=== PATIENT | female | born 1955 | race Caucasian/White ===

== ENCOUNTER 2019-10-27 10:52 | Emergency (ER) | payer MEDICAID, MEDICARE ==
--- NOTE | 2019-10-27 13:02 | ED ---
Headache - HPI Summary HPI Summary: Pt. is a 64 y.o female who presents to the ER for headache x 1 week. Pt. notes hx of migraines. Pt. states she just moved back to [place] from [place] and does not have a PCP. Pt. states she is currently staying at the homeless snf. Pt. states she typically takes fiorecet for migraines but states she ran out. Pt. states headache is different in location than her typical h/a. Pt. denies numbness, tingling or weakness. Denies recent illness, fever, cough, cp, sob. Sxs are moderate in severity. No current modifying factors. - History Of Current Complaint Chief Complaint: EDHeadache Stated Complaint: MIGRAINES PER PT Time Seen by Provider: 10/27/19 12:34 Hx Obtained From: Patient - Allergies/Home Medications Allergies/Adverse Reactions: Allergies Allergy/AdvReac Type Severity Reaction Status Date / Time amoxicillin Allergy Unknown Verified 10/27/19 10:58 Reaction Details fentanyl Allergy Unknown Verified 10/27/19 10:58 Reaction Details ketorolac [From Toradol] Allergy Unknown Verified 10/27/19 10:58 Reaction Details sulfamethoxazole Allergy Unknown Verified 10/27/19 10:58 [From Bactrim] Reaction Details trimethoprim [From Bactrim] Allergy Unknown Verified 10/27/19 10:58 Reaction Details Home Medications: Home Medications Ondansetron TAB* [Zofran 4 MG Tab*] 8 mg PO Q8H PRN 10/27/19 [History Confirmed 10/27/19] Pantoprazole TAB * [Protonix TAB*] 40 mg PO DAILY 10/27/19 [History Confirmed ] Simethicone [Gas Relief] 125 mg PO QID 10/27/19 [History Confirmed 10/27/19] Sucralfate TAB* [Carafate*] 1 gm PO QID 10/27/19 [History Confirmed 10/27/19] clonazePAM TAB(*) [KlonoPIN TAB(*)] 1 mg PO TID PRN 10/27/19 [History Confirmed 10/27/19] oxyCODONE TAB* [Roxycodone TAB 5 mg*] 10 mg PO Q6H PRN 10/27/19 [History Confirmed 10/27/19] PMH/Surg Hx/FS Hx/Imm Hx Previously Healthy: Yes Infectious Disease History: Yes Infectious Disease History: Denies: Traveled Outside the US in Last 30 Days - Family History Known Family History: Positive: Non-Contributory - Social History Occupation: Retired Lives: Correction - homeless snf Review of Systems Constitutional: Negative Negative: Fever, Chills Positive: Photophobia Positive: Ear Ache Cardiovascular: Negative Negative: Palpitations, Chest Pain Respiratory: Negative Negative: Shortness Of Breath, Cough Gastrointestinal: Negative Negative: Abdominal Pain, Vomiting, Diarrhea Genitourinary: Negative Negative: dysuria Musculoskeletal: Negative Skin: Negative Positive: Headache. Negative: Weakness, Paresthesia, Numbness, Syncope, Slurred Speech All Other Systems Reviewed And Are Negative: Yes Physical Exam Triage Information Reviewed: Yes Vital Signs On Initial Exam: Initial Vitals Temp Pulse Resp BP Pulse Ox 97.6 F 79 14 191/90 96 10/27/19 10:53 10/27/19 10:53 10/27/19 10:53 10/27/19 10:53 10/27/19 10:53 Vital Signs Reviewed: Yes Appearance: Positive: Well-Appearing - Pt. sitting up in bed in dark room. Answers questions appropriately. Skin: Positive: Warm, Dry Head/Face: Positive: Normal Head/Face Inspection, Other - Tenderness to top of scalp. No rash or hematoma noted.. Negative: Temporal Artery Tenderness Eyes: Positive: Normal, EOMI, RED, Conjunctiva Clear ENT: Positive: Pharynx normal, TMs normal Neck: Positive: Supple, Nontender. Negative: Nuchal Rigidity Respiratory/Lung Sounds: Positive: Clear to Auscultation, Breath Sounds Present. Negative: Rales, Rhonchi, Wheezes Cardiovascular: Positive: Normal, RRR Abdomen Description: Positive: Nontender, Soft Musculoskeletal: Positive: Normal, Strength/ROM Intact Neurological: Positive: Normal, Sensory/Motor Intact, Alert, Oriented to Person Place, Time, CN Intact II-III, Normal Gait, Finger to Nose - no dysmetria, Speech Normal. Negative: Pronator Drift Present Psychiatric: Positive: Anxious Procedures - Sedation Patient Received Moderate/Deep Sedation with Procedure: No Diagnostics - Vital Signs Vital Signs Temp Pulse Resp BP Pulse Ox 10/27/19 10:53 97.6 F 79 14 191/90 96 - Laboratory Result Diagrams: 10/27/19 14:34 10/27/19 14:34 Lab Statement: Any lab studies that have been ordered have been reviewed, and results considered in the medical decision making process. Headache Course/Dx - Course Course Of Treatment: Pt. with ongoing h/a x 1 week. Pt. notes h/a is different and more intense then her typical h/a. No neuro deficits. Afebrile. BP intially elevated which improved. Given change in h/a and age CT brain and labs ordered for further evaluation. ECG done at 1319 shows a sinus rhythm of 51bmp, nomral axis, no ST elevation. Lab show anemia, minimally elevated ESR. Normal crp. Brain ct negative for acute findings. Pt. noted fioricet typically works for her h/a and was given one tablet. 1600: On re-exam pt was noted to be walking in the hallway. Pt. states she was feeling better but h/a has returned. Case discussed with Dr. Meza who recommends further medication treatment but does not recommnd any further testing today. Pt. given another dose of fioricet, benadryl and reglan. WIll dc pt. home to . with the [facility] as soon as possible to establish a PCP. WIll return to ER if symptoms change or worsen. - Diagnoses Differential Diagnosis/HQI/PQRI: CVA, Epidural Hematoma, Subdural Hematoma, Meningitis, Migraine, Sinus Headache, Tension Headache Provider Diagnoses: Cephalgia Discharge ED - Sign-Out/Discharge Documenting (check all that apply): Patient Departure - Discharge Plan Condition: Improved Disposition: HOME Patient Education Materials: Migraine Headache (ED) Referrals: [facility] [Outside] Additional Instructions: Call the [facility] tomorrow morning to schedule an appointment as soon as possible They will be able to refill your medications Return to ER if symptoms change or worse - Billing Disposition and Condition Condition: IMPROVED Disposition: Home
[2019-10-27] MEDS ORDERED: Butalb/Acetamin/Caff TAB* 1 TAB PO ONE ×2 (13:33→16:27)
[2019-10-27 14:46] LABS: Hematocrit 29 % (35-47); Hemoglobin 9.6 g/dL (12.0-16.0); Red Blood Count 4.38 10^6 /uL (3.70-4.87); White Blood Count 7.1 10^3/uL (3.5-10.8)
[2019-10-27 14:52] LABS: Activated Partial Thrombo Time 31.3 seconds (26.0-38.0); INR 1.09 (0.82-1.09)
[2019-10-27 15:01] LABS: Albumin 4.6 g/dL (3.2-5.2); Albumin/Globulin Ratio 1.4 (1-3); BUN/Creatinine Ratio 18.4 (8-20); EGFR African American 92.4 (>60); EGFR Non-African American 76.4 (>60); Globulin 3.4 g/dL (2-4); Potassium 4.1 mmol/L (3.5-5.0); Total Bilirubin 0.3 mg/dL (0.2-1.0)
[2019-10-27 15:02] LABS: Troponin I 0.01 ng/mL (<0.03)
[2019-10-27 16:12] LABS: Erythrocyte Sed Rate 32 mm/Hr (0-29)
[2019-10-27 16:26] LABS: ABS Basophils 0.1 10^3/ul (0-0.2); ABS Lymphocytes 2.2 10^3/ul (1.0-4.8); ABS Monocytes 0.4 10^3/ul (0-0.8); ABS Neutrophils 4.4 10^3/ul (1.5-7.7); Eosinophil % 0.7 %; Mean Corpuscular HGB Conc 33 g/dL (31-36); Mean Corpuscular Hemoglobin 22 pg (27-31); Mean Corpuscular Volume 67 fL (80-97); Mean Platelet Volume 6.8 fL (7.4-10.4); Platelet Count 370 10^3/uL (150-450); Red Cell Distribution Width 21 % (10-15)
[2019-10-27] MEDS ORDERED: Metoclopramide TAB* 10 MG PO ONE (16:27)
[2019-10-27] MEDS ORDERED: diPHENhydraMINE PO* 25 MG PO ONE (16:27)
[2019-10-27 17:42] VITALS: BP 104/81
== END 2019-10-27 17:35 | disposition home or self-care (01) ==
LOC: ED 10:52
DX: R51 Headache (principal); Z79.899 Other long term (current) drug therapy; Z88.6 Allergy status to analgesic agent; Z88.1 Allergy status to other antibiotic agents; Z88.5 Allergy status to narcotic agent; Z88.2 Allergy status to sulfonamides
CPT/HCPCS: 36415; 70450; 80053; 84484; 85025; 85060; 85610; 85652; 85730; 93005; 99282; A9270-GY

== ENCOUNTER 2019-11-04 10:55 | Emergency (ER) | payer MEDICARE ==
--- NOTE | 2019-11-04 11:00 | ED ---
Altered Mental Status - HPI Summary HPI Summary: This patient is a 64 year old female presenting to [facility] with a chief complaint of altered mental status. EMS reports the patient has confusion and slurred speech. EMS states the patient has dentures and they might be lose. She complains of dryness in her mouth. She told EMS she took 10 mg of Oxycodone to treat some shoulder pain. She is currently staying at the [facility] a jail. - History Of Current Complaint Stated Complaint: ALTERED MENTAL STATUS PER EMS Hx Obtained From: Patient, EMS Character: Confusion - Allergies/Home Medications Allergies/Adverse Reactions: Allergies Allergy/AdvReac Type Severity Reaction Status Date / Time amoxicillin Allergy Unknown Verified 10/27/19 10:58 Reaction Details fentanyl Allergy Unknown Verified 10/27/19 10:58 Reaction Details ketorolac [From Toradol] Allergy Unknown Verified 10/27/19 10:58 Reaction Details sulfamethoxazole Allergy Unknown Verified 10/27/19 10:58 [From Bactrim] Reaction Details trimethoprim [From Bactrim] Allergy Unknown Verified 10/27/19 10:58 Reaction Details Home Medications: Home Medications Butalb/Acetamin/Caff TAB* [Fioricet TAB*] 1 tab PO Q4H PRN 11/04/19 [History Confirmed 11/04/19] PMH/Surg Hx/FS Hx/Imm Hx - Family History Known Family History: Positive: Non-Contributory - Social History Alcohol Use: None Substance Use Type: Reports: None Smoking Status (MU): Former Smoker Review of Systems Positive: Other - Dry mouth Neurological: Other - Confusion Positive: Slurred Speech All Other Systems Reviewed And Are Negative: Yes Physical Exam - Summary Physical Exam Summary: Constitutional: Well-developed, Well-nourished, Alert. (-) Distressed Skin: Warm, Dry HENT: Normocephalic; Atraumatic. Dry mucous membranes. Eyes: Conjunctiva normal Neck: Musculoskeletal ROM normal neck. (-) JVD, (-) Stridor, (-) Tracheal deviation Cardio: Rhythm regular, rate normal, Heart sounds normal; Intact distal pulses; The pedal pulses are 2+ and symmetric. Radial pulses are 2+ and symmetric. (-) Murmur Pulmonary/Chest wall: Effort normal. (-) Respiratory distress, (-) Wheezes, (-) Rales Abd: Soft. (-) Tenderness, (-) Distension, (-) Guarding, (-) Rebound Musculoskeletal: (-) Edema Lymph: (-) Cervical adenopathy Neuro: Alert, Oriented x3, Strength normal, Cranial nerves II-XII are grossly intact. (-) Dysmetria, (-) Nystagmus, (-) Ataxia by finger to nose testing, (-) Sensory deficit. Following commands, no focal deficits. Slurred speech, possibly secondary to narcotic effect. Psych: Mood and affect Normal Triage Information Reviewed: Yes Vital Signs On Initial Exam: Temp Pulse Resp BP Pulse Ox 98.1 F 66 16 114/65 97 11/04/19 11:01 11/04/19 11:01 11/04/19 11:01 11/04/19 11:01 11/04/19 11:01 Vital Signs Reviewed: Yes Procedures - Sedation Patient Received Moderate/Deep Sedation with Procedure: No Diagnostics - Vital Signs Temp Pulse Resp BP Pulse Ox 98.1 F 66 16 114/65 97 11/04/19 11:01 11/04/19 11:01 11/04/19 11:01 11/04/19 11:01 11/04/19 11:01 - Laboratory Result Diagrams: 11/04/19 11:26 11/04/19 11:26 Lab Statement: Any lab studies that have been ordered have been reviewed, and results considered in the medical decision making process. - Radiology CXR Radiology Interpretation Completed By: Radiologist Summary of Radiographic Findings: 1. No evidence for acute finding. 2. Slightly prominent right hilum. Recommend a CT of the chest with contrast for further evaluation. ED Provider has reviewed this report. - CT Chest CT Interpretation Completed By: Radiologist Summary of CT Findings: 1. No pulmonary mass identified. Prominent vascular markings, with ectatic right pulmonary artery, likely account for the same day radiographic abnormality. 2. In the context of severe biapical presdominant emphysema, annual low doese screening chest CT is recommended. 3. Old fracture through the neck of the right humerus. ED Provider has reviewed this report. Brain CT Interpretation Completed By: Radiologist Summary of CT Findings: No acute intracranial pathology. Chronic small vessel ischemic change. ED Provider has reviewed this report. CT Abd/Pel CT Interpretation Completed By: Radiologist Summary of CT Findings: No acute abdominal pelvic pathologic process evident. ED Provider has reviewed this report. - EKG 1136 Cardiac Rate: Bradycardia - 59 BPM EKG Rhythm: Sinus Rhythm Summary of EKG Findings: No STEMI. Dr. Boothe has reviewed and intepreted this EKG. Altered Mental Statu Course/Dx - Course Course Of Treatment: This patient is a 64 year old female presenting to [facility] with a chief complaint of altered mental status. Imaging was unremarkable for acute changes. Labs reveal Hgb 8.5 L, Hct 27 L, MCV 68 l, MCH 21 L, MPV 7.1 L, Carbon Dioxide 21 L, ALT [address] Tenorio, Hospitalist, accepted the patient for admission. This was discussed with the patient and she was agreeable with this plan. The patient then changed her mind and decided she would like to be discharged. A plan for this was discussed and she was agreeable. - Diagnoses Provider Diagnoses: Lethargy, Narcotic abuse, Homeless Discharge ED - Sign-Out/Discharge Documenting (check all that apply): Patient Departure - Discharge - Discharge Plan Condition: Stable Disposition: HOME Patient Education Materials: Narcotic Use Disorder (ED) Referrals: [facility] [Outside] Additional Instructions: Follow up with [facility]. - Attestation Statements Document Initiated by Scribe: Yes Documenting Scribe: Maximino Kelly Provider For Whom Scribe is Documenting (Include Credential): Jemal Boothe DO Scribe Attestation: Maximino Meléndez, scribed for Jemal Boothe DO on 11/04/19 at 1908. Status of Scribe Document: Ready
[2019-11-04] MEDS ORDERED: NS 0.9% 1000 ML** 1,000 ML IV ONE (11:06)
--- OUTSIDE RECORDS SUMMARY | 2019-11-04 11:10 | XMS REPORT | Continuity of Care Document ---
:1955 External Reference #:[id number] Author Name Camden Rondon MD (transmitted by agent of provider Yesy Cordova) Address [address] [place], [place] [address], [place] [address] Problems Description No Information Available Social History Type Date Description Comments Sex Unknown Allergies, Adverse Reactions, Alerts Description No Information Available Medications Description No Information Available Immunizations Description No Information Available Vital Signs Description No Information Available Results Description No Information Available Procedures Description No Information Available Medical Devices Description No Information Available Encounters Description No Information Available Assessments Description No Information Available Plan of Treatment Future Appointment(s):11/02/2019 9:00 am - Camden Rondon MD at [facility] Internal Medicine - [address] Functional Status Description No Information Available Mental Status Description No Information Available Referrals Description No Information Available
--- OUTSIDE RECORDS SUMMARY | 2019-11-04 11:10 | XMS REPORT | Continuity of Care Document ---
:1955 External Reference #:[id number] Author Name Camden Rondon MD (transmitted by agent of provider Stefania Rebolledo) Address [address] [place] [address] Care Team Providers Name Role Phone Camden Rondon MD - Student in an Care Team Information [employer]ized Health Care Education/Training Program Problems Description No Information Available Social History Type Date Description Comments Sex Unknown ETOH Use Denies alcohol use Tobacco Use Start: Unknown End: Unknown Patient is a former smoker Recreational Drug Use Denies Drug Use Smoking Status Reviewed: 11/02/19 Patient is a former smoker Allergies, Adverse Reactions, Alerts Active Allergies Reaction Severity Comments Date Fentanyl Moderate rash 11/02/2019 Ketorolac Tromethamine rash 11/02/2019 Erythromycin N&V 11/02/2019 Bactrim N&V 11/02/2019 Medications Active Medications SIG Qnty Indications Ordering Date Provider Frcsmqvwql-Uhyznyg-Na take 1 by mouth 30caps Shaniqua Gardner MD 11/02/2019 ffeine every 4 hours as 50-325-40mg needed for Capsules headaches Sucralfate take one tablet 120tabs Jazlynstkenny Rondon, 11/02/2019 1gm Tablets by mouth four MD times a day Oxycodone HCL 1 by mouth every 120tabs Jazlynstkenny Rondon, 11/02/2019 10mg 6 hours as needed MD Tablets Ondansetron take 1 every 8 30tabs Jazlynstkenny Rondon, 11/02/2019 8mg Tablets hours as needed MD Dispers nausea Pantoprazole Sodium 1 by mouth every 30tabs Camden Rondon, 11/02/2019 day MD 40mg Tablets DR Clonazepam 1 tablet by mouth 14tabs F41.9 Shaniqua Gardner MD 11/02/2019 1mg Tablets two times a day History Medications Clonazepam 1 tablet by mouth 90tabs Camden Rondon 11/02/2019 - 1mg three times daily 11/02/2019 Tablets Fiorinal take 1 tablet 90caps R51 Camden Rondon, 11/02/2019 - 50-325-40mg every 4 hour as MD 11/02/2019 Capsules needed Maximum daily dose is 6 tablets Immunizations Description No Information Available Vital Signs Date Vital Result Comment 11/02/2019 8:54am Height 61.50 inches 5'1.50" Weight 120.50 lb Heart Rate 86 /min BP Systolic 132 mmHg BP Diastolic 64 mmHg Body Temperature 96.2 F O2 % BldC Oximetry 95 % BMI (Body Mass Index) 22.4 kg/m2 Results Description No Information Available Procedures Description No Information Available Medical Devices Description No Information Available Encounters Description No Information Available Assessments Date Code Description Provider 11/02/2019 R51 Headache Camden Rondon MD 11/02/2019 K29.60 Other gastritis without bleeding Camden Rondon MD 11/02/2019 M25.532 Pain in left wrist Camden Rondon MD 11/02/2019 M25.511 Pain in right shoulder Camden Rondon MD 11/02/2019 M81.8 Other osteoporosis without current Camden Rondon MD pathological fracture 11/02/2019 Z12.11 Encounter for screening for malignant neoplasm Camden Rondon MD of colon 11/02/2019 F41.9 Anxiety disorder, unspecified Camden Rondon MD Plan of Treatment Future Appointment(s):11/07/2019 9:00 am - Camden Rondon MD at [facility] Internal Medicine - [address]/03/2019 - Camden Rondon, MDR51 HeadacheNew Medication: Fiorinal 50-325-40 mg - take 1 tablet every 4 hour as needed Maximum daily dose is 6 tabletsFollow up:1 week or sooner if needed. Please follow up with Dr. Rondon in 11/07/2019.K29.60 Other gastritis without bleedingNew Labs:Iron &amp ; Iron Binding Capacity, Ordered: 11/02/19Ferritin, Ordered: 11/02/19M25.532 Pain in left tcqdlU67.511 Pain in right mrkquovtG88.8 Other osteoporosis without current pathological fractureNew Labs:Vitamin D Total 25(Oh), Ordered: 11/02/19Pthi, Ordered: 11/02/19Celiac Panel, Ordered: 11/02/19Z12.11 Encounter for screening for malignant neoplasm of colonFollow up:[facility] previous records.F41.9 Anxiety disorder, unspecifiedNew Medication:Clonazepam 1 mg - 1 tablet by mouth two times a day Functional Status Description No Information Available Mental Status Description No Information Available Referrals Description No Information Available
[2019-11-04 11:56] LABS: ABS Basophils 0.1 10^3/ul (0-0.2); ABS Eosinophils 0.2 10^3/ul (0-0.6); ABS Lymphocytes 3.1 10^3/ul (1.0-4.8); ABS Monocytes 0.3 10^3/ul (0-0.8); ABS Neutrophils 2.1 10^3/ul (1.5-7.7); Eosinophil % 3.4 %; Hematocrit 27 % (35-47); Hemoglobin 8.5 g/dL (12.0-16.0); Lymphocyte % 53.8 %; Mean Corpuscular HGB Conc 31 g/dL (31-36); Mean Corpuscular Hemoglobin 21 pg (27-31); Mean Corpuscular Volume 68 fL (80-97); Mean Platelet Volume 7.1 fL (7.4-10.4); Platelet Count 275 10^3/uL (150-450); Red Blood Count 3.98 10^6 /uL (3.70-4.87); Red Cell Distribution Width 21 % (10-15); White Blood Count 5.7 10^3/uL (3.5-10.8)
[2019-11-04 12:00] LABS: Albumin 4.2 g/dL (3.2-5.2); Anion Gap 10 mmol/L (2-11); CO2 Carbon Dioxide 21 mmol/L (22-32); Calcium 9.3 mg/dL (8.6-10.3); Chloride 107 mmol/L (101-111); Potassium 4.3 mmol/L (3.5-5.0); Sodium 138 mmol/L (135-145)
[2019-11-04 12:06] LABS: ALT 6 U/L (7-52); AST 13 U/L (13-39); Albumin/Globulin Ratio 1.6 (1-3); Alkaline Phosphatase 85 U/L (34-104); BUN/Creatinine Ratio 25.7 (8-20); Blood Urea Nitrogen 29 mg/dL (6-24); EGFR African American 58.5 (>60); EGFR Non-African American 48.3 (>60); Globulin 2.6 g/dL (2-4); Glucose 80 mg/dL (70-100); Total Protein 6.8 g/dL (6.4-8.9)
[2019-11-04 12:14] LABS: Alcohol < 10 mg/dL (<10)
[2019-11-04] MEDS ORDERED: Iodixanol* (CONTRAST) 320 MG/ML 100 ML SDV IV ONE (12:22)
[2019-11-04] MEDS ORDERED: Acetaminophen TAB* 325 MG PO ONE (12:22)
[2019-11-04 15:44] LABS: Urine Appearance Clear; Urine Bilirubin Negative (Negative); Urine Blood Negative (Negative); Urine Color Straw; Urine Glucose Negative (Negative); Urine Ketones Negative (Negative); Urine Nitrite Negative (Negative); Urine Protein Negative (Negative); Urine Specific Gravity 1.012 (1.010-1.030); Urine Urobilinogen Negative (Negative)
[2019-11-04 19:34] VITALS: BP 127/77
== END 2019-11-04 19:32 | disposition home or self-care (01) ==
LOC: ED 10:55
DX: R53.83 Other fatigue (principal); R00.1 Bradycardia, unspecified; F11.10 Opioid abuse, uncomplicated; Z59.0 Homelessness; Z88.5 Allergy status to narcotic agent; Z88.0 Allergy status to penicillin; Z88.2 Allergy status to sulfonamides; Z87.891 Personal history of nicotine dependence
CPT/HCPCS: 36415; 70450; 71045; 71260; 74176; 80053; 80320; 81003; 82270; 84484; 85025; 93005; 96360; 96361; 99284; A9270-GY; G0480; Q9967

== ENCOUNTER 2019-11-14 23:02 | Emergency (ER) | payer MEDICARE, MEDICAID ==
[2019-11-14] MEDS ORDERED: Lidocaine 2% VISCOUS* 15 ML UDC PO ONE (23:21)
[2019-11-14] MEDS ORDERED: Al Hydrox/Mg Hydrox/Simet LIQ* 30 ML UDC PO ONE (23:21)
--- NOTE | 2019-11-14 23:28 | ED ---
GI/ HPI - HPI Summary HPI Summary: 64 year old female presents with abdominal pain today. She states the pain started at 3 PM. She's been nauseous. She states he took oxycodone with minimal relief. She denies any vomiting. Has history of gastritis gastroparesis and gallbladder issues. She states she did have a bowel movement yesterday. She denies any urinary symptoms. No chest pain or shortness of breath. She has history of chronic pain. - History of Current Complaint Chief Complaint: EDAbdPain Time Seen by Provider: 11/14/19 23:14 Stated Complaint: GENERAL PAIN PER EMS Pain Intensity: 10 - Allergy/Home Medications Allergies/Adverse Reactions: Allergies Allergy/AdvReac Type Severity Reaction Status Date / Time amoxicillin Allergy Unknown Verified 11/14/19 23:15 Reaction Details erythromycin base Allergy Nausea And Verified 11/14/19 23:15 Vomiting fentanyl Allergy Unknown Verified 11/14/19 23:15 Reaction Details ketorolac [From Toradol] Allergy Unknown Verified 11/14/19 23:15 Reaction Details sulfamethoxazole Allergy Unknown Verified 11/14/19 23:15 [From Bactrim] Reaction Details trimethoprim [From Bactrim] Allergy Unknown Verified 11/14/19 23:15 Reaction Details Home Medications: Home Medications Albuterol Sulfate [Ventolin Hfa] 2 puff INH Q6HR PRN 11/14/19 [History Confirmed 11/14/19] Ondansetron TAB* [Zofran 4 MG Tab*] 8 mg PO Q6HR PRN 11/14/19 [History Confirmed 11/14/19] Oxycodone IR 10 MG(NF) 10 mg PO Q6HR PRN 11/14/19 [History Confirmed 11/14/19] Pantoprazole TAB (NF) [Protonix TAB (NF)] 1 tab PO BID 11/14/19 [History Confirmed 11/14/19] Sucralfate TAB* [Carafate*] 1 tab PO DAILY 11/14/19 [History Confirmed 11/14/19] PMH/Surg Hx/FS Hx/Imm Hx Endocrine/Hematology History: Denies: Hx Anticoagulant Therapy Respiratory History: Denies: Hx Asthma - Surgical History Surgery Procedure, Year, and Place: lt great toe. right wrist pinning. EUA right knee Infectious Disease History: Yes Infectious Disease History: Denies: Traveled Outside the [place] in Last 30 Days - Family History Known Family History: Positive: Non-Contributory - Social History Alcohol Use: None Substance Use Type: Reports: None Smoking Status (MU): Former Smoker Review of Systems Negative: Fever Negative: Chest Pain Negative: Shortness Of Breath Positive: Abdominal Pain, Nausea. Negative: Vomiting, Diarrhea All Other Systems Reviewed And Are Negative: Yes Physical Exam Triage Information Reviewed: Yes Vital Signs On Initial Exam: Initial Vitals Temp Pulse Resp BP Pulse Ox 97.8 F 84 28 121/80 100 11/14/19 23:11 11/14/19 23:11 11/14/19 23:11 11/14/19 23:11 11/14/19 23:11 Vital Signs Reviewed: Yes Appearance: Positive: Well-Appearing Skin: Positive: Warm, Dry Head/Face: Positive: Normal Head/Face Inspection Eyes: Positive: Normal, Conjunctiva Clear ENT: Positive: Pharynx normal Respiratory/Lung Sounds: Positive: Clear to Auscultation, Breath Sounds Present Cardiovascular: Positive: Normal, RRR Abdomen Description: Positive: Soft, Other: - tenderness RUQ and LLQ Bowel Sounds: Positive: Present Musculoskeletal: Positive: Normal Neurological: Positive: Normal Psychiatric: Positive: Normal Procedures - Sedation Patient Received Moderate/Deep Sedation with Procedure: No Diagnostics - Vital Signs Vital Signs Temp Pulse Resp BP Pulse Ox 11/14/19 23:11 97.8 F 84 28 121/80 100 - Laboratory Result Diagrams: 11/14/19 23:36 11/14/19 23:40 Lab Statement: Any lab studies that have been ordered have been reviewed, and results considered in the medical decision making process. - Radiology abd Radiology Interpretation Completed By: ED Physician Summary of Radiographic Findings: stool present - Ultrasound No standard instances Ultrasound Interpretation Completed By: Radiologist Summary of Ultrasound Findings: IMPRESSION: Normal study. - EKG No standard instances Cardiac Rate: NL EKG Rhythm: Sinus Rhythm EKG Comparison: No Significant Change Summary of EKG Findings: sinus rhythm Re-Evaluation - Re-Evaluation First Eval Re-Evaluation Time: 00:55 Comment: offered tyenlol and patient declined states did nothing to treat pain. explained that not finding any infectious cause today and narcotics are not warranted at this time and patient became upset. GIGU Course/Dx - Course Course Of Treatment: 64 year old female presents with abdominal pain today. She states the pain started at 3 PM. She's been nauseous. She states he took oxycodone with minimal relief. She denies any vomiting. Has history of gastritis gastroparesis and gallbladder issues. She states she did have a bowel movement yesterday. She denies any urinary symptoms. No chest pain or shortness of breath. She has history of chronic pain. On exam patient is moaning in pain in position but when talks relax out from position. On exam abdomen is soft. no rigidity or guarding. Has tenderness in left upper quadrant and right upper quadrant. Greatest tenderness left upper quadrant. We'll try GI cocktail. wbc normal. crp normal. lipase and amylase normal. lfts low which is her baseline. gallbladder u/s normal. xrays shows stool throughout. will treat as potential gastritis with maalox. will also prescribe colace as patient takes naroctics daily and constipation is likely contributing to abdominal pain. patient became verbal aggressive here and states needs morphine which is the only thing that works for pain. patient has multiple scripts for pain medication over past months in her record for [facility]. as not finding any acute cause for pain morphine is not justified at this time. [facility] - Diagnoses Differential Diagnoses - Female: Gall Bladder Disease, Gastritis, Peptic Ulcer Disease Provider Diagnoses: Epigastric pain Discharge ED - Sign-Out/Discharge Documenting (check all that apply): Patient Departure - Discharge Plan Condition: Good Disposition: HOME Prescriptions: Al Hydrox/Mg Hydrox/Simet LIQ* [Maalox Plus*] 30 ml PO Q6H PRN #1 udc PRN Reason: Dyspepsia Docusate CAP* [Colace Cap*] 100 mg PO DAILY #14 cap Patient Education Materials: Epigastric Pain (ED) Referrals: [facility] [Outside] Leon Mora MD [Medical Doctor] - Additional Instructions: Take Maalox 30ml every 6 hours for epigastric pain as needed take carafate four times a day take tyenlol for pain every 6 hours [facility] follow up with GI Return to ED if develop any new or worsening symptoms - Billing Disposition and Condition Condition: GOOD Disposition: Home - Attestation Statements Provider Attestation: I was available for consultation for this patient. I did not evaluate the patient, or participate in any medical decision making or disposition decisions unless I am specifically named in the chart as having consulted on the patient. If I have consulted on the patient, please see my own ED note on the patient encounter. Easton Rapp MD
[2019-11-15 00:01] LABS: ABS Eosinophils 0.1 10^3/ul (0-0.6); ABS Lymphocytes 2.9 10^3/ul (1.0-4.8); ABS Monocytes 0.4 10^3/ul (0-0.8); ABS Neutrophils 2.9 10^3/ul (1.5-7.7); Eosinophil % 2.1 %; Hematocrit 27 % (35-47); Hemoglobin 8.4 g/dL (12.0-16.0); Lymphocyte % 46.2 %; Mean Corpuscular HGB Conc 31 g/dL (31-36); Mean Corpuscular Hemoglobin 22 pg (27-31); Mean Corpuscular Volume 71 fL (80-97); Mean Platelet Volume 6.9 fL (7.4-10.4); Nucleated Red Blood Cells % 0.1; Platelet Count 298 10^3/uL (150-450); Red Cell Distribution Width 21 % (10-15); White Blood Count 6.3 10^3/uL (3.5-10.8)
[2019-11-15 00:07] LABS: Albumin 3.8 g/dL (3.2-5.2); Calcium 9.1 mg/dL (8.6-10.3); Total Bilirubin 0.1 mg/dL (0.2-1.0)
[2019-11-15 00:13] LABS: Albumin/Globulin Ratio 1.4 (1-3); BUN/Creatinine Ratio 31.3 (8-20); C Reactive Protein 5.33 mg/L (<8.01); EGFR African American 87.1 (>60); Globulin 2.7 g/dL (2-4); Total Protein 6.5 g/dL (6.4-8.9)
[2019-11-15] MEDS ORDERED: Acetaminophen TAB* 325 MG PO ONE (00:38)
[2019-11-15] MEDS ORDERED: Docusate CAP* 100 MG PO ONE (00:44)
--- OUTSIDE RECORDS SUMMARY | 2019-11-15 00:56 | XMS REPORT | Continuity of Care Document ---
:1955 External Reference #:[id number] Author Name Jayant Tenorio MD (transmitted by agent of provider Charu Anderson) Address [address] [place] [id number] Care Team Providers Name Role Phone Camden Rondon MD - Student in an Care Team Information [employer] [phone] Organized Health Care Education/Training Program Problems Description No Information Available Social History Type Date Description Comments Sex Unknown ETOH Use Denies alcohol use Tobacco Use Start: Unknown End: Unknown Patient is a former smoker Recreational Drug Use Denies Drug Use Smoking Status Reviewed: 11/10/19 Patient is a former smoker Allergies, Adverse Reactions, Alerts Active Allergies Reaction Severity Comments Date Fentanyl Moderate rash 11/02/2019 Ketorolac Tromethamine rash 11/02/2019 Erythromycin N&V 11/02/2019 Bactrim N&V 11/02/2019 Medications Active Medications SIG Qnty Indications Ordering Provider Date Butalbital-Acetaminoph 1 tab by mouth 120tabs Jayant Tenorio MD 11/10/2019 en every 4 hours 50-325mg Tablets Ferrous Gluconate 1 by mouth once 60tabs D50.9 Jayant Tenorio MD 11/10/2019 a twice a day 324(37.5Fe) mg Tablets Alendronate Sodium take 2 tabs 60tabs M80.00xA Jayant Tenorio MD 11/10/2019 35mg daily Tablets Sucralfate take one tablet 120tabs Sristee Brandtaula, 11/02/2019 1gm Tablets by mouth four MD times a day Oxycodone HCL 1 by mouth 120tabs Sristee Niraula, 11/02/2019 10mg every 6 hours MD Tablets as needed Ondansetron take 1 every 8 30tabs Jazlynstee Nela, 11/02/2019 8mg Tablets hours as needed MD Dispers nausea Pantoprazole Sodium 1 by mouth 30tabs Camden Rondon, 11/02/2019 40mg every day MD Apoorva MARY Clonazepam 1 tablet by 14taashley F41.9 Jayant Tenorio MD 11/02/2019 1mg Tablets mouth two times a day History Medications Olulalqgfr-Ukybvks-Sxluysia take 1 by 30caps Shaniqua Gardner, 11/02/2019 - 50-325-40mg mouth every 4 MD 11/10/2019 Capsules hours as needed for headaches Clonazepam 1 tablet by 90emilie Hannah 11/02/2019 - 1mg Tablets mouth three MD Nela 11/02/2019 times daily Fiorinal take 1 tablet 90caps R51 Camden 11/02/2019 - 50-325-40mg Capsules every 4 hour MD Nela 11/02/2019 as needed Maximum daily dose is 6 tablets Immunizations Description No Information Available Vital Signs Date Vital Result Comment 11/10/2019 1:05pm Height 61.50 inches 5'1.50" Weight 121.00 lb Heart Rate 73 /min BP Systolic 128 mmHg BP Diastolic 79 mmHg Body Temperature 98.0 F O2 % BldC Oximetry 96 % BMI (Body Mass Index) 22.5 kg/m2 11/02/2019 8:54am Height 61.50 inches 5'1.50" Weight 120.50 lb Heart Rate 86 /min BP Systolic 132 mmHg BP Diastolic 64 mmHg Body Temperature 96.2 F O2 % BldC Oximetry 95 % BMI (Body Mass Index) 22.4 kg/m2 Results Test Acquired Date Facility Test Result H/L Range Note Laboratory test 11/10/2019 [facility] Vitamin D 30.9 ng/mL Normal 20-[address](Oh) [place], [place] [id number] [phone] Pthi 11/10/2019 [facility] Calcium (PTH 10.1 mg/dL Normal 8.6- 10.[address] Intact) [place] [address] [phone] PTH Intact 56.4 pg/mL Normal 12-88 Iron & Iron 11/10/2019 [facility] Total Iron 447 g/dL Normal 250-[address] [place] [address] Capacity [phone] Transferrin 319 mg/dL Normal 203-362 Iron < 20 g/dL Low 50-212 Unsaturated Iron Binding < 432 g/dL % Iron Saturation 4 % Low 15-55 Laboratory test 11/10/2019 [facility] Ferritin 4.8 ng/mL Low 11-[address] [place] [address] [phone] Total 25-Hydroxyvitamin D2 and D3 (25-OH-VitD) <10 ng/mL (severe deficiency) 10-19 ng/mL (mild to moderate deficiency) 20-50 ng/mL (optimum levels) 51-80 ng/mL (increased risk of hypercalciuria) >80 ng/mL (toxicity possible) Procedures Description No Information Available Medical Devices Description No Information Available Encounters Type Date Location Provider Dx Diagnosis Office Visit 11/02/2019 9:00a [facility] Camden Rondon MD R51 Headache - [address] K29.60 Other gastritis without bleeding M25.532 Pain in left wrist M25.511 Pain in right shoulder Z12.11 Encounter for screening for malignant neoplasm of colon F41.9 Anxiety disorder, unspecified M80.00xA Age-rel osteopor w current path fracture, unsp site, init Assessments Date Code Description Provider 11/10/2019 D50.9 Iron deficiency anemia, unspecified Jayant Tenorio MD 11/10/2019 M80.00xA Age-related osteoporosis with current Jayant Tenorio MD pathological fracture, unspecified site, initial encounter for fracture 11/10/2019 R51 Headache Jayant Tenorio MD 11/10/2019 F41.1 Generalized anxiety disorder Jayant Tenorio MD 11/10/2019 N17.9 Acute kidney failure, unspecified Jayant Tenorio MD 11/02/2019 R51 Headache Camden Rondon MD 11/02/2019 K29.60 Other gastritis without bleeding Camden Rondon MD 11/02/2019 M25.532 Pain in left wrist Camden Rondon MD 11/02/2019 M25.511 Pain in right shoulder Camden Rondon MD 11/02/2019 Z12.11 Encounter for screening for malignant Camden Rondon MD neoplasm of colon 11/02/2019 F41.9 Anxiety disorder, unspecified Camden Rondon MD 11/02/2019 M80.00xA Age-related osteoporosis with current Camden Rondon MD pathological fracture, unspecified site, initial encounter for fracture Plan of Treatment Future Appointment(s):11/30/2019 9:40 am - Jayant Tenorio MD at [facility] - [address]/11/2019 - Jayant Tenorio, MDD50.9 Iron deficiency anemia, unspecifiedNew Medication:Ferrous Gluconate 324(37.5 Fe) mg - 1 by mouth once a twice a dayM80.00xA Age-related osteoporosis with current pathological fracture , unspecified site, initial encounter for fractureNew Medication:Alendronate Sodium 35 mg - take 2 tabs dailyNew Xrays:Ankle Left 2 VWS, Ordered: Referral:Amaury Rodríguez MD, Maximino Davidson MD, Surgery, OrthopedicFollow up:back week of [id number] UwxrwvsxZ87.1 Generalized anxiety ayzklvuiJ02.9 Acute kidney failure, unspecified Functional Status Description No Information Available Mental Status Description No Information Available Referrals Refer to Dr Reason for Referral Status Appt Date Amaury Rodríguez MD severe osteoporsis with "35-45" fractures in life Created [address] [facility] [address] [place] [address] [phone] Maximino Elizabeth MD recent left ankle fracture, severe osteoporosis. Sent [address] [facility] [place] [address] [place] [address] [phone] Pollo Medina MD Has chronic pain. She was following with pain Created clinic in [place] and given oxycodone and asked to f/u in 2 weeks. [address] [place] [address] [phone]
[2019-11-15 01:09] VITALS: BP 0/0
[2019-11-15 01:42] LABS: Urine Appearance Clear; Urine Bilirubin Negative (Negative); Urine Blood Negative (Negative); Urine Color Yellow; Urine Glucose Negative (Negative); Urine Ketones Negative (Negative); Urine Nitrite Negative (Negative); Urine Protein Negative (Negative); Urine Urobilinogen Negative (Negative)
== END 2019-11-15 01:07 | disposition home or self-care (01) ==
LOC: ED 23:02
DX: R10.13 Epigastric pain (principal); Z87.891 Personal history of nicotine dependence; Z79.899 Other long term (current) drug therapy; Z88.0 Allergy status to penicillin; Z88.1 Allergy status to other antibiotic agents; Z88.2 Allergy status to sulfonamides; Z88.5 Allergy status to narcotic agent
CPT/HCPCS: 36415; 74018; 76705; 80053; 81003; 82150; 83690; 84484; 85025; 86140; 93005; 99283; A9270-GY

== ENCOUNTER 2019-12-08 15:50 | Inpatient (IN) | payer MEDICARE, MEDICAID ==
--- NOTE | 2019-12-08 16:27 | ED ---
Abdominal Pain/Female - HPI Summary HPI Summary: The patient is a 64 y/o arriving by ambulance to [facility] with a chief complaint of upper abdominal pain onset October 2019 but worsened yesterday. She describes the pain in the right and left upper quadrants and sharp and throbbing rated 10/10 in severity. She has taken Ibuprofen and Oxycodone to no relief of the pain. She endorses diaphoresis, nausea, and decreased appetite as eating worsens pain. She denies fever or urinary symptoms. She reports that she has previously been seen for this pain and She has an appointment with GI for an endoscopy consultation. Her last BM was yesterday. PMHx: cholecystitis, pancreatitis, hysterectomy. Current smoker, no EtOH, no substance use. Medications reviewed. Allergies noted. - History of Current Complaint Chief Complaint: EDAbdPain Stated Complaint: ABDOMINAL PAIN PER EMS Time Seen by Provider: 12/08/19 15:58 Hx Obtained From: Patient Onset/Duration: Lasting Days, Still Present Timing: Constant Severity Initially: Moderate Severity Currently: Severe Pain Intensity: 10 Pain Scale Used: 0-10 Numeric Location: Discrete At: RUQ, Discrete At: LUQ Radiates: No Character: Sharp, Other: - throbbing Aggravating Factor(s): Food Alleviating Factor(s): Nothing Associated Signs and Symptoms: Positive: Decreased Appetite, Nausea. Negative: Fever, Constipation, Urinary Symptoms Allergies/Adverse Reactions: Allergies Allergy/AdvReac Type Severity Reaction Status Date / Time amoxicillin Allergy Unknown Verified 11/24/19 18:50 Reaction Details erythromycin base Allergy Nausea And Verified 11/24/19 18:50 Vomiting fentanyl Allergy Unknown Verified 11/24/19 18:50 Reaction Details ketorolac [From Toradol] Allergy Unknown Verified 11/24/19 18:50 Reaction Details sulfamethoxazole Allergy Unknown Verified 11/24/19 18:50 [From Bactrim] Reaction Details trimethoprim [From Bactrim] Allergy Unknown Verified 11/24/19 18:50 Reaction Details PMH/Surg Hx/FS Hx/Imm Hx Endocrine/Hematology History: Denies: Hx Anticoagulant Therapy Respiratory History: Denies: Hx Asthma GI History: Reports: Hx Gall Bladder Disease - colecystitis, Other GI Disorders - chronic pancreatitis - Cancer History Hx Chemotherapy: No Hx Radiation Therapy: No - Surgical History Surgical History: Yes Surgery Procedure, Year, and Place: lt great toe. right wrist pinning. EUA right knee Infectious Disease History: Yes Infectious Disease History: Denies: Traveled Outside the [place] in Last 30 Days - Family History Known Family History: Positive: Cardiac Disease, Hypertension - Social History Alcohol Use: None Hx Substance Use: No Substance Use Type: Reports: None Hx Tobacco Use: Yes Smoking Status (MU): Light Every Day Tobacco Smoker Review of Systems Positive: Skin Diaphoresis. Negative: Fever Positive: Abdominal Pain, Nausea, Other - decreased appetite; Negative: constipation Positive: no symptoms reported All Other Systems Reviewed And Are Negative: Yes Physical Exam - Summary Physical Exam Summary: Appearance: The patient is well-nourished in no acute distress and in no acute pain. Skin: The skin is warm and dry, and skin color reflects adequate perfusion. HEENT: The head is normocephalic and atraumatic. The pupils are equal and reactive. The conjunctivae are clear and without drainage. Nares are patent and without drainage. Mouth reveals moist mucous membranes, and the throat is without erythema and exudate. The external ears are intact. The ear canals are patent and without drainage. The tympanic membranes are intact. Neck: The neck is supple with full range of motion and non-tender. There are no carotid bruits. There is no neck vein distension. Respiratory: Chest is non-tender. Lungs are clear to auscultation and breath sounds are symmetrical and equal. Cardiovascular: Heart is regular rate and rhythm. There is no murmur or rub auscultated. There is no peripheral edema and pulses are symmetrical and equal. Abdomen: The abdomen is soft and diffuse tenderness. There are normal bowel sounds heard in all four quadrants and there is no organomegaly palpated. Musculoskeletal: There is no back tenderness noted. Extremities are non-tender with full range of motion. There is good capillary refill. There is no peripheral edema or calf tenderness elicited. Neurological: Patient is alert and oriented to person, place and time. The patient has symmetrical motor strength in all four extremities. Cranial nerves are grossly intact. Deep tendon reflexes are symmetrical and equal in all four extremities. Psychiatric: The patient has an appropriate affect and does not exhibit any anxiety or depression. Triage Information Reviewed: Yes Vital Signs On Initial Exam: Initial Vitals Temp Pulse Resp BP Pulse Ox 97.6 F 74 24 117/82 92 12/08/19 15:54 12/08/19 15:54 12/08/19 15:54 12/08/19 15:54 12/08/19 15:54 Vital Signs Reviewed: Yes Procedures - Sedation Patient Received Moderate/Deep Sedation with Procedure: No Diagnostics - Vital Signs Vital Signs Temp Pulse Resp BP Pulse Ox 12/08/19 15:54 97.6 F 74 24 117/82 92 - Laboratory Result Diagrams: 12/08/19 17:09 12/08/19 16:45 Lab Statement: Any lab studies that have been ordered have been reviewed, and results considered in the medical decision making process. - CT Abd/Pel CT CT Interpretation Completed By: Radiologist Summary of CT Findings: Impression: 1. Prominent left abdominal small bowel loop measures up to 3 cm, early/partial obstruction not excluded. 2. No acute inflammatory process. ED physician has reviewed this report. Re-Evaluation - Re-Evaluation First Eval Re-Evaluation Time: 21:00 Comment: patient still experiencing nausea, will consult for admission Abdominal Pain Fem Course/Dx - Course Course Of Treatment: Ms. Stephenson had intractable pain here in the emergency department. Radiology read her CT scan as having an early partial small bowel obstruction. Dr. Bourgeois reviewed the CT and felt that this was more likely ileus. I spoke with Dr. Hidalgo for the hospitalists about admission and further workup. - Diagnoses Provider Diagnoses: Abdominal pain, Partial small bowel obstruction - Provider Notifications Discussed Care Of Patient With: Jerrica Bourgeois - surgery Time Discussed With Above Provider: 21:00 Instructed by Provider To: Other - I discussed the patients case with Dr. Bourgeois, who has reviewed the patients CT and states that there is not a small bowel obstruction. Dr. Hidalgo from hospitalist services accepts the patient for admission [2145]. Discharge ED - Sign-Out/Discharge Documenting (check all that apply): Patient Departure - Patient accepted for admission by Dr. Hidalgo. - Discharge Plan Condition: Stable Disposition: ADMITTED TO [facility] Referrals: Jayant Tenorio MD [Primary Care Provider] - - Billing Disposition and Condition Condition: STABLE Disposition: Admitted to [facility] - Attestation Statements Document Initiated by Scribe: Yes Documenting Scribe: Rhianna Dominguez Provider For Whom Scribe is Documenting (Include Credential): Dr. Vineet King MD Scribe Attestation: I, Rhianna Dominguez, scribed for Dr. Vineet King MD on 12/08/19 at 2153. Scribe Documentation Reviewed: Yes Provider Attestation: The documentation as recorded by the scribe, Rhianna Dominguez accurately reflects the service I personally performed and the decisions made by me, Dr. Vineet King MD Status of Scribe Document: Viewed
[2019-12-08] MEDS ORDERED: Morphine 4 MG/ML VIAL (1 ml) 4 MG/ML VIAL IV ONE (16:36)
--- OUTSIDE RECORDS SUMMARY | 2019-12-08 17:03 | XMS REPORT | Continuity of Care Document ---
:1955 External Reference #:[id number] Author Name Jayant Tenorio MD (transmitted by agent of provider Stefania Rebolledo) Address [address] [place] [id number] Care Team Providers Name Role Phone Camden Rondon MD - Student in an Care Team Information [employer] Worker Organized Health Care Education/Training Program Problems Description No Information Available Social History Type Date Description Comments Sex Unknown ETOH Use Denies alcohol use Tobacco Use Start: Unknown End: Unknown Patient is a former smoker Recreational Drug Use Denies Drug Use Smoking Status Reviewed: 11/30/19 Patient is a former smoker Allergies, Adverse Reactions, Alerts Active Allergies Reaction Severity Comments Date Fentanyl Moderate rash 11/02/2019 Ketorolac Tromethamine rash 11/02/2019 Erythromycin N&V 11/02/2019 Bactrim N&V 11/02/2019 Medications Active Medications SIG Qnty Indications Ordering Provider Date Creon take 1 cap by 90caps K86.81 Jayant Tenorio MD 11/30/[id number] vieira with Part every meal Alendronate Sodium take 2 pills of 60tabs Heidi Hidalgo, 11/11/2019 5mg 5mg each day or DO Tablets 1 10mg tab Butalbital-Acetaminoph 1 tab by mouth 15tabs Jayant Tenorio MD 11/10/2019 en every 4 hours 50-325mg Tablets but no more than 3 tabs in a day or 15 tabs a month Ferrous Gluconate 1 by mouth once 60tabs D50.9 Jayant Tenorio MD 11/10/2019 a twice a day 324(37.5Fe) mg Tablets Sucralfate take one tablet 120tabs Heidi Hidalgo, 11/02/2019 1gm Tablets by mouth four DO times a day Ondansetron take 1 every 8 30tabs Heidi Hidalgo, 11/02/2019 8mg Tablets hours as needed DO Dispers nausea Pantoprazole Sodium 1 by mouth 30tabs Camden Rondon 11/02/2019 40mg every day MD Apoorva MARY Clonazepam 1 tablet by 14tabs F41.9 Jayant Tenorio MD 11/02/2019 1mg Tablets mouth two times a day Oxycodone HCL take one every 60tabs Jayant Tenorio MD 11/02/2019 10mg 6 hours as Tablets needed for pain History Medications Alendronate Sodium take 2 tabs daily 60tabs M80.00xA Jayant Tenorio MD 2018 - 11/17/2019 35mg Tablets Butalbital-Aspirin- take 1 by mouth 30caps Shaniqua Gardner MD 11/02/2019 - Caffeine every 4 hours as 11/10/2019 needed for 50-325-40mg headaches Capsules Oxycodone HCL 1 by mouth every 120tabs Heidi Hidalgo 11/02/2019 - 10mg 6 hours as needed DO 11/17/2019 Tablets Clonazepam 1 tablet by mouth 90tabs Camden 11/02/2019 - 1mg three times daily MD Nela 11/02/2019 Tablets Fiorinal take 1 tablet 90caps R51 Camden 11/02/2019 - every 4 hour as MD Nela 11/02/2019 50-325-40mg needed Maximum Capsules daily dose is 6 tablets Immunizations Description No Information Available Vital Signs Date Vital Result Comment 11/30/2019 9:21am Height 61.50 inches 5'1.50" Weight 121.25 lb Heart Rate 72 /min BP Systolic Sitting 111 mmHg BP Diastolic Sitting 79 mmHg Body Temperature 97.8 F O2 % BldC Oximetry 97 % BMI (Body Mass Index) 22.5 kg/m2 11/10/2019 1:05pm Height 61.50 inches 5'1.50" Weight 121.00 lb Heart Rate 73 /min BP Systolic 128 mmHg BP Diastolic 79 mmHg Body Temperature 98.0 F O2 % BldC Oximetry 96 % BMI (Body Mass Index) 22.5 kg/m2 Results Test Acquired Date Facility Test Result H/L Range Note BMP W/Egfr 11/24/2019 [facility] Sodium 139 mmol/L Normal 135- [address] [place], [place] [id number] [phone] Potassium 4.5 mmol/L Normal 3.5-5.0 Chloride 104 mmol/L Normal 101-111 Co2 Carbon Dioxide 24 mmol/L Normal 22-32 Anion Gap 11 mmol/L Normal 2-11 Glucose 97 mg/dL Normal 70-100 Blood Urea Nitrogen 19 mg/dL Normal 6-24 Creatinine 0.78 mg/dL Normal 0.51-0.95 BUN/Creatinine Ratio 24.4 High 8-20 Calcium 9.7 mg/dL Normal 8.6-10.3 Egfr Non- 74.1 >60 Egfr 89.7 >60 1 Laboratory test 11/10/2019 [facility] Vitamin D 30.9 ng/mL Normal 20-[address](Oh) [place], [place] [id number] [phone] Pthi 11/10/2019 [facility] Calcium (PTH 10.1 mg/dL Normal 8.6- 10.[address] Intact) [place] [address] [phone] PTH Intact 56.4 pg/mL Normal 12-88 Celiac Panel 11/10/2019 [facility] Tissue Transglutaminase <1.2 U/mL [address] [place] [address] [phone] Immunoglobulin A 256 mg/dL 61 - 356 Celiac Interpretation See Comment 4 Iron & Iron 11/10/2019 [facility] Total Iron 447 g/dL Normal 250-[address] [place] [address] Capacity [phone] Transferrin 319 mg/dL Normal 203-362 Iron < 20 g/dL Low 50-212 Unsaturated Iron Binding < 432 g/dL % Iron Saturation 4 % Low 15-55 Laboratory test 11/10/2019 [facility] Ferritin 4.8 ng/mL Low 11-[address] [place] [address] [phone] 1 Because ethnic data is not always readily available, this report includes an eGFR for both -Americans and non- Americans. The National Kidney Disease Education Program (NKDEP) does not endorse the use of the MDRD equation for patients that are not between the ages of 18 and 70, are , have extremes of body size, muscle mass, or nutritional status, or are non- or non-. According to the National Kidney Foundation, irrespective of diagnosis, the stage of the disease is based on the level of kidney function: Stage Description GFR(mL/min/1.73 m(2)) 1 Kidney damage with normal or decreased GFR 90 2 Kidney damage with mild decrease in GFR 60-89 3 Moderate decrease in GFR 30-59 4 Severe decrease in GFR 15-29 5 Kidney failure <15 (or dialysis) 2 Total 25-Hydroxyvitamin D2 and D3 (25-OH-VitD) <10 ng/mL (severe deficiency) 10-19 ng/mL (mild to moderate deficiency) 20-50 ng/mL (optimum levels) 51-80 ng/mL (increased risk of hypercalciuria) >80 ng/mL (toxicity possible) 3 REFERENCE VALUE <4.0 (Negative) Test Performed by: [place] [address] Termite Exterminator: Gene Conn M.D. Ph.D.; CLIA# [id number] 4 Negative serology. Celiac disease unlikely. However, approximately 10% of patients with celiac disease are seronegative. Also, patients who are already adhering to a gluten-free diet may be seronegative. If celiac disease is highly clinically suspected, consider HLA-DQ typing. Test Performed by: [place] [address] Termite Exterminator: Gene Conn M.D. Ph.D.; CLIA# [id number] Procedures Description No Information Available Medical Devices Description No Information Available Encounters Type Date Location Provider Dx Diagnosis Office Visit 11/02/2019 9:00a [facility] Internal Medicine Camden Rondon MD R51 Headache - Suite [address] K29.60 Other gastritis without bleeding M25.532 Pain in left wrist M25.511 Pain in right shoulder Z12.11 Encounter for screening for malignant neoplasm of colon F41.9 Anxiety disorder, unspecified M80.00xA Age-rel osteopor w current path fracture, unsp site, init Assessments Date Code Description Provider 11/30/2019 D50.9 Iron deficiency anemia, unspecified Jayant Tenorio MD 11/30/2019 M80.00xA Age-related osteoporosis with current Jayant Tenorio MD pathological fracture, unspecified site, initial encounter for fracture 11/30/2019 R51 Headache Jayant Tenorio MD 11/30/2019 F41.1 Generalized anxiety disorder Jayant Tenorio MD 11/30/2019 K86.81 Exocrine pancreatic insufficiency Jayant Tenorio MD 11/30/2019 M54.2 Cervicalgia Jayant Tenorio MD 11/30/2019 M25.511 Pain in right shoulder Jayant Tenorio MD 11/30/2019 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 Jayant Tenorio MD 11/30/2019 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 Jayant Tenorio MD 11/10/2019 D50.9 Iron deficiency anemia, unspecified Jayant Tenorio MD 11/10/2019 M80.00xA Age-related osteoporosis with current Jayant Tenorio MD pathological fracture, unspecified site, initial encounter for fracture 11/10/2019 R51 Headache Jayant Tenorio MD 11/10/2019 F41.1 Generalized anxiety disorder Jayant Tenorio MD 11/10/2019 N17.9 Acute kidney failure, unspecified Jayant Tenorio MD 11/10/2019 K86.81 Exocrine pancreatic insufficiency Jayant Tenorio MD 11/10/2019 M54.2 Cervicalgia Jayant Tenorio MD 11/10/2019 M25.511 Pain in right shoulder Jayant Tenorio MD 11/10/2019 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 at [facility] at [facility]602/29/2020 3:00 pm - Amaury Rodríguez MD at [facility]11/30/2019 - Jayant Tenorio, MDD50.9 Iron deficiency anemia, rquizsgxyseI73.00xA Age-related osteoporosis with current pathological fracture , unspecified site, initial encounter for fractureFollow up:Week of Dec [id number] GbscruwmH94.1 Generalized anxiety iozgpywnH86.81 Exocrine pancreatic insufficiencyNew Medication:Creon 70820 Unit - take 1 cap by mouth with every mealM54.2 YqknslipocyQ45.511 Pain in right oqdvmabkR62.2 XxmrqheruyystV71.70 Gresham's esophagus without dysplasia Functional Status Description No Information Available Mental Status Description No Information Available Referrals Refer to Reason for Referral Status Appt Date Amaury Rodríguez MD severe osteoporsis with "35-45" Patient Notified 02/29/2020 fractures in life [address] [place] [address] [phone] Maximino Elizabeth MD recent left ankle fracture, severe osteoporosis. Sent [address] [facility] [place] [address] [phone] Leon Mora MD nausea. ?recent EGD with concern for small area Created of Gresham's, I don't have biopsy results yet. Hx of exocrine pancreatic insuficiency. [address] [place] [address] [phone] Jemal Armendariz M.D. Chronic headaches. Created [address] [facility] [place] [address] [phone] Pollo Medina MD Has chronic pain. She was following with [facility] [place] and given oxycodone and asked to f/u in [address] weeks[address] [place] [address] [phone]
[2019-12-08 17:05] LABS: Albumin 4.1 g/dL (3.2-5.2); Anion Gap 11 mmol/L (2-11); CO2 Carbon Dioxide 21 mmol/L (22-32); Calcium 9.3 mg/dL (8.6-10.3); Chloride 105 mmol/L (101-111); Potassium 4.1 mmol/L (3.5-5.0); Sodium 137 mmol/L (135-145)
[2019-12-08 17:11] LABS: ALT 8 U/L (7-52); AST 13 U/L (13-39); Albumin/Globulin Ratio 1.4 (1-3); Alkaline Phosphatase 93 U/L (34-104); BUN/Creatinine Ratio 21.6 (8-20); Blood Urea Nitrogen 19 mg/dL (6-24); C Reactive Protein 5.19 mg/L (<8.01); EGFR Non-African American 64.5 (>60); Glucose 88 mg/dL (70-100); Total Protein 7.1 g/dL (6.4-8.9)
[2019-12-08 17:20] LABS: Hematocrit 29 % (35-47); Hemoglobin 9.2 g/dL (12.0-16.0); Mean Corpuscular HGB Conc 32 g/dL (31-36); Mean Corpuscular Hemoglobin 23 pg (27-31); Mean Corpuscular Volume 71 fL (80-97); Mean Platelet Volume 6.8 fL (7.4-10.4); Platelet Count 317 10^3/uL (150-450); Red Blood Count 4.09 10^6 /uL (3.70-4.87); Red Cell Distribution Width 23 % (10-15); White Blood Count 6.7 10^3/uL (3.5-10.8)
[2019-12-08 17:48] LABS: Polychromasia 1+
[2019-12-08 17:52] LABS: ABS Basophils 0.1 10^3/ul (0-0.2); ABS Eosinophils 0.1 10^3/ul (0-0.6); ABS Lymphocytes 2.8 10^3/ul (1.0-4.8); ABS Monocytes 0.4 10^3/ul (0-0.8); ABS Neutrophils 3.4 10^3/ul (1.5-7.7); Eosinophil % 0.9 %; Lymphocyte % 41.5 %
[2019-12-08 19:00] LABS: Urine Appearance Clear; Urine Bilirubin Negative (Negative); Urine Blood Negative (Negative); Urine Color Straw; Urine Glucose Negative (Negative); Urine Ketones Negative (Negative); Urine Nitrite Negative (Negative); Urine Protein Negative (Negative); Urine Specific Gravity 1.006 (1.010-1.030); Urine Urobilinogen Negative (Negative)
[2019-12-08] MEDS ORDERED: Sucralfate TAB* 1 GM PO ONE (19:30)
[2019-12-08] MEDS ORDERED: Pantoprazole IV* 40 MG IV ONE (19:30)
[2019-12-08] MEDS ORDERED: HYDROmorphone INJ1* 1 MG/ML SYRINGE IV SLOW PU ONE (20:34)
[2019-12-08] MEDS ORDERED: Lidocaine 2% VISCOUS* 15 ML UDC PO ONE (23:06)
[2019-12-08] MEDS: Morphine 4 MG/ML VIAL (1 ml) 4 MG/ML VIAL IV SCH (23:31)
[2019-12-08] MEDS: Pantoprazole IV* 40 MG IV SCH (23:31)
[2019-12-08] MEDS ORDERED: Nicotine* 2MG (FRUIT FLAVOR) GUM PO PRN (23:50)
[2019-12-08] MEDS ORDERED: Lorazepam PYXIS KEY PRN (23:56)
[2019-12-09] MEDS: NS 0.9% 1000 ML** 1,000 ML IV SCH ×2 (00:40→12:04)
[2019-12-09] MEDS: LORazepam INJ* 2 MG/ML 1 ML VIAL IV PUSH PRN ×2 (00:57→12:39)
[2019-12-09] MEDS: Enoxaparin(*) 40 MG/0.4 ML SYR SUBCUT SCH ×2 (01:07→22:00)
--- NOTE | 2019-12-09 02:30 | HP ---
ADMISSION HISTORY AND PHYSICAL: DATE OF ADMISSION: 12/08/19 PROVIDER: Kannan Herman NP PRIMARY CARE PHYSICIAN: Dr. Tenorio. ATTENDING PHYSICIAN: Dr. Hidalgo.* (DICTATED BY KANNAN HERMAN NP) CONSULTING PHYSICIAN: Dr. Bourgeois. CHIEF COMPLAINT: Abdominal pain and nausea. HISTORY OF PRESENT ILLNESS: This is a 64-year-old female with a past medical history significant for pancreatitis, cholecystitis, and gastroparesis, and Gresham's esophagitis, who came to the emergency room on 12/08/19 for reports of ongoing worsening abdominal pain since October. She stated that since October she has had this sharp, throbbing pain in her bilateral upper quadrant , sometimes down into the right lower quadrant that is accompanied by intermittent diaphoresis, nausea, no vomiting. She has had a decreased appetite , states that eating makes the pain worse. She had 2 small bowel movements yesterday in the morning, none since and she is negative for flatus. She says that lately she has been lying in bed a lot due to generally not feeling well. She used to live in [place], but came back on 10/19/19 as she had no support down there and was homeless and since coming back she continues to be homeless. Her one friend wants to have nothing to do with her and so she [facility], though has 2 caseworkers who are trying to help her with placement in [place]. She also reports having had months of pain in the retrosternal and epigastric area that seems to be fairly better when taking her omeprazole. Of note, she has not been taking any laxatives lately alongside her oxycodone because she states the last time she took MiraLAX, she had had 3 episodes of loose bowel movements, so she stopped that, is not taking her lactulose as she does not like how it makes her feel and she is not taking any senna or Colace as Dr. Tenorio had prescribed for her because she cannot afford it because it needs to be bought [id number] and she states that she has no money right now. In the emergency room, she received morphine, Dilaudid, Protonix, and sucralfate and the hospitalists were asked to evaluate the patient for admission. PAST MEDICAL HISTORY: Pancreatitis, cholecystitis, GERD, anxiety, herniated disk in her neck, bipolar, osteoporosis, Gresham's esophagitis, gastroparesis. PAST SURGICAL HISTORY: Has had two surgeries per knee including meniscal repairs, three surgeries on her right shoulder due to a fall and a fracture, hysterectomy, left toe and right wrist percutaneous pinning. HOME MEDICATIONS: 1. Alendronate 10 mg p.o. daily. 2. Creon 36,000 units p.o. t.i.d. with meals though she states that she does not take this because it makes her stomach feel worse. 3. OxyContin 10 mg p.o. q.6 hours p.r.n. 4. Clonazepam 1 mg p.o. b.i.d. p.r.n. 5. Sucralfate 1 tab p.o. a.c. and h.s. 6. Pantoprazole 40 mg p.o. b.i.d. 7. Ondansetron 8 mg p.o. q.6 hours p.r.n. 8. Docusate 100 mg p.o. daily. 9. Fioricet 1 tab p.o. q.4 hours p.r.n. 10. Albuterol inhaler 2 puffs inhalation q.6 hours p.r.n. 11. Maalox 30 mL p.o. q.6 hours p.r.n. ALLERGIES: AMOXICILLIN, ERYTHROMYCIN, FENTANYL, KETOROLAC, SULFA, and TRIMETHOPRIM. FAMILY HISTORY: Her maternal grandmother had diabetes. Mother had diabetes and colon cancer. Father had heart disease. Paternal grandfather had heart disease. One sister had cancer and one sister had benign colon polyp. SOCIAL HISTORY: She quit smoking several months ago though still has cravings. Denies any EtOH or recreational substance use. She is out of work, disabled, is not , and has no children. REVIEW OF SYSTEMS: A 12-point system review was performed. All pertinent positives were included in the HPI. Pertinent negatives include no fever, chills, chest pain, palpitations, cough, shortness of breath. She is moving her bowels and bladder. No dysphagia. PHYSICAL EXAMINATION GENERAL: This is a chronically ill-looking woman who is in no current acute distress. VITAL SIGNS: 98.2 Fahrenheit, 69 pulse, 16 respirations, 93% oxygen on room air and 120/64 blood pressure. HEENT: Conjunctivae pink and moist. PERRLA. EOMs intact. Oropharynx clear. Mucous membranes dry. NECK: Supple. RESPIRATORY: Lung sounds clear throughout bilaterally on room air. No accessory muscle use noted. CARDIAC: S1, S2 present. Heart rate regular. No murmurs, gallops or rubs appreciated. No lower extremity edema. 2+ positive pedal pulses. ABDOMEN: Soft, distended, tender through the right lower and upper quadrants and left upper quadrant with hypoactive bowel sounds x4. MUSCULOSKELETAL: No clubbing or cyanosis of the digits. Limited range of motion to the right shoulder due to pain. SKIN: No open areas or rashes appreciated. NEUROLOGIC: Sensation intact to light touch. No focal deficits appreciated. PSYCH: Alert and oriented x3. Thought content organized. DIAGNOSTIC STUDIES/LAB DATA: Pertinent lab data: Hemoglobin 9.2, hematocrit 29, MCV 72, MCH 23, RDW 23. Carbon dioxide 21, BUN/creatinine ratio 21.6. Lactic acid 1.0. Urine is negative. Diagnostic Studies: Abdomen and pelvis CT showed prominent left abdominal small bowel loop measuring up to 3 cm, early/partial obstruction not excluded, no acute inflammatory process. ASSESSMENT AND PLAN: My impression is this is a 64-year-old female with a past medical history significant for pancreatitis, cholecystitis, Gresham's esophagitis, and gastroparesis, who was admitted on 12/08/19 for an ileus. 1. Ileus. Dr. Bourgeois had been consulted by the emergency department and she felt that this was an ileus, not a bowel obstruction and so as far conservative medical management, due to nausea and pain, we will insert an nasogastric tube, keep patient n.p.o., hydrated with normal saline at 100 mL per hour with morphine for pain control. I spoke with the patient, she states that she has got a chronic pain syndrome, which I understand, cautioned her that while morphine is available, it can contribute to delay in the ileus resolving, encouraged that she ambulate as much as she is physically capable of doing so, and we will order Protonix IV b.i.d. 2. Gastroesophageal reflux disease. She normally takes omeprazole twice a day. Instead, I will be giving her Protonix IV twice a day. 3. Anxiety. She normally takes clonazepam; however, due to her n.p.o. status with an NG tube, I will allow for Ativan twice a day as needed, again with educating the patient that this could contribute to the delay in her ileus resolving. We will put her clonazepam on hold. 4. Chronic pancreatitis. She normally has Creon ordered for her, though she states that she does not take it because she cannot stand how it makes her feel , stating it makes her abdominal pain worse. We will also hold her Carafate while she is n.p.o. 5. Chronic pain syndrome. I feel that because she had been taking her OxyContin without taking a laxative alongside and that contributed to her current ileus as well as lying in bed for the majority of the day, which I spoke to her about. I educated that if she is to take a narcotic, she also must take a laxative as well. 6. DVT prophylaxis: Initiate Lovenox. 7. Code status: Full code. DISPOSITION: To admit OBV to [address] [place] [address]. CONDITION: Guarded. TIME SPENT: Time spent on the patient is 60 minutes with half of that spent face to face. KANNAN HERMAN, SILK WEAVER [id number]/CPS #: [id number] MTDD
[2019-12-09] MEDS: Phenol 1.4% Spray* 177 ML BTL MT PRN ×4 (03:11→20:33)
[2019-12-09] MEDS: Ondansetron INJ* 2 MG/ML VIAL IV PRN ×3 (03:54→17:25)
[2019-12-09] MEDS: Morphine INJ* 4 MG/ML 1 ML SYRINGE (NEW SYRINGE VERSION) IV SCH ×5 (03:54→20:17)
[2019-12-09] MEDS: Morphine 4 MG/ML VIAL (1 ml) 4 MG/ML VIAL IV SCH (04:24)
[2019-12-09 06:10] LABS: ABS Eosinophils 0.1 10^3/ul (0-0.6); ABS Lymphocytes 2.6 10^3/ul (1.0-4.8); ABS Monocytes 0.4 10^3/ul (0-0.8); ABS Neutrophils 2.3 10^3/ul (1.5-7.7); Eosinophil % 1.7 %; Hematocrit 27 % (35-47); Hemoglobin 8.7 g/dL (12.0-16.0); Lymphocyte % 47.7 %; Mean Corpuscular HGB Conc 32 g/dL (31-36); Mean Corpuscular Hemoglobin 23 pg (27-31); Mean Corpuscular Volume 71 fL (80-97); Platelet Count 276 10^3/uL (150-450); Red Blood Count 3.87 10^6 /uL (3.70-4.87); Red Cell Distribution Width 23 % (10-15); White Blood Count 5.5 10^3/uL (3.5-10.8)
[2019-12-09 06:21] LABS: BUN/Creatinine Ratio 19.3 (8-20); Calcium 8.8 mg/dL (8.6-10.3); EGFR African American 83.5 (>60); Potassium 3.7 mmol/L (3.5-5.0)
[2019-12-09] MEDS: Pantoprazole IV* 40 MG IV SCH (12:03)
--- NOTE | 2019-12-09 17:50 | PN ---
Subjective Date of Service: 12/09/19 Interval History: Ms. Stephenson states she is feeling poorly today. She reports sore throat, nasal pain and states that the NG tube is irritating her. She c/o headache, sweats. She has had no BM or flatus in 2 days. She has h/o hysterectomy and tubal requiring surgical intervention. Objective Active Medications: Enoxaparin Sodium (Lovenox(*)) 40 mg SUBCUT Q24H [facility] Last Admin: 12/09/19 01:07 Dose: 40 mg Sodium Chloride (Ns 0.9% 1000 Ml) 1,000 mls @ 100 mls/hr IV PER RATE [facility] Last Admin: 12/09/19 12:04 Dose: 100 mls/hr Lorazepam (Ativan Inj*) 0.5 mg IV PUSH BID PRN PRN Reason: ANXIETY Last Admin: 12/09/19 12:39 Dose: 0.5 mg Miscellaneous (Ativan Pyxis Berman) 1 ea N/A .ATIVAN IV BERMAN PRN PRN Reason: PYXIS BERMAN Morphine Sulfate (Morphine Inj (Syringe)*) 4 mg IV Q4H [facility] Last Admin: 12/09/19 15:54 Dose: 4 mg Nicotine Polacrilex (Nicotine Gum*) 2 mg PO Q2H PRN PRN Reason: CRAVING Ondansetron HCl (Zofran Inj*) 4 mg IV Q4H PRN PRN Reason: NAUSEA/VOMITING Last Admin: 12/09/19 17:25 Dose: 4 mg Pantoprazole Sodium (Protonix Iv*) 40 mg IV Q12H [facility] Last Admin: 12/09/19 12:03 Dose: 40 mg Phenol/Menthol (Chloroseptic Throat [place]*) 1 spray MT TID PRN PRN Reason: SORE THROAT Last Admin: 12/09/19 17:25 Dose: 1 spray Vital Signs: Temp Pulse Resp BP Pulse Ox 97.4 F 69 20 109/50 93 12/09/19 11:15 12/09/19 11:15 12/09/19 16:07 12/09/19 11:15 12/09/19 11:15 Oxygen Devices in Use Now: Nasal Cannula Appearance: Ms. Stephenson is a 64 yof who appears very uncomfortable. She is in no respiratory distress. Eyes: No Scleral Icterus, PERRLA Ears/Nose/Mouth/Throat: NL Teeth, Lips, Gums, Clear Oropharnyx, Mucous Membranes Moist, - - NGT in place; unable to visualize posterior pharynx Neck: NL Appearance and Movements; NL JVP, Trachea Midline Respiratory: Symmetrical Chest Expansion and Respiratory Effort, Clear to Auscultation Cardiovascular: NL Sounds; No Murmurs; No JVD, RRR, No Edema Abdominal: No Hepatosplenomegaly, - - abdomen tender to palpation in LLQ, epigastric region; non-tender elsewhere Extremities: No Edema, No Clubbing, Cyanosis Neurological: Alert and Oriented x 3 Result Diagrams: 12/09/19 05:44 12/09/19 05:44 Assess/Plan/Problems-Billing Assessment: 64 PMHx jaimes's esophagus, chronic pancreatitis, gastroparesis, GERD, anxiety presents with abdominal pain, possible SBO. - Patient Problems (1) Small bowel obstruction Comment: -pt reports no BM, flatus in 2 days, abdominal pain -suspect SBO -chronic pain rx likely contributing to symptoms -NGT in place -continue NPO, IVF -continue IV PPI, sucralfate -surgical consult pending (2) Chronic pancreatitis Comment: -holding creon in setting of NPO (3) GERD (gastroesophageal reflux disease) Comment: -BID PPI (4) Anxiety Comment: -IV lorazepam while holding PO clonazepam (5) Chronic pain Comment: -IV morphine; resume home rx when able (6) Homeless Comment: -pt reportedly lives in hotel provided by residential - consulting (7) DVT prophylaxis Comment: -lovenox (8) Full code status Status and Disposition: Observation. Discharge when stable.
[2019-12-09] MEDS ORDERED: Polyethylene Glycol 3350* 17 GM PACKET PO PRN (18:24)
[2019-12-09] MEDS ORDERED: Magnesium Hydroxide LIQ* 30 ML UDC PO PRN (18:24)
[2019-12-09] MEDS ORDERED: Senna TAB 8.6 mg* TAB PO PRN (18:24)
[2019-12-09 18:31] LABS: TSH (Thyroid Stimulating Horm) 1.88 mcIU/mL (0.34-5.60)
[2019-12-09] MEDS: clonazePAM TAB(*) 1 MG PO PRN (20:35)
[2019-12-09] MEDS: Sucralfate TAB* 1 GM PO SCH (20:39)
[2019-12-09] MEDS: Docusate CAP* 100 MG PO SCH (20:44)
--- NOTE | 2019-12-09 20:53 | CONS ---
CC: [facility] CONSULTATION REPORT: DATE OF CONSULT: 12/09/19 REFERRING PROVIDER: Margret Gary NP. REASON FOR CONSULTATION: Abdominal pain with nausea. HISTORY OF PRESENT ILLNESS: Edita Stephenson is a 64-year-old woman with past medical history significant for pancreatitis, cholecystitis, gastroparesis, and [place] esophagus, who has had chronic pain syndrome, presented to the emergency room yesterday with complaints of generalized abdominal discomfort. She states this has been going on for several months. She had been seen in the emergency room in October of 2019, a CT scan at that time was unremarkable. Today's admission, her laboratory workup has all been unremarkable and no fever or tachycardia. She said she has had some loose bowel movements at home but nothing since admission. Laboratory workup included a normal white blood cell count with anemia today with a hemoglobin of 8.7 and an MCV of 71. Electrolytes, BUN and creatinine were all within normal limits. She had normal liver transaminases. Her total albumin was 4.1. She underwent a CT scan of the abdomen and pelvis. This was done without oral or IV contrast, I did review these images. This showed mild dilation of some proximal small bowel without evidence of a transition point. There did not appear to be wall thickening and no free fluid was noted. There were no other acute inflammatory process noted. It should be noted this was done without oral contrast. Nasogastric tube was inserted and and she has been treated as small bowel obstruction. Surgical consultation was obtained. PAST MEDICAL HISTORY: 1. Anxiety. 2. Chronic pain syndrome. 3. History of pancreatitis. 4. Back pain. 5. Bipolar disorder. PAST SURGICAL HISTORY: 1. Vaginal hysterectomy. 2. Laparoscopic tubal ligation. MEDICINES: Include: 1. Alendronate. 2. Creon. 3. OxyContin. 4. Clonazepam. 5. Sucralfate. 6. Pantoprazole. 8. Ondansetron. 7. Docusate. 8. Fioricet. 9. Albuterol inhaler. 10. Maalox. ALLERGIES: AMOXICILLIN, ERYTHROMYCIN, FENTANYL, KETOROLAC, SULFA, and TRIMETHOPRIM. SOCIAL HISTORY: She quit smoking several months ago. She denies any alcohol or recreational substance abuse. She is out of work, disabled. She lives in a holiday unit, which is cared for by a custodial. She has no children. FAMILY HISTORY: Paternal grandmother had diabetes. Mother had diabetes and colon cancer. Father had heart disease. REVIEW OF SYSTEMS: A 12-point review of systems was performed. It is difficult to obtain a specific review of systems, but all pertinent positives were included in the HPI. She denied any fever, chills, or chest pain. She had been moving her bowels and bladder without difficulty. PHYSICAL EXAM: She is afebrile, pulse rate in the 60s and 70s. General: She is an elderly appearing woman, appears older than her stated age. She appears to be somewhat uncomfortable. She is awake, alert, conversive. Lungs were clear to auscultation with normal respiratory effort. Heart was regular rate and rhythm without murmurs, rubs, or gallops. Her abdomen is soft, nondistended. She has a small incision at the umbilicus without hernia. She had normoactive bowel sounds throughout. She has some mild tenderness in the upper abdomen without rebound, guarding, or rigidity appreciated. No hernias or organomegaly. IMPRESSION: Abdominal pain for several months. This is her second CT scan since October. On the CT scan, there was noted to be a mild dilation of her proximal small bowel but no evidence of a transition point, no other acute findings. Nasogastric tube has been inserted with minimal amount of drainage. Laboratory workup has been unremarkable. I am not certain of the etiology of her discomfort. She apparently has a history of pancreatitis, which appears to be chronic, which can cause chronic upper abdominal discomfort. The CT scans were done without oral contrast, which is sometimes difficult to determine any small bowel abnormalities. I do not believe that she has a mechanical small bowel obstruction but what might be helpful is a small bowel study such as small bowel followthrough or a repeat CT scan with oral contrast to evaluate the small bowel anatomy better. At this point, I do not have any specific surgical recommendations. Certainly, other causes of pain that she describes could be ischemic, which require more of a mesenteric vascular workup with a CTA but her history is not completely consistent with this. I would recommend removing the nasogastric tube as it seems to have minimal drainage and it is irritating her throat, and follow her clinically. Thank you very much for the consultation. Above discussed with Margret Gary NP. We will follow closely with you. [id number]/[facility] #: [id number] [facility] CENTERRichard
[2019-12-09] MEDS: Butalb/Acetamin/Caff TAB* 1 TAB PO PRN (22:52)
[2019-12-10] MEDS: Pantoprazole IV* 40 MG IV SCH ×3 (00:10→20:31)
[2019-12-10] MEDS: Morphine INJ* 4 MG/ML 1 ML SYRINGE (NEW SYRINGE VERSION) IV SCH ×4 (00:10→12:50)
[2019-12-10] MEDS: NS 0.9% 1000 ML** 1,000 ML IV SCH ×2 (01:38→13:44)
[2019-12-10] MEDS: Butalb/Acetamin/Caff TAB* 1 TAB PO PRN ×3 (04:55→17:29)
[2019-12-10] MEDS: Sucralfate TAB* 1 GM PO SCH ×4 (08:31→20:31)
[2019-12-10] MEDS: Docusate CAP* 100 MG PO SCH (08:31)
[2019-12-10] MEDS: clonazePAM TAB(*) 1 MG PO PRN ×2 (09:06→19:58)
[2019-12-10] MEDS: PANCRELIPASE 36000 UNIT PO SCH ×3 (09:09→16:59)
[2019-12-10] MEDS: Ondansetron INJ* 2 MG/ML VIAL IV PRN ×2 (09:45→17:42)
[2019-12-10] MEDS ORDERED: Iohexol 300* (CONTRAST) 10 ML SDV IV ONE (10:09)
--- NOTE | 2019-12-10 11:49 | PN ---
Progress Note - Progress Note Date of Service: 12/10/19 SOAP: Subjective: Feels better with NGT out-no nausea Passed small amount of flatus Still with upper abdominal pain Objective: Temp Pulse Resp BP Pulse Ox 97.2 F 56 16 110/57 96 12/10/19 03:20 12/10/19 03:20 12/10/19 11:31 12/10/19 03:20 12/10/19 03:20 PEX: Abd is soft and non-distended. Some mild tenderness upper abdomen, no rebound, rigidity or guarding Assessment: Chronic abdominal pain ?? etiology Plan: Repeat CT today with oral and IV contrast to evaluate proximal small bowel ( abnormal on non-contrast recent CT)
--- NOTE | 2019-12-10 14:52 | PN ---
Subjective Date of Service: 12/10/19 Interval History: Ms. Stephenson states that she drank some broth today, and experience abdominal pain. She continues to have RUQ, RLQ, epigastric pain for almost 1 year, but reports that it has been worse in the last 3 months. She does not follow medically with anyone for this pain, but has recently moved from [place], where she received multiple work ups. She states that they thought is was her GB, her pancreas, or both. names obtained, and will request records. She reports some flatus today, no bowel movement. Objective Active Medications: Acetaminophen/Butalbital/Caffeine (Fioricet Tab*) 1 tab PO Q6H PRN PRN Reason: MIGRAINE HEADACHE Last Admin: 12/10/19 11:29 Dose: 1 tab Clonazepam (Klonopin Tab(*)) 1 mg PO BID PRN PRN Reason: ANXIETY Last Admin: 12/10/19 09:06 Dose: 1 mg Docusate Sodium (Colace Cap*) 100 mg PO DAILY [facility] Last Admin: 12/10/19 08:31 Dose: 100 mg Enoxaparin Sodium (Lovenox(*)) 40 mg SUBCUT Q24H [facility] Last Admin: 12/09/19 22:00 Dose: 40 mg Sodium Chloride (Ns 0.9% 1000 Ml) 1,000 mls @ 100 mls/hr IV PER RATE [facility] Last Admin: 12/10/19 13:44 Dose: 100 mls/hr Magnesium Hydroxide (Milk Of [place]ia Liq*) 30 ml PO BID PRN PRN Reason: CONSTIPATION Morphine Sulfate (Morphine Inj (Syringe)*) 4 mg IV Q4H [facility] Last Admin: 12/10/19 12:50 Dose: 4 mg Nicotine Polacrilex (Nicotine Gum*) 2 mg PO Q2H PRN PRN Reason: CRAVING Ondansetron HCl (Zofran Inj*) 4 mg IV Q4H PRN PRN Reason: NAUSEA/VOMITING Last Admin: 12/10/19 09:45 Dose: 4 mg Pancrelipase (Creon (Nf)) 36,000 units PO TID WITH MEALS [facility] Last Admin: 12/10/19 14:08 Dose: Not Given Pantoprazole Sodium (Protonix Iv*) 40 mg IV Q12H [facility] Last Admin: 12/10/19 12:52 Dose: 40 mg Phenol/Menthol (Chloroseptic Throat [place]*) 1 spray MT TID PRN PRN Reason: SORE THROAT Last Admin: 12/09/19 20:33 Dose: 1 spray Polyethylene Glycol/Electrolytes (Miralax*) 17 gm PO DAILY PRN PRN Reason: CONSTIPATION Senna (Senokot 8.6 Mg Tab*) 1 tab PO BEDTIME PRN PRN Reason: CONSTIPATION Sucralfate (Carafate*) 1 gm PO ACHS MEHRDAD Last Admin: 12/10/19 11:29 Dose: 1 gm Vital Signs: Temp Pulse Resp BP Pulse Ox 97.6 F 51 16 112/59 97 12/10/19 11:15 12/10/19 11:15 12/10/19 16:58 12/10/19 11:15 12/10/19 11:15 Oxygen Devices in Use Now: Nasal Cannula Appearance: Ms. Stephenson is sitting up in bed. She appears to be in a moderate amount of discomfort. Eyes: No Scleral Icterus, PERRLA Ears/Nose/Mouth/Throat: NL Teeth, Lips, Gums, Clear Oropharnyx, Mucous Membranes Moist Neck: NL Appearance and Movements; NL JVP, Trachea Midline Respiratory: Symmetrical Chest Expansion and Respiratory Effort, Clear to Auscultation Cardiovascular: NL Sounds; No Murmurs; No JVD, RRR, No Edema Abdominal: - - BS normoactive throughout; tender to palpation at RUQ, LUQ, epigastric region. Extremities: No Edema, No Clubbing, Cyanosis Neurological: Alert and Oriented x 3 Result Diagrams: 12/09/19 05:44 12/09/19 05:44 Assess/Plan/Problems-Billing Assessment: 64 PMHx jaimes's esophagus, chronic pancreatitis, gastroparesis, GERD, anxiety presents with abdominal pain for 1 year, worse in last 3 months, possible SBO. - Patient Problems (1) Abdominal pain Comment: -pt reports no BM, in 3 days, abdominal pain that has been chronic for years, worse in last 3 months; reports flatus today -CT shows SBO -chronic pain rx likely contributing to symptoms and constipation -NGT removed -CL diet -continue IV PPI, sucralfate -surgical suspects chronic pancreatitis -opiates likely contributing to decreased bowel movement; add on bowel regimen now that tolerating PO -patient states she has had extensive work up in [place]; records requested -CT abd/pel with contrast pending (2) Chronic pancreatitis Comment: -continue home Creon (3) GERD (gastroesophageal reflux disease) Comment: -BID PPI (4) Anxiety Comment: -continue home clonazepam (5) Chronic pain Comment: -continue home oxycodone -has appointment at pain clinic scheduled (6) Homeless Comment: -pt reportedly lives in hotel provided by [facility] -[place] consulting (7) DVT prophylaxis Comment: -lovenox (8) Full code status Status and Disposition: Observation. Discharge when stable.
[2019-12-10] MEDS: oxyCODONE TAB* 5 MG TAB PO PRN (16:58)
[2019-12-10] MEDS: Enoxaparin(*) 40 MG/0.4 ML SYR SUBCUT SCH (20:31)
[2019-12-10] MEDS ORDERED: Morphine INJ* 4 MG/ML 1 ML SYRINGE (NEW SYRINGE VERSION) IV PRN (20:45)
[2019-12-11] MEDS: Butalb/Acetamin/Caff TAB* 1 TAB PO PRN ×4 (00:10→20:41)
[2019-12-11] MEDS: oxyCODONE TAB* 5 MG TAB PO PRN ×3 (01:56→14:21)
[2019-12-11 05:58] LABS: ABS Eosinophils 0.1 10^3/ul (0-0.6); ABS Lymphocytes 1.8 10^3/ul (1.0-4.8); ABS Monocytes 0.3 10^3/ul (0-0.8); ABS Neutrophils 2.1 10^3/ul (1.5-7.7); Hematocrit 28 % (35-47); Hemoglobin 8.9 g/dL (12.0-16.0); Lymphocyte % 40.5 %; Mean Corpuscular HGB Conc 32 g/dL (31-36); Mean Corpuscular Hemoglobin 22 pg (27-31); Mean Corpuscular Volume 70 fL (80-97); Mean Platelet Volume 6.7 fL (7.4-10.4); Platelet Count 281 10^3/uL (150-450); Red Blood Count 4.03 10^6 /uL (3.70-4.87); Red Cell Distribution Width 22 % (10-15); White Blood Count 4.5 10^3/uL (3.5-10.8)
[2019-12-11 06:09] LABS: Anion Gap 7 mmol/L (2-11); BUN/Creatinine Ratio 12.9 (8-20); Blood Urea Nitrogen 11 mg/dL (6-24); CO2 Carbon Dioxide 25 mmol/L (22-32); Calcium 8.9 mg/dL (8.6-10.3); Chloride 106 mmol/L (101-111); EGFR African American 81.2 (>60); EGFR Non-African American 67.1 (>60); Glucose 94 mg/dL (70-100); Potassium 3.9 mmol/L (3.5-5.0); Sodium 138 mmol/L (135-145)
[2019-12-11] MEDS: PANCRELIPASE 36000 UNIT PO SCH ×3 (08:10→16:46)
[2019-12-11] MEDS: Sucralfate TAB* 1 GM PO SCH ×4 (08:15→20:33)
[2019-12-11] MEDS: Docusate CAP* 100 MG PO SCH (08:15)
[2019-12-11] MEDS: clonazePAM TAB(*) 1 MG PO PRN ×2 (08:31→20:33)
[2019-12-11] MEDS: Pantoprazole IV* 40 MG IV SCH ×2 (08:31→20:34)
[2019-12-11] MEDS: Ondansetron INJ* 2 MG/ML VIAL IV PRN ×2 (08:32→19:35)
--- NOTE | 2019-12-11 10:47 | PN ---
Progress Note - Progress Note Date of Service: 12/11/19 SOAP: Subjective: Still with some upper abdominal pain Tolerating some po Had small loose BM yesterday Objective: Temp Pulse Resp BP Pulse Ox 98 F 57 16 110/65 97 12/11/19 02:43 12/11/19 02:43 12/11/19 08:31 12/11/19 03:06 12/11/19 02:43 Intake & Output 12/09/19 12/10/19 12/11/19 12/12/19 06:59 06:59 06:59 06:59 Intake Total 1000 3762 Output Total 20 900 Balance -20 1000 2862 Weight 120 lb Intake: IV Fluids 1000 1152 IVPB 990 Oral 0 1620 Output: Urine 20 900 Other: Estimated Void Medium # Voids 2 0 PEX: Comfortable Abd is soft and non-distended. Bowel sounds are present and normoactive Mild tenderness upper abdomen without guarding, rebound or rigidity Laboratory Results - last 24 hr 12/11/19 12/11/19 05:42 05:42 WBC 4.5 RBC 4.03 Hgb 8.9 L Hct 28 L MCV 70 L MCH 22 L MCHC 32 RDW 22 H Plt Count 281 MPV 6.7 L Neut % (Auto) 48.1 Lymph % (Auto) 40.5 [place] % (Auto) 7.5 Eos % (Auto) 3.0 Baso % (Auto) 0.9 Absolute Neuts (auto) 2.1 Absolute Lymphs (auto) 1.8 Absolute Monos (auto) 0.3 Absolute Eos (auto) 0.1 Absolute Basos (auto) 0.0 Absolute Nucleated RBC 0.0 Nucleated RBC % 0.0 Sodium 138 Potassium 3.9 Chloride 106 Carbon Dioxide 25 Anion Gap 7 BUN 11 Creatinine 0.85 Est GFR ( Amer) 81.2 Est GFR (Non-Af Amer) 67.1 BUN/Creatinine Ratio 12.9 Glucose 94 Calcium 8.9 Lipase < [address] 12/10 reviewed-no SBO or other acute abnormality--? pancreatic inflammation Assessment: Chronic abdominal pain--no sign of SBO. CT done 11/04 without bowel abnormality. ? etiology of her pain- Per H and P she has history of pancreatitis and is on Creon but she is not certain how she was given this diagnosis and not clear per records available on [employer]. She denies history of alcohol abuse. ? pancreatitis as cause of her pain. No surgical intervention indicated at this point Plan: ? consider GI consult Please call with any questions, will sign off.
[2019-12-11] MEDS: Metoclopramide TAB* 10 MG PO SCH ×2 (12:03→16:11)
[2019-12-11] MEDS: Morphine ORAL.SOLN 10 mg* 2 MG/ML UDC 5 ml PO PRN ×2 (16:11→22:23)
--- NOTE | 2019-12-11 19:04 | PN ---
Subjective Date of Service: 12/11/19 Interval History: States that pain to abdomen is slightly better than when she initially came in, though still present to bilateral upper quadrants and retrosternal. Denies nausea or vomiting. Feels that her oxycodone does nothing. Reports having been on morphine prior to moving to [place]. Feels that her current pain regimen is unsatisfactory. Family History: Unchanged from Admission Social History: Unchanged from Admission Past Medical History: Unchanged from Admission Objective Active Medications: Acetaminophen/Butalbital/Caffeine (Fioricet Tab*) 1 tab PO Q6H PRN PRN Reason: MIGRAINE HEADACHE Last Admin: 12/11/19 14:21 Dose: 1 tab Clonazepam (Klonopin Tab(*)) 1 mg PO BID PRN PRN Reason: ANXIETY Last Admin: 12/11/19 08:31 Dose: 1 mg Docusate Sodium (Colace Cap*) 100 mg PO DAILY [facility] Last Admin: 12/11/19 08:15 Dose: 100 mg Enoxaparin Sodium (Lovenox(*)) 40 mg SUBCUT 2200 [facility] Last Admin: 12/10/19 20:31 Dose: Not Given Magnesium Hydroxide (Milk Of MagnHemp 4 [place] Liq*) 30 ml PO BID PRN PRN Reason: CONSTIPATION Metoclopramide HCl (Reglan Tab*) 5 mg PO AC [facility] Last Admin: 12/11/19 16:11 Dose: 5 mg Morphine Sulfate (Morphine Oral.Soln 10 Mg*) 15 mg PO QID PRN PRN Reason: PAIN - SEVERE Last Admin: 12/11/19 16:11 Dose: 15 mg Nicotine Polacrilex (Nicotine Gum*) 2 mg PO Q2H PRN PRN Reason: CRAVING Ondansetron HCl (Zofran Inj*) 4 mg IV Q4H PRN PRN Reason: NAUSEA/VOMITING Last Admin: 12/11/19 08:32 Dose: 4 mg Pancrelipase (Creon (Nf)) 36,000 units PO TID WITH MEALS [facility] Last Admin: 12/11/19 16:46 Dose: Not Given Pantoprazole Sodium (Protonix Iv*) 40 mg IV 1000,2200 [facility] Last Admin: 12/11/19 08:31 Dose: 40 mg Phenol/Menthol (Chloroseptic Throat [place]*) 1 spray MT TID PRN PRN Reason: SORE THROAT Last Admin: 12/09/19 20:33 Dose: 1 spray Polyethylene Glycol/Electrolytes (Miralax*) 17 gm PO DAILY PRN PRN Reason: CONSTIPATION Senna (Senokot 8.6 Mg Tab*) 1 tab PO BEDTIME PRN PRN Reason: CONSTIPATION Sucralfate (Carafate*) 1 gm PO ACHS MEHRDAD Last Admin: 12/11/19 16:11 Dose: 1 gm Vital Signs - 8 hr 12/11/19 12/11/19 12/11/19 12:58 14:21 15:38 Temperature 97.1 F 97.4 F Pulse Rate 46 65 Respiratory 20 16 18 Rate Blood Pressure 105/46 117/57 (mmHg) O2 Sat by Pulse 100 100 Oximetry 12/11/19 12/11/19 16:11 18:52 Temperature Pulse Rate Respiratory 16 16 Rate Blood Pressure (mmHg) O2 Sat by Pulse Oximetry Oxygen Devices in Use Now: Nasal Cannula Appearance: Well developed woman seen resting in bed, no acute distress. Eyes: No Scleral Icterus, PERRLA Ears/Nose/Mouth/Throat: NL Teeth, Lips, Gums, Clear Oropharnyx, Mucous Membranes Moist Neck: NL Appearance and Movements; NL JVP, Trachea Midline Respiratory: Symmetrical Chest Expansion and Respiratory Effort, Clear to Auscultation Cardiovascular: NL Sounds; No Murmurs; No JVD, RRR, No Edema Abdominal: NL Sounds; No Tenderness; No Distention Lymphatic: No Cervical Adenopathy Extremities: No Edema, No Clubbing, Cyanosis Skin: No Rash or Ulcers, No Nodules or Sclerosis Neurological: Alert and Oriented x 3 Lines/Tubes/Other Access: Clean, Dry and Intact Peripheral IV Result Diagrams: 12/11/19 05:42 12/11/19 05:42 Assess/Plan/Problems-Billing Assessment: 64 PMHx jaimes's esophagus, chronic pancreatitis, gastroparesis, GERD, anxiety presents with abdominal pain for 1 year, worse in last 3 months, possible SBO. - Patient Problems (1) Abdominal pain Current Visit: Yes Status: Acute Code(s): R10.9 - UNSPECIFIED ABDOMINAL PAIN SNOMED Code(s): 25845422 Comment: -Initially felt to be due to ileus secondary to narcotic use without opposing laxative use. Upon admission, was not passing gas, had an NGT. Appears to have resolved. Positive for flatus now, is tolerating regular diet. -chronic pain rx likely contributing to symptoms and constipation -continue IV PPI, sucralfate -patient states she has had extensive work up in [place]; records requested -CT abd/pel with contrast showed mild peripancreatic inflammation. Surgery has signed off. GI consulted. Per Dr. Fraser's recommendation, tomorrow we will obtain an MRCP, mesenteric artery ultrasound and EGD. To be NPO after midnight. -Added reglan AC to her regimen due to reports of gastroparesis. (2) Anxiety Current Visit: Yes Status: Acute Code(s): F41.9 - ANXIETY DISORDER, UNSPECIFIED SNOMED Code(s): 60525507 Comment: -continue home clonazepam (3) Chronic pain Current Visit: Yes Status: Acute Code(s): G89.29 - OTHER CHRONIC PAIN SNOMED Code(s): 62444104 Comment: -[place] oxycodone was not adequately helping pain. Stated that she had been on morphine IR and ER in [place]. D/Taj oxy and order prn morphine PO. -Has appointment at pain clinic scheduled (4) Chronic pancreatitis Current Visit: Yes Status: Acute Code(s): K86.1 - OTHER CHRONIC PANCREATITIS SNOMED Code(s): 671568480 Comment: -Will have imaging done tomorrow per recommendation of Dr. Aquiles Velazco to more closely evaluate pancreas. She castillo snot feel that patient needs to be on Creon. D/Taj this med. (5) GERD (gastroesophageal reflux disease) Current Visit: Yes Status: Acute Code(s): K21.9 - GASTRO-ESOPHAGEAL REFLUX DISEASE WITHOUT ESOPHAGITIS SNOMED Code(s): 968419321 Comment: -BID PPI (6) Homeless Current Visit: Yes Status: Acute Code(s): Z59.0 - HOMELESSNESS SNOMED Code (s): 84137849 Comment: -pt reportedly lives in hotel provided by [facility] - consulting (7) Migraine Current Visit: Yes Status: Acute Code(s): G43.909 - MIGRAINE, UNSP, NOT INTRACTABLE, WITHOUT STATUS MIGRAINOSUS SNOMED Code(s): 62199658 Comment: -Continue fioricet as needed. (8) DVT prophylaxis Current Visit: Yes Status: Acute Code(s): Z29.9 - ENCOUNTER FOR PROPHYLACTIC MEASURES, UNSPECIFIED SNOMED Code(s): 363761552 Comment: -lovenox (9) Full code status Current Visit: Yes Status: Acute Code(s): Z78.9 - OTHER SPECIFIED HEALTH STATUS SNOMED Code(s): 459544477 Status and Disposition: Observation. Discharge when stable.
--- NOTE | 2019-12-11 19:51 | CONS ---
CC: Noreen Herman NP * GASTROENTEROLOGY CONSULT REPORT: DATE OF CONSULT: 12/11/19 REQUESTING PROVIDER: Noreen Herman NP REASON FOR CONSULT: Abdominal pain. HISTORY OF PRESENT ILLNESS: Ms. Stephenson is a 64-year-old woman with a history of chronic pancreatitis, gastroparesis, GERD and Gresham's esophagus, as well as osteoporosis complicated by fractures, who was admitted with acute on chronic abdominal pain. History challenging to obtain as the patient's prior medical care was in [place], [place]. Per the patient's report, Ms. Stepehnson was told that she had pancreatitis several years ago. The source of the pancreatitis was not identified. The patient denies alcohol use. She also mentions that there was something wrong with her gallbladder, but she did not have a cholecystectomy. She has been placed on pancreatic enzymes in the past, although she has not used them recently as she feels that the Creon makes her abdominal pain worse. She carries a diagnosis of gastroparesis of unclear etiology. She recalls having a gastric emptying study done a number of years ago. She has not been on medical therapy for the gastroparesis. She has a history of reflux and is on pantoprazole 40 mg twice daily. She believes EGD was performed last summer and demonstrated Gresham's esophagus. In regards to current admission, Ms. Stephenson states that she has had chronic abdominal pain for several years. This abdominal pain worsened over the last few weeks. In particular, the pain became much worse over the last few days. She describes the pain in the epigastric area as well as along the left and right lateral abdomen. She is not able to identify any aggravating or alleviating factors. No clear change with p.o. intake. She reports significant nausea without vomiting. The Zofran is effective in helping prevent the vomiting. She has been having normal bowel movements every other day while taking MiraLAX. No rectal bleeding noted. Last bowel movement was today. She reports losing weight a year and half ago, but no weight loss recently. On review of GI symptoms, Ms. Stephenson denies any dysphagia. She denies any significant breakthrough reflux. No diarrhea. Constipation managed with MiraLAX as above. Last EGD demonstrated Gresham's reportedly and was performed last summer. She believed she had a colonoscopy a few years ago. All of these studies were performed in [place]. PAST MEDICAL HISTORY: 1. Pancreatitis - further details unknown. 2. Abnormal gallbladder - details unknown. 3. GERD with Gresham's. 4. Anxiety. 5. ADHD. 6. Osteoporosis with multiple fractures. 7. Gastroparesis - details unknown. PAST SURGICAL HISTORY: No abdominal surgeries. Multiple musculoskeletal surgeries including knee, shoulder, feet, and wrists. HOME MEDICATIONS: 1. Alendronate 10 mg daily. 2. OxyContin 10 mg every 6 hours as needed. 3. Clonazepam 1 mg twice daily as needed. 4. Sucralfate 1 tablet with meals and at bedtime. 5. Pantoprazole 40 mg twice daily. 6. Ondansetron 8 mg every 6 hours as needed. 7. Docusate 100 mg daily. 8. Fioricet 1 tab every 4 hours as needed. 9. Albuterol inhaler. 10. Maalox as needed. 11. Creon is on her list, although the patient denies using this. ALLERGIES: To AMOXICILLIN, ERYTHROMYCIN, FENTANYL, KETOROLAC, SULFA, and TRIMETHOPRIM. FAMILY HISTORY: Mother with colon cancer. Sister with colon polyps. No other known GI or liver disease. SOCIAL HISTORY: The patient originally from [place]. Currently here to stay alf. Currently homeless and living in a half-way. Long-term smoker. Currently smoking 3 to 4 cigarettes a day. No significant alcohol use. No drug use. REVIEW OF SYSTEMS: The patient complains of severe osteoporosis with fractures. She complains of right wrist discomfort. Review of systems otherwise negative except as mentioned above. PHYSICAL EXAM: Vital Signs: Afebrile, heart rate 65, blood pressure 117/57, 100% on room air. General: Chronically ill-appearing woman. No acute distress. HEENT: Mucous membranes are moist. Cardiovascular: Regular rate and rhythm. Pulmonary: Breathing comfortably. Abdomen: Soft and nondistended. Mild-to- moderate tenderness in epigastrium. Mild tenderness along the lateral sides of abdomen. No rebound tenderness or guarding. Extremities: No significant edema. Skin: No jaundice. Neuro: A and O x3. DIAGNOSTIC STUDIES/LAB DATA: Labs reviewed. White count normal at 4.5, hemoglobin 8.9, hematocrit 28. This is consistent with prior baseline going back into October. MCV is 70 consistent with prior baseline. Platelet count normal at 281. Comprehensive panel reviewed and notable for normal LFTs. Lipase less than 10. TSH normal. CRP not elevated (5.19). Iron studies in late October notable for iron deficiency with a ferritin of 4.8, iron of less than 20 and TSAT of 4%. Imaging: CT abdomen and pelvis was performed on 12/10/19, this demonstrated mild peripancreatic inflammatory change along the head which may represent pancreatitis in correct clinical setting. Fatty infiltration of the liver also noted. Gallbladder read as normal. Atherosclerosis commented on in this report. CT was also performed on 12/08/19, although this one was not performed with contrast. There is felt to be a prominent left abdominal small bowel loop up to 3 cm at that time. IMPRESSION AND RECOMMENDATIONS: Ms. Stephenson is a 64-year-old woman with multiple medical conditions including diagnosis of pancreatitis (unclear if this is acute or chronic), gastroparesis, gastroesophageal reflux disease and Gresham's esophagus, osteoporosis, who is admitted with acute on chronic abdominal pain. History challenging as prior workup from her [place], [place] doctors is unavailable at this time. Labs demonstrate a significant chronic iron deficiency anemia. Otherwise, labs are unremarkable. Imaging demonstrates possible mild peripancreatic inflammation around the pancreatic head raising question of pancreatitis. The patient also reports several GI conditions including gastroesophageal reflux disease with Gresham's esophagus and gastroparesis. Unclear to what degree pancreatitis, reflux, and gastroparesis may be having on the patient's current presentation. Given the significant iron deficiency anemia, I think it is reasonable to start with an upper endoscopy. Consider colonoscopy in the outpatient setting if upper endoscopy is unrevealing. While in the hospital, I think it is reasonable to pursue an MRCP to evaluate the pancreas further. Additionally, I think it is reasonable to pursue mesenteric Doppler ultrasound to ensure no vascular disease that would cause chronic mesenteric ischemia. Atherosclerosis was seen on her CT and smoking present on her history. Can continue the PPI for now. Regular diet as tolerated. N.p.o. after midnight for EGD. Depending on findings from the above requested studies, we can consider further workup in the outpatient setting if the patient is able to tolerate a regular diet. Thank you very much for this consult. [id number]/[facility] #: [id number] ANSLEY
[2019-12-11] MEDS: Enoxaparin(*) 40 MG/0.4 ML SYR SUBCUT SCH (20:34)
[2019-12-12] MEDS: Butalb/Acetamin/Caff TAB* 1 TAB PO PRN ×3 (04:43→21:45)
[2019-12-12] MEDS: Ondansetron INJ* 2 MG/ML VIAL IV PRN ×3 (04:43→21:45)
[2019-12-12] MEDS: Morphine ORAL.SOLN 10 mg* 2 MG/ML UDC 5 ml PO PRN ×4 (04:44→21:30)
[2019-12-12] MEDS: Docusate CAP* 100 MG PO SCH (08:20)
[2019-12-12] MEDS: Metoclopramide TAB* 10 MG PO SCH ×3 (08:20→16:32)
[2019-12-12] MEDS: Sucralfate TAB* 1 GM PO SCH ×4 (08:20→21:32)
[2019-12-12] MEDS: clonazePAM TAB(*) 1 MG PO PRN ×2 (09:53→21:32)
[2019-12-12] MEDS: Pantoprazole IV* 40 MG IV SCH ×2 (10:48→21:34)
[2019-12-12] MEDS ORDERED: Midazolam* 1 MG/ML 10 ML VIAL (10 MG) ONE (15:25)
--- NOTE | 2019-12-12 16:00 | PN ---
Progress Note - Progress Note Date of Service: 12/12/19 Note: procedure note and fu visit: attempted EGD; pt unable to tolerate; gave pt 10mg IV versed, allergic to fent; did not cause any sedation; pt awake, as soon as the scope touched her tongue, she started thrashing around yelling stop, stop; pt will need general anesthesia still with abd pain; MRCP today wnl, Mesenteric US nml labs: hgb 8.9, cmp wnl VS; 97.6, 110\59, 50, 22 nad,alert +bs, diffuse abd pain, no rebound, guarding attempted EGD, pt will require gen anesth---->hopefully, Thursday chronic abd pain, veloz so far negative Truman Whipple MD
--- NOTE | 2019-12-12 18:43 | PN ---
Subjective Date of Service: 12/12/19 Interval History: Still reporting upper abdominal pain. Intermittent nausea resolved with reglan. Ambulating in room, ability to walk limited due to left foot pain. Pain better controlled with morphine. No other acute complaints. Family History: Unchanged from Admission Social History: Unchanged from Admission Past Medical History: Unchanged from Admission Objective Active Medications: Acetaminophen/Butalbital/Caffeine (Fioricet Tab*) 1 tab PO Q6H PRN PRN Reason: MIGRAINE HEADACHE Last Admin: 12/12/19 16:33 Dose: 1 tab Clonazepam (Klonopin Tab(*)) 1 mg PO BID PRN PRN Reason: ANXIETY Last Admin: 12/12/19 09:53 Dose: 1 mg Docusate Sodium (Colace Cap*) 100 mg PO DAILY [facility] Last Admin: 12/12/19 08:20 Dose: Not Given Enoxaparin Sodium (Lovenox(*)) 40 mg SUBCUT 2200 [facility] Last Admin: 12/11/19 20:34 Dose: Not Given Magnesium Hydroxide (Milk Of Voxlileena Liq*) 30 ml PO BID PRN PRN Reason: CONSTIPATION Metoclopramide HCl (Reglan Tab*) 5 mg PO AC [facility] Last Admin: 12/12/19 16:32 Dose: 5 mg Morphine Sulfate (Morphine Oral.Soln 10 Mg*) 15 mg PO QID PRN PRN Reason: PAIN - SEVERE Last Admin: 12/12/19 16:32 Dose: 15 mg Nicotine Polacrilex (Nicotine Gum*) 2 mg PO Q2H PRN PRN Reason: CRAVING Ondansetron HCl (Zofran Inj*) 4 mg IV Q4H PRN PRN Reason: NAUSEA/VOMITING Last Admin: 12/12/19 16:54 Dose: 4 mg Pantoprazole Sodium (Protonix Iv*) 40 mg IV 1000,2200 [facility] Last Admin: 12/12/19 10:48 Dose: 40 mg Phenol/Menthol (Chloroseptic Throat [place]*) 1 spray MT TID PRN PRN Reason: SORE THROAT Last Admin: 12/09/19 20:33 Dose: 1 spray Polyethylene Glycol/Electrolytes (Miralax*) 17 gm PO DAILY PRN PRN Reason: CONSTIPATION Senna (Senokot 8.6 Mg Tab*) 1 tab PO BEDTIME PRN PRN Reason: CONSTIPATION Sucralfate (Carafate*) 1 gm PO ACHS [facility] Last Admin: 12/12/19 16:32 Dose: 1 gm Vital Signs - 8 hr 12/12/19 12/12/19 12/12/19 10:47 11:18 12:27 Temperature 97.6 F Pulse Rate 50 Respiratory 20 22 16 Rate Blood Pressure 110/59 (mmHg) O2 Sat by Pulse 97 Oximetry 12/12/19 12/12/19 12/12/19 13:27 16:32 16:33 Temperature Pulse Rate Respiratory 16 16 16 Rate Blood Pressure (mmHg) O2 Sat by Pulse Oximetry Oxygen Devices in Use Now: Nasal Cannula Appearance: This is a well developed woman seen resting in bed, no acute distress. Eyes: No Scleral Icterus, PERRLA Ears/Nose/Mouth/Throat: NL Teeth, Lips, Gums, Mucous Membranes Moist Neck: NL Appearance and Movements; NL JVP, Trachea Midline Respiratory: Symmetrical Chest Expansion and Respiratory Effort, Clear to Auscultation Cardiovascular: NL Sounds; No Murmurs; No JVD, RRR, No Edema Abdominal: - - Abdomen soft, non-distended, tender to bilateral upper quadrants. Lymphatic: No Cervical Adenopathy Extremities: No Edema, No Clubbing, Cyanosis Skin: No Rash or Ulcers, No Nodules or Sclerosis Neurological: Alert and Oriented x 3 Lines/Tubes/Other Access: Clean, Dry and Intact Peripheral IV Result Diagrams: 12/11/19 05:42 12/11/19 05:42 Assess/Plan/Problems-Billing Assessment: 64 PMHx jaimes's esophagus, chronic pancreatitis, gastroparesis, GERD, anxiety presents with abdominal pain for 1 year, worse in last 3 months, possible SBO. - Patient Problems (1) Abdominal pain Current Visit: Yes Status: Acute Code(s): R10.9 - UNSPECIFIED ABDOMINAL PAIN SNOMED Code(s): 44399485 Comment: -Initially felt to be due to ileus secondary to narcotic use without opposing laxative use. Upon admission, was not passing gas, had an NGT. Appears to have resolved. Positive for flatus now, is tolerating regular diet. -chronic pain rx likely contributing to symptoms and constipation -continue IV PPI, sucralfate -patient states she has had extensive work up in [place]; records requested -CT abd/pel with contrast showed mild peripancreatic inflammation. Surgery has signed off. GI consulted. MRCP and mesenteric artery ultrasoundhad no significant findings. EGD attempted, unable to successfully provide moderate sedation, will require general anesthesia. To be NPO after midnight. -Added reglan AC to her regimen due to reports of gastroparesis. (2) Anxiety Current Visit: Yes Status: Acute Code(s): F41.9 - ANXIETY DISORDER, UNSPECIFIED SNOMED Code(s): 33627640 Comment: -continue home clonazepam (3) Chronic pain Current Visit: Yes Status: Acute Code(s): G89.29 - OTHER CHRONIC PAIN SNOMED Code(s): 34546868 Comment: -Continue morphine. -Has appointment at pain clinic scheduled (4) Chronic pancreatitis Current Visit: Yes Status: Acute Code(s): K86.1 - OTHER CHRONIC PANCREATITIS SNOMED Code(s): 670582560 Comment: -No evidence of acute pancreatitis. Dr. Fraser does not feel that patient needs to be on Creon. D/Taj this med. (5) GERD (gastroesophageal reflux disease) Current Visit: Yes Status: Acute Code(s): K21.9 - GASTRO-ESOPHAGEAL REFLUX DISEASE WITHOUT ESOPHAGITIS SNOMED Code(s): 253161790 Comment: -BID PPI (6) Homeless Current Visit: Yes Status: Acute Code(s): Z59.0 - HOMELESSNESS SNOMED Code (s): 62529387 Comment: -pt reportedly lives in hotel provided by senior living - consulting (7) Migraine Current Visit: Yes Status: Acute Code(s): G43.909 - MIGRAINE, UNSP, NOT INTRACTABLE, WITHOUT STATUS MIGRAINOSUS SNOMED Code(s): 30837781 Comment: -Continue fioricet as needed. (8) DVT prophylaxis Current Visit: Yes Status: Acute Code(s): Z29.9 - ENCOUNTER FOR PROPHYLACTIC MEASURES, UNSPECIFIED SNOMED Code(s): 594539921 Comment: -lovenox (9) Full code status Current Visit: Yes Status: Acute Code(s): Z78.9 - OTHER SPECIFIED HEALTH STATUS SNOMED Code(s): 628173631 Status and Disposition: Observation. Discharge when stable. Attending: Silvestre Schilling
[2019-12-12] MEDS: Enoxaparin(*) 40 MG/0.4 ML SYR SUBCUT SCH (21:33)
[2019-12-13] MEDS: Morphine ORAL.SOLN 10 mg* 2 MG/ML UDC 5 ml PO PRN ×4 (02:32→18:05)
--- NOTE | 2019-12-13 02:39 | PRO ---
DATE OF PROCEDURE: 12/12/19 - ROOM #414 PROCEDURE: EGD. INDICATION: Chronic abdominal pain. MEDICATIONS GIVEN: 10 mg IV Versed, FENTANYL allergy. DESCRIPTION OF PROCEDURE: After the EGD procedure including risks, benefits, and alternatives not limited to perforation, surgery, and/or were explained to the patient, written consent was then obtained, IV sedation was given. I had given her 10 mg of IV Versed and it was causing no effect to her sedation at all. I did discuss with the patient performing the endoscopy given this level of sedation. She was agreeable to proceeding, however, if she wanted to stop then we would stop. I was agreeable with this. I inserted the Olympus gastroscope into the patient's mouth, and as I navigated down her pharynx, she became very agitated, yelling stop, stop and we terminated the procedure at that point. Scope was withdrawn and she will be scheduled with general anesthesia. IMPRESSION: 1. Incomplete upper endoscopy. 2. The patient will require general anesthesia for EGD. We will arrange for tomorrow. [id number]/[facility] #: [id number] [facility] GENERAL HOSPITALRihcard
[2019-12-13] MEDS: Butalb/Acetamin/Caff TAB* 1 TAB PO PRN ×2 (03:55→10:23)
[2019-12-13] MEDS: clonazePAM TAB(*) 1 MG PO PRN (08:43)
[2019-12-13] MEDS: Sucralfate TAB* 1 GM PO SCH ×3 (08:43→17:19)
[2019-12-13] MEDS: Metoclopramide TAB* 10 MG PO SCH ×3 (08:43→17:19)
[2019-12-13] MEDS: Docusate CAP* 100 MG PO SCH (08:44)
[2019-12-13] MEDS: Pantoprazole IV* 40 MG IV SCH (10:23)
[2019-12-13] MEDS ORDERED: Famotidine IV* 10 MG/ML 2 ML (20 mg) ONE (14:53)
[2019-12-13] MEDS ORDERED: KETAMINE HCL* 50 MG/ML 10 ML VIAL ONE (15:05)
[2019-12-13] MEDS ORDERED: Succinylcholine* 20 MG/ML 10 ML VIAL ONE (15:05)
[2019-12-13] MEDS ORDERED: Propofol* 10 MG/ML 20 ML BTL ONE (15:05)
[2019-12-13] MEDS ORDERED: Dexamethasone IV* 4 MG/ML 1 ML (4 MG) ONE (15:05)
[2019-12-13] MEDS ORDERED: Ondansetron INJ* 2 MG/ML VIAL ONE (15:05)
[2019-12-13] MEDS ORDERED: EPHEDrine (Pressors)* 50 MG/ML VIAL ONE (15:15)
[2019-12-13] MEDS ORDERED: DiMENhydriNATE IV* 50 MG/ML VIAL IV PUSH PRN (15:26)
[2019-12-13] MEDS ORDERED: Naloxone* 0.4 MG/ML 1 ML VIAL IV PRN (15:26)
[2019-12-13] MEDS ORDERED: Morphine 4 MG/ML VIAL (1 ml) 4 MG/ML VIAL IV PRN (15:26)
[2019-12-13 15:55] VITALS: BP 129/73
[2019-12-13] MEDS ORDERED: Iron Sucrose* 200 MG in NS 0.9% 100 ML* 100 ML IVPB ONE (17:00)
--- NOTE | 2019-12-13 23:21 | PRO ---
DATE: 12/13/19 - ROOM #414 REFERRING PHYSICIANS: Dr. Jayant Tenorio, [facility]; Dr. Kaycee Velazco.* PROCEDURE: Upper gastrointestinal endoscopy and biopsy of erythematous mid gastric fold and CLOtest. INDICATION: This 64-year-old woman who recently moved from [place] (she stated it was necessitated by becoming homeless), was admitted through the emergency room on 12/08/19 because of abdominal pain and nausea. See the history and physical and Dr. Fraser's consult. The patient had had extensive testing while in [place], which is not available for review. She was on pain management there and said she was on oxycodone chronically. She denies using Advil, Aleve or ibuprofen, though recognized them and acknowledged using them in large amounts in the past. Indeed the visit history shows remarkable frequency of emergency room visits from 1999 to 2006 when she apparently moved to [place]. She has various painful conditions and headaches. Her admitting medication list as an outpatient included Fosamax, Creon, pantoprazole 40 b.i.d., Fioricet, Maalox and oxycodone. There is however a statement to effect that Creon is not tolerated. CT scan a month ago showed pancreatic atrophy. Repeat a month later showed the same with a question of some stranding around the pancreas, although lipase and amylase values have been quite normal and LFTs normal. She has a microcytic anemia, hemoglobin 8.9, MCV 70 with iron saturation 4% in October 2019 and ferritin 4.8. LFTs are normal. B12 level is not recorded. CRP levels are unchanged at 5 three weeks apart. She was seen in consultation and an attempted EGD was unsuccessful yesterday. She is now to be done with anesthesia assistance. ENDOSCOPIST: Dr. Mora. MEDICATIONS: Intubation and anesthesia per Dr. Mejia. FINDINGS: Informed consent had been obtained during several sequential conversations. She was positioned left side down. EGD: Larynx - tube in place. Esophagus - easily entered and the mucosa is normal in the upper, mid, and lower esophagus with the EG junction at 35 to 36. There are no erosions and no areas suggesting columnar replacement. There was no hiatal hernia. Stomach - generally normal mucosa in the cardia, fundus and for most of the gastric body. There was, however, along the greater curvature, midportion, an area of slightly granular erythema. There was no mass or deformity of the under -lying wall. It appeared to be a superficial, probably a medication-induced irritation. Two biopsies were obtained. A third biopsy was submitted for CLOtest. The distal body and antrum appeared normal. Duodenum - the pylorus, bulb, and second through fourth portions appear normal. IMPRESSION: 1. Normal esophagus. 2. Clinical gastroesophageal reflux disease - without any structural abnormality is likely that single standard dose PPI therapy, i.e., pantoprazole 40 mg in the morning alone should suffice. 3. Gastritis - probably medication related - it is mild. 4. Normal duodenum. 5. History of pancreatic abnormalities - review of old chart from [place] would be useful. The strikingly normal albumin is of note. There does not appear to be any active pancreatic inflammation. [id number]/[facility] #: [id number] MTDD
--- NOTE | 2019-12-13 23:21 | DS ---
CC: Dr. Tenorio * DISCHARGE SUMMARY: DATE OF ADMISSION: 12/08/19 DATE OF DISCHARGE: 12/13/19 ATTENDING PHYSICIAN: Dr. Schilling.* (DICTATED BY KANNAN ADAMES NP) PRIMARY CARE PHYSICIAN: Dr. Tenorio. CONSULTING PHYSICIAN: Dr. Kingston, Dr. Fraser, Dr. Whipple, Dr. Mora , Dr. Bourgeois. PRIMARY DIAGNOSIS: Abdominal pain. SECONDARY DIAGNOSES: 1. Gastroesophageal reflux disease. 2. Gastroparesis. 3. Anxiety. 4. Possible chronic pancreatitis. 5. Chronic pain syndrome. PROCEDURES: Attempted EGD on 12/12/19 and EGD under general anesthesia on 12/13. DIAGNOSTIC STUDIES: CT of abdomen and pelvis on 12/10/19 showed no obstruction , mild peripancreatic inflammatory change along the head, which may reflect acute pancreatitis in the correct clinical setting, fatty infiltration of the liver and atherosclerosis. Chest x-ray on 12/09/19 showed nasogastric tube appears to be below the diaphragm presumably overlying the stomach. MRCP on 12/12/19 showed no choledocholithiasis identified. For the abdominal artery ultrasound, the impression was no Doppler evidence for hemodynamic significant celiac axis or superior mesenteric artery stenosis based on peak systolic velocity measurements. The inferior mesenteric artery was not visualized, which may be technical. I recommend that she stay away from NSAIDs to prevent further irritation and to continue her Carafate to cover stomach and a followup with Dr. Tenorio. It is a possibility that this pain could be a part of her chronic pain syndrome. She states that she has an appointment with the pain clinic on 12/15/19, which I encouraged her to uphold. Per recommendations of Gastroenterology, she does not need twice a day PPI when she goes back home and said can reduce her normal dosage to once a day. There were no specific indications for followup with GI, though followup with Dr. Tenorio has already been scheduled and will be receiving visiting nurse services in her home to be able to assist with ADLs as she is having difficulty showering or cleaning due to her chronic pain syndrome. PERTINENT LAB DATA: Hemoglobin 8.9, hematocrit 28, MCV 70, MCH 22, RDW 22. Lipase less than 10, TSH 188. Urine negative. HISTORY OF PRESENT ILLNESS/HOSPITAL COURSE: This is a 64-year-old female with a past medical history significant for pancreatitis, cholecystitis, gastroparesis and Gresham's esophagitis, who came to the emergency room on 12/08 for reports of worsening ongoing abdominal pain since October. She said that since October, she has had sharp throbbing pain in her bilateral upper quadrants, sometimes down into right lower quadrant that is accompanied by intermittent diaphoresis, nausea, no vomiting. She was reporting decreased appetite. She has had 2 bowel movements the previous morning, was negative for flatus. She has been having ongoing abdominal pain and had extensive workup in [place]; however, I do not have access to those records. She is also currently homeless, living in an Inn; however, she has got 2 case workers who are attempting to help her with placement into [facility]. She had been taking oxycodone without any laxatives as she was not able to afford them. In the emergency room on 12/08/19, she was given morphine, started on IV Protonix and given Carafate. Dr. Bourgeois was consulted because at that time the first abdomen and pelvis CT scan showed prominent left abdominal small bowel loop measuring up to 3 cm with early/partial obstruction not occluded. Dr. Bourgeois was consulted by the ED physician. She felt that this was more of an ileus and not a bowel obstruction. At that time, an NG tube was placed and was prescribed standing IV Protonix and put n.p.o. The next day on 12/09/19, she was seen by Dr. Kingston who suggested that a mesenteric vascular workup to evaluate her pain which could be possible ischemic, though felt that there was no surgical intervention needed. NG tube at that time was noted to not have much output. On 12/10/19, NG tube was removed. She was tolerating clear liquids and passing gas, but had no bowel movement and subsequent CT of her abdomen and pelvis was taken with results as above. Her pain medications were switched from oxycodone to morphine as her pain control was not adequate and she stated that she had taken morphine immediate release previously in [place] with fairly good results. The next day on 12/11/19, Surgery signed off, GI was consulted. Dr. Fraser recommended that we discontinue her Creon as there was no indication. Subsequent studies to evaluate her pancreas and gallbladder were recommended. The patient was placed n.p.o. after midnight. On 12/12/19, an MRCP and abdominal artery ultrasound were obtained, both without any remarkable findings. An EGD was attempted, however, it was unsuccessful as Dr. Whipple was unable to achieve adequate sedation. Due to the fact that she had an allergy to FENTANYL, she was given 10 mg of Versed with no sedating effect and was fighting the two the moment they attempted the procedure. So, the decision was to delay the EGD until the next day to be done under general anesthesia. Her RCRI score was deemed to be 0 with METs less than 4, which felt that she was medically optimized to undergo general anesthesia. So today on 12/13/19, Dr. Mora performed an EGD under general anesthesia and noted no hiatal hernia , but with some mild gastric irritation in the antrum, which he felt was likely due to her medications. The patient denies using NSAIDs or using alcohol, so it is unclear as to the exact cause of irritation. She recovered quickly from the general anesthesia, tolerating regular diet and insist on going home tonight as she had an appointment the next day with Orthopedic to follow up on issues with pins in her left forearm. REVIEW OF SYSTEMS: A 12-point system review was performed which was positive for bilateral upper quadrant pain, intermittent nausea, pain with ambulation caused by her left foot. Pertinent negatives include no fever, chills, dizziness, lightheadedness, chest pain, palpitations, vomiting, or issues moving her bowels or bladder. PHYSICAL EXAMINATION: Vital Signs: Temperature 97.2 Fahrenheit, 72 pulse, 18 respirations, 100% oxygen on room air and 131/90 blood pressure. General: This is a well-developed woman seen resting in bed, in no acute distress. HEENT : Conjunctivae pink and moist. PERRLA. EOMs intact. Oropharynx clear. Mucous membranes moist. Neck is supple. Cardiac: S1, S2 present. Heart rate regular. No murmurs, gallops, or rubs appreciated. Respiratory: Lung sounds clear throughout bilaterally on room air. Abdomen: Soft, nondistended, tender in the bilateral upper quadrants with normoactive bowel sounds x4. Musculoskeletal: No clubbing or cyanosis of the digits. Brace in place to the left wrist. Cap refill less than 3 seconds. Skin is intact with no open areas or rashes. Neurologic: Sensation intact to light touch. No focal deficits. Psych: She is alert and oriented x3. Thought content organized. DISCHARGE PLAN: She is to be discharged on a regular diet. Activity is as tolerated. I encouraged ambulation to help assist with bowel motility. She is to return to the hospital should she develop any sudden chest pain, shortness of breath, or blood in her bowels or emesis or should her pain become uncontrolled with her current pain medication regimen or if she has intractable vomiting. PLAN FOR EACH CONDITION: 1. Abdominal pain. It is still unclear as to the exact etiology of her pain, though the left upper quadrant pain could possibly be explained by slight irritation in the gastric antrum. Otherwise, I cannot explain pain in the right upper quadrant as all her tests were negative. 2. Gastric esophageal reflux disease. Prior to admission, she was taking Prilosec twice a day, should reduce that to once a day per GI request. 3. Anxiety. She can continue to take her clonazepam. I do recommend that when she is in a place where it is possible, she should investigate CBT therapy. 4. Migraine. She should continue her Fioricet as needed. She states that she has tried prophylactic therapy in the past and did not work for her as she gets migraines every day. I feel that this should be followed up upon. 5. Gastroparesis. The patient states that she has always managed this with eating small meals multiple times a day; however, while she was here, we started her on Reglan, which she states is helping with her nausea and overall, she does feel moderately better while on it. 6. Anemia of chronic disease. She was given 1 infusion of iron sucrose prior to discharge with recommendation to take ferrous sulfate 325 mg p.o. daily. Apparently, she has been setup with Dr. Tenorio to get regular iron infusions as well, which she should continue. 7. Osteoporosis. Continue alendronate. DISCHARGE MEDICATIONS: New medications upon discharge: 1. Polyethylene glycol 17 g p.o. daily p.r.n. 2. Morphine sulfate 15 mg p.o. 4 times a day p.r.n., max daily dose 4. 3. Senna 8.6 mg p.o. at bedtime p.r.n. 4. Metoclopramide 5 mg p.o. a.c. 5. Ferrous sulfate 325 mg p.o. daily. Home medications to continue upon discharge: 1. Alendronate 10 mg p.o. daily. 2. Clonazepam 1 mg p.o. b.i.d. p.r.n. 3. Sucralfate 1 tab p.o. a.c. h.s. 4. Pantoprazole 40 mg p.o. daily. 5. Ondansetron 8 mg p.o. q.6 hours p.r.n. 6. Docusate 100 mg p.o. daily. 7. Fioricet 1 tab p.o. q.4 hours p.r.n. 8. Albuterol inhaler 2 puffs inhalation q.6 hours p.r.n. 9. Maalox 30 mL p.o. q.6 hours p.r.n. CONDITION UPON DISCHARGE: Fair. DISPOSITION: To the inn where she has been staying, [facility]. TIME SPENT: Time spent on the patient is 60 minutes with half of that spent face to face. KANNAN ADAMES, EDYTA [id number]/CPS #: [id number] MTDD
== END 2019-12-13 19:10 | disposition home health service (06) | DRG 392 ==
LOC: ED 15:50 → MED 23:26 → OBSVTOIN 12-10 12:00
PROVIDERS: ADMIT Internal Medicine; ATTEND Internal Medicine
PROC: 0DB78ZX Excision of Stomach, Pylorus, Via Natural or Artificial Opening Endoscopic, Diagnostic (ICD-10-PCS; principal; 2019-12-13 14:45)
DX: K31.89 Other diseases of stomach and duodenum (principal); K86.1 Other chronic pancreatitis; K21.9 Gastro-esophageal reflux disease without esophagitis; K22.70 Barrett's esophagus without dysplasia; K31.84 Gastroparesis; F41.9 Anxiety disorder, unspecified; F31.9 Bipolar disorder, unspecified; M81.0 Age-related osteoporosis without current pathological fracture; G89.4 Chronic pain syndrome; F90.9 Attention-deficit hyperactivity disorder, unspecified type; F17.210 Nicotine dependence, cigarettes, uncomplicated; G43.909 Migraine, unspecified, not intractable, without status migrainosus; D50.9 Iron deficiency anemia, unspecified; Z88.2 Allergy status to sulfonamides; Z88.1 Allergy status to other antibiotic agents; Z88.6 Allergy status to analgesic agent; Z59.0 Homelessness
CPT/HCPCS: 36415; 71045; 74019; 74176; 74177; 74181; 76376; 80048; 80053; 81003; 82272; 83605; 83690; 84443; 85025; 85060; 86140; 87077; 88305; 88342; 93975; 96374; 96375; 96376; 99156; 99285; A9270-GY; G0378; J0330; J1100; J1170; J1650; J1756; J2060; J2250; J2270; J2405; J2704; Q9967

== ENCOUNTER 2020-01-07 08:43 | Emergency (ER) | payer MEDICARE, MEDICAID ==
[2020-01-07] MEDS ORDERED: Haloperidol INJ IV/IM* 5 MG/ML AMP IV SLOW PU ONE (09:03)
[2020-01-07] MEDS ORDERED: NS 0.9% 1000 ML** 1,000 ML IV ONE (09:03)
--- NOTE | 2020-01-07 09:03 | ED ---
Abdominal Pain/Female - HPI Summary HPI Summary: This pt is a 64 Y/O F presenting to [facility] with a CC of gastroparesis complications, such as L sided abdominal pain, with an increase in pain to a 9/ 10 in severity. She states that she had an infusion on 01/02/2020 which increased her symptoms. She reports that she has severe nausea and is unable to eat or drink anything. She reports that she had another infusion that was scheduled but she canceled the appointment. She reports a headache. She states that she stopped taking all her medications, except morphine and Zofran, due to the increase in nausea and pain without good effect. She states that she took Zofran and Morphine at 0530, and then took metoprolol at 0630 and states that she has had no good relief of her symptoms. She has a PMHx of Barretts Esophagus and Gastroparesis. She denies any smoking, alcohol consumption, or recreational drug use. She has no alleviating factors, she states that her iron infusions have been increasing her symptoms. Home medications reviewed. Allergies noted. She states that she sees Dr. Tenorio, her PCP, on 01/10/2020. Home Medications Medication Instructions Recorded Confirmed Type clonazePAM TAB(*) [Klonopin TAB(*)] 1 mg PO BID PRN 10/27/19 12/15/19 History Butalb/Acetamin/Caff TAB* 1 tab PO Q4H PRN 11/04/19 12/15/19 History [Fioricet TAB*] Ondansetron TAB* [Zofran 4 MG Tab*] 8 mg PO Q6HR PRN 11/14/19 12/15/19 History Sucralfate TAB* [Carafate*] 1 tab PO ACHS 11/14/19 12/15/19 History Docusate CAP* [Colace Cap*] 100 mg PO DAILY #14 cap 11/15/19 12/15/19 Rx Albuterol HFA INHALER* [Ventolin 2 puff INH Q6H PRN 11/24/19 12/15/19 History HFA Inhaler*] Ferrous Sulfate TAB* 325 mg PO DAILY #30 tab 12/13/19 12/15/19 Rx Metoclopramide TAB* [Reglan TAB*] 5 mg PO AC #90 tab 12/13/19 12/15/19 Rx Morphine Sulfate 15 mg PO QID #12 tablet MDD 4 12/13/19 12/15/19 Rx Pantoprazole TAB * [Protonix TAB*] 40 mg PO DAILY #0 12/13/19 12/15/19 Rx Polyethylene Glycol 3350* [Miralax 17 gm PO DAILY PRN #30 packet 12/13/19 Rx (17 GM DOSE GILBERT)] Senna TAB 8.6 mg* [Senokot 8.6 mg 1 tab PO BEDTIME PRN #30 tab 12/13/19 Rx TAB*] Lipase/Protease/Amylase [Zenpep Dr 1 each PO TID 12/15/19 12/15/19 History 20,000 Unit Capsule] Morphine Sulfate 15 mg PO QID PRN MDD 4 12/15/19 12/15/19 History - History of Current Complaint Chief Complaint: EDAbdPain Stated Complaint: ABDOMINAL PAIN PER EMS Time Seen by Provider: 01/07/20 08:45 Hx Obtained From: Patient ?: No Onset/Duration: Sudden Onset, Lasting Days - 5, Still Present, Worse Since - last night Timing: Days - 5 Severity Initially: Moderate Severity Currently: Severe Pain Intensity: 9 Pain Scale Used: 0-10 Numeric Location: Diffuse Radiates: No Aggravating Factor(s): Other: - Iron infusion Alleviating Factor(s): Nothing Associated Signs and Symptoms: Positive: Decreased Appetite, Nausea, Other: - headache Allergies/Adverse Reactions: Allergies Allergy/AdvReac Type Severity Reaction Status Date / Time amoxicillin Allergy Unknown Verified 12/15/19 14:44 Reaction Details erythromycin base Allergy Nausea And Verified 12/15/19 14:44 Vomiting fentanyl Allergy Unknown Verified 12/15/19 14:44 Reaction Details ketorolac [From Toradol] Allergy Unknown Verified 12/15/19 14:44 Reaction Details sulfamethoxazole Allergy Unknown Verified 12/15/19 14:44 [From Bactrim] Reaction Details trimethoprim [From Bactrim] Allergy Unknown Verified 12/15/19 14:44 Reaction Details Home Medications: Home Medications clonazePAM TAB(*) [Klonopin TAB(*)] 1 mg PO BID PRN 10/27/19 [History Confirmed 12/15/19] Butalb/Acetamin/Caff TAB* [Fioricet TAB*] 1 tab PO Q4H PRN 11/04/19 [History Confirmed 12/15/19] Ondansetron TAB* [Zofran 4 MG Tab*] 8 mg PO Q6HR PRN 11/14/19 [History Confirmed 12/15/19] Sucralfate TAB* [Carafate*] 1 tab PO ACHS 11/14/19 [History Confirmed 12/15/19] Docusate CAP* [Colace Cap*] 100 mg PO DAILY #14 cap 11/15/19 [Rx Confirmed 12/15] Albuterol HFA INHALER* [Ventolin HFA Inhaler*] 2 puff INH Q6H PRN 11/24/19 [ History Confirmed 12/15/19] Ferrous Sulfate TAB* 325 mg PO DAILY #30 tab 12/13/19 [Rx Confirmed 12/15/19] Metoclopramide TAB* [Reglan TAB*] 5 mg PO AC #90 tab 12/13/19 [Rx Confirmed ] Morphine Sulfate 15 mg PO QID #12 tablet MDD 4 12/13/19 [Rx Confirmed 12/15/19] Pantoprazole TAB * [Protonix TAB*] 40 mg PO DAILY #0 12/13/19 [Rx Confirmed ] Polyethylene Glycol 3350* [Miralax (17 GM DOSE GILBERT)] 17 gm PO DAILY PRN #30 packet 12/13/19 [Rx Confirmed 12/15/19] Senna TAB 8.6 mg* [Senokot 8.6 mg TAB*] 1 tab PO BEDTIME PRN #30 tab 12/13/19 [ Rx Confirmed 12/15/19] Lipase/Protease/Amylase [Zenpep Dr 20,000 Unit Capsule] 1 each PO TID 12/15/19 [ History Confirmed 12/15/19] Morphine Sulfate 15 mg PO QID PRN MDD 4 12/15/19 [History Confirmed 12/15/19] PMH/Surg Hx/FS Hx/Imm Hx Previously Healthy: Yes Endocrine/Hematology History: Reports: Hx Anemia Denies: Hx Anticoagulant Therapy, Hx Diabetes Cardiovascular History: Denies: Hx Hypertension, Hx Pacemaker/ICD Respiratory History: Denies: Hx Asthma GI History: Reports: Hx Gall Bladder Disease - colecystitis, Hx Gastroesophageal Reflux Disease, Other GI Disorders - chronic pancreatitis History: Reports: Hx Kidney Stones Denies: Hx Renal Disease Musculoskeletal History: Reports: Hx Arthritis, Hx Back Problems, Hx Osteoporosis, Other Musculoskeletal History - Chronic Neck Pain Sensory History: Denies: Hx Contacts or Glasses, Hx Hearing Aid Opthamlomology History: Denies: Hx Contacts or Glasses Neurological History: Reports: Hx Migraine Psychiatric History: Reports: Hx Anxiety Denies: Hx Panic Disorder - Cancer History Hx Chemotherapy: No Hx Radiation Therapy: No - Surgical History Surgical History: Yes Surgery Procedure, Year, and Place: lt great toe. left wrist pinning. EUA right knee, shoulder,achillies. other female surgeries - Immunization History Immunizations Up to Date: Yes Infectious Disease History: No Infectious Disease History: Reports: Hx of Known/Suspected MRSA Denies: Traveled Outside the [place] in Last 30 Days - Family History Known Family History: Positive: Cardiac Disease, Hypertension - Social History Occupation: Retired Lives: Alone Alcohol Use: None Hx Substance Use: No Substance Use Type: Reports: None Hx Tobacco Use: Yes Smoking Status (MU): Light Every Day Tobacco Smoker Type: Cigarettes Amount Used/How Often: 1 cigarette/day Review of Systems Positive: Abdominal Pain, Nausea, Other - decreased appetite Positive: Headache All Other Systems Reviewed And Are Negative: Yes Physical Exam Triage Information Reviewed: Yes Vital Signs On Initial Exam: Initial Vitals Temp Pulse Resp BP Pulse Ox 98.4 F 60 16 169/89 96 01/07/20 08:44 01/07/20 08:44 01/07/20 08:44 01/07/20 08:44 01/07/20 08:44 Vital Signs Reviewed: Yes Procedures - Sedation Patient Received Moderate/Deep Sedation with Procedure: No Diagnostics - Vital Signs Vital Signs Temp Pulse Resp BP Pulse Ox 01/07/20 08:44 98.4 F 60 16 169/89 96 - Laboratory Result Diagrams: 01/07/20 09:01 01/07/20 09:01 Lab Statement: Any lab studies that have been ordered have been reviewed, and results considered in the medical decision making process. - EKG 0905 Cardiac Rate: Bradycardia - 52 BPM EKG Rhythm: Sinus Bradycardia ST Segment: Normal Ectopy: None Summary of EKG Findings: EKG at 0905 reveals normal sinus bradycardia with rate of 52 BPM, no acute changes, no ischemic changes, QTc of 389. This EKG was reviewed and interpreted by Dr. Martinez at 0910 01/07/2020. Re-Evaluation - Re-Evaluation First Eval Re-Evaluation Time: 10:08 Comment: Pt reported feeling much better after Haldol, states she is prepared to go home. Abdominal Pain Fem Course/Dx - Course Course Of Treatment: Patient is here with abdominal pain. Patient's been dealing with abdominal pain chronically. Patient was admitted here roughly 3 weeks ago where she had an EGD, MRCP, CT scans which showed no obvious abnormality. Patient started on multiple medications which she stopped on Thursday. Patient thinks she's been worse following an iron infusion. Patient has tenderness on her left abdomen which is normal for her. Patient had blood work performed which was grossly unchanged from prior. Patient was given Haldol with improvement in her symptoms. Patient was encouraged to restart her medications and follow up with Dr. Tenorio on the . - Diagnoses Provider Diagnoses: Left sided abdominal pain, N&V (nausea and vomiting) Discharge ED - Sign-Out/Discharge Documenting (check all that apply): Patient Departure - discharge - Discharge Plan Condition: Good Disposition: HOME Patient Education Materials: Acute Nausea and Vomiting (ED), Acute Abdominal Pain (ED) Referrals: Jayant Tenorio MD [Primary Care Provider] - Additional Instructions: Please follow up with your primary care provider as scheduled on 01/10/2020. Begin taking your medications again. Return to the emergency department for any new or worsening symptoms. - Billing Disposition and Condition Condition: GOOD Disposition: Home - Attestation Statements Document Initiated by Kendy: Yes Documenting Scribe: Jus Lowe Provider For Whom Kendy is Documenting (Include Credential): Robinson Martinez MD Scribe Attestation: Jus Meléndez, scribed for Robinson Martinez MD on 01/07/20 at 1308. Scribe Documentation Reviewed: Yes Provider Attestation: The documentation as recorded by the Jus voss accurately reflects the service I personally performed and the decisions made by , Robinson Martinez MD Status of Scribe Document: Viewed
--- OUTSIDE RECORDS SUMMARY | 2020-01-07 09:11 | XMS REPORT ---
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 Gastro-esop Gastro-esop Diagnosis Active Tiffany hageal hageal 12-08 Blake reflux reflux disease disease without without esophagitis esophagitis Bipolar Bipolar Diagnosis Active Tiffany disorder, disorder, 12-08 Blake unspecified unspecified Anxiety Anxiety Diagnosis Active Tiffany disorder, disorder, 12-08 Blake unspecified unspecified Other Other Diagnosis Active Tiffany chronic chronic Blake pain pain Migraine, Migraine, Diagnosis Active Tiffany unspecified unspecified Blake , not , not intractable intractable , without , without status status migrainosus migrainosus 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 use of use of opiate opiate analgesic analgesic Other long Other long Diagnosis Active Tiffany term term Blake (current) (current) drug drug therapy therapy Personal Personal Diagnosis Active Tiffany history of history of Blake nicotine nicotine dependence dependence Homelessnes Homelessnes Diagnosis Active Tiffany s s Blake Pain frequent Pain Mgmt Resolve 2019-12-28 Jerrica pain d 12-15 10:35:00 (Colten) 08:45: Stauffer [id number] Respiratory dyspnea Respirator Resolve 2019-12-21 Jerrica present y d 12-15 11:50:00 (Colten) 08:45: Stauffer [id number] Integument skin Integument Resolve 2019-12-19 Jerrica integrity d 12-15 12:05:00 (Colten) risk 08:45: Stauffer 00 [id number] Elimination urinary Eliminatio Resolve 2019-12-21 Jerrica incontinenc n d 12-15 11:50:00 (Colten) e 08:45: Stauffer 00 [id number] Neuro confusion Neuro/Emot Resolve 2020-01-04 Jerrica present ion d 12-15 11:35:00 (Colten) 08:45: Stauffer 00 [id number] Neuro anxiety Neuro/Emot Resolve 2020-01-04 Jerrica present ion d 12-15 11:35:00 (Colten) 08:45: Stauffer 00 [id number] Neuro impaired Neuro/Emot Resolve 2020-01-04 Jerrica decision-ma ion d 12-15 11:35:00 (Colten) anneliese 08:45: Stauffer 00 [id number] Activity ADL Activity Resolve 2020-01-04 Jerrica assistance d 12-15 11:35:00 (Colten) required 08:45: Stauffer [id number] Activity self-care Activity Resolve 2019-12-19 Jerrica deficit d 12-15 12:05:00 (Colten) 08:45: Stauffer 00 [id number] Safety fall risk Safety Resolve 2019-12-19 Jerrica factor d 12-15 12:05:00 (Colten) present 08:45: Stauffer 00 [id number] Safety risk for Safety Resolve 2019-12-19 Jerrica hospitaliza d 12-15 12:05:00 (Colten) tion 08:45: Stauffer 00 [id number] Safety can be left Safety Resolve 2020-01-04 Jerrica alone for d 12-15 11:35:00 (Colten) only short 08:45: Stauffer periods 00 [id number] Medication oral med Meds Resolve 2019-12-19 Jerrica assistance d 12-15 12:05:00 (Colten) required 08:45: Stauffer [id number] Medication potential Meds Resolve 2019-12-19 Jerrica clinically d 12-15 12:05:00 (Colten) significant 08:45: Stauffer medication 00 [id number] issue Musculoskel transfer Musculoske Resolve 2019-12-19 Jerrica etal assistance letal d 12-15 12:05:00 (Colten) required 08:45: Stauffer 00 [id number] Musculoskel requires Musculoske Resolve 2019-12-19 Jerrica etal human letal d 12-15 12:05:00 (Colten) assist to 08:45: Stauffer leave home 00 [id number] Safety knowledge/s Safety Resolve 2019-12-19 Marcellus kill d 12-16 12:05:00 Julien deficit: pt 14:30: [id number] 00 Endo/Dayo anti-coagul Endo/Dayo Resolve 2019-12-21 Tiffany ation d 12-19 11:50:00 Blake therapy 12:05: 00 Safety risk for Safety Resolve 2019-12-28 Tiffany hospitaliza d 12-21 10:35:00 Blake tion 11:50: 00 Safety risk for Safety Resolve 2019-12-30 Tiffany hospitaliza d 12-30 09:10:00 Blake tion 09:10: 00 Allergies, Adverse Reactions, Alerts Allergy Name Allergy Status Severity Reaction(s) Onset Inactive Treating Comments Type Date Date Clinician amoxicillin Base Active Unknown Reaction Roxana Beam Ingredient Unknown 12-13 erythromycin Base Active Unknown Nausea and Roxana Beam base Ingredient vomiting 12-13 fentanyl Base Active Unknown Reaction Roxana Beam Ingredient Unknown 12-13 ketorolac Base Active Unknown Reaction Roxana Beam Ingredient Unknown 12-13 sulfamethizo Base Active Unknown Reaction Roxana Beam le Ingredient Unknown 12-13 trimethoprim Base Active Unknown Reaction Roxana Beam Ingredient Unknown 12-13 Medications Ordered Filled Start Stop Current Ordering Indication Dosage Frequency Signature Comments Components Medication Medication Date Date Medication? Clinician (SIG) Name Name metoclopram metoclopram 2020- Yes Tenorio Unknown Unknown bridgett 5 mg bridgett 5 mg 12-15 Jayant KOCH tablet tablet polyethylen polyethylen 2020- Yes Tenorio Unknown Unknown e glycol e glycol 12-15 Jayant KOCH 3350 17 3350 17 gram/dose gram/dose oral powder oral powder senna 8.6 senna 8.6 2020- Yes Tenorio Unknown Unknown mg tablet mg tablet 12-15 Jayant KOCH ferrous ferrous 2020- Yes Tenorio Unknown Unknown sulfate 325 sulfate 325 12-15 Jayant KOCH mg (65 mg mg (65 mg iron) iron) tablet tablet morphine 15 morphine 15 2020- Yes Tenorio Unknown Unknown mg mg 12-15 Jayant KOCH immediate immediate release release tablet tablet clonazePAM clonazePAM 2020- Yes Tenorio Unknown Unknown 1 mg tablet 1 mg tablet 12-15 Jayant KOCH floricet floricet 2020- Yes Tenorio Unknown Unknown 12-15 Jayant KOCH ondansetron ondansetron 2020- Yes Tenorio Unknown Unknown 8 mg 8 mg 12-15 Jayant KOCH disintegrat disintegrat ing tablet ing tablet sucralfate sucralfate 2020- Yes Tenorio Unknown Unknown 1 gram 1 gram 12-15 Jayant KOCH tablet tablet Maalox Maalox 2020- Yes Tenorio Unknown Unknown Maximum Maximum 12-15 Jayant KOCH Strength Strength 400 mg-400 400 mg-400 mg-40 mg/5 mg-40 mg/5 mL oral mL oral suspension suspension docusate docusate 2020- Yes Tenorio Unknown Unknown sodium 100 sodium 100 12-15 Jayant KOCH mg capsule mg capsule albuterol albuterol 2020- Yes Tenorio Unknown Unknown sulfate HFA sulfate HFA 12-15 Jayant KOCH 90 90 mcg/actuati mcg/actuati on aerosol on aerosol inhaler inhaler oxyCODONE oxyCODONE 2020- Yes Tenorio Unknown Unknown 10 mg 10 mg 12-15 Jayant KOCH tablet tablet Protonix 40 Protonix 40 2020- Yes Tenorio Unknown Unknown mg mg 12-15 Jayant KOCH tablet,steve tablet,steve yed release yed release Zenpep Zenpep 2020- Yes Tenorio Unknown Unknown 20,000 20,000 12-15 Jayant KOCH unit-63,000 unit-63,000 unit-84,000 unit-84,000 unit unit capsule,del capsule,del ayed ayed release release DULoxetine DULoxetine Tenorio Unknown Unknown 30 mg 30 mg 12-27 Jayant KOCH capsule,del capsule,del ayed ayed release release sprinkle sprinkle Vital Signs Vital Name Observation Time Observation Value Comments SYSTOLIC mm[Hg] 2020-01-04 18:10:28 128 mm[Hg] mm[Hg] Method: Sit SYSTOLIC mm[Hg] 2019-12-16 18:10:09 124 mm[Hg] mm[Hg] Method: Stand DIASTOLIC mm[Hg] 2020-01-04 18:10:28 76 mm[Hg] mm[Hg] Method: Sit DIASTOLIC mm[Hg] 2019-12-16 18:10:09 88 mm[Hg] mm[Hg] Method: Stand PULSE 2020-01-04 18:10:28 75 /min /min RESP RATE 2020-01-04 18:10:28 18 /min /min TEMP 2020-01-04 18:10:28 98.4 [degF] Procedures This patient has no known procedures. Results This patient has no known results.
--- OUTSIDE RECORDS SUMMARY | 2020-01-07 09:11 | XMS REPORT ---
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 (current) (current) Blake use [...] pain d 12-15 10:35:00 (Colten) 08:45: Stauffer [id number] Respiratory dyspnea Respirator Resolve 2019-12-21 Jerrica present y d 12-15 11:50:00 (Colten) 08:45: Stauffer [id number] Integument skin Integument Resolve 2019-12-19 Jerrica integrity d 12-15 12:05:00 (Colten) risk 08:45: Stauffer 00 [id number] Elimination urinary Eliminatio Resolve 2019-12-21 Jerrcia incontinenc n d 12-15 11:50:00 (Colten) e 08:45: Stauffer 00 [id number] Neuro confusion Neuro/Emot Resolve 2020-01-04 Jerrica present ion d 12-15 11:35:00 (Colten) 08:45: Stauffer 00 [id number] Neuro anxiety Neuro/Emot Resolve 2020-01-04 Jerrica present ion d 12-15 11:35:00 (Colten) 08:45: Stauffer 00 [id number] Neuro impaired Neuro/Emot Resolve 2020-01-04 Jerrica decision-ma ion d 12-15 11:35:00 (Colten) anneliese 08:45: Stauffer 00 [id number] Activity ADL Activity Resolve 2020-01-04 Jerrica assistance d 12-15 11:35:00 (Colten) required 08:45: Stauffer [id number] Activity self-care Activity Resolve 2019-12-19 Jerrica deficit d 12-15 12:05:00 (Colten) 08:45: Stauffer 00 [id number] Safety fall risk Safety Resolve 2019-12-19 Jerrica factor d 12-15 12:05:00 (Colten) present 08:45: Stauffer 00 [id number] Safety risk for Safety Resolve 2019-12-19 Jerrica hospitaliza d 12-15 12:05:00 (Colten) tion 08:45: Stauffer 00 [id number] Safety can be left Safety Resolve 2020-01-04 Jerrica alone for d 12-15 11:35:00 (Colten) only short 08:45: Stauffer periods 00 [id number] Medication oral med Meds Resolve 2019-12-19 Jerrica assistance d 12-15 12:05:00 (Colten) required 08:45: Stauffer [id number] Medication potential Meds Resolve 2019-12-19 Jerrica clinically d 12-15 12:05:00 (Colten) significant 08:45: Stauffer medication 00 [id number] issue Musculoskel transfer Musculoske Resolve 2019-12-19 Jerrica etal assistance letal d 12-15 12:05:00 (Colten) required 08:45: Stauffer 00 [id number] Musculoskel requires Musculoske Resolve 2019-12-19 Jerrica etal human letal d 12-15 12:05:00 (Colten) assist to 08:45: Stauffer leave home 00 [id number] Safety knowledge/s Safety Resolve 2019-12-19 Marcellus kill d 12-16 12:05:00 Julien deficit: pt 14:30: [id number] 00 Endo/Dayo anti-coagul Endo/Dayo Resolve 2019-12-21 Tiffany [...]
--- OUTSIDE RECORDS SUMMARY | 2020-01-07 09:11 | XMS REPORT ---
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) (current) Blake use [...] pain d 12-15 10:35:00 (Colten) 08:45: Stauffer [id number] Respiratory dyspnea Respirator Resolve 2019-12-21 Jerrica present y d 12-15 11:50:00 (Colten) 08:45: Stauffer [id number] Integument skin Integument Resolve 2019-12-19 Jerrica integrity d 12-15 12:05:00 (Colten) risk 08:45: Stauffer 00 [id number] Elimination urinary Eliminatio Resolve 2019-12-21 Jerrica incontinenc n d 12-15 11:50:00 (Colten) e 08:45: Stauffer [id number] Neuro confusion Neuro/Emot Active Jerrica present ion 12-15 (Colten) 08:45: Stauffer 00 [id number] Neuro anxiety Neuro/Emot Active Jerrica present ion 12-15 (Colten) 08:45: Stauffer 00 [id number] Neuro impaired Neuro/Emot Active Jerrica decision-ma ion 12-15 (Colten) anneliese 08:45: Stauffer [id number] Activity ADL Activity Active Jerrica assistance 12-15 (Colten) required 08:45: Stauffer [id number] Activity self-care Activity Resolve 2019-12-19 Jerrica deficit d 12-15 12:05:00 (Colten) 08:45: Stauffer 00 [id number] Safety fall risk Safety Resolve 2019-12-19 Jerrica factor d 12-15 12:05:00 (Colten) present 08:45: Stauffer [id number] Safety risk for Safety Resolve 2019-12-19 Jerrica hospitaliza d 12-15 12:05:00 (Colten) tion 08:45: Stauffer [id number] Safety can be left Safety Active Jerrica alone for 12-15 (Colten) only short 08:45: Stauffer periods 00 [id number] Medication oral med Meds Resolve 2019-12-19 Jerrica assistance d 12-15 12:05:00 (Colten) required 08:45: Stauffer 00 [id number] Medication potential Meds Resolve 2019-12-19 Jerrica clinically d 12-15 12:05:00 (Colten) significant 08:45: Stauffer medication 00 [id number] issue Musculoskel transfer Musculoske Resolve 2019-12-19 Jerrica etal assistance letal d 12-15 12:05:00 (Colten) required 08:45: Stauffer 00 [id number] Musculoskel requires Musculoske Resolve 2019-12-19 Jerrica etal human letal d 12-15 12:05:00 (Colten) assist to 08:45: Stauffer leave home 00 [id number] Safety knowledge/s Safety Resolve 2019-12-19 Marcellus grimaldo d 12-16 12:05:00 Evermeeta deficit: pt 14:30: [id number] 00 Endo/Dayo anti-coagul Endo/Dayo Resolve 2019-12-21 Tiffany higginbothamion d 12-19 11:50:00 Blake therapy 12:05: 00 Safety risk for Safety Resolve 2019-12-28 Tiffany [facility] d 12-21 10:35:00 Blake tion 11:50: 00 Allergies, Adverse Reactions, Alerts Allergy Name [...] Medication? Clinician (SIG) Name Name metoclopram metoclopram 2019-0 Yes Tenorio Unknown Unknown bridgett 5 mg bridgett 5 mg 1-30 Jayant KOCH tablet tablet polyethylen polyethylen 2020-0 Yes Tenorio Unknown Unknown e glycol e glycol -30 Jayant KOCH 3350 17 3350 17 gram/dose gram/dose oral powder oral powder senna 8.6 senna 8.6 2020-0 Yes Tenorio Unknown Unknown mg tablet mg tablet 1-30 Jayant KOCH ferrous ferrous 2020-0 Yes Tenorio Unknown Unknown sulfate 325 sulfate 325 1-30 Jayant KOCH mg (65 mg mg (65 mg iron) iron) tablet tablet morphine 15 morphine 15 2020-0 Yes Tenorio Unknown Unknown mg mg 1-30 Jayant KOCH immediate immediate release release tablet tablet clonazePAM clonazePAM 2019-0 Yes Tenoroi Unknown Unknown 1 mg tablet 1 mg tablet -30 Jayant KOCH floricet floricet 2020-0 Yes Tenorio Unknown Unknown 1-30 Jayant KOCH ondansetron ondansetron 2020-0 Yes Tenorio Unknown Unknown 8 mg 8 mg 1-30 Jayant KOCH disintegrat disintegrat ing tablet ing tablet sucralfate sucralfate 2020-0 Yes Tenorio Unknown Unknown 1 gram 1 gram 1-30 Jayant KOCH tablet tablet Maalox Maalox 2020-0 Yes Tenorio Unknown Unknown Maximum Maximum 1-30 Jayant KOCH Strength Strength 400 mg-400 400 mg-400 mg-40 mg/5 mg-40 mg/5 mL oral mL oral suspension suspension docusate docusate 2020-0 Yes Tenorio Unknown Unknown sodium 100 sodium 100 1-30 Jayant KOCH mg capsule mg capsule albuterol albuterol 2020-0 Yes Tenorio Unknown Unknown sulfate HFA sulfate HFA 1-30 Jayant KOCH 90 90 mcg/actuati mcg/actuati on aerosol on aerosol inhaler inhaler oxyCODONE oxyCODONE 2020-0 Yes Tenorio Unknown Unknown 10 mg 10 mg 1-30 Jayant KOCH tablet tablet Protonix 40 Protonix 40 2020-0 Yes Tenorio Unknown Unknown mg mg 1-30 Jayant KOCH tablet,steve tablet,steve yed release yed release Zenpep Zenpep 2020-0 Yes Tenorio Unknown Unknown 20,000 20,000 1-30 Jayant KOCH unit-63,000 unit-63,000 unit-84,000 unit-84,000 unit unit capsule,del capsule,del ayed ayed release release DULoxetine DULoxetine 2020-0 Yes Tenorio Unknown Unknown 30 mg 30 mg 2-11 Jayant KOCH capsule,del capsule,del ayed ayed release release sprinkle sprinkle Vital Signs Vital Name Observation Time Observation Value Comments SYSTOLIC mm[Hg] 2019-12-28 18:10:21 114 mm[Hg] mm[Hg] Method: Sit SYSTOLIC mm[Hg] 2019-12-16 18:10:09 124 mm[Hg] mm[Hg] Method: Stand DIASTOLIC mm[Hg] 2019-12-28 18:10:21 64 mm[Hg] mm[Hg] Method: Sit DIASTOLIC mm[Hg] 2019-12-16 18:10:09 88 mm[Hg] mm[Hg] Method: Stand PULSE 2019-12-28 18:10:21 74 /min /min RESP RATE 2019-12-28 18:10:21 18 /min /min TEMP 2019-12-28 18:10:21 97.4 [degF] Procedures This patient has no known procedures. Results This patient has no known results.
--- OUTSIDE RECORDS SUMMARY | 2020-01-07 09:11 | XMS REPORT ---
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) (current) Blake use [...] pain d 12-15 10:35:00 (Colten) 08:45: Stauffer [id number] Respiratory dyspnea Respirator Resolve 2019-12-21 Jerrica present y d 12-15 11:50:00 (Colten) 08:45: Stauffer [id number] Integument skin Integument Resolve 2019-12-19 Jerrica integrity d 12-15 12:05:00 (Colten) risk 08:45: Stauffer 00 [id number] Elimination urinary Eliminatio Resolve 2019-12-21 Jerrica incontinenc n d 12-15 11:50:00 (Colten) e 08:45: Stauffer [id number] Neuro confusion Neuro/Emot Active Jerrica present ion 12-15 (Colten) 08:45: Stauffer 00 [id number] Neuro anxiety Neuro/Emot Active Jerrica present ion 12-15 (Colten) 08:45: Stauffer 00 [id number] Neuro impaired Neuro/Emot Active Jerrica decision-ma ion 12-15 (Colten) anneliese 08:45: Stauffer [id number] Activity ADL Activity Active Jerrica assistance 12-15 (Colten) required 08:45: Stauffer [id number] Activity self-care Activity Resolve 2019-12-19 Jerrica deficit d 12-15 12:05:00 (Colten) 08:45: Stauffer 00 [id number] Safety fall risk Safety Resolve 2019-12-19 Jerrica factor d 12-15 12:05:00 (Colten) present 08:45: Stauffer [id number] Safety risk for Safety Resolve 2019-12-19 Jerrica hospitaliza d 12-15 12:05:00 (Colten) tion 08:45: Stauffer [id number] Safety can be left Safety Active Jerrica alone for 12-15 (Colten) only short 08:45: Stauffer periods 00 [id number] Medication oral med Meds Resolve 2019-12-19 Jerrica assistance d 12-15 12:05:00 (Colten) required 08:45: Stauffer 00 [id number] Medication potential Meds Resolve 2019-12-19 Jerrica clinically d 12-15 12:05:00 (Colten) significant 08:45: Stauffer medication 00 [id number] issue Musculoskel transfer Musculoske Resolve 2019-12-19 Jerrica etal assistance letal d 12-15 12:05:00 (Colten) required 08:45: Stauffer 00 [id number] Musculoskel requires Musculoske Resolve 2019-12-19 Jerrica etal human letal d 12-15 12:05:00 (Colten) assist to 08:45: Stauffer leave home 00 [id number] Safety knowledge/s Safety Resolve 2019-12-19 Marcellus grimaldo d 12-16 12:05:00 Julien deficit: pt 14:30: [id number] 00 Endo/Dayo anti-coagul Endo/Dayo Resolve 2019-12-21 Tiffany ation d 12-19 11:50:00 Blake therapy 12:05: 00 Safety risk for [facility] 10:[facility] Blake tion 11:50: 00 Safety risk for Safety Resolve [facility] 09:10:00 Blake tion 09:10: 00 [...] Medication? Clinician (SIG) Name Name metoclopram metoclopram Yes Tenorio Unknown Unknown bridgett 5 mg bridgett 5 mg -30 Jayant KOCH tablet tablet polyethylen polyethylen 2019- Yes Tenorio Unknown Unknown e glycol e glycol 30 Jayant KOCH 3350 17 3350 17 gram/dose gram/dose oral powder oral powder senna 8.6 senna 8.6 2019- Yes Tenorio Unknown Unknown mg tablet mg tablet -30 Jayant KOCH ferrous ferrous 2019- Yes Tenorio Unknown Unknown sulfate 325 sulfate 325 1-30 Jayant KOCH mg (65 mg mg (65 mg iron) iron) tablet tablet morphine 15 morphine 15 2019- Yes Tenorio Unknown Unknown mg mg -30 Jayant KOCH immediate immediate release release tablet tablet clonazePAM clonazePAM 2020-0 Yes Tenorio Unknown Unknown 1 mg tablet 1 mg tablet 1-30 Jayant KOCH floricet floricet 2020-0 Yes Tenorio [...] Observation Time Observation Value Comments SYSTOLIC mm[Hg] 2019-12-30 18:10:23 112 mm[Hg] mm[Hg] Method: Sit SYSTOLIC mm[Hg] 2019-12-16 18:10:09 124 mm[Hg] mm[Hg] Method: Stand DIASTOLIC mm[Hg] 2019-12-30 18:10:23 66 mm[Hg] mm[Hg] Method: Sit DIASTOLIC mm[Hg] 2019-12-16 18:10:09 88 mm[Hg] mm[Hg] Method: Stand PULSE 2019-12-30 18:10:23 82 /min /min RESP RATE 2019-12-30 18:10:23 18 /min /min TEMP 2019-12-30 18:10:23 97.8 [degF] Procedures This patient has no known procedures. Results This patient has no known results.
--- OUTSIDE RECORDS SUMMARY | 2020-01-07 09:11 | XMS REPORT ---
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 (current) [...] pain d 12-15 10:35:00 (Colten) 08:45: Stauffer [id number] Respiratory dyspnea Respirator Resolve 2019-12-21 Jerrica present y d 12-15 11:50:00 (Colten) 08:45: Stauffer [id number] Integument skin Integument Resolve 2019-12-19 Jerrica integrity d 12-15 12:05:00 (Colten) risk 08:45: Stauffer 00 [id number] Elimination urinary Eliminatio Resolve 2019-12-21 Jerrica incontinenc n d 12-15 11:50:00 (Colten) e 08:45: Stauffer [id number] Neuro confusion Neuro/Emot Active Jerrica present ion 12-15 (Colten) 08:45: Stauffer 00 [id number] Neuro anxiety Neuro/Emot Active Jerrica present ion 12-15 (Colten) 08:45: Stauffer 00 [id number] Neuro impaired Neuro/Emot Active Jerrica decision-ma ion 12-15 (Colten) anneliese 08:45: Stauffer [id number] Activity ADL Activity Active Jerrica assistance 12-15 (Colten) required 08:45: Stauffer [id number] Activity self-care Activity Resolve 2019-12-19 Jerrica deficit d 12-15 12:05:00 (Colten) 08:45: Stauffer 00 [id number] Safety fall risk Safety Resolve 2019-12-19 Jerrica factor d 12-15 12:05:00 (Colten) present 08:45: Stauffer [id number] Safety risk for Safety Resolve 2019-12-19 Jerrica hospitaliza d 12-15 12:05:00 (Colten) tion 08:45: Stauffer [id number] Safety can be left Safety Active Jerrica alone for 12-15 (Colten) only short 08:45: Stauffer periods 00 [id number] Medication oral med Meds Resolve 2019-12-19 Jerrica assistance d 12-15 12:05:00 (Colten) required 08:45: Stauffer 00 [id number] Medication potential Meds Resolve 2019-12-19 Jerrica clinically d 12-15 12:05:00 (Colten) significant 08:45: Stauffer medication 00 [id number] issue Musculoskel transfer Musculoske Resolve 2019-12-19 Jerrica etal assistance letal d 12-15 12:05:00 (Colten) required 08:45: Stauffer 00 [id number] Musculoskel requires Musculoske Resolve 2019-12-19 Jerrica etal human letal d 12-15 12:05:00 (Colten) assist to 08:45: Stauffer leave home 00 [id number] Safety knowledge/s Safety Resolve 2019-12-19 Marcellus grimaldo d 12-16 12:05:00 Julien deficit: pt 14:30: [id number] 00 Endo/Dayo anti-coagul Endo/Dayo Resolve 2019-12-21 Tiffany ation d 12-19 11:50:00 Blake therapy 12:05: 00 Safety risk for [facility] 10:[facility] Blake tion 11:50: 00 Safety risk for Safety [facility] 09:10:00 Blake tion 09:10: [...]
--- OUTSIDE RECORDS SUMMARY | 2020-01-07 09:11 | XMS REPORT ---
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 Tiffany (current) (current) Blake use [...] pain d 12-15 10:35:00 (Colten) 08:45: Stauffer [id number] Respiratory dyspnea Respirator Resolve 2019-12-21 Jerrica present y d 12-15 11:50:00 (Colten) 08:45: Stauffer [id number] Integument skin Integument Resolve 2019-12-19 Jerrica integrity d 12-15 12:05:00 (Colten) risk 08:45: Stauffer 00 [id number] Elimination urinary Eliminatio Resolve 2019-12-21 Jerrica incontinenc n d 12-15 11:50:00 (Colten) e 08:45: Stauffer [id number] Neuro confusion Neuro/Emot Active Jerrica present ion 12-15 (Colten) 08:45: Stauffer 00 [id number] Neuro anxiety Neuro/Emot Active Jerrica present ion 12-15 (Coltne) 08:45: Stauffer 00 [id number] Neuro impaired Neuro/Emot Active Jerrica decision-ma ion 12-15 (Colten) anneliese 08:45: Stauffer [id number] Activity ADL Activity Active Jerrica assistance 12-15 (Colten) required 08:45: Stauffer [id number] Activity self-care Activity Resolve 2019-12-19 Jerrica deficit d 12-15 12:05:00 (Colten) 08:45: Stauffer 00 [id number] Safety fall risk Safety Resolve 2019-12-19 Jerrica factor d 12-15 12:05:00 (Colten) present 08:45: Stauffer [id number] Safety risk for Safety Resolve 2019-12-19 Jerrica hospitaliza d 12-15 12:05:00 (Colten) tion 08:45: Stauffer [id number] Safety can be left Safety Active Jerrica alone for 12-15 (Colten) only short 08:45: Stauffer periods 00 [id number] Medication oral med Meds Resolve 2019-12-19 Jerrica assistance d 12-15 12:05:00 (Colten) required 08:45: Stauffer 00 [id number] Medication potential Meds Resolve 2019-12-19 Jerrica clinically d 12-15 12:05:00 (Colten) significant 08:45: Stauffer medication 00 [id number] issue Musculoskel transfer Musculoske Resolve 2019-12-19 Jerrica etal assistance letal d 12-15 12:05:00 (Colten) required 08:45: Stauffer 00 [id number] Musculoskel requires Musculoske Resolve 2019-12-19 Jerrica etal human letal d 12-15 12:05:00 (Colten) assist to 08:45: Stauffer leave home 00 [id number] Safety knowledge/s Safety Resolve 2019-12-19 Marcellus grimaldo d 12-16 12:05:00 Evermeeta deficit: pt 14:30: [id number] Endo/Dayo anti-coagul Endo/Dayo Resolve 2019-12-21 Tiffany higginbothamion d 12-19 11:50:00 Blake therapy 12:05: 00 Safety risk for Safety Resolve 2019-12-28 Tiffany [facility] d 12-21 10:35:00 Blake tion 11:50: 00 [...] release tablet tablet clonazePAM clonazePAM 2019-0 Yes Tenorio Unknown Unknown 1 mg tablet [...]
--- OUTSIDE RECORDS SUMMARY | 2020-01-07 09:12 | XMS REPORT ---
:1955 Author Organization [facility] Care Team Providers Name Role Phone Unavailable Unavailable Unavailable Problems Condition Condition Condition Status Onset Resolution Last Treating Comments Name Details Category Date Date Treatment Clinician Date Other Other Diagnosis Active 2020-0 Noreen chronic chronic 1-28 Wendela pancreatiti pancreatiti s s Allergies, Adverse Reactions, Alerts Allergy Name Allergy Status Severity Reaction(s) Onset Inactive Treating Comments Type Date Date Clinician amoxicillin Base Active Unknown Reaction 2020-0 Roxana Beam Ingredient Unknown 12-13 erythromycin Base Active Unknown Nausea and 2020-0 Roxana Beam base Ingredient vomiting - fentanyl Base Active Unknown Reaction 2020-0 Roxana Beam Ingredient Unknown 12-13 ketorolac Base Active Unknown Reaction 2020-0 Roxana Beam Ingredient Unknown - sulfamethizo Base Active Unknown Reaction 2020-0 Roxana Beam le Ingredient Unknown - trimethoprim Base Active Unknown Reaction 2019-0 Roxana Beam Ingredient Unknown 12-13 Medications Ordered Filled Start Stop Current Ordering Indication Dosage Frequency Signature Comments Components Medication Medication Date Date Medication? Clinician (SIG) Name Name No Known No Known No None None None Medications Medications For This For This Patient Patient Procedures This patient has no known procedures. Results This patient has no known results.
--- OUTSIDE RECORDS SUMMARY | 2020-01-07 09:12 | XMS REPORT ---
:1955 Author Organization [facility] Care Team Providers Name Role Phone Unavailable Unavailable Unavailable Problems Condition Condition Condition Status Onset Resolution Last Treating Comments Name Details Category Date Date Treatment Clinician Date Other Other Diagnosis Active 2020-0 Tiffany chronic chronic - Blake pancreatiti pancreatiti s s Allergies, Adverse Reactions, Alerts Allergy Name Allergy Status Severity Reaction(s) Onset Inactive Treating Comments Type Date Date Clinician amoxicillin Base Active Unknown Reaction 2020-0 Roxana Beam Ingredient Unknown 12-13 erythromycin Base Active Unknown Nausea and 2020-0 Roxana Beam base Ingredient vomiting 12-13 fentanyl Base Active Unknown Reaction 20200 Roxana Beam Ingredient Unknown 12-13 ketorolac Base Active Unknown Reaction 20200 Roxana Beam Ingredient Unknown 12-13 sulfamethizo Base Active Unknown Reaction 2020-0 Roxana Beam le Ingredient Unknown 12-13 trimethoprim Base Active Unknown Reaction 0 Roxana Beam Ingredient Unknown 12-13 Medications Ordered [...]
--- OUTSIDE RECORDS SUMMARY | 2020-01-07 09:12 | XMS REPORT ---
:1955 Author Organization [facility] Care Team Providers Name Role Phone Unavailable Unavailable Unavailable Problems Condition Condition Condition Status Onset Resolution Last Treating Comments Name Details Category Date Date Treatment Clinician Date Other Other Diagnosis Active 2020-0 Tiffany chronic chronic -28 Blake pancreatiti pancreatiti s s Allergies, Adverse Reactions, Alerts Allergy Name Allergy Status Severity Reaction(s) Onset Inactive Treating Comments Type Date Date Clinician amoxicillin Base Active Unknown Reaction 2020-0 Roxana Beam Ingredient Unknown 12-13 erythromycin Base Active Unknown Nausea and 2020-0 Roxana Beam base Ingredient vomiting 12-13 fentanyl Base Active Unknown Reaction 2020-0 Roxana [...]
--- OUTSIDE RECORDS SUMMARY | 2020-01-07 09:12 | XMS REPORT ---
:1955 Author Organization [facility] Care Team Providers Name Role Phone Unavailable Unavailable Unavailable Problems Condition Condition Condition Status Onset Resolution Last Treating Comments Name Details Category Date Date Treatment Clinician Date Other Other Diagnosis Active 20200 Tiffany chronic chronic 12-13 Blake pancreatiti pancreatiti s s Pain frequent Pain Mgmt Active 2020-0 Jerrica pain 12-15 (Colten) 08:45: Stauffer 00 [id number] Respiratory dyspnea Respirator Active 2020-0 Jerrica present y 12-15 (Colten) 08:45: Stauffer [id number] Integument skin Integument Active 2019-0 Jerrica integrity 12-15 (Colten) risk 08:45: Stauffer 00 [id number] Elimination urinary Eliminatio Active 2020-0 Jerrica incontinenc n 12-15 (Colten) e 08:45: Stauffer [id number] Neuro confusion Neuro/Emot Active 2020-0 Jerrica present ion 12-15 (Colten) 08:45: Stauffer 00 [id number] Neuro anxiety Neuro/Emot Active 2020-0 Jerrica present ion 12-15 (Colten) 08:45: Stauffer [id number] Neuro impaired Neuro/Emot Active 2019-0 Jerrica decision-ma ion 12-15 (Colten) anneliese 08:45: Stauffer 00 [id number] Activity ADL Activity Active 2020-0 Jerrica assistance 12-15 (Colten) required 08:45: Stauffer [id number] Activity self-care Activity Active 2020-0 Jerrica deficit 12-15 (Colten) 08:45: Stauffer [id number] Safety fall risk Safety Active 2020-0 Jerrica factor - (Colten) present 08:45: Stauffer 00 [id number] Safety risk for Safety Active 2020-0 Jerrica hospitaliza 12-15 (Colten) tion 08:45: Stauffer [id number] Safety can be left Safety Active 2020-0 Jerrica alone for 12-15 (Colten) only short 08:45: Stauffer periods [id number] Medication oral med Meds Active 2020-0 Jerrica assistance 12-15 (Colten) required 08:45: Stauffer [id number] Medication potential Meds Active 2020-0 Jerrica clinically 12-15 (Colten) significant 08:45: Stauffer medication [id number] issue Musculoskel transfer Musculoske Active 2019-0 Jerrica etal assistance letal 12-15 (Colten) required 08:45: Stauffer [id number] Musculoskel requires Musculoske Active 2019-0 Jerrica etal human letal 12-15 (Colten) assist to 08:45: Stauffer leave home [id number] Safety knowledge/s Safety Active 2019- Marcellus grimaldo 12-16 Julien deficit: pt 14:30: [id number] 00 Allergies, Adverse Reactions, Alerts Allergy Name Allergy Status Severity Reaction(s) Onset Inactive Treating Comments Type Date Date Clinician amoxicillin Base Active Unknown Reaction Roxana Beam Ingredient Unknown 12-13 erythromycin Base Active Unknown Nausea and Roxana Beam base Ingredient vomiting 12-13 fentanyl Base Active Unknown Reaction 0 Roxana Beam Ingredient Unknown 12-13 ketorolac Base Active Unknown Reaction 0 Roxana Beam Ingredient Unknown 12-13 sulfamethizo Base Active Unknown Reaction 0 Roxana Beam le Ingredient Unknown 12-13 trimethoprim Base Active Unknown Reaction 0 Roxana Beam Ingredient Unknown 12-13 Medications Ordered Filled Start Stop Current Ordering Indication Dosage Frequency Signature Comments Components Medication Medication Date Date Medication? Clinician (SIG) Name Name metoclopram metoclopram 2019- Yes Tenorio Unknown Unknown bridgett 5 mg bridgett 5 mg 12-15 Jayant KOCH tablet tablet polyethylen polyethylen 2020-0 Yes Tenorio Unknown Unknown e glycol e glycol 12-15 Jayant KOCH 3350 17 3350 17 gram/dose gram/dose oral powder oral powder senna 8.6 senna 8.6 2020-0 Yes Tenorio Unknown Unknown mg tablet mg tablet - Jayant KOCH ferrous ferrous 2019-0 Yes Tenorio Unknown Unknown sulfate 325 sulfate 325 12-15 Jayant KOCH mg (65 mg mg (65 mg iron) iron) tablet tablet morphine 15 morphine 15 2019-0 Yes Tenorio Unknown Unknown mg mg 12-15 [...] unit capsule,del capsule,del ayed ayed release release Vital Signs Vital Name Observation Time Observation Value Comments SYSTOLIC mm[Hg] 2019-12-16 18:10:09 120 mm[Hg] mm[Hg] Method: Sit SYSTOLIC mm[Hg] 2019-12-16 18:10:09 124 mm[Hg] mm[Hg] Method: Stand DIASTOLIC mm[Hg] 2019-12-16 18:10:09 64 mm[Hg] mm[Hg] Method: Sit DIASTOLIC mm[Hg] 2019-12-16 18:10:09 88 mm[Hg] mm[Hg] Method: Stand PULSE 2019-12-16 18:10:09 69 /min /min RESP RATE 2019-12-16 18:10:09 16 /min /min TEMP 2019-12-16 18:10:09 97.5 [degF] Procedures This patient has no known procedures. Results This patient has no known results.
--- OUTSIDE RECORDS SUMMARY | 2020-01-07 09:12 | XMS REPORT ---
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 Tiffany (current) (current) Blake use of use of opiate opiate analgesic analgesic Other long Other long Diagnosis Active Tiffany term term Blake (current) (current) drug drug therapy therapy Personal Personal Diagnosis Active Tiffany history of history of Blake nicotine nicotine dependence dependence Homelessnes Homelessnes Diagnosis Active Tiffany s s Blake Pain frequent Pain Mgmt Active Jerrica pain 12-15 (Colten) 08:45: Stauffer 00 [id number] Respiratory dyspnea Respirator Resolve 2019-12-21 Jerrica present y d 12-15 11:50:00 (Colten) 08:45: Stauffer 00 [id number] Integument skin Integument Resolve 2019-12-19 Jerrica integrity d 12-15 12:05:00 (Colten) risk 08:45: Stauffer [id number] Elimination urinary Eliminatio Resolve 2019-2019-12-21 Jerrica incontinenc n d 12-15 11:50:00 (Colten) e 08:45: Stauffer [id number] Neuro confusion Neuro/Emot Active Jerrica present ion 12-15 (Colten) 08:45: Stauffer 00 [id number] Neuro anxiety Neuro/Emot Active Jerrica present ion 12-15 (Colten) 08:45: Stauffer [id number] Neuro impaired Neuro/Emot Active Jerrica decision-ma ion 12-15 (Colten) anneliese 08:45: Stauffer [id number] Activity ADL Activity Active Jerrica assistance 12-15 (Colten) required 08:45: Stauffer [id number] Activity self-care Activity Resolve 2019-12-19 Jerrica deficit d 12-15 12:05:00 (Colten) 08:45: Stauffer [id number] Safety fall risk Safety Resolve 2019-12-19 Jerrica factor d 12-15 12:05:00 (Colten) present 08:45: Stauffer [id number] Safety risk for Safety Resolve 2019-2019-12-19 Jerrica hospitaliza d 12-15 12:05:00 (Colten) tion 08:45: Stauffer [id number] Safety can be left Safety Active Jerrica alone for 12-15 (Colten) only short 08:45: Stauffer periods 00 [id number] Medication oral med Meds Resolve 2019-2019-12-19 Jerrica assistance d 12-15 12:05:00 (Colten) required 08:45: Stauffer [id number] Medication potential Meds Resolve 2019-12-19 Jerrica clinically d 12-15 12:05:00 (Colten) significant 08:45: Stauffer medication 00 [id number] issue Musculoskel transfer Musculoske Resolve 2019-12-19 Jerrica etal assistance letal d 12-15 12:05:00 (Colten) required 08:45: Stauffer 00 [id number] Musculoskel requires Musculoske Resolve 2019-12-19 Jerrica etal human letal d 12-15 12:05:00 (Colten) assist to 08:45: Eh leave home 00 [id number] Safety knowledge/s Safety Resolve 2019-2019-12-19 Marcellus kill d 12-16 12:05:00 Julien deficit: pt 14:30: [id number] Endo/Dayo anti-coagul Endo/Dayo Resolve 2019-0 2019-12-21 Tiffany higginbothamion d 12-19 11:50:00 Blake therapy 12:05: 00 Safety risk for Safety Active Tiffany hospitaliza 12-21 Blake tion 11:50: 00 Allergies, Adverse Reactions, [...] Medication? Clinician (SIG) Name Name metoclopram metoclopram 2020-0 Yes Tenorio Unknown Unknown bridgett 5 mg bridgett 5 mg 1-30 Jayant KOCH tablet tablet polyethylen polyethylen 2020-0 Yes Tenorio Unknown Unknown e glycol e glycol 1-30 Jayant KOCH 3350 17 3350 17 gram/dose [...] Unknown Unknown 1 gram 1 gram 1-30 ,Jayant Ca tablet tablet Maalox Maalox 2020-0 Yes Tenorio Unknown Unknown Maximum Maximum 1-30 Jayant KOCH Strength Strength 400 mg-400 400 mg-400 mg-40 mg/5 mg-40 mg/5 mL oral mL oral suspension suspension docusate docusate 2020-0 Yes Tenorio Unknown Unknown sodium 100 sodium 100 1-30 Jayant KOCH mg capsule mg capsule albuterol albuterol 2020-0 Yes Tenorio Unknown Unknown sulfate HFA sulfate HFA 1-30 ,Jayant Ca 90 90 mcg/actuati mcg/actuati on aerosol on aerosol inhaler inhaler oxyCODONE oxyCODONE 2020-0 Yes Tenorio Unknown Unknown 10 mg 10 mg 1-30 ,Jayant Ca tablet tablet Protonix 40 Protonix 40 2020-0 Yes Tenorio Unknown Unknown mg mg 1-30 Jayant KOCH tablet,steve tablet,steve yed release yed release Zenpep Zenpep 2020-0 Yes Tenorio Unknown Unknown 20,000 20,000 1-30 Jayant KOCH unit-63,000 unit-63,000 unit-84,000 unit-84,000 unit unit capsule,del capsule,del ayed ayed release release Vital Signs Vital Name Observation Time Observation Value Comments SYSTOLIC mm[Hg] 2019-12-21 18:10:14 118 mm[Hg] mm[Hg] Method: Sit SYSTOLIC mm[Hg] 2019-12-16 18:10:09 124 mm[Hg] mm[Hg] Method: Stand DIASTOLIC mm[Hg] 2019-12-21 18:10:14 70 mm[Hg] mm[Hg] Method: Sit DIASTOLIC mm[Hg] 2019-12-16 18:10:09 88 mm[Hg] mm[Hg] Method: Stand PULSE 2019-12-21 18:10:14 75 /min /min RESP RATE 2019-12-21 18:10:14 18 /min /min TEMP 2019-12-21 18:10:14 97.3 [degF] Procedures This patient has no known procedures. Results This patient has no known results.
--- OUTSIDE RECORDS SUMMARY | 2020-01-07 09:12 | XMS REPORT | Continuity of Care Document ---
:1955 External Reference #:[id number] Author Name Maximino Elizabeth M.D. (transmitted by agent of provider Shonda Blake) Address [address] [place] [address] [place] [address] Care Team Providers Name Role Phone Camden Rondon MD - Student in an Care Team Information Job Analysis Manager [phone] Organized Health Care Education/Training Program Problems Description No Information Available Social History Type Date Description Comments Sex Unknown ETOH Use Denies alcohol use Tobacco Use Start: Unknown End: Patient is a former smoker Unknown Recreational Drug Use Denies Drug Use Smoking Status Reviewed: 12/20/19 Patient is a former smoker Exercise Type/Frequency Does not exercise Allergies, Adverse Reactions, Alerts Active Allergies Reaction Severity Comments Date Fentanyl Moderate rash 11/02/2019 Ketorolac Tromethamine rash 11/02/2019 Erythromycin N&V 11/02/2019 Bactrim N&V 11/02/2019 Medications Active Medications SIG Qnty Indications Ordering Date Provider Colace 1 tabs twice 60caps R10.9 Jayant Tenorio MD 12/08/2019 100mg Capsules daily as needed for regular bowel movements Senna 1 by mouth daily 90caps R10.9 Jayant Tenorio MD 12/08/2019 8.6mg Capsules Zenpep 1 capsule(54030M) 90caps R10.9 Jayant Tenorio MD 12/08/2019 [phone] with each meal Caps DR Bhatti Alendronate Sodium take 2 pills of 60tabs Heidi Hidalgo, 11/11/2019 5mg 5mg each day or 1 DO Tablets 10mg tab Butalbital-Acetaminop 1 tab by mouth 24tabs R51 Jayant Tenorio MD 11/10/2019 hen every 4 hours but 50-325mg Tablets no more than 3 tabs in a day or 24 tabs a month Oxycodone HCL take one every 6 60tabs Heidi Hidalgo, 11/02/2019 10mg hours as needed DO Tablets for pain Clonazepam 1 tablet by mouth 14tabs F41.9 Heidi Hidalgo, 11/02/2019 1mg Tablets two times a day DO Pantoprazole Sodium 1 by mouth every 30tabs Heidi Hidalgo, 11/02/2019 day DO 40mg Tablets Ondansetron take 1 every 8 60tabs Jayant Tenorio MD 11/02/2019 8mg Tablets hours as needed Dispers nausea Sucralfate take one tablet 120tabs Heidi Hidalgo, 11/02/2019 1gm Tablets by mouth four DO times a day History Medications Creon take 1 cap by 90caps K86.81 Jayant Tenorio MD 11/30/2019 - [id number] mouth with every 12/08/2019 Caps Part meal Ferrous Gluconate 1 by mouth once a 60tabs D50.9 Jayant Tenorio MD 11/10/2019 - twice a day 12/08/2019 324(37.5Fe) mg Tablets Alendronate Sodium take 2 tabs daily 60tabs M80.00xA Jayant Tenorio MD 2018 - 11/17/2019 35mg Tablets Butalbital-Aspirin- take 1 by mouth 30caps Shaniqua Gardner MD 11/02/2019 - Caffeine every 4 hours as 11/10/2019 needed for 50-325-40mg headaches Capsules Oxycodone HCL 1 by mouth every 120tabs Heidi Hidalgo 11/02/2019 - 10mg 6 hours as needed DO 11/17/2019 Tablets Clonazepam 1 tablet by mouth 90tabs Sristee 11/02/2019 - 1mg three times daily MD Nela 11/02/2019 Tablets Fiorinal take 1 tablet 90caps R51 Jazlynstkenny 11/02/2019 - every 4 hour as MD Nela 11/02/2019 50-325-40mg needed Maximum Capsules daily dose is 6 tablets Immunizations Description No Information Available Vital Signs Date Vital Result Comment 12/20/2019 10:59am Height 61.50 inches 5'1.50" Weight 128.56 lb Heart Rate 78 /min BP Systolic 138 mmHg BP Diastolic 82 mmHg Respiratory Rate 22 /min Pain Level 7 O2 % BldC Oximetry 98 % BMI (Body Mass Index) 23.9 kg/m2 12/08/2019 9:42am Height 61.50 inches 5'1.50" Weight 122.00 lb with shoes Heart Rate 81 /min BP Systolic Sitting 116 mmHg BP Diastolic Sitting 74 mmHg Body Temperature 96.5 F O2 % BldC Oximetry 96 % BMI (Body Mass Index) 22.7 kg/m2 Results Test Acquired Facility Test Result H/L Range Note Date Drug 12/15/2019 [facility] Urine Presumptive Abnormal None [address] Hydrocodone Posi <[place] [address] Screen NOTE> Clinic [phone] Urine Oxycodone Screen None Detected None Detect Urine Fentanyl Screen None Detected None Detect Urine Methadone Screen None Detected None Detect Urine Buprenorphine Screen None Detected None Detect Urine Amphetamine Screen None Detected None Detect Urine Barbiturates Screen Presumptive Posi <SEE NOTE> Abnormal None Detect 2 Urine Benzodiazepine Screen Presumptive Posi <SEE NOTE> Abnormal None Detect 3 Urine Cannabinoids Screen None Detected None Detect Urine Cocaine Screen None Detected None Detect Urine Opiates Screen Presumptive Posi <SEE NOTE> Abnormal None Detect 4 Urine Phencyclidine Screen None Detected None Detect 5 Hydrocodone 12/15/2019 [facility] Hydrocodone-by Negative Cutoff: Confiramtion, [address] LC-MS/MS ng/mL 25 [place] [address] [phone] Norhydrocodone-by LC-MS/MS Negative ng/mL Cutoff: 25 Hydromorphone-by LC-MS/MS 259 ng/mL Cutoff: 25 Hydrocodone Interpretation Positive. 6 Laboratory test 12/08/2019 [facility] Pathologist Review (SEE NOTE) [address] [place] [address] [phone] Cell Morphology 12/08/2019 [facility] Polychromasia 1+ [address] [place], [place] [id number] [phone] Anisocytosis 2+ CBC Auto 12/08/2019 [facility] White Blood 6.7 10^3/uL Normal 3.5-10.[address] [place] [address] [phone] Red Blood Count 4.09 10^6/uL Normal 3.70-4.87 Hemoglobin 9.2 g/dL Low 12.0-16.0 Hematocrit 29 % Low 35-47 Mean Corpuscular Volume 71 fL Low 80-97 Mean Corpuscular Hemoglobin 23 pg Low 27-31 Mean Corpuscular HGB Conc 32 g/dL Normal 31-36 Red Cell Distribution Width 23 % High 10-15 Platelet Count 317 10^3/uL Normal 150-450 Mean Platelet Volume 6.8 fL Low 7.4-10.4 Abs Neutrophils 3.4 10^3/uL Normal 1.5-7.7 Abs Lymphocytes 2.8 10^3/uL Normal 1.0-4.8 Abs Monocytes 0.4 10^3/uL Normal 0-0.8 Abs Eosinophils 0.1 10^3/uL Normal 0-0.6 Abs Basophils 0.1 10^3/uL Normal 0-0.2 Abs Nucleated RBC 0.0 10^3/uL Granulocyte % 50.5 % Lymphocyte % 41.5 % Monocyte % 5.9 % Eosinophil % 0.9 % Basophil % 1.2 % Nucleated Red Blood Cells % 0.0 Urinalysis Profile 12/08/2019 [facility] Urine Color Straw [address] [place] [address] [phone] Urine Appearance Clear Urine Specific Vader 1.006 Low 1.010-1.030 Urine pH 6.0 Normal 5-9 Urine Urobilinogen Negative Negative Urine Ketones Negative Negative Urine Protein Negative Negative Urine Leukocytes Negative Negative Urine Blood Negative Negative Urine Nitrite Negative Negative Urine Bilirubin Negative Negative Urine Glucose Negative Negative Laboratory test 12/08/2019 [facility] Lipase < 10 U/L Low 11.0 -82.0 finding [address] [place] [address] [phone] C Reactive Protein 5.19 mg/L Normal <8.01 Comp Metabolic 12/08/2019 [facility] Sodium 137 mmol/L Normal 135-145 Panel [address] [place] [address] [phone] Potassium 4.1 mmol/L Normal 3.5-5.0 Chloride 105 mmol/L Normal 101-111 Co2 Carbon Dioxide 21 mmol/L Low 22-32 Anion Gap 11 mmol/L Normal 2-11 Calcium 9.3 mg/dL Normal 8.6-10.3 Albumin 4.1 g/dL Normal 3.2-5.2 Total Bilirubin 0.20 mg/dL Normal 0.2-1.0 Glucose 88 mg/dL Normal 70-100 Blood Urea Nitrogen 19 mg/dL Normal 6-24 Creatinine 0.88 mg/dL Normal 0.51-0.95 BUN/Creatinine Ratio 21.6 High 8-20 Total Protein 7.1 g/dL Normal 6.4-8.9 Globulin 3.0 g/dL Normal 2-4 Albumin/Globulin Ratio 1.4 Normal 1-3 Alkaline Phosphatase 93 U/L Normal 34-104 Alt 8 U/L Normal 7-52 Ast 13 U/L Normal 13-39 Egfr Non- 64.5 >60 Egfr 78.0 >60 8 Laboratory test 12/08/2019 [facility] Lactic Acid 0.8 mmol/L Normal 0.5-2.0 9 finding [address] [place] [address] [phone] Laboratory test 12/08/2019 [facility] Lactic Acid 1.0 mmol/L Normal 0.5-2.0 10 finding [address] [place] [address] [phone] BMP W/Egfr 11/24/2019 [facility] Sodium 139 mmol/L Normal 135- 145 [address] [place] [address] [phone] Potassium 4.5 mmol/L Normal 3.5-5.0 Chloride 104 mmol/L Normal 101-111 Co2 Carbon Dioxide 24 mmol/L Normal 22-32 Anion Gap 11 mmol/L Normal 2-11 Glucose 97 mg/dL Normal 70-100 Blood Urea Nitrogen 19 mg/dL Normal 6-24 Creatinine 0.78 mg/dL Normal 0.51-0.95 BUN/Creatinine Ratio 24.4 High 8-20 Calcium 9.7 mg/dL Normal 8.6-10.3 Egfr Non- 74.1 >60 Egfr 89.7 >60 11 Spep Protein 11/24/2019 [facility] Total Protein(Pep) 7.4 g/dL 6.3 - 7.9 Electro, Serum [address] [place] [address] [phone] Albumin 3.6 g/dL 3.4-4.7 Alpha-1 Globulin 0.3 g/dL 0.1-0.3 Alpha-2 Globulin 1.3 g/dL Abnormal 0.6-1.0 Beta Globulin 1.3 g/dL Abnormal 0.7-1.2 Gamma Globulin 1.0 g/dL 0.6-1.6 Albumin/Globulin Ratio 0.93 Impression See Comment 12 [place]/Lambda Free 11/24/2019 [facility] [place] Free 1.98 mg/dL Abnormal 13 [address] Chains [address] [place] [address] [phone] Lambda Free Light Chain 1.00 mg/dL 14 [place]/Lambda Free Light Chain 1.98 Abnormal 15 Laboratory test 11/10/2019 [facility] Vitamin D 30.9 Normal 20 -50 [address] Total 25(Oh) ng/[place] [address] [phone] Pthi 11/10/2019 [facility] Calcium (PTH 10.1 Normal 8.6-10.[address] Intact) mg/[place] [address] [phone] PTH Intact 56.4 pg/mL Normal 12-88 Celiac Panel 11/10/2019 [facility] Tissue Transglutaminase <1.2 U/mL [address] [place] [address] [phone] Immunoglobulin A 256 mg/dL 61 - 356 Celiac Interpretation See Comment 18 Iron & Iron 11/10/2019 [facility] Total Iron 447 g/dL Normal 250-[address] [place] [address] Capacity [phone] Transferrin 319 mg/dL Normal 203-362 Iron < 20 g/dL Low 50-212 Unsaturated Iron Binding < 432 g/dL % Iron Saturation 4 % Low 15-55 Laboratory test 11/10/2019 [facility] Ferritin 4.8 ng/mL Low 11-[address] [place] [address] [phone] 1 Presumptive Positive Presumptive positive results are unconfirmed. 2 Presumptive Positive Presumptive positive results are unconfirmed. 3 Presumptive Positive Presumptive positive results are unconfirmed. 4 Presumptive Positive Presumptive positive results are unconfirmed. 5 The specimen was tested at the listed cutoffs: Drug Class Test level (ng/mL) Hydrocodone 300 Oxycodone 100 Fentanyl 1 Methadone 150 Buprenorphine 5 Amphetamines 500 Barbiturates 200 Benzodiazepines 200 Cocaine 150 Cannabinoids 50 Opiates 300 PCP 25 Specimen was received without chain of custody. Results should be used for medical purposes only. 6 ADDITIONAL INFORMATION This report is intended for use in clinical monitoring and management of patients. It is not intended for use in employment-related testing. This test was developed and its performance characteristics determined by [facility] in a manner consistent with CLIA requirements. This test has not been cleared or approved by the U.S. Food and Drug Administration. Test Performed by: [facility] - [address] [address] Knife Machine Operator: Gene Conn M.D. Ph.D.; CLIA# [id number] 7 Microcytic anemia with red cell indices suggestive of iron deficiency. Additional studies as clinically warranted. Reviewed by Dr. Bailey 8 Because ethnic data is not always readily [...] 15-29 5 Kidney failure <15 (or dialysis) 9 Specimen hemolyzed. Result may not be valid. [facility] Severe Sepsis and Septic Shock Management Bundle Measure requires all lactic acids initially measuring >2.0 mmol/L be repeated. 10 [facility] Severe Sepsis and Septic Shock Management Bundle Measure requires all lactic acids initially measuring >2.0 mmol/L be repeated. 11 Because ethnic data is not always readily [...] 15-29 5 Kidney failure <15 (or dialysis) 12 RESULT: No apparent monoclonal protein on serum electrophoresis. Test Performed by: [facility] - [place] [address] [place] [address] Knife Machine Operator: Gene Conn M.D. Ph.D.; [facility]# [id number] 13 REFERENCE VALUE 0.3300-1.94 14 REFERENCE VALUE 0.5700-2.63 15 Elevated free light chain ratios between 1.66 and 3.00 may occur due to polyclonal hypergammaglobulinemia or impaired renal clearance. An isolated increased free light chain ratio in this range should be interpreted with caution, and clinical correlation is recommended. REFERENCE VALUE 0.2600-1.65 Test Performed by: [place] [address] Knife Machine Operator: Gene Conn M.D. Ph.D.; CLIA# [id number] 16 Total 25-Hydroxyvitamin D2 and D3 (25-OH-VitD) <10 ng/mL (severe deficiency) 10-19 ng/mL (mild to moderate deficiency) 20-50 ng/mL (optimum levels) 51-80 ng/mL (increased risk of hypercalciuria) >80 ng/mL (toxicity possible) 17 REFERENCE VALUE <4.0 (Negative) Test Performed by: [place] [address] Knife Machine Operator: Gene Conn M.D. Ph.D.; CLIA# [id number] 18 Negative serology. Celiac disease unlikely. However, approximately 10% of patients with celiac disease are seronegative. Also, patients who are already adhering to a gluten-free diet may be seronegative. If celiac disease is highly clinically suspected, consider HLA-DQ typing. Test Performed by: [place] [address] Knife Machine Operator: Gene Conn M.D. Ph.D.; CLIA# [id number] Procedures Date Code Description Status 12/05/2019 [id number] Bone Mineral Density Test Completed Medical Devices Description No Information Available Encounters Type Date Location Provider Dx Diagnosis Office Visit 12/13/2019 [facility] Noreen Cyr, R10.9 Unspecified 9:52a Assoc,pc TELECOMMUNICATIONS PROJECT MANAGER abdominal pain Hospitalists K21.9 Gastro-esophageal reflux disease without esophagitis K31.84 Gastroparesis F41.9 Anxiety disorder, unspecified G89.29 Other chronic pain Office Visit 12/12/2019 [facility] Noreen Cyr, R10.9 Unspecified 9:51a Assoc,pc TELECOMMUNICATIONS PROJECT MANAGER abdominal pain Hospitalists F41.9 Anxiety disorder, unspecified G89.29 Other chronic pain K86.1 Other chronic pancreatitis K21.9 Gastro-esophageal reflux disease without esophagitis G43.909 Migraine, unsp, not intractable, without status migrainosus Z59.0 Homelessness Office Visit 12/11/2019 [facility] Noreen Cyr, R10.9 Unspecified 9:51a Assoc,pc TELECOMMUNICATIONS PROJECT MANAGER abdominal pain Hospitalists F41.9 Anxiety disorder, unspecified G89.29 Other chronic pain K86.1 Other chronic pancreatitis K21.9 Gastro-esophageal reflux disease without esophagitis G43.909 Migraine, unsp, not intractable, without status migrainosus Z59.0 Homelessness Office Visit 12/11/2019 [facility]. R10.9 Unspecified 7:00a [facility] Kingston MD abdominal pain Office Visit 12/10/2019 [facility] R10.9 Unspecified 9:50a Assoc,pc BRUNA Gary abdominal pain Hospitalists K86.1 Other chronic pancreatitis K21.9 Gastro-esophageal reflux disease without esophagitis F41.9 Anxiety disorder, unspecified G89.29 Other chronic pain Z59.0 Homelessness Office Visit 12/10/2019 7:00a [facility] Rodri S. 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 R10.9 Unspecified [facility] Vashti abdominal pain Instrumentation Engineering Technician R11.0 Nausea Office Visit 12/08/2019 [facility] Noreen Cyr, K56.7 Ileus, 9:47a Assoc,pc TELECOMMUNICATIONS PROJECT MANAGER unspecified Hospitalists K21.9 Gastro-esophageal reflux disease without esophagitis F41.9 Anxiety disorder, unspecified K86.1 Other chronic pancreatitis G89.29 Other chronic pain Office Visit 11/02/2019 9:00a [facility] Internal Medicine Camden Rondon MD R51 Headache - Suite [address] K29.60 Other gastritis without bleeding M25.532 Pain in left wrist M25.511 Pain in right shoulder Z12.11 Encounter for screening for malignant neoplasm of colon F41.9 Anxiety disorder, unspecified M80.00xA Age-rel osteopor w current path fracture, unsp site, init Assessments Date Code Description Provider 12/20/2019 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 and foot 12/20/2019 G57.92 Unspecified mononeuropathy of left lower Maximino Elizabeth M.D. limb 12/20/2019 G90.512 Complex regional pain syndrome I of left Maximino Elizabeth M.D. upper limb 12/13/2019 R10.9 Unspecified abdominal pain Noreen Cyr, TELECOMMUNICATIONS PROJECT MANAGER 12/13/2019 K21.9 Gastro-esophageal reflux disease without Noreen Cyr NP esophagitis 12/13/2019 K31.84 Gastroparesis Noreen Cyr, TELECOMMUNICATIONS PROJECT MANAGER 12/13/2019 F41.9 Anxiety disorder, unspecified Noreen Cyr, TELECOMMUNICATIONS PROJECT MANAGER 12/13/2019 G89.29 Other chronic pain Noreen Cyr, EDYTA 12/12/2019 R10.9 Unspecified abdominal pain Noreen Cyr, TELECOMMUNICATIONS PROJECT MANAGER 12/12/2019 F41.9 Anxiety disorder, unspecified Noreen Cyr, TELECOMMUNICATIONS PROJECT MANAGER 12/12/2019 G89.29 Other chronic pain Noreen Cyr, EDYTA 12/12/2019 K86.1 Other chronic pancreatitis Noreen Cyr, EDYTA 12/12/2019 K21.9 Gastro-esophageal reflux disease without Noreen Cyr NP esophagitis 12/12/2019 G43.909 Migraine, unspecified, not intractable, Noreen Cyr NP without status migrainosus 12/12/2019 Z59.0 Homelessness Noreen Cyr, EDYTA 12/11/2019 R10.9 Unspecified abdominal pain Noreen Cyr, TELECOMMUNICATIONS PROJECT MANAGER 12/11/2019 R10.9 Unspecified abdominal pain Rodri Kingston MD 12/11/2019 F41.9 Anxiety disorder, unspecified Noreen Cyr, TELECOMMUNICATIONS PROJECT MANAGER 12/11/2019 G89.29 Other chronic pain Noreen Cyr, TELECOMMUNICATIONS PROJECT MANAGER 12/11/2019 K86.1 Other chronic pancreatitis Noreen Cyr, EDYTA 12/11/2019 K21.9 Gastro-esophageal reflux disease without Noreen Cry, EDYTA esophagitis 12/11/2019 G43.909 Migraine, unspecified, not intractable, Noreen Cyr, EDYTA without status migrainosus 12/11/2019 Z59.0 Homelessness Noreen Cyr, EDYTA 12/10/2019 R10.9 Unspecified abdominal pain Margret Gary PA 12/10/2019 R10.9 Unspecified abdominal pain Rodri Kingston MD 12/10/2019 K86.1 Other chronic pancreatitis Margretgallito Gary, PA 12/10/2019 K21.9 Gastro-esophageal reflux disease without Margretgallito Gary , PA esophagitis 12/10/2019 F41.9 Anxiety disorder, unspecified Margretgallito Gary, PA 12/10/2019 G89.29 Other chronic pain Margretgallito Gary, PA 12/10/2019 Z59.0 Homelessness Margretgallito Gary, PA 12/09/2019 K56.609 Unspecified intestinal obstruction, Margretgallito Gary PA unspecified as to partial versus complete obstruction 12/09/2019 R10.9 Unspecified abdominal pain Rodri Kingston MD 12/09/2019 K86.1 Other chronic pancreatitis Margretgallito Gary, PA 12/09/2019 R11.0 Nausea Rodri Kingston MD 12/09/2019 K21.9 Gastro-esophageal reflux disease without Margretgallito [place] , [place] esophagitis 12/09/2019 F41.9 Anxiety disorder, unspecified Margretgallito [place], PA 12/09/2019 G89.29 Other chronic pain Margret Gary, PA 12/09/2019 Z59.0 Homelessness Margretgallito Gary, PA 12/08/2019 K56.7 Ileus, unspecified Noreen Cyr, EDYTA 12/08/2019 R10.9 Unspecified abdominal pain Jayant Tenorio MD 12/08/2019 K21.9 Gastro-esophageal reflux disease without Noreen Cyr, EDYTA esophagitis 12/08/2019 D50.9 Iron deficiency anemia, unspecified Jayant Tenorio MD 12/08/2019 F41.9 Anxiety disorder, unspecified Noreen Cyr, TELECOMMUNICATIONS PROJECT MANAGER 12/08/2019 M80.00xA Age-related osteoporosis with current Jayant Tenorio MD pathological fracture, unspecified site, initial encounter for fracture 12/08/2019 K86.1 Other chronic pancreatitis Noreen Cyr, TELECOMMUNICATIONS PROJECT MANAGER 12/08/2019 F41.1 Generalized anxiety disorder Jayant Tenorio MD 12/08/2019 G89.29 Other chronic pain Noreen Cyr, TELECOMMUNICATIONS PROJECT MANAGER 12/08/2019 K86.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 at [facility]12/26/2019 8:20 am - Jayant Tenorio MD at [facility] Internal Medicine - [address]/29/2020 3:00 pm - Amaury Rodríguez MD at [facility]12/20/2019 - Maximino Elizabeth M.D.M19.172 Post-traumatic osteoarthritis, left ankle and footNew Xrays:Foot Left 3+ VWS, Ordered: Referral:Kim Nguyen MD, Pain Management-anesthesiFollow up:left wrist, elbow SryzmY63.92 Unspecified mononeuropathy of left lower limbFollow up:As gwxmrmM07.512 Complex regional pain syndrome I of left upper limb Functional Status Description No Information Available Mental Status Description No Information Available Referrals Refer to Dr Reason for Referral Status Appt Date Kim Nguyen MD left peroneal neuritis left ankle Created [address] [place] [address] [phone] Amaury Rodríguez MD severe osteoporsis with "35-45" Patient Notified 02/29/2020 fractures in life [address] [place] [address] [phone] Maximino Elizabeth MD recent left ankle fracture, severe osteoporosis. Sent [address] [facility] [place] [address] [phone] Leon Mora MD nausea. ?recent EGD with concern for small area of Sent 12/15/2019 [place], I don't have biopsy results yet. Hx of exocrine pancreatic insuficiency. [address] [place] [id number] [phone] Jemal Armendariz M.D. Chronic headaches. Sent 03/20/2020 [address] [place] [address] [phone] Pollo Medina MD Has chronic pain. She was following with pain [facility] in [place] and given oxycodone and asked to f/u in 2 weeks. [address] [place] [address] [phone]
--- OUTSIDE RECORDS SUMMARY | 2020-01-07 09:12 | XMS REPORT ---
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 Tiffany (current) (current) Blake use [...] Jerrica pain 12-15 (Colten) 08:45: Stauffer 00 [id number] Respiratory dyspnea Respirator Resolve 2019-12-21 Jerrica present y d 12-15 11:50:00 (Colten) 08:45: Stauffer 00 [id number] Integument skin Integument Resolve 2019-12-19 Jerrica integrity d 12-15 12:05:00 (Colten) risk 08:45: Stauffer [id number] Elimination urinary Eliminatio Resolve 2019-2019-12-21 Jerrica incontinenc n d 12-15 11:50:00 (Colten) e 08:45: Stauffer [id number] Neuro confusion Neuro/Emot Active Jerrica present ion 12-15 (Colten) 08:45: Stauffer 00 [id number] Neuro anxiety Neuro/Emot Active Jerrica present ion 12-15 (Colten) 08:45: Stauffer [id number] Neuro impaired Neuro/Emot Active Jerrica decision-ma ion 12-15 (Colten) anneliese 08:45: Stauffre [id number] Activity ADL Activity Active Jerrica assistance 12-15 (Colten) required 08:45: Stauffer [id number] Activity self-care Activity Resolve 2019-12-19 Jerrica deficit d 12-15 12:05:00 (Colten) 08:45: Stauffer [id number] Safety fall risk Safety Resolve 2019-12-19 Jerrica factor d 12-15 12:05:00 (Colten) present 08:45: Stauffer [id number] Safety risk for Safety Resolve 2019-2019-12-19 Jerrica hospitaliza d 12-15 12:05:00 (Colten) tion 08:45: Stauffer [id number] Safety can be left Safety Active Jerrica alone for 12-15 (Colten) only short 08:45: Stauffer periods 00 [id number] Medication oral med Meds Resolve 2019-2019-12-19 Jerrica assistance d 12-15 12:05:00 (Colten) required 08:45: Stauffer [id number] Medication potential Meds Resolve 2019-12-19 Jerrica clinically d 12-15 12:05:00 (Colten) significant 08:45: Stauffer medication 00 [id number] issue Musculoskel transfer Musculoske Resolve 2019-12-19 Jerrica etal assistance letal d 12-15 12:05:00 (Colten) required 08:45: Stauffer 00 [id number] Musculoskel requires Musculoske Resolve 2019-12-19 Jerrica etal human letal d 12-15 12:05:00 (Colten) assist to 08:45: Eh leave home 00 [id number] Safety knowledge/s Safety Resolve 2019-2019-12-19 Marcellus kill d 12-16 12:05:00 Julien deficit: pt 14:30: [id number] 00 Endo/Dayo anti-coagul Endo/Dayo Resolve 2019-0 2019-12-21 [...]
--- OUTSIDE RECORDS SUMMARY | 2020-01-07 09:12 | XMS REPORT | Continuity of Care Document ---
:1955 External Reference #:[id number] Author Name Maximino Elizabeth M.D. (transmitted by agent of provider Shonda Blake) Address [address] [place] [address] [place] [address] Care Team Providers Name Role Phone Camden Rondon MD - Student in an Care Team Information Senior Cost Analyst Organized Health Care Education/Training Program Problems Description [...] Tenorio MD 12/08/2019 8.6mg Capsules Zenpep 1 capsule(90737N) 90caps R10.9 Jayant Tenorio MD 12/08/2019 [id number] with each meal Caps DR Bhatti Alendronate [...] 90caps K86.81 Jayant Tenorio MD 11/30/2019 - 09676Wsol mouth with every 12/08/2019 Caps Part meal [...] Result H/L Range Note Date Drug 12/15/2019 [facility] Urine Presumptive Abnormal None [address] Hydrocodone Posi <[place] [address] Screen NOTE> Clinic [phone] Urine Oxycodone Screen None Detected None Detect [...] None Detected None Detect 5 Hydrocodone 12/15/2019 [facility] Hydrocodone-by Negative Cutoff: Confiramtion, [address] LC-MS/MS ng/mL 25 [place] [address] [phone] Norhydrocodone-by LC-MS/MS Negative ng/mL Cutoff: 25 Hydromorphone-by LC-MS/MS 259 ng/mL Cutoff: 25 Hydrocodone Interpretation Positive. 6 Laboratory test 12/08/2019 [facility] Pathologist Review (SEE NOTE) [address] [place] [address] [phone] Cell Morphology 12/08/2019 [facility] Polychromasia 1+ [address] [place], [place] [id number] [phone] Anisocytosis 2+ CBC Auto 12/08/2019 [facility] White Blood 6.7 10^3/uL Normal 3.5-10.[address] [place] [address] [phone] Red Blood Count 4.09 10^6/uL Normal 3.70-4.87 [...] Blood Cells % 0.0 Urinalysis Profile 12/08/2019 [facility] Urine Color Straw [address] [place] [address] [phone] Urine Appearance Clear Urine Specific [place] 1.006 Low 1.010-1.030 Urine pH 6.0 Normal 5-9 Urine Urobilinogen Negative Negative Urine Ketones Negative Negative Urine Protein Negative Negative Urine Leukocytes Negative Negative Urine Blood Negative Negative Urine Nitrite Negative Negative Urine Bilirubin Negative Negative Urine Glucose Negative Negative Laboratory test 12/08/2019 [facility] Lipase < 10 U/L Low 11.0 -82.0 finding [address] [place] [address] [phone] C Reactive Protein 5.19 mg/L Normal <8.01 Comp Metabolic 12/08/2019 [facility] Sodium 137 mmol/L Normal 135-145 Panel [address] [place] [address] [phone] Potassium 4.1 mmol/L Normal 3.5-5.0 Chloride 105 [...] Egfr 78.0 >60 8 Laboratory test 12/08/2019 [facility] Lactic Acid 0.8 mmol/L Normal 0.5-2.0 9 finding [address] [place] [address] [phone] Laboratory test 12/08/2019 [facility] Lactic Acid 1.0 mmol/L Normal 0.5-2.0 10 finding [address] [place] [address] [phone] BMP W/Egfr 11/24/2019 [facility] Sodium 139 mmol/L Normal 135- 145 [address] [place] [address] [phone] Potassium 4.5 mmol/L Normal 3.5-5.0 Chloride 104 mmol/L Normal 101-111 Co2 Carbon Dioxide 24 mmol/L Normal 22-32 Anion Gap 11 mmol/L Normal 2-11 Glucose 97 mg/dL Normal 70-100 Blood Urea Nitrogen 19 mg/dL Normal 6-24 Creatinine 0.78 mg/dL Normal 0.51-0.95 BUN/Creatinine Ratio 24.4 High 8-20 Calcium 9.7 mg/dL Normal 8.6-10.3 Egfr Non- 74.1 >60 Egfr 89.7 >60 11 Spep Protein 11/24/2019 [facility] Total Protein(Pep) 7.4 g/dL 6.3 - 7.9 Electro, Serum [address] [place] [address] [phone] Albumin 3.6 g/dL 3.4-4.7 Alpha-1 Globulin 0.3 g/dL 0.1-0.3 Alpha-2 Globulin 1.3 g/dL Abnormal 0.6-1.0 Beta Globulin 1.3 g/dL Abnormal 0.7-1.2 Gamma Globulin 1.0 g/dL 0.6-1.6 Albumin/Globulin Ratio 0.93 Impression See Comment 12 [place]/Lambda Free 11/24/2019 [facility] [place] Free 1.98 mg/dL Abnormal [address]ains [address] [place] [address] [phone] Lambda Free Light Chain 1.00 mg/dL 14 [place]/Lambda Free Light Chain 1.98 Abnormal 15 Laboratory test 11/10/2019 [facility] Vitamin D 30.9 Normal 20 -[address] Total 25(Oh) ng/[place] [address] [phone] Pthi 11/10/2019 [facility] Calcium (PTH 10.1 Normal 8.6-10.[address] Intact) mg/[place] [address] [phone] PTH Intact 56.4 pg/mL Normal 12-88 Celiac Panel 11/10/2019 [facility] Tissue Transglutaminase <1.2 U/mL [address] [place] [address] [phone] Immunoglobulin A 256 mg/dL 61 - 356 Celiac Interpretation See Comment 18 Iron & Iron 11/10/2019 [facility] Total Iron 447 g/dL Normal 250-[address] [place] [address] Capacity [phone] Transferrin 319 mg/dL Normal 203-362 Iron < 20 g/dL Low 50-212 Unsaturated Iron Binding < 432 g/dL % Iron Saturation 4 % Low 15-55 Laboratory test 11/10/2019 [facility] Ferritin 4.8 ng/mL Low 11-[address] [place] [address] [phone] 1 Presumptive Positive Presumptive positive results are [...] developed and its performance characteristics determined by [facility] in a manner consistent with CLIA requirements. This test has not been cleared or approved by the U.S. Food and Drug Administration. Test Performed by: [facility] - [address] [address] Coroner: Gene Conn M.D. Ph.D.; CLIA# [id number] 7 Microcytic anemia with red cell indices [...] Specimen hemolyzed. Result may not be valid. [facility] Severe Sepsis and Septic Shock Management Bundle Measure requires all lactic acids initially measuring >2.0 mmol/L be repeated. 10 [facility] Severe Sepsis and Septic Shock Management Bundle [...] protein on serum electrophoresis. Test Performed by: [facility] [place] [address] [place] [address] Coroner: Gene Conn M.D. Ph.D.; [facility]# [id number] 13 REFERENCE VALUE 0.3300-1.94 14 REFERENCE VALUE 0.5700-2.63 15 Elevated free light chain ratios between 1.66 and 3.00 may occur due to polyclonal hypergammaglobulinemia or impaired renal clearance. An isolated increased free light chain ratio in this range should be interpreted with caution, and clinical correlation is recommended. REFERENCE VALUE 0.2600-1.65 Test Performed by: [place] [address] Coroner: Gene Conn M.D. Ph.D.; CLIA# [id number] 16 Total 25-Hydroxyvitamin D2 and D3 (25-OH-VitD) <10 ng/mL (severe deficiency) 10-19 ng/mL (mild to moderate deficiency) 20-50 ng/mL (optimum levels) 51-80 ng/mL (increased risk of hypercalciuria) >80 ng/mL (toxicity possible) 17 REFERENCE VALUE <4.0 (Negative) Test Performed by: [place] [address] Coroner: Gene Conn M.D. Ph.D.; CLIA# [id number] 18 Negative serology. Celiac disease unlikely. However, approximately 10% of patients with celiac disease are seronegative. Also, patients who are already adhering to a gluten-free diet may be seronegative. If celiac disease is highly clinically suspected, consider HLA-DQ typing. Test Performed by: [place] [address] Coroner: Gene Conn M.D. Ph.D.; CLIA# [id number] Procedures Date Code Description Status 12/05/2019 [id number] Bone Mineral Density Test Completed Medical Devices Description No Information Available Encounters Type Date Location Provider Dx Diagnosis Office Visit 12/13/2019 [facility] Noreen Cyr, R10.9 Unspecified 9:52a Assoc,pc BRIM BUSTER abdominal pain Hospitalists K21.9 Gastro-esophageal reflux disease without esophagitis K31.84 Gastroparesis F41.9 Anxiety disorder, unspecified G89.29 Other chronic pain Office Visit 12/12/2019 [facility] Noreen Cyr, R10.9 Unspecified 9:51a Assoc,pc BRIM BUSTER abdominal pain Hospitalists F41.9 Anxiety disorder, unspecified G89.29 Other chronic pain K86.1 Other chronic pancreatitis K21.9 Gastro-esophageal reflux disease without esophagitis G43.909 Migraine, unsp, not intractable, without status migrainosus Z59.0 Homelessness Office Visit 12/11/2019 [facility] Noreen Cyr, R10.9 Unspecified 9:51a Assoc,pc BRIM BUSTER abdominal pain Hospitalists F41.9 Anxiety disorder, unspecified G89.29 Other chronic pain K86.1 Other chronic pancreatitis K21.9 Gastro-esophageal reflux disease without esophagitis G43.909 Migraine, unsp, not intractable, without status migrainosus Z59.0 Homelessness Office Visit 12/11/2019 [facility]. R10.9 Unspecified 7:00a [facility] Kingston MD abdominal pain Office Visit 12/10/2019 [facility] R10.9 Unspecified 9:50a Assoc,pc BRUNA Gary abdominal pain Hospitalists K86.1 Other chronic pancreatitis K21.9 Gastro-esophageal reflux disease without esophagitis F41.9 Anxiety disorder, unspecified G89.29 Other chronic pain Z59.0 Homelessness Office Visit 12/10/2019 7:00a Surgical Rodri S. R10.9 Unspecified [facility] MD Vashti abdominal pain Supervisor Bindery Office Visit 12/09/2019 7:00a Surgical Rodri S. R10.9 Unspecified [facility] Vashti abdominal pain Supervisor Bindery R11.0 Nausea Office Visit 12/08/2019 [facility] Noreen Cyr, K56.7 Ileus, 9:47a Assoc,pc BRIM BUSTER unspecified Hospitalists K21.9 Gastro-esophageal reflux disease without esophagitis F41.9 Anxiety disorder, unspecified K86.1 Other chronic pancreatitis G89.29 Other chronic pain Office Visit 11/02/2019 9:00a [facility] Internal Medicine Camden Rondon MD R51 Headache - Suite [address] K29.60 Other gastritis without bleeding M25.532 Pain in left wrist M25.511 Pain in right shoulder Z12.11 Encounter for screening for malignant neoplasm of colon F41.9 Anxiety disorder, unspecified M80.00xA Age-rel osteopor w current path fracture, [facility], init Assessments Date Code Description Provider 12/13/2019 R10.9 Unspecified abdominal pain Noreen Cyr, BRIM BUSTER 12/13/2019 K21.9 Gastro-esophageal reflux disease without Noreen RJacqueline, BRIM BUSTER esophagitis 12/13/2019 K31.84 Gastroparesis Noreen Cyr, BRIM BUSTER 12/13/2019 F41.9 Anxiety disorder, unspecified Noreen RRumak, BRIM BUSTER 12/13/2019 G89.29 Other chronic pain Noreen Cyr, BRIM BUSTER 12/12/2019 R10.9 Unspecified abdominal pain Noreen Cyr, BRIM BUSTER 12/12/2019 F41.9 Anxiety disorder, unspecified Noreen RRumak, BRIM BUSTER 12/12/2019 G89.29 Other chronic pain Noreen Cyr, BRIM BUSTER 12/12/2019 K86.1 Other chronic pancreatitis Noreen Cyr, BRIM BUSTER 12/12/2019 K21.9 Gastro-esophageal reflux disease without Noreen Aguayok, BRIM BUSTER esophagitis 12/12/2019 G43.909 Migraine, unspecified, not intractable, Noreen Cyr, BRIM BUSTER without status migrainosus 12/12/2019 Z59.0 Homelessness Noreen Cyr, BRIM BUSTER 12/11/2019 R10.9 Unspecified abdominal pain Noreen Cyr, BRIM BUSTER 12/11/2019 R10.9 Unspecified abdominal pain Rodri Kingston MD 12/11/2019 F41.9 Anxiety disorder, unspecified Noreen RJacqueline, BRIM BUSTER 12/11/2019 G89.29 Other chronic pain Noreen Cyr, BRIM BUSTER 12/11/2019 K86.1 Other chronic pancreatitis Noreen Cyr, BRIM BUSTER 12/11/2019 K21.9 Gastro-esophageal reflux disease without Noreen RRumak, BRIM BUSTER esophagitis 12/11/2019 G43.909 Migraine, unspecified, not intractable, Noreen Cyr, BRIM BUSTER without status migrainosus 12/11/2019 Z59.0 Homelessness Noreen Cyr, BRIM BUSTER 12/10/2019 R10.9 Unspecified abdominal pain Margretgallito Gary, PA 12/10/2019 R10.9 Unspecified abdominal pain Rodri Kingston MD 12/10/2019 K86.1 Other chronic pancreatitis Margretgallito Gary, PA 12/10/2019 K21.9 Gastro-esophageal reflux disease without Margret Gary , [place] esophagitis 12/10/2019 F41.9 Anxiety disorder, unspecified Margret Gary, PA 12/10/2019 G89.29 Other chronic pain Margret Gary, PA 12/10/2019 Z59.0 Homelessness Margret Gary, PA 12/09/2019 K56.609 Unspecified intestinal obstruction, Margretgallito Gary PA unspecified as to partial versus complete obstruction 12/09/2019 R10.9 Unspecified abdominal pain Rodri Kingston MD 12/09/2019 K86.1 Other chronic pancreatitis Margretgallito Gary PA 12/09/2019 R11.0 Nausea Rodri Kingston MD 12/09/2019 K21.9 Gastro-esophageal reflux disease without Margret Gary , [place] esophagitis 12/09/2019 F41.9 Anxiety disorder, unspecified Margret Gary, PA 12/09/2019 G89.29 Other chronic pain Margret Gary, PA 12/09/2019 Z59.0 Homelessness Margret Gary, [place] 12/08/2019 K56.7 Ileus, unspecified Noreen Cyr NP 12/08/2019 R10.9 Unspecified abdominal pain Jayant Tenorio MD 12/08/2019 K21.9 Gastro-esophageal reflux disease without Noreen Cyr NP esophagitis 12/08/2019 D50.9 Iron deficiency anemia, unspecified Jayant Teonrio MD 12/08/2019 F41.9 Anxiety disorder, unspecified Noreen Cyr NP 12/08/2019 M80.00xA Age-related osteoporosis with current Jayant Tenorio MD pathological fracture, unspecified site, initial encounter for fracture 12/08/2019 K86.1 Other chronic pancreatitis Noreen Cyr NP 12/08/2019 F41.1 Generalized anxiety disorder Jayant Tenorio MD 12/08/2019 G89.29 Other chronic pain Noreen Cyr, BRIM BUSTER 12/08/2019 K86.81 Exocrine pancreatic insufficiency Jayant Tenorio [...] sequela 11/10/2019 D50.9 Iron deficiency anemia, unspecified Jayant [...] 9:30 am - Jemal Armendariz M.D. at [facility]12/26/2019 8:20 am - Jayant Tenorio MD at [facility] Internal Medicine - [address]/29/2020 3:00 pm - Amaury Rodríguez MD at [facility] Functional Status Description No Information Available Mental Status Description No Information Available Referrals Refer to Dr Reason for Referral Status Appt [facility] Amaury Rodríguez MD severe osteoporsis with "35-45" Patient Notified 02/29/2020 fractures in life [address] [place] [address] [phone] Maximino Elizabeth MD recent left ankle fracture, severe osteoporosis. Sent [address] [place], [place] [address] [phone] Leon Mora MD nausea. ?recent EGD with concern for small area of Sent 12/15/2019 [facility], I don't have biopsy results yet. Hx of exocrine pancreatic insuficiency. [address] [place] [address] [phone] Jemal Armendariz M.D. Chronic headaches. Sent 03/20/2020 [address] [facility] [place] [address] [phone] Pollo Medina MD Has chronic pain. She was following with pain [facility] in [place] and given oxycodone and asked to f/u in 2 weeks. [address] [place] [address] [phone]
--- OUTSIDE RECORDS SUMMARY | 2020-01-07 09:12 | XMS REPORT ---
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 Diagnosis Active Tiffany (current) (current) Blake use [...] Jerrica pain 12-15 (Colten) 08:45: Stauffer 00 [id number] Respiratory dyspnea Respirator Active Jerrica present y 12-15 (Colten) 08:45: Stauffer 00 [id number] Integument skin Integument Resolve 2019-12-19 Jerrica integrity d 12-15 12:05:00 (Colten) risk 08:45: Stauffer 00 [id number] Elimination urinary Eliminatio Active 0 Jerrica incontinenc n 12-15 (Colten) e 08:45: Stauffer [id number] Neuro confusion Neuro/Emot Active 2019-0 Jerrica present ion 12-15 (Colten) 08:45: Stauffer [id number] Neuro anxiety Neuro/Emot Active 2019-0 Jerrica present ion 12-15 (Colten) 08:45: Stauffer [id number] Neuro impaired Neuro/Emot Active 0 Jerrica decision-ma ion 12-15 (Colten) anneliese 08:45: Stauffer [id number] Activity ADL Activity Active Jerrica assistance 12-15 (Colten) required 08:45: Stauffer [id number] Activity self-care Activity Resolve 2019-2019-12-19 Jerrica deficit d 12-15 12:05:00 (Colten) 08:45: Stauffer [id number] Safety fall risk Safety Resolve 2019-12-19 Jerrica factor d 12-15 12:05:00 (Colten) present 08:45: Stauffer [id number] Safety risk for Safety Resolve 0 2019-12-19 Jerrica hospitaliza d 12-15 12:05:00 (Colten) tion 08:45: Stauffer [id number] Safety can be left Safety Active Jerrica alone for 12-15 (Colten) only short 08:45: Stauffer periods [id number] Medication oral med Meds Resolve 2019-0 2019-12-19 Jerrica assistance d 12-15 12:05:00 (Colten) required 08:45: Stauffer [id number] Medication potential Meds Resolve 0 2019-12-19 Jerrica clinically d 12-15 12:05:00 (Colten) significant 08:45: Stauffer medication [id number] issue Musculoskel transfer Musculoske Resolve 2019-12-19 Jerrica etal assistance letal d 12-15 12:05:00 (Colten) required 08:45: Stauffer [id number] Musculoskel requires Musculoske Resolve 0 2019-12-19 Jerrica etal human letal d 12-15 12:05:00 (Colten) assist to 08:45: Stauffer leave home 00 [id number] Safety knowledge/s Safety Resolve 2020-2019-12-19 Marcellus grimaldo d 12-16 12:05:00 Julien deficit: pt 14:30: [id number] Endo/Dayo anti-coagul Endo/Dayo Active Tiffany zelaya 12-19 Blake therapy 12:05: 00 Allergies, Adverse Reactions, Alerts Allergy Name [...] Unknown Unknown 1-30 Jayant KOCH ondansetron ondansetron 2019-0 Yes Tenorio Unknown Unknown 8 mg 8 mg 1-30 Jayant KOCH disintegrat disintegrat ing tablet ing tablet sucralfate sucralfate 2019-0 Yes Tenorio Unknown Unknown 1 gram 1 gram 1-30 Jayant KOCH tablet tablet Maalox Maalox 2020-0 Yes Tenorio Unknown Unknown Maximum Maximum 1-30 MD,Jayant Ca Strength Strength 400 mg-400 400 mg-400 mg-40 mg/5 mg-40 mg/5 mL oral mL oral suspension suspension docusate docusate 2020-0 Yes Tenorio Unknown Unknown sodium 100 sodium 100 1-30 MD,Jayant Ca mg capsule mg capsule albuterol albuterol 2020-0 Yes Tenorio Unknown Unknown sulfate HFA sulfate HFA 1-30 MD,Jayant Ca 90 90 mcg/actuati mcg/actuati on aerosol on aerosol inhaler inhaler oxyCODONE oxyCODONE 2020-0 Yes Tenorio Unknown Unknown 10 mg 10 mg 1-30 MD,Jayant Ca tablet tablet Protonix 40 Protonix 40 2020-0 Yes Tenorio Unknown Unknown mg mg 1-30 MD,Jayant Ca tablet,steve tablet,steve yed release yed release Zenpep Zenpep 2020-0 Yes Tenorio Unknown Unknown 20,000 20,000 1-30 MD,Jayant Ca unit-63,000 unit-63,000 unit-84,000 unit-84,000 unit unit capsule,del capsule,del ayed ayed release release Vital Signs Vital Name Observation Time Observation Value Comments SYSTOLIC mm[Hg] 2019-12-19 18:10:12 122 mm[Hg] mm[Hg] Method: Sit SYSTOLIC mm[Hg] 2019-12-16 18:10:09 124 mm[Hg] mm[Hg] Method: Stand DIASTOLIC mm[Hg] 2019-12-19 18:10:12 70 mm[Hg] mm[Hg] Method: Sit DIASTOLIC mm[Hg] 2019-12-16 18:10:09 88 mm[Hg] mm[Hg] Method: Stand PULSE 2019-12-19 18:10:12 90 /min /min RESP RATE 2019-12-19 18:10:12 18 /min /min TEMP 2019-12-19 18:10:12 98.2 [degF] Procedures This patient has no known procedures. Results This patient has no known results.
--- OUTSIDE RECORDS SUMMARY | 2020-01-07 09:12 | XMS REPORT ---
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 Diagnosis Active Tiffany (current) (current) Blake use [...] Jerrica pain 12-15 (Colten) 08:45: Stauffer 00 [id number] Respiratory dyspnea Respirator Resolve 2019-12-21 Jerrica present y d 12-15 11:50:00 (Colten) 08:45: Stauffer 00 [id number] Integument skin Integument Resolve 2019-12-19 Jerrica integrity d 12-15 12:05:00 (Colten) risk 08:45: Stauffer [id number] Elimination urinary Eliminatio Resolve 2019-2019-12-21 Jerrica incontinenc n d 12-15 11:50:00 (Colten) e 08:45: Stauffer [id number] Neuro confusion Neuro/Emot Active Jerrica present ion 12-15 (Colten) 08:45: Stauffer 00 [id number] Neuro anxiety Neuro/Emot Active Jerrica present ion 12-15 (Colten) 08:45: Stauffer [id number] Neuro impaired Neuro/Emot Active Jerrica decision-ma ion 12-15 (Colten) anneliese 08:45: Stauffer [id number] Activity ADL Activity Active Jerrica assistance 12-15 (Colten) required 08:45: Stauffer [id number] Activity self-care Activity Resolve 2019-12-19 Jerrica deficit d 12-15 12:05:00 (Colten) 08:45: Stauffer [id number] Safety fall risk Safety Resolve 2019-12-19 Jerrica factor d 12-15 12:05:00 (Colten) present 08:45: Stauffer [id number] Safety risk for Safety Resolve 2019-2019-12-19 Jerrica hospitaliza d 12-15 12:05:00 (Colten) tion 08:45: Stauffer [id number] Safety can be left Safety Active Jerrica alone for 12-15 (Colten) only short 08:45: Stauffer periods 00 [id number] Medication oral med Meds Resolve 2019-2019-12-19 Jerrica assistance d 12-15 12:05:00 (Colten) required 08:45: Stauffer [id number] Medication potential Meds Resolve 2019-12-19 Jerrica clinically d 12-15 12:05:00 (Colten) significant 08:45: Stauffer medication 00 [id number] issue Musculoskel transfer Musculoske Resolve 2019-12-19 Jerrica etal assistance letal d 12-15 12:05:00 (Colten) required 08:45: Stauffer 00 [id number] Musculoskel requires Musculoske Resolve 2019-12-19 Jerrica etal human letal d 12-15 12:05:00 (Colten) assist to 08:45: Eh leave home 00 [id number] Safety knowledge/s Safety Resolve 2019-2019-12-19 Marcellus kill d 12-16 12:05:00 Julien deficit: pt 14:30: [id number] Endo/Dayo anti-coagul Endo/Dayo Resolve 2019-0 2019-12-21 [...] Unknown Unknown sulfate 325 sulfate 325 1-30 Jayatn KOCH mg (65 mg mg (65 mg [...]
--- OUTSIDE RECORDS SUMMARY | 2020-01-07 09:12 | XMS REPORT | Continuity of Care Document ---
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 Care Education/Training Program Problems Active Problems Provider Date Bipolar II disorder Leon Mora MD Onset: 12/21/1994 Note: admitted to [place] [address] several times 1999 to 2002; also anxiety, depression , and drug abuse Social History Type Date Description Comments Sex Unknown ETOH Use Denies alcohol use Tobacco Use Start: Unknown End: Patient is a former smoker Unknown Recreational Drug Use Denies Drug Use Smoking Status Reviewed: 12/26/19 Patient is a former smoker Exercise Type/Frequency Does not exercise Allergies, Adverse Reactions, Alerts Active Allergies Reaction Severity Comments Date Fentanyl Moderate rash 11/02/2019 Ketorolac Tromethamine rash 11/02/2019 Erythromycin N&V 11/02/2019 Bactrim N&V 11/02/2019 Medications Active Medications SIG Qnty Indications Ordering Date Provider Pantoprazole Sodium 1 by mouth twice 60tabs Jayant Tenorio MD 12/26/2019 a day 20mg Tablets Duloxetine HCL take one cap 60caps G89.29 Jayant Tenorio MD 12/26/2019 30mg daily Caps Part Colace 1 tabs twice 60caps R10.9 Jayant Tenorio MD 12/08/2019 100mg Capsules daily as needed for regular bowel movements Senna 1 by mouth daily 90caps R10.9 Jayant Tenorio MD 12/08/2019 8.6mg Capsules Zenpep 1 capsule(53180D) 90caps R10.9 Jayant Tenorio MD 12/08/2019 [id number] with each meal Caps DR Bhatti Alendronate Sodium take 2 pills of 60tabs Heidi Hidalgo, 11/11/2019 5mg 5mg each day or 1 DO Tablets 10mg tab Butalbital-Acetaminop 1 tab by mouth 14tabs R51 Glynn DBryson 11/10/2019 hen every 4 hours but Jania Baron 50-325mg Tablets no more than 3 tabs in a day or 24 tabs a month Sucralfate take one tablet 120tabs Heidi Hidalgo, 11/02/2019 1gm Tablets by mouth four DO times a day Ondansetron take 1 every 8 60tabs Jayant Tenorio MD 11/02/2019 8mg Tablets hours as needed Dispers nausea Clonazepam 1 tablet by mouth 14tabs F41.9 Heidi Hidalgo, 11/02/2019 1mg Tablets two times a day DO History Medications Creon take 1 cap by 90caps K86.81 Jayant Tenorio MD 11/30/2019 - [id number] Caps mouth with every 12/08/2019 DR Magy davis Ferrous Gluconate 1 by mouth once a 60tabs D50.9 Jayant Tenorio MD 11/10/2019 - twice a day 12/08/2019 324(37.5Fe) mg Tablets Alendronate Sodium take 2 tabs daily 60tabs M80.00xA Jayant Tenorio MD 2018 - 11/17/2019 35mg Tablets Kgkxvtqfzg-Tuldydo-L take 1 by mouth 30caps Shaniqua Gardner 11/02/2019 - affeine every 4 hours as 11/10/2019 50-325-40mg needed for Capsules headaches Oxycodone HCL 1 by mouth every 120tabs Heidi 11/02/2019 - 10mg 6 hours as needed Gwen DO 11/17/2019 Tablets Clonazepam 1 tablet by mouth 90tabs Sristkenny 11/02/2019 - 1mg three times daily MD Nela 11/02/2019 Tablets Pantoprazole Sodium 1 by mouth every 30tabs Heidi 11/02/2019 - day Senjuaquin, DO 12/26/[address] Fiorinal take 1 tablet 90caps R51 Camden 11/02/2019 - 50-325-40mg every 4 hour as MD Nela 11/02/2019 Capsules needed Maximum daily dose is 6 tablets Oxycodone HCL take one every 6 60tabs Heidi 11/02/2019 - 10mg hours as needed DO Gwen 12/26/2019 Tablets for pain Immunizations Description No Information Available Vital Signs Date Vital Result Comment 12/26/2019 8:03am Height 61.50 inches 5'1.50" Weight 124.00 lb Heart Rate 94 /min BP Systolic Sitting 129 mmHg BP Diastolic Sitting 80 mmHg Body Temperature 96.7 F O2 % BldC Oximetry 94 % BMI (Body Mass Index) 23.0 kg/m2 12/20/2019 10:59am Height 61.50 inches 5'1.50" Weight 128.56 lb Heart Rate 78 /min BP Systolic 138 mmHg BP Diastolic 82 mmHg Respiratory Rate 22 /min Pain Level 7 O2 % BldC Oximetry 98 % BMI (Body Mass Index) 23.9 kg/m2 Results Test Acquired Facility Test Result H/L Range Note Date Drug 12/15/2019 [facility] Urine Presumptive Abnormal None [address] Hydrocodone Posi <SEE [place] [address] Screen NOTE> [facility] [phone] Urine Oxycodone Screen None Detected None Detect [...] None Detected None Detect 5 Hydrocodone 12/15/2019 [facility] Hydrocodone-by Negative Cutoff: Confiramtion, [address] LC-MS/MS ng/mL 25 [place] [address] [phone] Norhydrocodone-by LC-MS/MS Negative ng/mL Cutoff: 25 Hydromorphone-by LC-MS/MS 259 ng/mL Cutoff: 25 Hydrocodone Interpretation Positive. 6 Laboratory test 12/08/2019 [facility] Pathologist Review (SEE NOTE) 7 finding [address] [place] [address] [phone] Cell Morphology 12/08/2019 [facility] Polychromasia 1+ [address] [place] [address] [phone] Anisocytosis 2+ CBC Auto 12/08/2019 [facility] White Blood 6.7 10^3/uL Normal 3.5-10.[address] [place] [address] [phone] Red Blood Count 4.09 10^6/uL Normal 3.70-4.87 [...] Blood Cells % 0.0 Urinalysis Profile 12/08/2019 [facility] Urine Color Straw [address] [place] [address] [phone] Urine Appearance Clear Urine Specific [place] 1.006 Low 1.010-1.030 Urine pH 6.0 Normal 5-9 Urine Urobilinogen Negative Negative Urine Ketones Negative Negative Urine Protein Negative Negative Urine Leukocytes Negative Negative Urine Blood Negative Negative Urine Nitrite Negative Negative Urine Bilirubin Negative Negative Urine Glucose Negative Negative Laboratory test 12/08/2019 [facility] Lipase < 10 U/L Low 11.0 -82.0 finding [address] [place] [address] [phone] C Reactive Protein 5.19 mg/L Normal <8.01 Comp Metabolic 12/08/2019 [facility] Sodium 137 mmol/L Normal 135-145 Panel [address] [place] [address] [phone] Potassium 4.1 mmol/L Normal 3.5-5.0 Chloride 105 [...] Egfr 78.0 >60 8 Laboratory test 12/08/2019 [facility] Lactic Acid 0.8 mmol/L Normal 0.5-2.0 9 finding [address] [place] [address] [phone] Laboratory test 12/08/2019 [facility] Lactic Acid 1.0 mmol/L Normal 0.5-2.0 10 finding [address] [place] [address] [phone] BMP W/Egfr 11/24/2019 [facility] Sodium 139 mmol/L Normal 135- 145 [address] [place] [address] [phone] Potassium 4.5 mmol/L Normal 3.5-5.0 Chloride 104 mmol/L Normal 101-111 Co2 Carbon Dioxide 24 mmol/L Normal 22-32 Anion Gap 11 mmol/L Normal 2-11 Glucose 97 mg/dL Normal 70-100 Blood Urea Nitrogen 19 mg/dL Normal 6-24 Creatinine 0.78 mg/dL Normal 0.51-0.95 BUN/Creatinine Ratio 24.4 High 8-20 Calcium 9.7 mg/dL Normal 8.6-10.3 Egfr Non- 74.1 >60 Egfr 89.7 >60 11 Spep Protein 11/24/2019 [facility] Total Protein(Pep) 7.4 g/dL 6.3 - 7.9 Electro, Serum [address] [place], [place] [id number] [phone] Albumin 3.6 g/dL 3.4-4.7 Alpha-1 Globulin 0.3 g/dL 0.1-0.3 Alpha-2 Globulin 1.3 g/dL Abnormal 0.6-1.0 Beta Globulin 1.3 g/dL Abnormal 0.7-1.2 Gamma Globulin 1.0 g/dL 0.6-1.6 Albumin/Globulin Ratio 0.93 Impression See Comment 12 [place]/Lambda Free 11/24/2019 [facility] [place] Free 1.98 mg/dL Abnormal [address]ains [address] Light Chain [place], [place] [id number] [phone] Lambda Free Light Chain 1.00 mg/dL 14 [place]/Lambda Free Light Chain 1.98 Abnormal 15 Laboratory test 11/10/2019 [facility] Vitamin D 30.9 Normal 20 -50 [address] Total 25(Oh) ng/[place] [address] [phone] Pthi 11/10/2019 [facility] Calcium (PTH 10.1 Normal 8.6-10.[address] Intact) mg/[place] [address] [phone] PTH Intact 56.4 pg/mL Normal 12-88 Celiac Panel 11/10/2019 [facility] Tissue Transglutaminase <1.2 U/mL [address] IgA Ab [place], [place] [id number] [phone] Immunoglobulin A 256 mg/dL 61 - 356 Celiac Interpretation See Comment 18 Iron & Iron 11/10/2019 [facility] Total Iron 447 g/dL Normal 250-[address] [place] [address] Capacity [phone] Transferrin 319 mg/dL Normal 203-362 Iron < 20 g/dL Low 50-212 Unsaturated Iron Binding < 432 g/dL % Iron Saturation 4 % Low 15-55 Laboratory test 11/10/2019 [facility] Ferritin 4.8 ng/mL Low 11-[address] [place] [address] [phone] 1 Presumptive Positive Presumptive positive results are [...] developed and its performance characteristics determined by [facility] in a manner consistent with CLIA requirements. This test has not been cleared or approved by the U.S. Food and Drug Administration. Test Performed by: [facility] [address] [place] [address] Biology Research Assistant: Gene Conn M.D. Ph.D.; CLIA# [id number] 7 Microcytic anemia with red cell indices [...] Specimen hemolyzed. Result may not be valid. [facility] Severe Sepsis and Septic Shock Management Bundle Measure requires all lactic acids initially measuring >2.0 mmol/L be repeated. 10 [facility] Severe Sepsis and Septic Shock Management Bundle [...] protein on serum electrophoresis. Test Performed by: [facility] [address] [place] [address] Biology Research Assistant: Gene Conn M.D. Ph.D.; IA# [id number] 13 REFERENCE VALUE 0.3300-1.94 14 REFERENCE VALUE 0.5700-2.63 15 Elevated free light chain ratios between 1.66 and 3.00 may occur due to polyclonal hypergammaglobulinemia or impaired renal clearance. An isolated increased free light chain ratio in this range should be interpreted with caution, and clinical correlation is recommended. REFERENCE VALUE 0.2600-1.65 Test Performed by: [place] [address] Biology Research Assistant: Gene Conn M.D. Ph.D.; CLIA# [id number] 16 Total 25-Hydroxyvitamin D2 and D3 (25-OH-VitD) <10 ng/mL (severe deficiency) 10-19 ng/mL (mild to moderate deficiency) 20-50 ng/mL (optimum levels) 51-80 ng/mL (increased risk of hypercalciuria) >80 ng/mL (toxicity possible) 17 REFERENCE VALUE <4.0 (Negative) Test Performed by: [place] [address] Biology Research Assistant: Gene Conn M.D. Ph.D.; CLIA# [id number] 18 Negative serology. Celiac disease unlikely. However, approximately 10% of patients with celiac disease are seronegative. Also, patients who are already adhering to a gluten-free diet may be seronegative. If celiac disease is highly clinically suspected, consider HLA-DQ typing. Test Performed by: [place] [address] Biology Research Assistant: Gnee Conn M.D. Ph.D.; CLIA# [id number] Procedures Date Code Description Status 12/05/2019 [id number] Bone Mineral Density Test Completed Medical Devices Description No Information Available Encounters Type Date Location Provider Dx Diagnosis Office Visit 12/13/2019 [facility] Noreen Cyr, R10.9 Unspecified 9:52a Assoc,pc TRACTOR TRAILER TECHNICIAN abdominal pain Hospitalists K21.9 Gastro-esophageal reflux disease without esophagitis K31.84 Gastroparesis F41.9 Anxiety disorder, unspecified G89.29 Other chronic pain Office Visit 12/12/2019 [facility] Noreen Cyr, R10.9 Unspecified 9:51a Assoc,pc TRACTOR TRAILER TECHNICIAN abdominal pain Hospitalists F41.9 Anxiety disorder, unspecified G89.29 Other chronic pain K86.1 Other chronic pancreatitis K21.9 Gastro-esophageal reflux disease without esophagitis G43.909 Migraine, unsp, not intractable, without status migrainosus Z59.0 Homelessness Office Visit 12/11/2019 [facility] Noreen Cyr, R10.9 Unspecified 9:51a Assoc,pc TRACTOR TRAILER TECHNICIAN abdominal pain Hospitalists F41.9 Anxiety disorder, unspecified G89.29 Other chronic pain K86.1 Other chronic pancreatitis K21.9 Gastro-esophageal reflux disease without esophagitis G43.909 Migraine, unsp, not intractable, without status migrainosus Z59.0 Homelessness Office Visit 12/11/2019 [facility] R10.9 Unspecified 7:00a [facility] Kingston MD abdominal pain Office Visit 12/10/2019 [facility] R10.9 Unspecified 9:50a Assoc,pc BRUNA Gary abdominal pain Hospitalists K86.1 Other chronic pancreatitis K21.9 Gastro-esophageal reflux disease without esophagitis F41.9 Anxiety disorder, unspecified G89.29 Other chronic pain Z59.0 Homelessness Office Visit 12/10/2019 7:00a [facility] Rodri S. 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 R11.0 Nausea Office Visit 12/08/2019 [facility] Noreen Cyr, K56.7 Ileus, 9:47a Assoc,pc TRACTOR TRAILER TECHNICIAN unspecified Hospitalists K21.9 Gastro-esophageal reflux disease without esophagitis F41.9 Anxiety disorder, unspecified K86.1 Other chronic pancreatitis G89.29 Other chronic pain Office Visit 11/02/2019 9:00a [facility] Camden Rondon MD R51 Headache - Suite [address] K29.60 Other gastritis without bleeding M25.532 Pain in left wrist M25.511 Pain in right shoulder Z12.11 Encounter for screening for malignant neoplasm of colon F41.9 Anxiety disorder, unspecified M80.00xA Age-rel osteopor w current path fracture, unsp site, init Assessments Date Code Description Provider 12/26/2019 F17.210 Nicotine dependence, cigarettes, Jayant Tenorio MD uncomplicated 12/26/2019 K21.9 Gastro-esophageal reflux disease without Jayant Tenorio MD esophagitis 12/26/2019 K31.84 Gastroparesis Jayant Tenorio MD 12/26/2019 K86.1 Other chronic pancreatitis Jayant Tenorio MD 12/26/2019 G43.909 Migraine, unspecified, not intractable, Jayant Tenorio MD without status migrainosus 12/26/2019 G89.29 Other chronic pain Jayant Tenorio MD 12/20/2019 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 and foot 12/20/2019 G57.92 Unspecified mononeuropathy of left lower Maximino Elizabeth M.D. limb 12/20/2019 G90.512 Complex regional pain syndrome I of left Maximino Elizabeth M.D. upper limb 12/13/2019 R10.9 Unspecified abdominal pain Noreen Cyr, TRACTOR TRAILER TECHNICIAN 12/13/2019 K21.9 Gastro-esophageal reflux disease without Noreen Cyr, EDYTA esophagitis 12/13/2019 K31.84 Gastroparesis Noreen Cyr, EDYTA 12/13/2019 F41.9 Anxiety disorder, unspecified Noreen Cyr, TRACTOR TRAILER TECHNICIAN 12/13/2019 G89.29 Other chronic pain Noreen Cyr, EDYTA 12/12/2019 R10.9 Unspecified abdominal pain Noreen Cyr, TRACTOR TRAILER TECHNICIAN 12/12/2019 F41.9 Anxiety disorder, unspecified Noreen Cyr, TRACTOR TRAILER TECHNICIAN 12/12/2019 G89.29 Other chronic pain Noreen Cyr, TRACTOR TRAILER TECHNICIAN 12/12/2019 K86.1 Other chronic pancreatitis Noreen Cyr, TRACTOR TRAILER TECHNICIAN 12/12/2019 K21.9 Gastro-esophageal reflux disease without Noreen Cyr, TRACTOR TRAILER TECHNICIAN esophagitis 12/12/2019 G43.909 Migraine, unspecified, not intractable, Noreen Cyr, TRACTOR TRAILER TECHNICIAN without status migrainosus 12/12/2019 Z59.0 Homelessness Noreen Cyr, TRACTOR TRAILER TECHNICIAN 12/11/2019 R10.9 Unspecified abdominal pain Noreen Cyr, TRACTOR TRAILER TECHNICIAN 12/11/2019 R10.9 Unspecified abdominal pain Rodri Kingston MD 12/11/2019 F41.9 Anxiety disorder, unspecified Noreen Cyr, TRACTOR TRAILER TECHNICIAN 12/11/2019 G89.29 Other chronic pain Noreen Cyr, TRACTOR TRAILER TECHNICIAN 12/11/2019 K86.1 Other chronic pancreatitis Noreen Cyr, TRACTOR TRAILER TECHNICIAN 12/11/2019 K21.9 Gastro-esophageal reflux disease without Noreen Cyr, TRACTOR TRAILER TECHNICIAN esophagitis 12/11/2019 G43.909 Migraine, unspecified, not intractable, Noreen Cyr, TRACTOR TRAILER TECHNICIAN without status migrainosus 12/11/2019 Z59.0 Homelessness Noreen Cyr, TRACTOR TRAILER TECHNICIAN 12/10/2019 R10.9 Unspecified abdominal pain BRUNA Smith 12/10/2019 R10.9 Unspecified abdominal pain Rodri Kingston MD 12/10/2019 K86.1 Other chronic pancreatitis BRUNA Smith 12/10/2019 K21.9 Gastro-esophageal reflux disease without BRUNA Smith esophagitis 12/10/2019 F41.9 Anxiety disorder, unspecified BRUNA Smith 12/10/2019 G89.29 Other chronic pain BRUNA Smith 12/10/2019 Z59.0 Homelessness BRUNA Smith 12/09/2019 K56.609 Unspecified intestinal obstruction, BRUNA Smith unspecified as to partial versus complete obstruction 12/09/2019 R10.9 Unspecified abdominal pain Rodri Kingston MD 12/09/2019 K86.1 Other chronic pancreatitis BRUNA Smith 12/09/2019 R11.0 Nausea Rodri Kingston MD 12/09/2019 K21.9 Gastro-esophageal reflux disease without BRUNA Smith esophagitis 12/09/2019 F41.9 Anxiety disorder, unspecified BRUNA Smith 12/09/2019 G89.29 Other chronic pain BRUNA Smith 12/09/2019 Z59.0 Homelessness BRUNA Smith 12/08/2019 K56.7 Ileus, unspecified Noreen Cyr, EDYTA 12/08/2019 R10.9 Unspecified abdominal pain Jayant Tenorio MD 12/08/2019 K21.9 Gastro-esophageal reflux disease without Noreen Cyr, EDYTA esophagitis 12/08/2019 D50.9 Iron deficiency anemia, unspecified Jayant Tenorio MD 12/08/2019 F41.9 Anxiety disorder, unspecified Noreen Cyr, EDYTA 12/08/2019 M80.00xA Age-related osteoporosis with current Jayant Tenorio MD pathological fracture, unspecified site, initial encounter for fracture 12/08/2019 K86.1 Other chronic pancreatitis Noreen Cyr, EDYTA 12/08/2019 F41.1 Generalized anxiety disorder Jayant Tenorio MD 12/08/2019 G89.29 Other chronic pain Noreen Cyr, EDYTA 12/08/2019 K86.81 Exocrine pancreatic insufficiency Jayant Tenorio [...] encounter for fracture Plan of Treatment Future Appointment(s):01/16/2020 8:40 am - Jayant Tenorio MD at [facility] - [address]/20/2020 9:30 am - Jemal Armendariz M.D. at [facility]02/29/2020 3:00 pm - Amaury Rodríguez MD at [facility]12/26/2019 - Jayant Tenorio MDF17.210 Nicotine dependence, cigarettes, uncomplicatedComments:Call [facility] to get nicotine replacement supplements.K21.9 Gastro-esophageal reflux disease without esophagitisComments:We changed the pantoprazole to 20mg twice a day from 40mg once a day. Follow-up with Dr. Mora of GI for a potential colonoscopy.Follow up:Week January 15.K31.84 PtqsgjslesregW41.1 Other chronic pancreatitisComments:Call us with the name of the alternative to Zenpep/ Creon.G43.909 Migraine, unspecified, not intractable, without status migrainosusComments:Follow-up with VasrolcpzR06.29 Other chronic painNew Medication:Duloxetine HCL 30 mg - take one cap daily Functional Status Description No Information Available Mental Status Description No Information Available Referrals Refer to Dr Reason for Referral Status Appt Date Kim Nguyen MD left peroneal neuritis left ankle Created [address] [place], [place] [id number] [phone] Amaury Rodríguez MD severe osteoporsis with "35-45" Patient Notified 02/29/2020 fractures in life [address] [place] [phone] Maximino Elizabeth MD recent left ankle fracture, severe osteoporosis. Sent [address] [facility] [address] [place], [place] [id number] [phone] Leon Mora MD nausea. ?recent EGD with concern for small area of Sent 12/15/2019 [facility], I don't have biopsy results yet. Hx of exocrine pancreatic insuficiency. [address] [place] [phone] [phone] Jemal Armendariz M.D. Chronic headaches. Sent 03/20/2020 [address] [place] [phone] Pollo Medina MD Has chronic pain. She was following with [facility] [place] and given oxycodone and asked to f/u in 2 weeks. [address] [place] [address] [phone]
--- OUTSIDE RECORDS SUMMARY | 2020-01-07 09:12 | XMS REPORT ---
:1955 Author Organization [facility] Care Team Providers Name Role Phone Unavailable Unavailable Unavailable Problems Condition Condition Condition Status Onset Resolution Last Treating Comments Name Details Category Date Date Treatment Clinician Date Other Other Diagnosis Active 0 Tiffany chronic chronic 12-13 Blake pancreatiti pancreatiti s s Pain frequent Pain Mgmt Active 2019-0 Jerrica pain 12-15 (Colten) 08:45: Stauffer 00 [id number] Respiratory dyspnea Respirator Active 2020-0 Jerrica present y 12-15 ([place]) 08:45: Stauffer [id number] Integument skin Integument Active 2019-0 Jerrica integrity 12-15 ([place]ten) risk 08:45: Stauffer 00 [id number] Elimination urinary Eliminatio Active 2020-0 Jerrica incontinenc n 12-15 ([place]ten) e 08:45: Stauffer [id number] Neuro confusion Neuro/Emot Active 2020-0 Jerrica present ion 12-15 ([place]ten) 08:45: Stauffer 00 [id number] Neuro anxiety Neuro/Emot Active 2020-0 Jerrica present ion 12-15 ([place]) 08:45: Stauffer [id number] Neuro impaired Neuro/Emot Active 2019-0 Jerrica decision-ma ion 12-15 ([place]) anneliese 08:45: Stauffer [id number] Activity ADL Activity Active 2020-0 Jerrica assistance 12-15 ([place]ten) required 08:45: Stauffer [id number] Activity self-care Activity Active 2020-0 Jerrica deficit 12-15 ([place]ten) 08:45: Stauffer [id number] Safety fall risk Safety Active 2020-0 Jerrica factor - ([place]ten) present 08:45: Stauffer 00 [id number] Safety risk for Safety Active 2020-0 Jerrica hospitaliza 12-15 ([place]ten) tion 08:45: Stauffer [id number] Safety can be left Safety Active 2020-0 Jerrica alone for 12-15 (Colten) only short 08:45: Stauffer periods [id number] Medication oral med Meds Active 2020-0 Jerrica assistance 12-15 ([place]ten) required 08:45: Stauffer [id number] Medication potential Meds Active 2020-0 Jerrica clinically 12-15 ([place]ten) significant 08:45: Stauffer medication [id number] issue Musculoskel transfer Musculoske Active 2019-0 Jerrica etal assistance letal 12-15 ([place]) required 08:45: Stauffer [id number] Musculoskel requires Musculoske Active 2019-0 Jerrica etal human letal 12-15 ([place]ten) assist to 08:45: Stauffer leave home [id number] Safety knowledge/s Safety Active 2019- Marcellus grimaldo 12-16 Julien deficit: pt 14:30: [id number] Allergies, Adverse Reactions, Alerts Allergy Name [...]
--- OUTSIDE RECORDS SUMMARY | 2020-01-07 09:12 | XMS REPORT ---
:1955 Author Organization [facility] Care Team Providers Name Role Phone Unavailable Unavailable Unavailable Problems Condition Condition Condition Status Onset Resolution Last Treating Comments Name Details Category Date Date Treatment Clinician Date Other Other Diagnosis Active 2020-0 Tiffany chronic chronic 12-13 Blake pancreatiti pancreatiti s s Safety knowledge/s Safety Active 2019-0 Marcellus kill 12-16 Berniceicz deficit: pt 14:30: [id number] Safety fall risk Safety Active 2019-0 Marcellus factor 12-16 Julien present 14:30: [id number] Safety risk for Safety Active Marcellus hospitaliza 12-16 Julien tion 14:30: [id number] Allergies, Adverse Reactions, Alerts Allergy Name Allergy Status Severity Reaction(s) Onset Inactive Treating Comments Type Date Date Clinician amoxicillin Base Active Unknown Reaction 2020-0 Roxana Beam Ingredient Unknown 12-13 erythromycin Base Active Unknown Nausea and 0 Roxana Beam base Ingredient vomiting 12-13 fentanyl [...] Unknown bridgett 5 mg bridgett 5 mg - Jayant KOCH tablet tablet polyethylen polyethylen 2020-0 Yes Tenorio Unknown Unknown e glycol e glycol 12-15 Jayant KOCH 3350 17 3350 17 gram/dose gram/dose oral powder oral powder senna 8.6 senna 8.6 2020-0 Yes Tenorio Unknown Unknown mg tablet mg tablet 12-15 Jayant KOCH ferrous ferrous 2020-0 Yes Tenorio [...] KOCH tablet,steve tablet,steve yed release yed release Vital Signs Vital Name Observation Time [...]
--- OUTSIDE RECORDS SUMMARY | 2020-01-07 09:12 | XMS REPORT | Continuity of Care Document ---
:1955 External Reference #:[id number] Author Name Jayant Tenorio MD (transmitted by agent of provider Kyra Jiang) Address [address] [place] [address] Care Team Providers Name Role Phone Camden Rondon MD - Student in an Care Team Information [employer] Le[employer] Agent Organized Health Care Education/Training Program Problems Active Problems Provider Date Bipolar II disorder Leon Mora MD Onset: 12/21/1994 Note: admitted to [place] [address] several times 1999 to 2002; also anxiety, [...] Tenorio MD 12/08/2019 8.6mg Capsules Zenpep 1 capsule(97948L) 90caps R10.9 Jayant Tenorio MD 12/08/2019 [id number] with each meal Caps DR Bhatti Alendronate [...] 90caps K86.81 Jayant Tenorio MD 11/30/2019 - 61786Cobp Caps mouth with every 12/08/2019 DR Magy davis Ferrous Gluconate 1 by mouth once a 60tabs D50.9 Jayant Tenorio MD 11/10/2019 - twice a day 12/08/2019 324(37.5Fe) mg Tablets Alendronate Sodium take 2 tabs daily 60tabs M80.00xA Jayant Tenorio MD 2018 - 11/17/2019 35mg Tablets Hjntnmosom-Dvfwvdt-C take 1 by mouth 30caps Shaniqua Gardner [...] Result H/L Range Note Date Drug 12/15/2019 [facility] Urine Presumptive Abnormal None [address] Hydrocodone Posi <[place] [address] Screen NOTE> [facility] [phone] Urine Oxycodone Screen None Detected None Detect [...] None Detected None Detect 5 Hydrocodone 12/15/2019 [facility] Hydrocodone-by Negative Cutoff: Confiramtion, [address] LC-MS/MS ng/mL 25 [place] [address] [phone] Norhydrocodone-by LC-MS/MS Negative ng/mL Cutoff: 25 Hydromorphone-by LC-MS/MS 259 ng/mL Cutoff: 25 Hydrocodone Interpretation Positive. 6 Laboratory test 12/08/2019 [facility] Pathologist Review (SEE NOTE) 7 finding [address] [place] [address] [phone] Cell Morphology 12/08/2019 [facility] Polychromasia 1+ [address] [place] [address] [phone] Anisocytosis 2+ CBC Auto 12/08/2019 [facility] White Blood 6.7 10^3/uL Normal 3.5-10.[address] [place] [address] [phone] Red Blood Count 4.09 10^6/uL Normal 3.70-4.87 [...] Blood Cells % 0.0 Urinalysis Profile 12/08/2019 [facility] Urine Color Straw [address] [place] [address] [phone] Urine Appearance Clear Urine Specific [place] 1.006 Low 1.010-1.030 Urine pH 6.0 Normal 5-9 Urine Urobilinogen Negative Negative Urine Ketones Negative Negative Urine Protein Negative Negative Urine Leukocytes Negative Negative Urine Blood Negative Negative Urine Nitrite Negative Negative Urine Bilirubin Negative Negative Urine Glucose Negative Negative Laboratory test 12/08/2019 [facility] Lipase < 10 U/L Low 11.0 -82.0 finding [address] [place] [address] [phone] C Reactive Protein 5.19 mg/L Normal <8.01 Comp Metabolic 12/08/2019 [facility] Sodium 137 mmol/L Normal 135-145 Panel [address] [place] [address] [phone] Potassium 4.1 mmol/L Normal 3.5-5.0 Chloride 105 [...] Egfr 78.0 >60 8 Laboratory test 12/08/2019 [facility] Lactic Acid 0.8 mmol/L Normal 0.5-2.0 9 finding [address] [place] [address] [phone] Laboratory test 12/08/2019 [facility] Lactic Acid 1.0 mmol/L Normal 0.5-2.0 10 finding [address] [place] [address] [phone] BMP W/Egfr 11/24/2019 [facility] Sodium 139 mmol/L Normal 135- 145 [address] [place] [address] [phone] Potassium 4.5 mmol/L Normal 3.5-5.0 Chloride 104 mmol/L Normal 101-111 Co2 Carbon Dioxide 24 mmol/L Normal 22-32 Anion Gap 11 mmol/L Normal 2-11 Glucose 97 mg/dL Normal 70-100 Blood Urea Nitrogen 19 mg/dL Normal 6-24 Creatinine 0.78 mg/dL Normal 0.51-0.95 BUN/Creatinine Ratio 24.4 High 8-20 Calcium 9.7 mg/dL Normal 8.6-10.3 Egfr Non- 74.1 >60 Egfr 89.7 >60 11 Spep Protein 11/24/2019 [facility] Total Protein(Pep) 7.4 g/dL 6.3 - 7.9 Electro, Serum [address] [place], [place] [id number] [phone] Albumin 3.6 g/dL 3.4-4.7 Alpha-1 Globulin 0.3 g/dL 0.1-0.3 Alpha-2 Globulin 1.3 g/dL Abnormal 0.6-1.0 Beta Globulin 1.3 g/dL Abnormal 0.7-1.2 Gamma Globulin 1.0 g/dL 0.6-1.6 Albumin/Globulin Ratio 0.93 Impression See Comment 12 Fabens/Lambda Free 11/24/2019 [facility] Fabens Free 1.98 mg/dL Abnormal [address] Light Chain [place], [place] [address] [phone] Lambda Free Light Chain 1.00 mg/dL 14 Fabens/Lambda Free Light Chain 1.98 Abnormal 15 Laboratory test 11/10/2019 [facility] Vitamin D 30.9 Normal 20 -50 [address] Total 25(Oh) ng/[place] [address] [phone] Pthi 11/10/2019 [facility] Calcium (PTH 10.1 Normal 8.6-10.[address] Intact) mg/[place] [address] [phone] PTH Intact 56.4 pg/mL Normal 12-88 Celiac Panel 11/10/2019 [facility] Tissue Transglutaminase <1.2 U/mL [address] IgA Ab [place], [place] [address] [phone] Immunoglobulin A 256 mg/dL 61 - 356 Celiac Interpretation See Comment 18 Iron & Iron 11/10/2019 [facility] Total Iron 447 g/dL Normal 250-[address] [place] [address] Capacity [phone] Transferrin 319 mg/dL Normal 203-362 Iron < 20 g/dL Low 50-212 Unsaturated Iron Binding < 432 g/dL % Iron Saturation 4 % Low 15-55 Laboratory test 11/10/2019 [facility] Ferritin 4.8 ng/mL Low 11-[address] [place] [address] [phone] 1 Presumptive Positive Presumptive positive results are [...] developed and its performance characteristics determined by [facility] in a manner consistent with CLIA requirements. This test has not been cleared or approved by the U.S. Food and Drug Administration. Test Performed by: [facility] [address] [place] [address] Nozzle And Sleeve Worker: Gene Conn M.D. Ph.D.; CLIA# [id number] 7 Microcytic anemia with red cell indices [...] Specimen hemolyzed. Result may not be valid. [facility] Severe Sepsis and Septic Shock Management Bundle Measure requires all lactic acids initially measuring >2.0 mmol/L be repeated. 10 [facility] Severe Sepsis and Septic Shock Management Bundle [...] protein on serum electrophoresis. Test Performed by: [facility] [address] [place] [address] Nozzle And Sleeve Worker: Gene Conn M.D. Ph.D.; IA# [id number] 13 REFERENCE VALUE 0.3300-1.94 14 REFERENCE VALUE 0.5700-2.63 15 Elevated free light chain ratios between 1.66 and 3.00 may occur due to polyclonal hypergammaglobulinemia or impaired renal clearance. An isolated increased free light chain ratio in this range should be interpreted with caution, and clinical correlation is recommended. REFERENCE VALUE 0.2600-1.65 Test Performed by: [place] [address] Nozzle And Sleeve Worker: Gene Conn M.D. Ph.D.; CLIA# [id number] 16 Total 25-Hydroxyvitamin D2 and D3 (25-OH-VitD) <10 ng/mL (severe deficiency) 10-19 ng/mL (mild to moderate deficiency) 20-50 ng/mL (optimum levels) 51-80 ng/mL (increased risk of hypercalciuria) >80 ng/mL (toxicity possible) 17 REFERENCE VALUE <4.0 (Negative) Test Performed by: [place] [address] Nozzle And Sleeve Worker: Gene Conn M.D. Ph.D.; CLIA# [id number] 18 Negative serology. Celiac disease unlikely. However, approximately 10% of patients with celiac disease are seronegative. Also, patients who are already adhering to a gluten-free diet may be seronegative. If celiac disease is highly clinically suspected, consider HLA-DQ typing. Test Performed by: [place] [address] Nozzle And Sleeve Worker: Gene Conn M.D. Ph.D.; CLIA# [id number] Procedures Date Code Description Status 12/05/2019 [id number] Bone Mineral Density Test Completed Medical Devices Description No Information Available Encounters Type Date Location Provider Dx Diagnosis Office Visit 12/13/2019 [facility] Noreen Cyr, R10.9 Unspecified 9:52a Assoc,pc ASSISTED LIVING EXECUTIVE DIRECTOR abdominal pain Hospitalists K21.9 Gastro-esophageal reflux disease without esophagitis K31.84 Gastroparesis F41.9 Anxiety disorder, unspecified G89.29 Other chronic pain Office Visit 12/12/2019 [facility] Noreen Cyr, R10.9 Unspecified 9:51a Assoc,pc ASSISTED LIVING EXECUTIVE DIRECTOR abdominal pain Hospitalists F41.9 Anxiety disorder, unspecified G89.29 Other chronic pain K86.1 Other chronic pancreatitis K21.9 Gastro-esophageal reflux disease without esophagitis G43.909 Migraine, unsp, not intractable, without status migrainosus Z59.0 Homelessness Office Visit 12/11/2019 [facility] Noreen Cyr, R10.9 Unspecified 9:51a Assoc,pc ASSISTED LIVING EXECUTIVE DIRECTOR abdominal pain Hospitalists F41.9 Anxiety disorder, unspecified G89.29 Other chronic pain K86.1 Other chronic pancreatitis K21.9 Gastro-esophageal reflux disease without esophagitis G43.909 Migraine, unsp, not intractable, without status migrainosus Z59.0 Homelessness Office Visit 12/11/2019 [facility] R10.9 Unspecified 7:00a [facility] Kingston MD abdominal pain Office Visit 12/10/2019 [facility] R10.9 Unspecified 9:50a Assoc,pc BRUNA Gary abdominal pain Hospitalists K86.1 Other chronic pancreatitis K21.9 Gastro-esophageal reflux disease without esophagitis F41.9 Anxiety disorder, unspecified G89.29 Other chronic pain Z59.0 Homelessness Office Visit 12/10/2019 7:00a [facility]. R10.9 Unspecified [facility] Vashti abdominal pain Chipper Machine Operator Office Visit 12/09/2019 7:00a [facility]. R10.9 Unspecified [facility] abdominal pain Chipper Machine Operator R11.0 Nausea Office Visit 12/08/2019 [facility] Noreen Cyr, K56.7 Ileus, 9:47a Assoc,pc ASSISTED LIVING EXECUTIVE DIRECTOR unspecified Hospitalists K21.9 Gastro-esophageal reflux disease without esophagitis F41.9 Anxiety disorder, unspecified K86.1 Other chronic pancreatitis G89.29 Other chronic pain Office Visit 11/02/2019 9:00a [facility] Camden Rondon MD R51 [...] 12/13/2019 R10.9 Unspecified abdominal pain Noreen Cyr, ASSISTED LIVING EXECUTIVE DIRECTOR 12/13/2019 K21.9 Gastro-esophageal reflux disease without Noreen Cyr, EDYTA esophagitis 12/13/2019 K31.84 Gastroparesis Noreen Cyr, EDYTA 12/13/2019 F41.9 Anxiety disorder, unspecified Noreen Cyr, ASSISTED LIVING EXECUTIVE DIRECTOR 12/13/2019 G89.29 Other chronic pain Noreen Cyr, EDYTA 12/12/2019 R10.9 Unspecified abdominal pain Noreen Cyr, ASSISTED LIVING EXECUTIVE DIRECTOR 12/12/2019 F41.9 Anxiety disorder, unspecified Noreen Cyr, ASSISTED LIVING EXECUTIVE DIRECTOR 12/12/2019 G89.29 Other chronic pain Noreen Cyr, ASSISTED LIVING EXECUTIVE DIRECTOR 12/12/2019 K86.1 Other chronic pancreatitis Noreen Cyr, ASSISTED LIVING EXECUTIVE DIRECTOR 12/12/2019 K21.9 Gastro-esophageal reflux disease without Noreen Cyr, ASSISTED LIVING EXECUTIVE DIRECTOR esophagitis 12/12/2019 G43.909 Migraine, unspecified, not intractable, Noreen Cyr, ASSISTED LIVING EXECUTIVE DIRECTOR without status migrainosus 12/12/2019 Z59.0 Homelessness Noreen Cyr, ASSISTED LIVING EXECUTIVE DIRECTOR 12/11/2019 R10.9 Unspecified abdominal pain Noreen Cyr, ASSISTED LIVING EXECUTIVE DIRECTOR 12/11/2019 R10.9 Unspecified abdominal pain Rodri Kingston MD 12/11/2019 F41.9 Anxiety disorder, unspecified Noreen Cyr, ASSISTED LIVING EXECUTIVE DIRECTOR 12/11/2019 G89.29 Other chronic pain Noreen Cyr, ASSISTED LIVING EXECUTIVE DIRECTOR 12/11/2019 K86.1 Other chronic pancreatitis Noreen Cyr, ASSISTED LIVING EXECUTIVE DIRECTOR 12/11/2019 K21.9 Gastro-esophageal reflux disease without Noreen Cyr, ASSISTED LIVING EXECUTIVE DIRECTOR esophagitis 12/11/2019 G43.909 Migraine, unspecified, not intractable, Noreen Cyr, ASSISTED LIVING EXECUTIVE DIRECTOR without status migrainosus 12/11/2019 Z59.0 Homelessness Noreen Cyr, ASSISTED LIVING EXECUTIVE DIRECTOR 12/10/2019 R10.9 Unspecified abdominal pain BRUNA Smith [...] 8:40 am - Jayant Tenorio MD at [facility] - [address]/20/2020 9:30 am - Jemal Armendariz M.D. at [facility]02/29/2020 3:00 pm - Amaury Rodríguez MD at [facility]12/26/2019 - Jayant Tenorio MDF17.210 Nicotine dependence, cigarettes, uncomplicatedComments:Call [place] to get nicotine replacement supplements.K21.9 Gastro-esophageal reflux disease without esophagitisComments:We changed the pantoprazole to 20mg twice a day from 40mg once a day. Follow-up with Dr. Mora of GI for a potential colonoscopy.Follow up:Week January 15.K31.84 XoxmoizvtiicoQ23.1 Other chronic pancreatitisComments:Call us with the name of the alternative to Zenpep/ Creon.G43.909 Migraine, unspecified, not intractable, without status migrainosusComments:Follow-up with PunuxmxsoJ09.29 Other chronic painNew Medication:Duloxetine HCL 30 mg - take one cap daily Functional Status Description No Information Available Mental Status Description No Information Available Referrals Refer to Dr Reason for Referral Status Appt Date Kim Nguyen MD left peroneal neuritis left ankle Created [address] [place], [place] [id number] [phone] Amaury Rodríguez MD severe osteoporsis with "35-45" Patient Notified 02/29/2020 fractures in life [address] [facility] [address] [place] [phone] [phone] Maximino Elizabeth MD recent left ankle fracture, severe osteoporosis. Sent [address] [facility] [address] [place], [place] [address] [phone] Leon Mora MD nausea. ?recent EGD with concern for small area of Sent 12/15/2019 [facility], I don't have biopsy results yet. Hx of exocrine pancreatic insuficiency. [address] [place] [phone] Jemal Armendariz M.D. Chronic headaches. Sent 03/20/2020 [address] [place] [id number] [phone] Pollo Medina MD Has chronic pain. She was following with pain [facility] [place] and given oxycodone and asked to f/u in 2 weeks. [address] [place] [address] [phone]
[2020-01-07 09:26] LABS: ABS Eosinophils 0.1 10^3/ul (0-0.6); ABS Lymphocytes 1.6 10^3/ul (1.0-4.8); ABS Monocytes 0.3 10^3/ul (0-0.8); ABS Neutrophils 3.3 10^3/ul (1.5-7.7); Hematocrit 35 % (35-47); Hemoglobin 11.1 g/dL (12.0-16.0); Lymphocyte % 30.8 %; Mean Corpuscular HGB Conc 32 g/dL (31-36); Mean Corpuscular Hemoglobin 22 pg (27-31); Mean Corpuscular Volume 71 fL (80-97); Mean Platelet Volume 7.2 fL (7.4-10.4); Platelet Count 322 10^3/uL (150-450); Red Blood Count 4.93 10^6 /uL (3.70-4.87); Red Cell Distribution Width 21 % (10-15); White Blood Count 5.3 10^3/uL (3.5-10.8)
[2020-01-07 09:31] LABS: ALT 22 U/L (7-52); AST 22 U/L (13-39); Albumin 4.9 g/dL (3.2-5.2); Albumin/Globulin Ratio 1.4 (1-3); Alkaline Phosphatase 153 U/L (34-104); Anion Gap 10 mmol/L (2-11); BUN/Creatinine Ratio 22.8 (8-20); Blood Urea Nitrogen 18 mg/dL (6-24); CO2 Carbon Dioxide 26 mmol/L (22-32); Calcium 10.2 mg/dL (8.6-10.3); Chloride 101 mmol/L (101-111); EGFR African American 88.4 (>60); Globulin 3.4 g/dL (2-4); Glucose 103 mg/dL (70-100); Potassium 4.4 mmol/L (3.5-5.0); Sodium 137 mmol/L (135-145); Total Protein 8.3 g/dL (6.4-8.9)
[2020-01-07 10:23] VITALS: BP 151/74
== END 2020-01-07 10:23 | disposition home or self-care (01) ==
LOC: ED 08:43
DX: R10.84 Generalized abdominal pain (principal); R11.2 Nausea with vomiting, unspecified; K22.70 Barrett's esophagus without dysplasia; F41.9 Anxiety disorder, unspecified; Z87.442 Personal history of urinary calculi; K21.9 Gastro-esophageal reflux disease without esophagitis; Z79.899 Other long term (current) drug therapy; Z88.0 Allergy status to penicillin
CPT/HCPCS: 36415; 80053; 83605; 83690; 85025; 93005; 96361; 96374; 99282; J1630

== ENCOUNTER 2020-01-18 18:45 | Emergency (ER) | payer MEDICARE, MEDICAID ==
[2020-01-18] MEDS ORDERED: Morphine 4 MG/ML VIAL (1 ml) 4 MG/ML VIAL IV ONE (18:59)
[2020-01-18] MEDS ORDERED: NS 0.9% 1000 ML** 1,000 ML IV ONE (18:59)
[2020-01-18] MEDS ORDERED: Ondansetron INJ* 2 MG/ML VIAL IV ONE (18:59)
--- NOTE | 2020-01-18 19:05 | ED ---
Abdominal Pain/Female - HPI Summary HPI Summary: 64-year-old female with a significant past medical history of COPD, chronic pancreatitis, nephrolithiasis, diabetic gastroparesis, GERD presents to the emergency department today complaining of 9 out of 10 abdominal pain. Patient states her pain is worse at the right lower quadrant which is made worse with palpation however her pain is diffuse with associated bloating. Patient feels her abdomen is more distended than usual. Patient denies recent fevers. Patient has associated nausea however she has not vomited. Patient's last bowel movement was earlier today. Patient reports having her gallbladder and appendix. Patient otherwise feels well and denies fevers, chest pain, rash, vomiting, diarrhea. - History of Current Complaint Chief Complaint: EDAbdPain Stated Complaint: ABD PAIN PER EMS Time Seen by Provider: 01/18/20 18:55 Hx Obtained From: Patient Onset/Duration: Gradual Onset Timing: Constant Severity Initially: Severe Severity Currently: Severe Pain Intensity: 10 Pain Scale Used: 0-10 Numeric Location: Diffuse Radiates: No Allergies/Adverse Reactions: Allergies Allergy/AdvReac Type Severity Reaction Status Date / Time amoxicillin Allergy Unknown Verified 01/18/20 18:54 Reaction Details erythromycin base Allergy Nausea And Verified 01/18/20 18:54 Vomiting fentanyl Allergy Unknown Verified 01/18/20 18:54 Reaction Details ketorolac [From Toradol] Allergy Unknown Verified 01/18/20 18:54 Reaction Details sulfamethoxazole Allergy Unknown Verified 01/18/20 18:54 [From Bactrim] Reaction Details trimethoprim [From Bactrim] Allergy Unknown Verified 01/18/20 18:54 Reaction Details Home Medications: Home Medications clonazePAM TAB(*) [Klonopin TAB(*)] 1 mg PO BID PRN 10/27/19 [History Confirmed 01/18/20] Butalb/Acetamin/Caff TAB* [Fioricet TAB*] 1 tab PO Q4H PRN 11/04/19 [History Confirmed 01/18/20] Ondansetron TAB* [Zofran 4 MG Tab*] 8 mg PO Q6HR PRN 11/14/19 [History Confirmed 01/18/20] Sucralfate TAB* [Carafate*] 1 tab PO ACHS 11/14/19 [History Confirmed 01/18/20] Docusate CAP* [Colace Cap*] 100 mg PO DAILY #14 cap 11/15/19 [Rx Confirmed 01/17] Albuterol HFA INHALER* [Ventolin HFA Inhaler*] 2 puff INH Q6H PRN 11/24/19 [ History Confirmed 01/18/20] Ferrous Sulfate TAB* 325 mg PO DAILY #30 tab 12/13/19 [Rx Confirmed 01/18/20] Metoclopramide TAB* [Reglan TAB*] 5 mg PO AC #90 tab 12/13/19 [Rx Confirmed 03/05] Pantoprazole TAB * [Protonix TAB*] 40 mg PO DAILY #0 12/13/19 [Rx Confirmed 03/05] Polyethylene Glycol 3350* [Miralax (17 GM DOSE GILBERT)] 17 gm PO DAILY PRN #30 packet 12/13/19 [Rx Confirmed 01/18/20] Senna TAB 8.6 mg* [Senokot 8.6 mg TAB*] 1 tab PO BEDTIME PRN #30 tab 12/13/19 [ Rx Confirmed 01/18/20] Morphine Sulfate 15 mg PO QID PRN MDD 4 12/15/19 [History Confirmed 01/18/20] DULoxetine DR CAP* [Cymbalta CAP*] 30 mg PO DAILY 01/18/20 [History Confirmed ] Pancrelipase (NF) CAP [Pancreaze Delayed CAP*] 21,000 units PO TID 01/18/20 [ History Confirmed 01/18/20] PMH/Surg Hx/FS Hx/Imm Hx Endocrine/Hematology History: Reports: Hx Anemia Denies: Hx Anticoagulant Therapy, Hx Diabetes Cardiovascular History: Denies: Hx Hypertension, Hx Pacemaker/ICD Respiratory History: Denies: Hx Asthma GI History: Reports: Hx Gall Bladder Disease - colecystitis, Hx Gastroesophageal Reflux Disease, Other GI Disorders - chronic pancreatitis History: Reports: Hx Kidney Stones Denies: Hx Renal Disease Musculoskeletal History: Reports: Hx Arthritis, Hx Back Problems, Hx Osteoporosis, Other Musculoskeletal History - Chronic Neck Pain Sensory History: Denies: Hx Contacts or Glasses, Hx Hearing Aid Opthamlomology History: Denies: Hx Contacts or Glasses Neurological History: Reports: Hx Migraine Psychiatric History: Reports: Hx Anxiety Denies: Hx Panic Disorder - Cancer History Hx Chemotherapy: No Hx Radiation Therapy: No - Surgical History Surgery Procedure, Year, and Place: lt great toe. left wrist pinning. EUA right knee, shoulder,achillies. other female surgeries Infectious Disease History: No Infectious Disease History: Reports: Hx of Known/Suspected MRSA Denies: Traveled Outside the [place] in Last 30 Days - Family History Known Family History: Positive: Cardiac Disease, Hypertension - Social History Alcohol Use: None Hx Substance Use: No Substance Use Type: Reports: None Hx Tobacco Use: Yes Smoking Status (MU): Light Every Day Tobacco Smoker Type: Cigarettes Amount Used/How Often: 1 cigarette/day Review of Systems Constitutional: Negative Eyes: Negative ENT: Negative Cardiovascular: Negative Respiratory: Negative Positive: Abdominal Pain, Nausea. Negative: Vomiting, Diarrhea Genitourinary: Negative Musculoskeletal: Negative Skin: Negative Neurological/Mental Status: Negative Positive: Anxious All Other Systems Reviewed And Are Negative: Yes Physical Exam - Summary Physical Exam Summary: Patient is in no acute distress. Inspection reveals a distended abdomen with no ecchymosis or masses. Percussion reveals hypertympany in the abdomen. Bowel sounds are normoactive. Patient has pain with palpation of the entire abdomen however it is worse at McBurney's point. No guarding or rigidity or peritoneal signs. Triage Information Reviewed: Yes Vital Signs On Initial Exam: Initial Vitals Pulse Pulse Ox 90 93 01/18/20 18:49 01/18/20 18:49 Vital Signs Reviewed: Yes Appearance: Positive: Well-Appearing, No Pain Distress, Well-Nourished Skin: Positive: Warm, Skin Color Reflects Adequate Perfusion Eyes: Positive: EOMI, RED ENT: Positive: Hearing grossly normal Respiratory/Lung Sounds: Positive: Clear to Auscultation, Breath Sounds Present Cardiovascular: Positive: RRR, S1, S2 Abdomen Description: Positive: No Organomegaly, Soft. Negative: CVA Tenderness (R), CVA Tenderness (L), Distended, Guarding, McBurney's Point Tenderness Bowel Sounds: Positive: Present Musculoskeletal: Positive: Strength/ROM Intact Neurological: Positive: Sensory/Motor Intact, Alert, Oriented to Person Place, Time, Normal Gait, Facial Symmetry, Speech Normal Psychiatric: Positive: Normal, Affect/Mood Appropriate AVPU Assessment: Alert Procedures - Sedation Patient Received Moderate/Deep Sedation with Procedure: No Diagnostics - Vital Signs Vital Signs Temp Pulse Resp BP Pulse Ox 03/04/20 18:50 98.6 F 88 16 97/66 94 01/18/20 18:49 90 93 - Laboratory Result Diagrams: 01/18/20 19:10 01/18/20 19:10 Lab Statement: Any lab studies that have been ordered have been reviewed, and results considered in the medical decision making process. Abdominal Pain Fem Course/Dx - Course Course Of Treatment: Patient was evaluated in the emergency department today for abdominal pain. Vitals noted. Patient afebrile. Laboratory studies were done which showed no evidence of leukocytosis, nitrites disturbance, significant anemia. CRP is mildly elevated at 8. CT of the abdomen and pelvis shows no acute pathology. Patient's symptoms are likely due to her chronic gastroparesis due to diabetes. Patient was given Reglan in the emergency department and told to follow-up with her primary care provider for further evaluation and management. - Diagnoses Differential Diagnosis: Positive: Appendicitis, Bowel Obstruction, Constipation , Gall Bladder Disease, Peptic Ulcer Disease, Urinary Tract Infection Provider Diagnoses: Abdominal pain Discharge ED - Sign-Out/Discharge Documenting (check all that apply): Patient Departure - Discharge Plan Condition: Stable Disposition: HOME Patient Education Materials: Acute Abdominal Pain (ED) Referrals: Jayant Tenorio MD [Primary Care Provider] - Leon Mora MD [Medical Doctor] - 5 Days Additional Instructions: You were seen in the emergency department today for abdominal pain. There is no evidence that your symptoms are due to a life-threatening or infectious process requiring intervention at this time. Please follow up with your primary care provider or basting marker in 3 days for further evaluation and management of your symptoms. Please return to the emergency department immediately if you develop any new or worsening symptoms. Please continue to take your Reglan as prescribed for your abdominal pain. - Billing Disposition and Condition Condition: STABLE Disposition: Home - Attestation Statements Provider Attestation: I was available for consultation for this patient. I did not evaluate the patient, or participate in any medical decision making or disposition decisions unless I am specifically named in the chart as having consulted on the patient. If I have consulted on the patient, please see my own ED note on the patient encounter. Easton Rapp MD
[2020-01-18 19:22] LABS: ABS Basophils 0.1 10^3/ul (0-0.2); ABS Eosinophils 0.2 10^3/ul (0-0.6); ABS Lymphocytes 2.3 10^3/ul (1.0-4.8); ABS Monocytes 0.4 10^3/ul (0-0.8); Eosinophil % 2.4 %; Hematocrit 32 % (35-47); Hemoglobin 10.4 g/dL (12.0-16.0); Lymphocyte % 33.5 %; Mean Corpuscular HGB Conc 32 g/dL (31-36); Mean Corpuscular Hemoglobin 24 pg (27-31); Mean Corpuscular Volume 74 fL (80-97); Platelet Count 318 10^3/uL (150-450); Red Blood Count 4.35 10^6 /uL (3.70-4.87); Red Cell Distribution Width 24 % (10-15)
--- OUTSIDE RECORDS SUMMARY | 2020-01-18 19:36 | XMS REPORT | Continuity of Care Document ---
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 [phone] Organized Health Care Education/Training Program Problems Active Problems Provider Date Bipolar II disorder Leon Mora MD Onset: 12/21/1994 Note: admitted to [place] [address] several times 1999 to 2002; also anxiety, depression , and drug abuse Social History Type Date Description Comments Sex Unknown ETOH Use Denies alcohol use Tobacco Use Start: Unknown End: Patient is a former smoker Unknown Recreational Drug Use Denies Drug Use Smoking Status Reviewed: 01/16/20 Patient is a former smoker Exercise Type/Frequency Does not exercise Allergies, Adverse Reactions, Alerts Active Allergies Reaction Severity Comments Date Fentanyl Moderate rash 11/02/2019 Ketorolac Tromethamine rash 11/02/2019 Erythromycin N&V 11/02/2019 Bactrim N&V 11/02/2019 Medications Active Medications SIG Qnty Indications Ordering Date Provider Dicyclomine HCL take one tablet 120tabs K58.1 Jayant Tenorio MD 01/16/2020 20mg by mouth four Tablets times daily as needed Pancreaze 1 capsule three 90caps Jayant Tenorio MD 01/11/2020 [id number] times a day with Caps Part rao Pantoprazole Sodium 1 by mouth twice 60tabs Jayant Tenorio MD 12/26/2019 a day 20mg Tablets Colsamantha 1 tabs twice 60caps R10.9 Jayant Tenorio MD 12/08/2019 100mg Capsules daily as needed for regular bowel movements Alendronate Sodium take 2 pills of 60tabs Heidi Hidalgo, 11/11/2019 5mg 5mg each day or 1 DO Tablets 10mg tab Butalbital-Acetaminop 1 tab by mouth 30tabs R51 Jayant Tenorio MD 11/10/2019 hen every 4 hours but 50-325mg Tablets no more than 3 tabs in a day or 30 tabs a month. No Refills Until 01/25 Sucralfate take one tablet 120tabs Heidi Hidalgo, 11/02/2019 1gm Tablets by mouth four DO times a day Ondansetron take 1 every 8 60tabs Jayant Tenorio MD 11/02/2019 8mg Tablets hours as needed Dispers nausea Clonazepam 1 tablet by mouth 30tabs F41.9 Jayant Tenorio MD 11/02/2019 1mg Tablets two times a day Miralax 17 grams by mouth Unknown Powder every day as needed History Medications Aimovig inject one pen 1units Jayant Tenorio MD 01/12/2020 - 70mg/ml monthly 01/16/2020 Solution Auto-Inject Venofer 200mg x 5 days 50ml D50.9 Jayant Tenorio MD 12/26/2019 - 20mg/ml at infusion 01/16/2020 Solution center Over 14 day period Duloxetine HCL take one cap 60caps G89.29 Jayant Tenorio MD 12/26/2019 - 30mg daily 01/16/[address] Magy Lewis 1 by mouth daily 90caps R10.9 Jayant Tenorio MD 12/08/2019 - 8.6mg Capsules 01/16/2020 Zenpep 1 capsule([id number]) 90caps R10.9 Jayant Tenorio MD 12/08/2019 - [id number] with each meal 01/11/[address] Bhatti Creon take 1 cap by 90caps K86.81 Jayant Tenorio MD 11/30/2019 - [id number] Caps mouth with every 12/08/2019 DR Magy davis Ferrous Gluconate 1 by mouth once a 60tabs D50.9 Jayant Tenorio MD 11/10/2019 - twice a day 12/08/2019 324(37.5Fe) mg Tablets Alendronate Sodium take 2 tabs daily 60tabs M80.00xA Jayant Tenorio MD 2018 - 11/17/2019 35mg Tablets Wrkjrkwnrm-Lpvttlj-K take 1 by mouth 30caps Shaniqua Gardner MD 11/02/2019 - affeine every 4 hours as 11/10/2019 50-325-40mg needed for Capsules headaches Oxycodone HCL 1 by mouth every 120tabs Heidi Hidalgo, 11/02/2019 - 10mg 6 hours as needed DO 11/17/2019 Tablets Cl[facility]epam 1 tablet [facility] mouth [facility] - 1mg three times daily MD Nela 11/02/2019 Tablets Pantoprazole Sodium 1 by mouth every 30tabs Heidi Hidalgo 11/02/2019 - day DO 12/26/[address] Green take 1 tablet 90caps R51 [facility] 11/02/2019 - 50-325-40mg every 4 hour as MD Nela 11/02/2019 Capsules needed Maximum daily dose is 6 tablets Oxycodone HCL take one every 6 60tabs Heidi Hidalgo, 11/02/2019 - 10mg hours as needed DO 12/26/2019 Tablets for pain Medications Administered in Office Medication SIG Qnty Indications Ordering Provider Date Depomedrol 40MG Martita Peña M.D. 01/02/2020 Injection Immunizations Description No Information Available Vital Signs Date Vital Result Comment 01/16/2020 8:48am Height 61.5 inches 5'1.50" Weight 129.00 lb Heart Rate 81 /min BP Systolic Sitting 95 mmHg BP Diastolic Sitting 67 mmHg Body Temperature 96.4 F O2 % BldC Oximetry 91 % BMI (Body Mass Index) 24.0 kg/m2 01/02/2020 1:02pm Height 61.5 inches 5'1.50" Weight 129.50 lb Heart Rate 72 /min BP Systolic Sitting 100 mmHg BP Diastolic Sitting 58 mmHg Pain Level 5 BMI (Body Mass Index) 24.1 kg/m2 Results Test Acquired Date Facility Test Result H/L Range Note Laboratory test 01/07/2020 [facility] Lactic Acid 1.0 mmol/L Normal 0.5-2.0 1 finding [address] [place] [address] [phone] Comp Metabolic 01/07/2020 [facility] Sodium 137 mmol/L Normal 135-145 Panel [address] [place] [address] [phone] Potassium 4.4 mmol/L Normal 3.5-5.0 Chloride 101 mmol/L Normal 101-111 Co2 Carbon Dioxide 26 mmol/L Normal 22-32 Anion Gap 10 mmol/L Normal 2-11 Glucose 103 mg/dL High 70-100 Blood Urea Nitrogen 18 mg/dL Normal 6-24 Creatinine 0.79 mg/dL Normal 0.51-0.95 BUN/Creatinine Ratio 22.8 High 8-20 Calcium 10.2 mg/dL Normal 8.6-10.3 Total Protein 8.3 g/dL Normal 6.4-8.9 Albumin 4.9 g/dL Normal 3.2-5.2 Globulin 3.4 g/dL Normal 2-4 Albumin/Globulin Ratio 1.4 Normal 1-3 Total Bilirubin 0.30 mg/dL Normal 0.2-1.0 Alkaline Phosphatase 153 U/L High 34-104 Alt 22 U/L Normal 7-52 Ast 22 U/L Normal 13-39 Egfr Non- 73.0 >60 Egfr 88.4 >60 2 Laboratory test 01/07/2020 [facility] Lipase < 10 U/L Low 11.0 -82.0 finding [address] [place] [address] [phone] CBC Auto Diff 01/07/2020 [facility] White Blood 5.3 Normal 3.5 -10.[address] Count 10^3/[place] [address] [phone] Red Blood Count 4.93 10^6/uL High 3.70-4.87 Hemoglobin 11.1 g/dL Low 12.0-16.0 Hematocrit 35 % Normal 35-47 Mean Corpuscular Volume 71 fL Low 80-97 Mean Corpuscular Hemoglobin 22 pg Low 27-31 Mean Corpuscular HGB Conc 32 g/dL Normal 31-36 Red Cell Distribution Width 21 % High 10-15 Platelet Count 322 10^3/uL Normal 150-450 Mean Platelet Volume 7.2 fL Low 7.4-10.4 Abs Neutrophils 3.3 10^3/uL Normal 1.5-7.7 Abs Lymphocytes 1.6 10^3/uL Normal 1.0-4.8 Abs Monocytes 0.3 10^3/uL Normal 0-0.8 Abs Eosinophils 0.1 10^3/uL Normal 0-0.6 Abs Basophils 0.0 10^3/uL Normal 0-0.2 Abs Nucleated RBC 0.0 10^3/uL Granulocyte % 62.2 % Lymphocyte % 30.8 % Monocyte % 5.4 % Eosinophil % 1.0 % Basophil % 0.6 % Nucleated Red Blood Cells % 0.0 Drug 12/15/2019 [facility] Urine Presumptive Abnormal None [address] Hydrocodone Posi <SEE [place] [address] Screen NOTE> Pain [phone] Clinic Urine Oxycodone Screen None Detected None Detect Urine Fentanyl Screen None Detected None Detect Urine Methadone Screen None Detected None Detect Urine Buprenorphine Screen None Detected None Detect Urine Amphetamine Screen None Detected None Detect Urine Barbiturates Screen Presumptive Posi <SEE NOTE> Abnormal None Detect 4 Urine Benzodiazepine Screen Presumptive Posi <SEE NOTE> Abnormal None Detect 5 Urine Cannabinoids Screen None Detected None Detect Urine Cocaine Screen None Detected None Detect Urine Opiates Screen Presumptive Posi <SEE NOTE> Abnormal None Detect 6 Urine Phencyclidine Screen None Detected None Detect 7 Hydrocodone 12/15/2019 [facility] Hydrocodone-by Negative Cutoff: Confiramtion, [address] LC-MS/MS ng/mL 25 [place] [address] [phone] Norhydrocodone-by LC-MS/MS Negative ng/mL Cutoff: 25 Hydromorphone-by LC-MS/MS 259 ng/mL Cutoff: 25 Hydrocodone Interpretation Positive. 8 Laboratory test 12/08/2019 [facility] Pathologist Review (SEE NOTE) [address] [place] [address] [phone] Cell Morphology 12/08/2019 [facility] Polychromasia 1+ [address] [place] [address] [phone] Anisocytosis 2+ CBC Auto 12/08/2019 [facility] White Blood 6.7 10^3/uL Normal 3.5-10.[address] [place] [address] [phone] Red Blood Count 4.09 10^6/uL Normal 3.70-4.87 [...] Blood Cells % 0.0 Urinalysis Profile 12/08/2019 [facility] Urine Color Straw [address] [place] [address] [phone] Urine Appearance Clear Urine Specific [place] 1.006 Low 1.010-1.030 Urine pH 6.0 Normal 5-9 Urine Urobilinogen Negative Negative Urine Ketones Negative Negative Urine Protein Negative Negative Urine Leukocytes Negative Negative Urine Blood Negative Negative Urine Nitrite Negative Negative Urine Bilirubin Negative Negative Urine Glucose Negative Negative Laboratory test 12/08/2019 [facility] Lipase < 10 U/L Low 11.0 -82.0 finding [address] [place] [address] [phone] C Reactive Protein 5.19 mg/L Normal <8.01 Comp Metabolic 12/08/2019 [facility] Sodium 137 mmol/L Normal 135-145 Panel [address] [place] [address] [phone] Potassium 4.1 mmol/L Normal 3.5-5.0 Chloride 105 [...] Egfr Non- 64.5 >60 Egfr 78.0 >60 10 Laboratory test 12/08/2019 [facility] Lactic Acid 0.8 mmol/L Normal 0.5-2.0 11 finding [address] [place] [address] [phone] Laboratory test 12/08/2019 [facility] Lactic Acid 1.0 mmol/L Normal 0.5-2.0 12 finding [address] [place] [address] [phone] BMP W/Egfr 11/24/2019 [facility] Sodium 139 mmol/L Normal 135- 145 [address] [place] [address] [phone] Potassium 4.5 mmol/L Normal 3.5-5.0 Chloride 104 mmol/L Normal 101-111 Co2 Carbon Dioxide 24 mmol/L Normal 22-32 Anion Gap 11 mmol/L Normal 2-11 Glucose 97 mg/dL Normal 70-100 Blood Urea Nitrogen 19 mg/dL Normal 6-24 Creatinine 0.78 mg/dL Normal 0.51-0.95 BUN/Creatinine Ratio 24.4 High 8-20 Calcium 9.7 mg/dL Normal 8.6-10.3 Egfr Non- 74.1 >60 Egfr 89.7 >60 13 Spep Protein 11/24/2019 [facility] Total Protein(Pep) 7.4 g/dL 6.3 - 7.9 Electro, Serum [address] [place] [address] [phone] Albumin 3.6 g/dL 3.4-4.7 Alpha-1 Globulin 0.3 g/dL 0.1-0.3 Alpha-2 Globulin 1.3 g/dL Abnormal 0.6-1.0 Beta Globulin 1.3 g/dL Abnormal 0.7-1.2 Gamma Globulin 1.0 g/dL 0.6-1.6 Albumin/Globulin Ratio 0.93 Impression See Comment 14 [place]/Lambda Free 11/24/2019 [facility] [place] Free 1.98 mg/dL Abnormal [address] [place] [address] [phone] Lambda Free Light Chain 1.00 mg/dL 16 [place]/Lambda Free Light Chain 1.98 Abnormal 17 Laboratory test 11/10/2019 [facility] Vitamin D 30.9 Normal 20 -50 [address] Total 25(Oh) ng/[place] [address] [phone] Pthi 11/10/2019 [facility] Calcium (PTH 10.1 Normal 8.6-10.[address] Intact) mg/[place] [address] [phone] PTH Intact 56.4 pg/mL Normal 12-88 Celiac Panel 11/10/2019 [facility] Tissue Transglutaminase <1.2 U/mL [address] DR[address] IgA Ab [place], [place] [id number] [phone] Immunoglobulin A 256 mg/dL 61 - 356 Celiac Interpretation See Comment 20 Iron & Iron 11/10/2019 [facility] Total Iron 447 g/dL Normal 250-[address] [place] [address] Capacity [phone] Transferrin 319 mg/dL Normal 203-362 Iron < 20 g/dL Low 50-212 Unsaturated Iron Binding < 432 g/dL % Iron Saturation 4 % Low 15-55 Laboratory test 11/10/2019 [facility] Ferritin 4.8 ng/mL Low 11-[address] [place] [address] [phone] 1 [place] Severe Sepsis and Septic Shock Management Bundle Measure requires all lactic acids initially measuring >2.0 mmol/L be repeated. 2 Because ethnic data is not always readily [...] 15-29 5 Kidney failure <15 (or dialysis) 3 Presumptive Positive Presumptive positive results are unconfirmed. 4 Presumptive Positive Presumptive positive results are unconfirmed. 5 Presumptive Positive Presumptive positive results are unconfirmed. 6 Presumptive Positive Presumptive positive results are unconfirmed. 7 The specimen was tested at the listed cutoffs: Drug Class Test level (ng/mL) Hydrocodone 300 Oxycodone 100 Fentanyl 1 Methadone 150 Buprenorphine 5 Amphetamines 500 Barbiturates 200 Benzodiazepines 200 Cocaine 150 Cannabinoids 50 Opiates 300 PCP 25 Specimen was received without chain of custody. Results should be used for medical purposes only. 8 ADDITIONAL INFORMATION This report is intended for use in clinical monitoring and management of patients. It is not intended for use in employment-related testing. This test was developed and its performance characteristics determined by [facility] in a manner consistent with CLIA requirements. This test has not been cleared or approved by the U.S. Food and Drug Administration. Test Performed by: [facility] - [address] [address] Animal Hospital Clerk: Gene Conn M.D. Ph.D.; [facility]# [id number] 9 Microcytic anemia with red cell indices suggestive of iron deficiency. Additional studies as clinically warranted. Reviewed by Dr. Bailey 10 Because ethnic data is not always readily [...] 15-29 5 Kidney failure <15 (or dialysis) 11 Specimen hemolyzed. Result may not be valid. [facility] Severe Sepsis and Septic Shock Management Bundle Measure requires all lactic acids initially measuring >2.0 mmol/L be repeated. 12 [facility] Severe Sepsis and Septic Shock Management Bundle Measure requires all lactic acids initially measuring >2.0 mmol/L be repeated. 13 Because ethnic data is not always readily [...] 15-29 5 Kidney failure <15 (or dialysis) 14 RESULT: No apparent monoclonal protein on serum electrophoresis. Test Performed by: [facility] [place] [address] Animal Hospital Clerk: Gene Conn M.D. Ph.D.; CLIA# [id number] 15 REFERENCE VALUE 0.3300-1.94 16 REFERENCE VALUE 0.5700-2.63 17 Elevated free light chain ratios between 1.66 and 3.00 may occur due to polyclonal hypergammaglobulinemia or impaired renal clearance. An isolated increased free light chain ratio in this range should be interpreted with caution, and clinical correlation is recommended. REFERENCE VALUE 0.2600-1.65 Test Performed by: [facility] [place] [address] Animal Hospital Clerk: Gene Conn M.D. Ph.D.; CLIA# [id number] 18 Total 25-Hydroxyvitamin D2 and D3 (25-OH-VitD) <10 ng/mL (severe deficiency) 10-19 ng/mL (mild to moderate deficiency) 20-50 ng/mL (optimum levels) 51-80 ng/mL (increased risk of hypercalciuria) >80 ng/mL (toxicity possible) 19 REFERENCE VALUE <4.0 (Negative) Test Performed by: [place] [address] Animal Hospital Clerk: Gene Conn M.D. Ph.D.; CLIA# [id number] 20 Negative serology. Celiac disease unlikely. However, approximately 10% of patients with celiac disease are seronegative. Also, patients who are already adhering to a gluten-free diet may be seronegative. If celiac disease is highly clinically suspected, consider HLA-DQ typing. Test Performed by: [facility] [address] [place] [address] Animal Hospital Clerk: Gene Conn M.D. Ph.D.; CLIA# [id number] Procedures Date Code Description Status 01/02/202086787 Injection Single Tendon Origin/Insertion Completed 12/13/2019 12733 Endoscopy Upper GI Biopsy Completed 12/05/2019 262351264 Bone Mineral Density Test Completed Medical Devices Description No Information Available Encounters Type Date Location Provider Dx Diagnosis Office Visit 01/02/2020 [facility] Martita Peña, M77.12 Lateral 1:00p at [place] [facility] epicondylitis, left elbow S52.552A Oth extrartic fracture of lower end of left radius, init M25.532 Pain in left wrist Z87.81 Personal history of (healed) traumatic fracture Office Visit 12/20/2019 [place] [facility] 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, 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 G57.92 Unspecified mononeuropathy of left lower limb G90.512 Complex regional pain syndrome I of left upper limb Office Visit 12/13/2019 [facility] Noreen Cyr, R10.9 Unspecified 9:52a Assoc, [employer] abdominal pain Hospitalists K21.9 Gastro-esophageal reflux disease without esophagitis K31.84 Gastroparesis F41.9 Anxiety disorder, unspecified G89.29 Other chronic pain Office Visit 12/12/2019 [facility] Noreen Cyr, R10.9 Unspecified 9:51a Assoc,pc [employer] abdominal pain Hospitalists F41.9 Anxiety disorder, unspecified G89.29 Other chronic pain K86.1 Other chronic pancreatitis K21.9 Gastro-esophageal reflux disease without esophagitis G43.909 Migraine, unsp, not intractable, without status migrainosus Z59.0 Homelessness Office Visit 12/11/2019 [facility] Noreen Cyr, R10.9 Unspecified 9:51a Assoc,pc [employer] abdominal pain Hospitalists F41.9 Anxiety disorder, unspecified G89.29 Other chronic pain K86.1 Other chronic pancreatitis K21.9 Gastro-esophageal reflux disease without esophagitis G43.909 Migraine, unsp, not intractable, without status migrainosus Z59.0 Homelessness Office Visit 12/11/2019 [facility] Rodri S. R10.9 Unspecified 7:00a [facility] Kingston MD abdominal pain Office Visit 12/10/2019 [facility] Margret R10.9 Unspecified 9:50a Assoc,pc BRUNA Gary abdominal pain Hospitalists K86.1 Other chronic pancreatitis K21.9 Gastro-esophageal reflux disease without esophagitis F41.9 Anxiety disorder, unspecified G89.29 Other chronic pain Z59.0 Homelessness Office Visit 12/10/2019 7:00a Surgical Rodri S. R10.9 Unspecified [facility] MD Vashti abdominal pain [employer] Office Visit 12/09/2019 7:00a Surgical Rodri S. R10.9 Unspecified [facility] abdominal pain [facility] R11.0 Nausea Office Visit 12/08/2019 [facility] Noreen Cyr, K56.7 Ileus, 9:47a Assoc,pc [employer] unspecified Hospitalists K21.9 Gastro-esophageal reflux disease without esophagitis F41.9 Anxiety disorder, unspecified K86.1 Other chronic pancreatitis G89.29 Other chronic pain Office Visit 12/08/2019 9:40a [facility] Heriberto Tenorio MD R10.9 Unspecified Medicine - Suite abdominal pain R D50.9 Iron deficiency anemia, unspecified F41.1 Generalized anxiety disorder K86.81 Exocrine pancreatic insufficiency M81.0 Age-related osteoporosis w/o current pathological fracture Office Visit 11/30/2019 9:40a [facility] Heriberto Tenorio MD D50.9 Iron deficiency Medicine - Suite anemia, unspecified R M80.00xA Age-rel osteopor w current path fracture, unsp site, init R51 Headache F41.1 Generalized anxiety disorder K86.81 Exocrine pancreatic insufficiency M54.2 Cervicalgia M25.511 Pain in right shoulder 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 M80.032S Age-rel osteopor w current path fracture, l forearm, sequela Office Visit 11/10/2019 1:00p [facility] Heriberto Tenorio MD D50.9 Iron deficiency Medicine - Suite anemia, unspecified R M80.00xA Age-rel osteopor w current path fracture, unsp site, init R51 Headache F41.1 Generalized anxiety disorder N17.9 Acute kidney failure, unspecified K86.81 Exocrine pancreatic insufficiency M54.2 Cervicalgia M25.511 Pain in right shoulder 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 M25.532 Pain in left wrist Office Visit 11/02/2019 9:00a [facility] Internal Medicine Camden Rondon MD R51 Headache - Suite R K29.60 Other gastritis without bleeding M25.532 Pain in left wrist M25.511 Pain in right shoulder Z12.11 Encounter for screening for malignant neoplasm of colon F41.9 Anxiety disorder, unspecified M80.00xA Age-rel osteopor w current path fracture, unsp site, init Assessments Date Code Description Provider 01/16/2020 G43.909 Migraine, unspecified, not intractable, Jayant Tenorio MD without status migrainosus 01/16/2020 J32.9 Chronic sinusitis, unspecified Jayant Tenorio MD 01/16/2020 K31.84 Gastroparesis Jayant Tenorio MD 01/16/2020 K86.1 Other chronic pancreatitis Jayant Tenorio MD 01/16/2020 D50.9 Iron deficiency anemia, unspecified Jayant Tenorio MD 01/16/2020 K58.1 Irritable bowel syndrome with constipation Jayant Tenorio MD 01/02/2020 M77.12 Lateral epicondylitis, left elbow Martita Peña M.D. 01/02/2020 S52.552A Other extraarticular fracture of lower end Martita Peña M.D. of left radius, initial encounter for closed fracture 01/02/2020 M25.532 Pain in left wrist Martita Peña M.D. 01/02/2020 Z87.81 Personal history of (healed) traumatic Martita Peña M.D. 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 and foot 12/20/2019 G57.92 Unspecified mononeuropathy of left lower Maximino Elizabeth M.D. limb 12/20/2019 G90.512 Complex regional pain syndrome I of left Maximino Elizabeth M.D. upper limb 12/13/2019 K21.9 Gastro-esophageal reflux disease without Leon Mora MD esophagitis 12/13/2019 R10.9 Unspecified abdominal pain Noreen Cyr, [employer] 12/13/2019 K29.70 Gastritis, unspecified, without bleeding Leon Mora MD 12/13/2019 K21.9 Gastro-esophageal reflux disease without Noreen Cyr, EDTYA esophagitis 12/13/2019 K31.84 Gastroparesis Noreen Cyr, [employer] 12/13/2019 F41.9 Anxiety disorder, unspecified Noreen Cyr, [employer] 12/13/2019 G89.29 Other chronic pain Noreen Cyr, [employer] 12/12/2019 R10.9 Unspecified abdominal pain Noreen Cyr, [employer] 12/12/2019 F41.9 Anxiety disorder, unspecified Noreen Cyr, [employer] 12/12/2019 G89.29 Other chronic pain Noreen Cyr, [employer] 12/12/2019 K86.1 Other chronic pancreatitis Noreen Cyr, [employer] 12/12/2019 K21.9 Gastro-esophageal reflux disease without Noreen Cyr, [employer] esophagitis 12/12/2019 G43.909 Migraine, unspecified, not intractable, Noreen Cyr, [employer] without status migrainosus 12/12/2019 Z59.0 Homelessness Noreen Cyr, [employer] 12/11/2019 R10.9 Unspecified abdominal pain Noreen Cyr, EDYTA 12/11/2019 R10.9 Unspecified abdominal pain oRdri Kingston MD 12/11/2019 F41.9 Anxiety disorder, unspecified Noreen Cyr, EDYTA 12/11/2019 G89.29 Other chronic pain Noreen Cyr, EDYTA 12/11/2019 K86.1 Other chronic pancreatitis Noreen Cyr, EDYTA 12/11/2019 K21.9 Gastro-esophageal reflux disease without Noreen Cyr, [employer] esophagitis 12/11/2019 G43.909 Migraine, unspecified, not intractable, Noreen Cyr, [employer] without status migrainosus 12/11/2019 Z59.0 Homelessness Noreen Cyr, EDYTA 12/10/2019 R10.9 Unspecified abdominal pain Margret Gary, PA 12/10/2019 R10.9 Unspecified abdominal pain Rodri Kingston MD 12/10/2019 K86.1 Other chronic pancreatitis Margret Gary PA 12/10/2019 K21.9 Gastro-esophageal reflux disease without Margretgallito Gary PA esophagitis 12/10/2019 F41.9 Anxiety disorder, unspecified Margretgallito Gary, PA 12/10/2019 G89.29 Other chronic pain Margret Gary PA 12/10/2019 Z59.0 Homelessness Margret Gary, PA 12/09/2019 K56.609 Unspecified intestinal obstruction, Margret Gary PA unspecified as to partial versus complete obstruction 12/09/2019 R10.9 Unspecified abdominal pain Rodri Kingston MD 12/09/2019 K86.1 Other chronic pancreatitis Margret Gary PA 12/09/2019 R11.0 Nausea Rodri Kingston MD 12/09/2019 K21.9 Gastro-esophageal reflux disease without Margretgallito Gary , PA esophagitis 12/09/2019 F41.9 Anxiety disorder, unspecified Margretgallito Gary, PA 12/09/2019 G89.29 Other chronic pain Margret Gary PA 12/09/2019 Z59.0 Homelessness Margret Gary PA 12/08/2019 K56.7 Ileus, unspecified Noreen Cyr, [employer] 12/08/2019 R10.9 Unspecified abdominal pain Jayant Tenorio MD 12/08/2019 D50.9 Iron deficiency anemia, unspecified Jayant Tenorio MD 12/08/2019 K21.9 Gastro-esophageal reflux disease without Noreen Cyr, [employer] esophagitis 12/08/2019 F41.1 Generalized anxiety disorder Jayant Tenorio MD 12/08/2019 K86.81 Exocrine pancreatic insufficiency Jayant Tenorio MD 12/08/2019 M81.0 Age-related osteoporosis without current Jayant Tenorio MD pathological fracture 12/08/2019 F41.9 Anxiety disorder, unspecified Noreen Cyr, [employer] 12/08/2019 K86.1 Other chronic pancreatitis Noreen Cyr, [employer] 12/08/2019 G89.29 Other chronic pain Noreen Cyr, [employer] 11/30/2019 D50.9 Iron deficiency anemia, unspecified Jayant [...] encounter for fracture Plan of Treatment Future Appointment(s):02/15/2020 8:00 am - Jayant Tenorio MD at [facility] Internal Medicine - [address]/23/2020 2:30 pm - Martita Peña M.D. at [facility] at Afjmnp0201/24/2020 2:30 pm - Jonny Brian MD at [facility] at Jewzhx5203/20/2020 9:30 am - Jemal Armendariz M.D. at [facility]02/29/2020 3:00 pm - Amaury Rodríguez MD at [facility]01/16/2020 - Jayant Teonrio MDG43.909 Migraine, unspecified, not intractable, without status migrainosusComments:Continue the Tylenol as needed. Don't skip your clonazepam suddenly as you will go through withdrawals that will trigger your headaches. Establish with Neurology.J32.9 Chronic sinusitis, unspecifiedFollow up:4 weeks.K31.84 EtnkagquotxgoU49.1 Other chronic pancreatitisComments:Continue the Pancreaze.D50.9 Iron deficiency anemia , unspecifiedComments:Follow the high iron foods on the list I gave you.K58.1 Irritable bowel syndrome with constipationNew Medication:Dicyclomine HCL 20 mg - take one tablet by mouth four times daily as needed Functional Status Description No Information Available Mental Status Description No Information Available Referrals Refer to Dr Reason for Referral Status Appt Date Laz Prakash NP severe HAs Created [address] [place] [place] [phone] Kim Nguyen MD left peroneal neuritis left ankle Closed 02/09/[address] [place], [place] [id number] [phone] Amaury Rodríguez MD severe osteoporsis with "35-45" Patient Notified 02/29/2020 fractures in life [address] [phone] Maximino Elizabeth MD recent left ankle fracture, severe osteoporosis. Sent 16 [facility] [address] [place], [place] [address] [phone] Leon Mora MD nausea. ?recent EGD with concern for small area of Sent 12/15/2019 [facility], I don't have biopsy results yet. Hx of exocrine pancreatic insuficiency. [address] [phone] Jemal Armendariz M.D. Chronic headaches. Sent 03/20/[address] [place] [phone] [phone] Pollo Medina MD Has chronic pain. She was following with pain [facility] [place] and given oxycodone and asked to f/u in 2 weeks. [address] [place], [place] [id number] [phone]
--- OUTSIDE RECORDS SUMMARY | 2020-01-18 19:37 | XMS REPORT | Continuity of Care Document ---
:1955 External Reference #:[id number] Author Name Jayant Tenorio MD (transmitted by agent of provider Kyra Jiang) Address [address] [place] [address] Care Team Providers Name Role Phone Camden Rondon MD - Student in an Care Team Information General Forecaster Organized Health Care Education/Training Program Problems Active Problems Provider Date Bipolar II disorder Leon Mora MD Onset: 12/21/1994 Note: admitted to [place] [address] several times 1999 to 2002; also anxiety, [...] capsule three 90caps Jayant Tenorio MD 01/11/2020 [id number] times a day with Caps Part rao [...] 12/08/2019 - 8.6mg Capsules 01/16/2020 Zenpep 1 capsule(33271T) 90caps R10.9 Jayant Tenorio MD 12/08/2019 - 5000-68675Pctw with each meal 01/11/[address] Bhatti Creon take 1 cap by 90caps K86.81 Jayant Tenorio MD 11/30/2019 - 92416Zlyx Caps mouth with every 12/08/2019 DR Magy davis Ferrous Gluconate 1 by mouth once a 60tabs D50.9 Jayant Tenorio MD 11/10/2019 - twice a day 12/08/2019 324(37.5Fe) mg Tablets Alendronate Sodium take 2 tabs daily 60tabs M80.00xA Jayant Tenorio MD 2018 - 11/17/2019 35mg Tablets Vtxlibvhek-Iidxidn-B take 1 by mouth 30caps Shaniqua Gardner MD 11/02/2019 - affeine every 4 hours as 11/10/2019 50-325-40mg needed for Capsules headaches Oxycodone HCL 1 by mouth every 120tabs Heidi Hidalgo, 11/02/2019 - 10mg 6 hours as needed DO 11/17/2019 Tablets Clonazepam 1 tablet by mouth [facility] - 1mg three times daily MD Nela 11/02/2019 Tablets Pantoprazole Sodium 1 by mouth every 30tabs Heidi Hidalgo 11/02/2019 - day DO 12/26/[address] Green take 1 tablet 90caps R51 [facility] 11/02/2019 - 50-325-40mg every 4 hour [...] H/L Range Note Laboratory test 01/07/2020 [facility] Lactic Acid 1.0 mmol/L Normal 0.5-2.0 1 finding [address] [place] [address] [phone] Comp Metabolic 01/07/2020 [facility] Sodium 137 mmol/L Normal 135-145 Panel [address] [place] [address] [phone] Potassium 4.4 mmol/L Normal 3.5-5.0 Chloride 101 [...] 88.4 >60 2 Laboratory test 01/07/2020 [facility] Lipase < 10 U/L Low 11.0 -82.0 finding [address] [place] [address] [phone] CBC Auto Diff 01/07/2020 [facility] White Blood 5.3 Normal 3.5 -10.[address] Count 10^3/[place] [address] [phone] Red Blood Count 4.93 10^6/uL High 3.70-4.87 [...] Blood Cells % 0.0 Drug 12/15/2019 [facility] Urine Presumptive Abnormal None [address] Hydrocodone Posi <[place] [address] Screen NOTE> Pain [phone] Clinic Urine Oxycodone Screen None Detected None [...] Detected None Detect 7 Hydrocodone 12/15/2019 [facility] Hydrocodone-by Negative Cutoff: Confiramtion, [address] LC-MS/MS ng/mL 25 [place] [address] [phone] Norhydrocodone-by LC-MS/MS Negative ng/mL Cutoff: 25 Hydromorphone-by LC-MS/MS 259 ng/mL Cutoff: 25 Hydrocodone Interpretation Positive. 8 Laboratory test 12/08/2019 [facility] Pathologist Review (SEE NOTE) [address] [place] [address] [phone] Cell Morphology 12/08/2019 [facility] Polychromasia 1+ [address] [place] [address] [phone] Anisocytosis 2+ CBC Auto 12/08/2019 [facility] White Blood 6.7 10^3/uL Normal 3.5-10.[address] [place] [address] [phone] Red Blood Count 4.09 10^6/uL Normal 3.70-4.87 [...] Cells % 0.0 Urinalysis Profile 12/08/2019 [facility] Urine Color Straw [address] [place] [address] [phone] Urine Appearance Clear Urine Specific Indian 1.006 Low 1.010-1.030 Urine pH 6.0 Normal 5-9 Urine Urobilinogen Negative Negative Urine Ketones Negative Negative Urine Protein Negative Negative Urine Leukocytes Negative Negative Urine Blood Negative Negative Urine Nitrite Negative Negative Urine Bilirubin Negative Negative Urine Glucose Negative Negative Laboratory test 12/08/2019 [facility] Lipase < 10 U/L Low 11.0 -82.0 finding [address] [place] [address] [phone] C Reactive Protein 5.19 mg/L Normal <8.01 Comp Metabolic 12/08/2019 [facility] Sodium 137 mmol/L Normal 135-145 Panel [address] [place] [address] [phone] Potassium 4.1 mmol/L Normal 3.5-5.0 Chloride 105 [...] 78.0 >60 10 Laboratory test 12/08/2019 [facility] Lactic Acid 0.8 mmol/L Normal 0.5-2.0 11 finding [address] [place] [address] [phone] Laboratory test 12/08/2019 [facility] Lactic Acid 1.0 mmol/L Normal 0.5-2.0 12 finding [address] [place] [address] [phone] BMP W/Egfr 11/24/2019 [facility] Sodium 139 mmol/L Normal 135- 145 [address] [place] [address] [phone] Potassium 4.5 mmol/L Normal 3.5-5.0 Chloride 104 mmol/L Normal 101-111 Co2 Carbon Dioxide 24 mmol/L Normal 22-32 Anion Gap 11 mmol/L Normal 2-11 Glucose 97 mg/dL Normal 70-100 Blood Urea Nitrogen 19 mg/dL Normal 6-24 Creatinine 0.78 mg/dL Normal 0.51-0.95 BUN/Creatinine Ratio 24.4 High 8-20 Calcium 9.7 mg/dL Normal 8.6-10.3 Egfr Non- 74.1 >60 Egfr 89.7 >60 13 Spep Protein 11/24/2019 [facility] Total Protein(Pep) 7.4 g/dL 6.3 - 7.9 Electro, Serum [address] [place] [address] [phone] Albumin 3.6 g/dL 3.4-4.7 Alpha-1 Globulin 0.3 g/dL 0.1-0.3 Alpha-2 Globulin 1.3 g/dL Abnormal 0.6-1.0 Beta Globulin 1.3 g/dL Abnormal 0.7-1.2 Gamma Globulin 1.0 g/dL 0.6-1.6 Albumin/Globulin Ratio 0.93 Impression See Comment 14 [place]/Lambda Free 11/24/2019 [facility] [place] Free 1.98 mg/dL Abnormal [address] [place] [address] [phone] Lambda Free Light Chain 1.00 mg/dL 16 [place]/Lambda Free Light Chain 1.98 Abnormal 17 Laboratory test 11/10/2019 [facility] Vitamin D 30.9 Normal 20 -50 [address] Total 25(Oh) ng/[place] [address] [phone] Pthi 11/10/2019 [facility] Calcium (PTH 10.1 Normal 8.6-10.[address] Intact) mg/[place] [address] [phone] PTH Intact 56.4 pg/mL Normal 12-88 Celiac Panel 11/10/2019 [facility] Tissue Transglutaminase <1.2 U/mL [address] IgA Ab [place], [place] [address] [phone] Immunoglobulin A 256 mg/dL 61 - 356 Celiac Interpretation See Comment 20 Iron & Iron 11/10/2019 [facility] Total Iron 447 g/dL Normal 250-[address] [place] [address] Capacity [phone] Transferrin 319 mg/dL Normal 203-362 Iron < 20 g/dL Low 50-212 Unsaturated Iron Binding < 432 g/dL % Iron Saturation 4 % Low 15-55 Laboratory test 11/10/2019 [facility] Ferritin 4.8 ng/mL Low 11-[address] [place] [address] [phone] 1 [place] Severe Sepsis and Septic Shock [...] developed and its performance characteristics determined by [facility] in a manner consistent with CLIA requirements. This test has not been cleared or approved by the U.S. Food and Drug Administration. Test Performed by: [facility] [employer] - [address] [address] Executive Relations Specialist: Gene Conn M.D. Ph.D.; [facility]# [id number] 9 Microcytic anemia with red cell indices [...] Specimen hemolyzed. Result may not be valid. [facility] Severe Sepsis and Septic Shock Management Bundle Measure requires all lactic acids initially measuring >2.0 mmol/L be repeated. 12 [facility] Severe Sepsis and Septic Shock Management [...] Test Performed by: [facility] [place] [address] Executive Relations Specialist: Gene Conn M.D. Ph.D.; CLIA# [id number] 15 REFERENCE VALUE 0.3300-1.94 16 REFERENCE VALUE 0.5700-2.63 17 Elevated free light chain ratios between 1.66 and 3.00 may occur due to polyclonal hypergammaglobulinemia or impaired renal clearance. An isolated increased free light chain ratio in this range should be interpreted with caution, and clinical correlation is recommended. REFERENCE VALUE 0.2600-1.65 Test Performed by: [facility] [place] [address] Executive Relations Specialist: Gene Conn M.D. Ph.D.; CLIA# [id number] 18 Total 25-Hydroxyvitamin D2 and D3 (25-OH-VitD) <10 ng/mL (severe deficiency) 10-19 ng/mL (mild to moderate deficiency) 20-50 ng/mL (optimum levels) 51-80 ng/mL (increased risk of hypercalciuria) >80 ng/mL (toxicity possible) 19 REFERENCE VALUE <4.0 (Negative) Test Performed by: [place] [address] Executive Relations Specialist: Gene Conn M.D. Ph.D.; CLIA# [id number] 20 Negative serology. Celiac disease unlikely. However, approximately 10% of patients with celiac disease are seronegative. Also, patients who are already adhering to a gluten-free diet may be seronegative. If celiac disease is highly clinically suspected, consider HLA-DQ typing. Test Performed by: [facility] [address] [place] [address] Executive Relations Specialist: Gene Conn M.D. Ph.D.; CLIA# [id number] Procedures Date Code Description Status 01/02/202097100 Injection Single Tendon Origin/Insertion Completed 12/13/2019 42010 Endoscopy Upper GI Biopsy Completed 12/05/2019 347756226 Bone Mineral Density Test Completed Medical Devices Description No Information Available Encounters Type Date Location Provider Dx Diagnosis Office Visit 01/02/2020 [facility] Martita Peña, M77.12 Lateral 1:00p at [facility] [facility] epicondylitis, left elbow S52.552A Oth extrartic fracture of lower end of left radius, init M25.532 Pain in left wrist Z87.81 Personal history of (healed) traumatic fracture Office Visit 12/20/2019 [facility] Maximino 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9 Anxiety disorder, unspecified G89.29 Other chronic pain K86.1 Other chronic pancreatitis K21.9 Gastro-esophageal reflux disease without esophagitis G43.909 Migraine, unsp, not intractable, without status migrainosus Z59.0 Homelessness Office Visit 12/11/2019 [facility] Noreen Cyr, R10.9 Unspecified 9:51a Assoc,pc [employer] abdominal pain Hospitalists F41.9 Anxiety disorder, unspecified G89.29 Other chronic pain K86.1 Other chronic pancreatitis K21.9 Gastro-esophageal reflux disease without esophagitis G43.909 Migraine, unsp, not intractable, without status migrainosus Z59.0 Homelessness Office Visit 12/11/2019 [facility]. R10.9 Unspecified 7:00a [facility] MD abdominal pain Office Visit 12/10/2019 [facility] Margret R10.9 Unspecified 9:50a Assoc,pc BRUNA Gary abdominal pain Hospitalists K86.1 Other chronic pancreatitis K21.9 Gastro-esophageal reflux disease without esophagitis F41.9 Anxiety disorder, unspecified G89.29 Other chronic pain Z59.0 Homelessness Office Visit 12/10/2019 7:00a [facility] Rodri S. R10.9 Unspecified [facility] Vashti abdominal pain [employer] Office Visit 12/09/2019 7:00a Surgical Rodri S. R10.9 Unspecified [facility] abdominal pain [facility] R11.0 Nausea Office Visit 12/08/2019 [facility] Noreen Cyr, K56.7 Ileus, 9:47a Assoc,pc [employer] unspecified Hospitalists K21.9 Gastro-esophageal reflux disease without esophagitis F41.9 Anxiety disorder, unspecified K86.1 Other chronic pancreatitis G89.29 Other chronic pain Office Visit 12/08/2019 9:40a [facility] Heriberto Tenorio MD R10.9 Unspecified Medicine - Suite abdominal pain R D50.9 Iron deficiency anemia, unspecified F41.1 Generalized anxiety disorder K86.81 Exocrine pancreatic insufficiency M81.0 Age-related osteoporosis w/o current pathological fracture Office Visit 11/30/2019 9:40a [facility] Heriberto Tenorio MD D50.9 Iron deficiency Medicine - Suite anemia, unspecified R M80.00xA Age-rel osteopor w current path fracture, unsp site, init R51 Headache F41.1 Generalized anxiety disorder K86.81 Exocrine pancreatic insufficiency M54.2 Cervicalgia M25.511 Pain in right shoulder K22.70 Gersham's esophagus without dysplasia M80.032S Age-rel osteopor w current path fracture, l forearm, sequela Office Visit 11/10/2019 1:00p [facility] Heriberto Tenorio MD D50.9 Iron deficiency Medicine - Suite anemia, unspecified R M80.00xA Age-rel osteopor w current path fracture, unsp site, init R51 Headache F41.1 Generalized anxiety disorder N17.9 Acute kidney failure, unspecified K86.81 Exocrine pancreatic insufficiency M54.2 Cervicalgia M25.511 Pain in right shoulder 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 M25.532 Pain in left wrist Office Visit 11/02/2019 9:00a [facility] Internal Medicine Camden Rondon MD [...] MD 12/26/2019 G43.909 Migraine, unspecified, not intractable, Jaynat Tenorio MD without status migrainosus 12/26/2019 G89.29 [...] 12/13/2019 R10.9 Unspecified abdominal pain Noreen Cyr, [employer] 12/13/2019 K29.70 Gastritis, unspecified, without bleeding Leon Mora MD 12/13/2019 K21.9 Gastro-esophageal reflux disease without Noreen Cyr, EDYTA esophagitis 12/13/2019 K31.84 Gastroparesis Noreen Cyr, [employer] 12/13/2019 F41.9 Anxiety disorder, unspecified Noreen Cyr, [employer] 12/13/2019 G89.29 Other chronic pain Noreen Cyr, [employer] 12/12/2019 R10.9 Unspecified abdominal pain Noreen Cyr, [employer] 12/12/2019 F41.9 Anxiety disorder, unspecified Noreen Cyr, [employer] 12/12/2019 G89.29 Other chronic pain Noreen Cyr, [employer] 12/12/2019 K86.1 Other chronic pancreatitis Noreen Cyr, [employer] 12/12/2019 K21.9 Gastro-esophageal reflux disease without Noreen Cyr, [employer] esophagitis 12/12/2019 G43.909 Migraine, unspecified, not intractable, Noreen Cyr, [employer] without status migrainosus 12/12/2019 Z59.0 Homelessness Noreen Cyr, [employer] 12/11/2019 R10.9 Unspecified abdominal pain Noreen Cyr, EDYTA 12/11/2019 R10.9 Unspecified abdominal pain Rodri Kingston MD 12/11/2019 F41.9 Anxiety disorder, unspecified Noreen Cyr, EDYTA 12/11/2019 G89.29 Other chronic pain Noreen Cyr, EDYTA 12/11/2019 K86.1 Other chronic pancreatitis Noreen Cyr, EDYTA 12/11/2019 K21.9 Gastro-esophageal reflux disease without Noreen Cyr, [employer] esophagitis 12/11/2019 G43.909 Migraine, unspecified, not intractable, Noreen Cyr, [employer] without status migrainosus 12/11/2019 Z59.0 Homelessness Noreen [...] PA 12/08/2019 K56.7 Ileus, unspecified Noreen Cyr, [employer] 12/08/2019 R10.9 Unspecified abdominal pain Jayant Tenorio MD 12/08/2019 D50.9 Iron deficiency anemia, unspecified Jayant Tenorio MD 12/08/2019 K21.9 Gastro-esophageal reflux disease without Noreen Cyr, [employer] esophagitis 12/08/2019 F41.1 Generalized anxiety disorder Jayant Tenorio MD 12/08/2019 K86.81 Exocrine pancreatic insufficiency Jayant Tenorio MD 12/08/2019 M81.0 Age-related osteoporosis without current Jayant Tenorio MD pathological fracture 12/08/2019 F41.9 Anxiety disorder, unspecified Noreen Cyr, [employer] 12/08/2019 K86.1 Other chronic pancreatitis Noreen Cyr, [employer] 12/08/2019 G89.29 Other chronic pain Noreen Cyr, [employer] 11/30/2019 D50.9 Iron deficiency anemia, unspecified Jayant [...] encounter for fracture Plan of Treatment Future Appointment(s):01/23/2020 2:30 pm - Martita Peña M.D. at [facility] at Anuvrv7601/24/2020 2:30 pm - Jonny Brian MD at [facility] at Yzdgkj1603/20/2020 9:30 am - Jemal Armendariz M.D. at [facility]02/29/2020 3:00 pm - Amaury Rodríguez MD at [facility]01/16/2020 - Jayant Tenorio MDG43.909 Migraine, unspecified, not intractable, without status migrainosusComments:Continue the Tylenol as needed. Don't skip your clonazepam suddenly as you will go through withdrawals that will trigger your headaches. Establish with Neurology.J32.9 Chronic sinusitis, unspecifiedFollow up:4 weeks.K31.84 OrzmnanftjffvB77.1 Other chronic pancreatitisComments:Continue the Pancreaze.D50.9 Iron deficiency [...] severe HAs Created [address] [place] [phone] [phone] Kim Nguyen MD left peroneal neuritis left ankle Closed 02/09/[address] [place], [place] [address] [phone] Amaury Rodríguez MD severe osteoporsis with "35-45" Patient Notified 02/29/2020 fractures in life [address] [phone] Maximino Elizabeth MD recent left ankle fracture, severe osteoporosis. Sent 16 [facility] [address] [place], [place] [address] [phone] Leon Mora MD nausea. ?recent EGD with concern for small area of Sent 12/15/2019 [facility], I don't have biopsy results yet. Hx of exocrine pancreatic insuficiency. [address] [place] [phone] [phone] Jemal Armendariz M.D. Chronic headaches. Sent 03/20/2020 [address] [place] [phone] [phone] Pollo Medina MD Has chronic pain. She was following with [facility] [place] and given oxycodone and asked to f/u in 2 weeks. [address] [place] [address] [phone]
[2020-01-18 19:40] LABS: Albumin 4.4 g/dL (3.2-5.2); Albumin/Globulin Ratio 1.6 (1-3); BUN/Creatinine Ratio 23.3 (8-20); C Reactive Protein 8.08 mg/L (<8.01); Calcium 9.5 mg/dL (8.6-10.3); EGFR African American 80.1 (>60); EGFR Non-African American 66.2 (>60); Globulin 2.8 g/dL (2-4); Magnesium 1.6 mg/dL (1.9-2.7); Potassium 4.6 mmol/L (3.5-5.0); Total Bilirubin 0.2 mg/dL (0.2-1.0); Total Protein 7.2 g/dL (6.4-8.9)
[2020-01-18 19:58] LABS: Urine Appearance Clear; Urine Bilirubin Negative (Negative); Urine Blood Negative (Negative); Urine Color Straw; Urine Glucose Negative (Negative); Urine Ketones Negative (Negative); Urine Nitrite Negative (Negative); Urine Protein Negative (Negative); Urine Specific Gravity 1.009 (1.010-1.030); Urine Urobilinogen Negative (Negative)
[2020-01-18 20:04] LABS: Urine Bacteria Absent (Absent); Urine Red Blood Cell Absent (Absent); Urine Squamous Epithelial Cell Present (Absent); Urine White Blood Cell Trace(0-5/hpf) (Absent)
[2020-01-18] MEDS ORDERED: Iohexol 300* (CONTRAST) 10 ML SDV IV ONE (20:17)
[2020-01-18] MEDS ORDERED: Metoclopramide IV* 5 MG/ML 2 ML VIAL IV ONE (21:40)
[2020-01-18] MEDS ORDERED: Butalb/Acetamin/Caff TAB* 1 TAB PO ONE (21:48)
[2020-01-18 22:25] VITALS: BP 128/78
== END 2020-01-18 22:20 | disposition home or self-care (01) ==
LOC: ED 18:45
DX: R10.31 Right lower quadrant pain (principal); R10.84 Generalized abdominal pain; R14.0 Abdominal distension (gaseous); R11.0 Nausea; J43.9 Emphysema, unspecified; K21.9 Gastro-esophageal reflux disease without esophagitis; F41.9 Anxiety disorder, unspecified; Z79.899 Other long term (current) drug therapy; Z88.1 Allergy status to other antibiotic agents; Z88.5 Allergy status to narcotic agent; Z88.0 Allergy status to penicillin; Z88.2 Allergy status to sulfonamides; Z87.442 Personal history of urinary calculi; F17.210 Nicotine dependence, cigarettes, uncomplicated
CPT/HCPCS: 36415; 74177; 80053; 81003; 81015; 83605; 83690; 83735; 85025; 86140; 87077; 87086; 96361; 96374; 96375; 99284; A9270-GY; J2270; J2405; Q9967

== ENCOUNTER 2020-01-29 02:43 | Emergency (ER) | payer MEDICARE, MEDICAID ==
[2020-01-29 03:51] LABS: ABS Eosinophils 0.1 10^3/ul (0-0.6); ABS Lymphocytes 2.3 10^3/ul (1.0-4.8); ABS Monocytes 0.3 10^3/ul (0-0.8); ABS Neutrophils 2.1 10^3/ul (1.5-7.7); Eosinophil % 2.8 %; Hematocrit 32 % (35-47); Hemoglobin 9.8 g/dL (12.0-16.0); Lymphocyte % 47.3 %; Mean Corpuscular HGB Conc 31 g/dL (31-36); Mean Corpuscular Hemoglobin 24 pg (27-31); Mean Corpuscular Volume 77 fL (80-97); Mean Platelet Volume 6.9 fL (7.4-10.4); Nucleated Red Blood Cells % 0.1; Platelet Count 231 10^3/uL (150-450); Red Blood Count 4.09 10^6 /uL (3.70-4.87); Red Cell Distribution Width 24 % (10-15); White Blood Count 4.9 10^3/uL (3.5-10.8)
[2020-01-29 04:10] LABS: Albumin 4.1 g/dL (3.2-5.2); Amylase 26 U/L (29-103); CO2 Carbon Dioxide 23 mmol/L (22-32); Calcium 9.3 mg/dL (8.6-10.3); Chloride 108 mmol/L (101-111); Sodium 140 mmol/L (135-145)
[2020-01-29 04:16] LABS: ALT 8 U/L (7-52); Albumin/Globulin Ratio 1.8 (1-3); Alkaline Phosphatase 109 U/L (34-104); BUN/Creatinine Ratio 25.9 (8-20); Blood Urea Nitrogen 22 mg/dL (6-24); C Reactive Protein 22.47 mg/L (<8.01); EGFR African American 81.2 (>60); EGFR Non-African American 67.1 (>60); Globulin 2.3 g/dL (2-4); Glucose 85 mg/dL (70-100); Total Protein 6.4 g/dL (6.4-8.9)
[2020-01-29 04:18] LABS: Anion Gap 9 mmol/L (2-11)
--- NOTE | 2020-01-29 04:19 | ED ---
Abdominal Pain/Female - HPI Summary HPI Summary: This pt is a 64 Y/O F presenting to [facility] with a CC of LUQ abdominal pain that woke her up from sleep and is rated a 10/10 in severity that began at 0300 this date. She states that the pain is described as achy. She states that she has been nauseous since the onset. She denies any fevers, chills, headaches, diarrhea, vomiting, and myalgia. She states that her last BM was on 01/27 which she reports in normal for her. She states that she took morphine at 1900 as normal. She has no aggravating or alleviating factors. She has a PMHx of anemia , chronic pancreatitis, and GERD. She states that colon cancer runs in the family. She states that she takes morphine for chronic pain and states that it is currently not working. - History of Current Complaint Chief Complaint: EDAbdPain Stated Complaint: ABD PAIN PER EMS Time Seen by Provider: 01/29/20 03:37 Hx Obtained From: Patient ?: No Onset/Duration: Sudden Onset, Lasting Hours - 1 Timing: Constant Severity Initially: Severe Severity Currently: Severe Pain Intensity: 10 Pain Scale Used: 0-10 Numeric Location: Discrete At: LUQ Radiates: No Character: Other: - achy Aggravating Factor(s): Nothing Alleviating Factor(s): Nothing Associated Signs and Symptoms: Positive: Negative - headaches, chills, myalgia, Nausea. Negative: Fever, Vomiting, Diarrhea Allergies/Adverse Reactions: Allergies Allergy/AdvReac Type Severity Reaction Status Date / Time amoxicillin Allergy Unknown Verified 01/29/20 02:49 Reaction Details erythromycin base Allergy Nausea And Verified 01/29/20 02:49 Vomiting fentanyl Allergy Rash Verified 01/29/20 04:13 ketorolac [From Toradol] Allergy Rash Verified 01/29/20 04:13 sulfamethoxazole Allergy Abdominal Verified 01/29/20 04:13 [From Bactrim] Pain trimethoprim [From Bactrim] Allergy Abdominal Verified 01/29/20 04:13 Pain Home Medications: Home Medications clonazePAM TAB(*) [Klonopin TAB(*)] 1 mg PO BID PRN 10/27/19 [History Confirmed 01/29/20] Butalb/Acetamin/Caff TAB* [Fioricet TAB*] 1 tab PO Q4H PRN 11/04/19 [History Confirmed 01/29/20] Ondansetron TAB* [Zofran 4 MG Tab*] 8 mg PO Q6HR PRN 11/14/19 [History Confirmed 01/29/20] Sucralfate TAB* [Carafate*] 1 tab PO ACHS 11/14/19 [History Confirmed 01/29/20] Docusate CAP* [Colace Cap*] 100 mg PO DAILY #14 cap 11/15/19 [Rx Confirmed 01/28] Albuterol HFA INHALER* [Ventolin HFA Inhaler*] 2 puff INH Q4HR 11/24/19 [ History Confirmed 01/29/20] Ferrous Sulfate TAB* 325 mg PO DAILY #30 tab 12/13/19 [Rx Confirmed 01/29/20] Metoclopramide TAB* [Reglan TAB*] 5 mg PO AC #90 tab 12/13/19 [Rx Confirmed ] Pantoprazole TAB * [Protonix TAB*] 40 mg PO DAILY #0 12/13/19 [Rx Confirmed ] Polyethylene Glycol 3350* [Miralax (17 GM DOSE GILBERT)] 17 gm PO DAILY PRN #30 packet 12/13/19 [Rx Confirmed 01/29/20] Senna TAB 8.6 mg* [Senokot 8.6 mg TAB*] 1 tab PO BEDTIME PRN #30 tab 12/13/19 [ Rx Confirmed 01/29/20] Morphine Sulfate 15 mg PO QID PRN MDD 4 12/15/19 [History Confirmed 01/29/20] DULoxetine CAP* [Cymbalta CAP*] 30 mg PO DAILY 01/18/20 [History Confirmed ] Lipase/Protease/Amylase [Zenpep 20,000 Unit Capsule] 1 cap PO AC 01/29/20 [ History Confirmed 01/29/20] Pantoprazole Sodium [Protonix] 40 mg PO DAILY 01/29/20 [History Confirmed ] PMH/Surg Hx/FS Hx/Imm Hx Previously Healthy: Yes Endocrine/Hematology History: Reports: Hx Anemia Denies: Hx Anticoagulant Therapy, Hx Diabetes Cardiovascular History: Denies: Hx Hypertension, Hx Pacemaker/ICD Respiratory History: Denies: Hx Asthma GI History: Reports: Hx Gall Bladder Disease - colecystitis, Hx Gastroesophageal Reflux Disease, Other GI Disorders - chronic pancreatitis History: Reports: Hx Kidney Stones Denies: Hx Renal Disease Musculoskeletal History: Reports: Hx Arthritis, Hx Back Problems, Hx Osteoporosis, Other Musculoskeletal History - Chronic Neck Pain Sensory History: Denies: Hx Contacts or Glasses, Hx Hearing Aid Opthamlomology History: Denies: Hx Contacts or Glasses Neurological History: Reports: Hx Migraine Psychiatric History: Reports: Hx Anxiety Denies: Hx Panic Disorder - Cancer History Hx Chemotherapy: No Hx Radiation Therapy: No - Surgical History Surgery Procedure, Year, and Place: lt great toe. left wrist pinning. EUA right knee, shoulder,achillies. other female surgeries Infectious Disease History: No Infectious Disease History: Reports: Hx of Known/Suspected MRSA Denies: Traveled Outside the [place] in Last 30 Days - Family History Known Family History: Positive: Cardiac Disease, Hypertension - Social History Alcohol Use: None Hx Substance Use: No Substance Use Type: Reports: None Hx Tobacco Use: Yes Smoking Status (MU): Light Every Day Tobacco Smoker Type: Cigarettes Amount Used/How Often: 1 cigarette/day Review of Systems Negative: Fever, Chills Positive: Abdominal Pain, Nausea. Negative: Vomiting, Diarrhea Negative: Myalgia All Other Systems Reviewed And Are Negative: Yes Physical Exam - Summary Physical Exam Summary: General: Well-developed, elderly female. Asleep upon entering the room. Requesting pain medication upon waking and moaning loudly. No acute distress. HEENT: Normocephalic, Atraumatic. Eyes: Conjuctiva normal, PERRL. Ears: TMs within normal limits. Nares: (-) discharge, (-) erythema. Oropharynx: Clear, mucous membranes moist, (-) exudates. Neck: Soft, FROM, (-) lymphadenopathy, (-) thyromegaly, (-) JVD. Cardiovascular: Normal sinus rhythm, (-) murmur. Lungs: Clear to auscultation bilaterally (-) wheezes, (-) rales, (-) rhonchi. Abdomen: Soft, sever tenderness to upper L and rear abdomen. Out of proportion to exam. non-distended, (-) organomegaly, normal bowel sounds. Back: (-) CVA tenderness Extremities: No edema. Skin: Warm, dry, (-) rash. Neuro: Alert and oriented x3, no focal deficits. Psychiatric: Mood normal, affect normal. Triage Information Reviewed: Yes Vital Signs On Initial Exam: Initial Vitals Temp Pulse Resp BP Pulse Ox 97.6 F 72 20 108/69 96 01/29/20 02:47 01/29/20 02:47 01/29/20 02:47 01/29/20 02:47 01/29/20 02:47 Vital Signs Reviewed: Yes Procedures - Sedation Patient Received Moderate/Deep Sedation with Procedure: No Diagnostics - Vital Signs Vital Signs Temp Pulse Resp BP Pulse Ox 01/29/20 04:00 58 92 01/29/20 03:00 69 93 01/29/20 02:53 67 96 01/29/20 02:47 97.6 F 72 20 108/69 96 - Laboratory Lab Results: Lab Results 01/29/20 01/29/20 Range/Units 03:42 03:42 WBC 4.9 (3.5-10.8) 10^3/uL RBC 4.09 (3.70-4.87) 10^6 /uL Hgb 9.8 L (12.0-16.0) g/dL Hct 32 L (35-47) % MCV 77 L (80-97) fL MCH 24 L (27-31) pg MCHC 31 (31-36) g/dL RDW 24 H (10-15) % Plt Count 231 (150-450) 10^3/uL MPV 6.9 L (7.4-10.4) fL Neut % (Auto) 42.8 % Lymph % (Auto) 47.3 % [place] % (Auto) 6.5 % Eos % (Auto) 2.8 % Baso % (Auto) 0.6 % Absolute Neuts (auto) 2.1 (1.5-7.7) 10^3/ul Absolute Lymphs (auto) 2.3 (1.0-4.8) 10^3/ul Absolute Monos (auto) 0.3 (0-0.8) 10^3/ul Absolute Eos (auto) 0.1 (0-0.6) 10^3/ul Absolute Basos (auto) 0.0 (0-0.2) 10^3/ul Absolute Nucleated RBC 0.0 10^3/ul Nucleated RBC % 0.1 Sodium 140 (135-145) mmol/L Potassium Pending Chloride 108 (101-111) mmol/L Carbon Dioxide 23 (22-32) mmol/L Anion Gap Pending BUN Pending Creatinine Pending Est GFR ( Amer) Pending Est GFR (Non-Af Amer) Pending BUN/Creatinine Ratio Pending Glucose Pending Calcium 9.3 (8.6-10.3) mg/dL Total Bilirubin 0.20 (0.2-1.0) mg/dL AST Pending ALT Pending Alkaline Phosphatase Pending C-Reactive Protein Pending Total Protein Pending Albumin 4.1 (3.2-5.2) g/dL Globulin Pending Albumin/Globulin Ratio Pending Amylase 26 L (29-103) U/L Lipase Pending Result Diagrams: 01/29/20 03:42 01/29/20 03:42 Lab Statement: Any lab studies that have been ordered have been reviewed, and results considered in the medical decision making process. Abdominal Pain Fem Course/Dx - Course Course Of Treatment: 64-year-old female presents with severe nausea. Abdominal pain. Patient states she has abdominal pain and has been vomiting and can't take the pain anymore. She notes she has morphine at home for the pain but states is not helping. She states her doctor needs to increase the dose. I stop is performed. Patient is receiving regular prescriptions for Ambien, Klonopin, morphine. She's had multiple visits to the emergency room recently for this. Patient had a CAT scan of her abdomen done 10 days ago which was normal. No fevers or chills. Patient has multiple medication allergies. She is given IV fluids and Reglan with Benadryl. Had no relief. Patient offered Haldol for gastroparesis nausea and pain. Patient refused. Insisted on discharge at that time which was completed. - Diagnoses Provider Diagnoses: Chronic abdominal pain Discharge ED - Sign-Out/Discharge Documenting (check all that apply): Patient Departure - discharge - Discharge Plan Condition: Good Disposition: HOME Patient Education Materials: Chronic Abdominal Pain (ED) Referrals: Jayant Tenorio MD [Primary Care Provider] - 2 Days Additional Instructions: PLEASE RETURN TO THE EMERGENCY DEPARTMENT FOR ANY NEW OR WORSENING SYMPTOMS. FOLLOW UP WITH YOUR PRIMARY CARE PHYSICIAN IN 1-3 DAYS. - Billing Disposition and Condition Condition: GOOD Disposition: Home - Attestation Statements Document Initiated by Scribvalarie: Yes Documenting Scribe: Jus Horvath Provider For Whom Scribe is Documenting (Include Credential): Lissa Henson MD Scribe Attestation: I, Jus Horvath, scribed for Lissa Henson MD on 01/30/20 at 0517. Scribe Documentation Reviewed: Yes Provider Attestation: The documentation as recorded by the scribeJus accurately reflects the service I personally performed and the decisions made by me, Lissa Henson MD Status of Scribe Document: Viewed
[2020-01-29] MEDS ORDERED: Ondansetron INJ* 2 MG/ML VIAL IV ONE (04:26)
[2020-01-29] MEDS ORDERED: NS 0.9% 1000 ML** 1,000 ML IV ONE (04:26)
[2020-01-29] MEDS ORDERED: Metoclopramide IV* 5 MG/ML 2 ML VIAL IV SLOW PU ONE (04:48)
[2020-01-29] MEDS ORDERED: diPHENhydraMINE IV* 50 MG/ML 1 ml VIAL (BENADRYL) IV ONE (04:49)
[2020-01-29] MEDS ORDERED: Haloperidol INJ IV/IM* 5 MG/ML AMP IV SLOW PU ONE (05:56)
[2020-01-29 06:23] VITALS: BP 124/81
== END 2020-01-29 06:22 | disposition home or self-care (01) ==
LOC: ED 02:43
DX: R10.12 Left upper quadrant pain (principal); R11.0 Nausea; K21.9 Gastro-esophageal reflux disease without esophagitis; G89.29 Other chronic pain; M54.2 Cervicalgia; F41.9 Anxiety disorder, unspecified; Z79.891 Long term (current) use of opiate analgesic; Z79.899 Other long term (current) drug therapy; Z88.1 Allergy status to other antibiotic agents; Z88.5 Allergy status to narcotic agent; Z88.0 Allergy status to penicillin; Z88.2 Allergy status to sulfonamides; F17.210 Nicotine dependence, cigarettes, uncomplicated
CPT/HCPCS: 36415; 80053; 82150; 83690; 85025; 86140; 96361; 96374; 96375; 99283; J1200; J1630; J2405; J2765

== ENCOUNTER 2020-01-30 14:18 | Emergency (ER) | payer MEDICARE, MEDICAID ==
--- NOTE | 2020-01-30 15:09 | ED ---
HPI Chest Pain - HPI Summary HPI Summary: Patient is a 64 y/o F arriving via ambulance to [facility] with a chief complaint of sudden onset CP/pressure across the chest with exertion this afternoon. She reports she was walking outside and felt pain and pressure across the chest with pain into the back and right arm, as well as pain in the left leg. She called her PCP who recommended she come to the ED. Pain is rated 9/10 in severity. She denies SOB, fevers, cough. Past medical history includes anemia, GERD, gastroparesis, gastritis, chronic pancreatitis, cholecystitis, arthritis, osteoporosis, back problems, chronic neck pain, migraine, anxiety, Gresham's esophagus. Current smoker, no EtOH, no substance use. Medications reviewed. Allergies noted. - History of Current Complaint Hx Obtained From: Patient Onset/Duration: Started Minutes Ago, Still Present Timing: Constant Initial Severity: Severe Current Severity: Severe Pain Intensity: 9 Pain Scale Used: 0-10 Numeric Chest Pain Location: Diffuse Chest Pain Radiates To:: Arm Character: Sharp/Stabbing Aggravating Factor(s): Nothing Alleviating Factor(s): Nothing Associated Signs and Symptoms: Positive: Chest Pain, Back Pain. Negative: Shortness of Breath, Fever, Cough - Additional Pertinent History Primary Care Physician: MAITE - Allergy/Home Medications Allergies/Adverse Reactions: Allergies Allergy/AdvReac Type Severity Reaction Status Date / Time amoxicillin Allergy Unknown Verified 01/29/20 02:49 Reaction Details erythromycin base Allergy Nausea And Verified 01/29/20 02:49 Vomiting fentanyl Allergy Rash Verified 01/29/20 04:13 ketorolac [From Toradol] Allergy Rash Verified 01/29/20 04:13 sulfamethoxazole Allergy Abdominal Verified 01/29/20 04:13 [From Bactrim] Pain trimethoprim [From Bactrim] Allergy Abdominal Verified 01/29/20 04:13 Pain Home Medications: Home Medications clonazePAM TAB(*) [Klonopin TAB(*)] 1 mg PO BID PRN 10/27/19 [History Confirmed 01/30/20] Butalb/Acetamin/Caff TAB* [Fioricet TAB*] 1 tab PO Q4H PRN 11/04/19 [History Confirmed 01/30/20] Ondansetron TAB* [Zofran 4 MG Tab*] 8 mg PO Q6HR PRN 11/14/19 [History Confirmed 01/30/20] Sucralfate TAB* [Carafate*] 1 tab PO ACHS 11/14/19 [History Confirmed 01/30/20] Docusate CAP* [Colace Cap*] 100 mg PO DAILY #14 cap 11/15/19 [Rx Confirmed 01/29] Albuterol HFA INHALER* [Ventolin HFA Inhaler*] 2 puff INH Q4HR 11/24/19 [ History Confirmed 01/30/20] Ferrous Sulfate TAB* 325 mg PO DAILY #30 tab 12/13/19 [Rx Confirmed 01/30/20] Metoclopramide TAB* [Reglan TAB*] 5 mg PO AC #90 tab 12/13/19 [Rx Confirmed ] Polyethylene Glycol 3350* [Miralax (17 GM DOSE GILBERT)] 17 gm PO DAILY PRN #30 packet 12/13/19 [Rx Confirmed 01/30/20] Senna TAB 8.6 mg* [Senokot 8.6 mg TAB*] 1 tab PO BEDTIME PRN #30 tab 12/13/19 [ Rx Confirmed 01/30/20] Morphine Sulfate 15 mg PO QID PRN MDD 4 12/15/19 [History Confirmed 01/30/20] DULoxetine CAP* [Cymbalta CAP*] 30 mg PO DAILY 01/18/20 [History Confirmed ] Lipase/Protease/Amylase [Zenpep 20,000 Unit Capsule] 1 cap PO AC 01/29/20 [ History Confirmed 01/30/20] Pantoprazole Sodium [Protonix] 40 mg PO DAILY 01/29/20 [History Confirmed ] PMH/Surg Hx/FS Hx/Imm Hx Endocrine/Hematology History: Reports: Hx Anemia Denies: Hx Anticoagulant Therapy, Hx Diabetes Cardiovascular History: Denies: Hx Hypertension, Hx Pacemaker/ICD Respiratory History: Denies: Hx Asthma GI History: Reports: Hx Gall Bladder Disease - colecystitis, Hx Gastroesophageal Reflux Disease, Other GI Disorders - chronic pancreatitis History: Reports: Hx Kidney Stones Denies: Hx Renal Disease Musculoskeletal History: Reports: Hx Arthritis, Hx Back Problems, Hx Osteoporosis, Other Musculoskeletal History - Chronic Neck Pain Sensory History: Denies: Hx Contacts or Glasses, Hx Hearing Aid Opthamlomology History: Denies: Hx Contacts or Glasses Neurological History: Reports: Hx Migraine Psychiatric History: Reports: Hx Anxiety Denies: Hx Panic Disorder - Cancer History Hx Chemotherapy: No Hx Radiation Therapy: No - Surgical History Surgical History: Yes Surgery Procedure, Year, and Place: lt great toe. left wrist pinning. EUA right knee, shoulder,achillies. other female surgeries Infectious Disease History: Reports: Hx of Known/Suspected MRSA - Family History Known Family History: Positive: Cardiac Disease, Hypertension - Social History Alcohol Use: None Hx Substance Use: No Substance Use Type: Reports: None Hx Tobacco Use: Yes Smoking Status (MU): Light Every Day Tobacco Smoker Type: Cigarettes Amount Used/How Often: 1 cigarette/day Review of Systems Negative: Fever Positive: Chest Pain - diffuse across chest Negative: Shortness Of Breath, Cough Positive: Myalgia - back, r arm, l leg All Other Systems Reviewed And Are Negative: Yes Physical Exam - Summary Physical Exam Summary: Constitutional: Well-developed, Well-nourished, Alert. (-) Distressed Skin: Warm, Dry HENT: Normocephalic; Atraumatic Eyes: Conjunctiva normal Neck: Musculoskeletal ROM normal neck. (-) JVD, (-) Stridor, (-) Tracheal deviation Cardio: Rhythm regular, rate normal, Heart sounds normal; Intact distal pulses; Radial pulses are 2+ and symmetric. (-) Murmur Pulmonary/Chest wall: Effort normal. (-) Respiratory distress, (-) Wheezes, (-) Rales Abd: Soft, (-) tenderness, (-) Distension, (-) Guarding, (-) Rebound Musculoskeletal: Tenderness over the thoracic/mid back, (-) Edema Lymph: (-) Cervical adenopathy Neuro: Alert, Oriented x3 Psych: Mood and affect Normal Triage Information Reviewed: Yes Vital Signs Reviewed: Yes Procedures - Sedation Patient Received Moderate/Deep Sedation with Procedure: No Diagnostics - Laboratory Result Diagrams: 01/30/20 15:12 01/30/20 15:12 Lab Statement: Any lab studies that have been ordered have been reviewed, and results considered in the medical decision making process. - Radiology CXR Radiology Interpretation Completed By: Radiologist Summary of Radiographic Findings: Impression: 1. No acute cardiopulmonary process by radiograph. 2. Old right humeral fracture. ED physician has reviewed this report. - CT Chest/Thorax CTA CT Interpretation Completed By: Radiologist Summary of CT Findings: Impression: 1. Negative for aneurysm or dissection of the thoracic aorta. 2. Severe panlobular emphysema with high probability for pulmonary arterial hypertension. Dr. Boothe has reviewed this report. - EKG 1443 Cardiac Rate: NL - 68 BPM EKG Rhythm: Sinus Rhythm Summary of EKG Findings: An EKG at 1443 reveals normal sinus rhythm at 68 BPM. No ischemic changes. Dr. Boothe has reviewed and interpreted this EKG. Re-Evaluation - Re-Evaluation First Eval Re-Evaluation Time: 18:05 Comment: Results discussed with patient. She requests admission. Chest Pain Course/Dx - Course Course Of Treatment: Patient is a 64 y/o F arriving via ambulance with pain/ pressure across the chest accompanied by pain in the right arm, left leg, and back. No fevers, cough, SOB. History includes anemia, GERD, gastroparesis, gastritis, chronic pancreatitis, cholecystitis, arthritis, osteoporosis, back problems, chronic neck pain, migraine, anxiety, Gresham's esophagus. Physical exam reveals tenderness over the thoracic spine/mid back. Patient placed on telemetry monitoring. IV access obtained. Patient received Zofran, Morphine, and Lidocaine patch in the ED. Blood work reveals hemoglobin 10.1, hematocrit 30 , MCV 73, MCH 25, RDW 23, MPV 6.7, AST 12, alkaline phosphatase 111, CRP 5563, BNP 114. Negative troponin. An EKG at 1443 reveals normal sinus rhythm at 68 BPM , no ischemic changes. CXR is negative for acute findings, old R humeral fx. Chest/Thorax CTA is negative for aneurysm/thoracic aortic dissection, shows severe panlobular emphysema. All results discussed with patient. I spoke with the hospitalist concerning admission per patients request, but patient does not meet admission criteria at this time. Patient is safe for discharge. Patient is advised to follow up with PCP in 1-2 days. Return precautions given. Patient agreeable with plan. - Diagnoses Provider Diagnoses: Herniated disc, Chronic pain - Provider Notifications Discussed Care Of Patient With: hospitalist Time Discussed With Above Provider: 18:10 Instructed by Provider To: Other - Patient does not warrant need for admission at this time. Discharge ED - Sign-Out/Discharge Documenting (check all that apply): Patient Departure - Patient will be discharged home. - Discharge Plan Condition: Stable Disposition: HOME Patient Education Materials: Chronic Pain (ED), Back Pain (ED) Referrals: Jayant Tenorio MD [Primary Care Provider] - 2 Days Additional Instructions: Follow up with your primary care provider in 1-2 days. Return to the emergency department for any new or worsening symptoms. - Billing Disposition and Condition Condition: STABLE Disposition: Home - Attestation Statements Document Initiated by Mayitoibvalarie: Yes Documenting Scribe: Rhianna Dominguez Provider For Whom Kendy is Documenting (Include Credential): Jemal Boothe DO Scribvalarie Attestation: Rhianna Meléndez, scribed for Jemal Boothe DO on 01/31/20 at 0825. Scribe Documentation Reviewed: Yes Provider Attestation: The documentation as recorded by the Rhianna voss accurately reflects the service I personally performed and the decisions made by , Jemal Boothe DO Status of Scribe Document: Viewed
[2020-01-30 15:33] LABS: ABS Eosinophils 0.2 10^3/ul (0-0.6); ABS Lymphocytes 1.9 10^3/ul (1.0-4.8); ABS Monocytes 0.4 10^3/ul (0-0.8); ABS Neutrophils 3.9 10^3/ul (1.5-7.7); Eosinophil % 2.4 %; Hematocrit 30 % (35-47); Hemoglobin 10.1 g/dL (12.0-16.0); Lymphocyte % 29.4 %; Mean Corpuscular HGB Conc 34 g/dL (31-36); Mean Corpuscular Hemoglobin 25 pg (27-31); Mean Corpuscular Volume 73 fL (80-97); Mean Platelet Volume 6.7 fL (7.4-10.4); Platelet Count 289 10^3/uL (150-450); Red Blood Count 4.09 10^6 /uL (3.70-4.87); Red Cell Distribution Width 23 % (10-15); White Blood Count 6.3 10^3/uL (3.5-10.8)
[2020-01-30 15:40] LABS: Albumin/Globulin Ratio 1.4 (1-3); BUN/Creatinine Ratio 22.6 (8-20); Calcium 9.4 mg/dL (8.6-10.3); EGFR African American 82.3 (>60); Globulin 2.9 g/dL (2-4); Potassium 4.3 mmol/L (3.5-5.0); Total Bilirubin 0.2 mg/dL (0.2-1.0); Total Protein 6.9 g/dL (6.4-8.9)
[2020-01-30 15:42] LABS: Troponin I 0.01 ng/mL (<0.03)
[2020-01-30] MEDS ORDERED: Lidocaine PATCH 5%* 1 PATCH TRANSDERM ONE ×2 (15:42→17:56)
[2020-01-30] MEDS ORDERED: Morphine 4 MG/ML VIAL (1 ml) 4 MG/ML VIAL IV ONE ×2 (15:42→18:06)
[2020-01-30] MEDS ORDERED: Ondansetron INJ* 2 MG/ML VIAL IV ONE (15:42)
[2020-01-30] MEDS ORDERED: Iohexol 350* (CONTRAST) 500 ML MDV IV ONE (15:51)
[2020-01-30 17:35] LABS: C Reactive Protein 55.63 mg/L (<8.01)
[2020-01-30 18:33] LABS: Erythrocyte Sed Rate 32 mm/Hr (0-29)
[2020-01-30 18:50] VITALS: BP 134/82
[2020-01-30] MEDS ORDERED: Lidocaine Patch REMOVE* 1 NOTE MISC SCH ×2 (21:00)
== END 2020-01-30 18:46 | disposition home or self-care (01) ==
LOC: ED 14:18
DX: M51.24 Other intervertebral disc displacement, thoracic region (principal); G89.29 Other chronic pain; R07.9 Chest pain, unspecified; M54.9 Dorsalgia, unspecified; F41.9 Anxiety disorder, unspecified; F17.210 Nicotine dependence, cigarettes, uncomplicated; K21.9 Gastro-esophageal reflux disease without esophagitis; Z88.0 Allergy status to penicillin; Z88.2 Allergy status to sulfonamides; Z79.899 Other long term (current) drug therapy; R94.31 Abnormal electrocardiogram [ECG] [EKG]
CPT/HCPCS: 36415; 71045; 71275; 80053; 83880; 84484; 85025; 85652; 86140; 93005; 96374; 96375; 96376; 99282; A9270-GY; J2270; J2405; Q9967

== ENCOUNTER 2020-01-31 17:14 | Emergency (ER) | payer MEDICARE, MEDICAID ==
--- OUTSIDE RECORDS SUMMARY | 2020-01-31 17:52 | XMS REPORT | Continuity of Care Document ---
:1955 External Reference #:[id number] Author Name Jayant Tenorio MD (transmitted by agent of provider Kamilah Rai) Address [address] [place] [address] Care Team Providers Name Role Phone Camden Rondon MD - Student in an Care Team Information Power Technician Organized Health Care Education/Training Program Laz Prakash NP - Family Care Team Information Power Technician [phone] Problems Active Problems Provider Date Bipolar II disorder Leon Mora MD Onset: 12/21/1994 Note: admitted to [place] [address] several times 1999 to 2002; also anxiety, [...] Medications SIG Qnty Indications Ordering Date Provider Doxycycline Hyclate take 1 pill twice 14tabs J01.90 Jayant Tenorio MD 2019 a day for 7 days 100mg Tablets Ventolin HFA take every 6 18gm Jayant Tenorio MD 01/19/2020 hours as needed 108(90Base) mcg/Act for shortness of Aerosol breath or wheezing. Nystatin 400,000-600,000 120ml Jayant Tenorio MD 01/19/2020 [id number]/ML units 4 times/day Suspension for 6 days Pancreaze 1 capsule three 90caps Jayant Tenorio MD 01/11/2020 [id number] times a day with Caps DR Bhatti meals Pantoprazole Sodium 1 by mouth twice 60tabs Jayant Tenorio MD 12/26/[address] a [address] Blaine 1 tabs twice 60caps R10.9 Jayant Tenorio MD 12/08/2019 100mg Capsules daily as needed for regular bowel movements Alendronate Sodium take 2 pills of 60tabs Heidi Hidalgo, 11/11/2019 5mg 5mg each day or 1 DO Tablets 10mg tab Butalbital-Acetaminop 1 tab by mouth 30tabs R51 Heidi Hidalgo, 11/10/2019 hen every 4 hours but DO 50-325mg Tablets no more than 3 tabs in a day or 30 tabs a month. no refills until 01/25 Sucralfate take one tablet 120tabs Heidi Hidalgo, 11/02/2019 1gm Tablets by mouth four DO times a day Ondansetron take 1 every 8 60tabs Jayant Tenorio MD 11/02/2019 8mg Tablets hours as needed Dispers nausea Clonazepam 1 tablet by mouth 30tabs F41.9 Heidi Hidalgo, 11/02/2019 1mg Tablets two times a day DO Miralax 17 grams by mouth Unknown Powder every day as needed History Medications Dicyclomine HCL take one tablet 120tabs K58.1 Jayant Tenorio MD 01/16/2020 - 20mg by mouth four 01/19/2020 Tablets times daily as needed Aimovig inject one pen 1units Jayant Tenorio MD 01/12/2020 - 70mg/ml monthly 01/16/2020 Solution Auto-Inject Venofer 200mg x 5 days 50ml D50.9 Jayant Tenorio MD 12/26/2019 - 20mg/ml at infusion 01/16/2020 Solution center Over 14 day period Duloxetine HCL take one cap 60caps G89.29 Jayant Tenorio MD 12/26/2019 - 30mg daily 01/16/[address] Magy Floydna 1 by mouth daily 90caps R10.9 Jayant Tenorio MD 12/08/2019 - 8.6mg Capsules 01/16/2020 Zenpep 1 capsule([id number]) 90caps R10.9 Jayant Tenorio MD 12/08/2019 - 5000-72431Lpza with each meal 01/11/[address] Bhatti Crelogan take 1 cap by 90caps K86.81 Jayant Tenorio MD 11/30/2019 - 13284Otha Caps mouth with every 12/08/2019 DR Magy davis Ferrous Gluconate 1 by mouth once a 60tabs D50.9 Jayant Tenorio MD 11/10/2019 - twice a day 12/08/2019 324(37.5Fe) mg Tablets Alendronate Sodium take 2 tabs daily 60tabs M80.00xA Jayant Tenorio MD 2018 - 11/17/2019 35mg Tablets Ebqrkbvpho-Xlrueyn-X take 1 by mouth 30caps Shaniqua Gardner 11/02/2019 - affeine every 4 hours as 11/10/2019 50-325-40mg needed for Capsules headaches Oxycodone HCL 1 by mouth every 120tabs Heidi 11/02/2019 - 10mg 6 hours as needed DO Gwen 11/17/2019 Tablets Clonazepam 1 tablet by mouth 90tabs [facility] 11/02/2019 - 1mg three times daily MD Nela 11/02/2019 Tablets Pantoprazole Sodium 1 by mouth every 30tabs Heidi 11/02/2019 - day DO Gwen 12/26/[address] Green [facility] - 50-325-40mg every 4 hour as MD Nela 11/02/2019 Capsules needed Maximum daily dose is 6 tablets Oxycodone HCL take one every 6 60tabs Heidi 11/02/2019 - 10mg hours as needed DO Gwen 12/26/2019 Tablets for pain Medications Administered in [...] Mass Index) 24.1 kg/m2 Results Test Acquired Facility Test Result H/L Range Note Date Laboratory test 01/30/2020 [facility] Troponin-I 0.01 ng/mL < 0.03 [address] (TnI) [place] [address] [phone] Laboratory test 01/30/2020 [facility] B-Type 114 pg/mL High <= [address] [place] [address] Peptide BNP [phone] CBC Auto Diff 01/30/2020 [facility] White Blood 6.3 Normal 3.5 -10.[address] Count 10^3/[place] [address] [phone] Red Blood Count 4.09 10^6/uL Normal 3.70-4.87 Hemoglobin 10.1 g/dL Low 12.0-16.0 Hematocrit 30 % Low 35-47 Mean Corpuscular Volume 73 fL Low 80-97 2 Mean Corpuscular Hemoglobin 25 pg Low 27-31 Mean Corpuscular HGB Conc 34 g/dL Normal 31-36 Red Cell Distribution Width 23 % High 10-15 3 Platelet Count 289 10^3/uL Normal 150-450 Mean Platelet Volume 6.7 fL Low 7.4-10.4 Abs Neutrophils 3.9 10^3/uL Normal 1.5-7.7 Abs Lymphocytes 1.9 10^3/uL Normal 1.0-4.8 Abs Monocytes 0.4 10^3/uL Normal 0-0.8 Abs Eosinophils 0.2 10^3/uL Normal 0-0.6 Abs Basophils 0.0 10^3/uL Normal 0-0.2 Abs Nucleated RBC 0.0 10^3/uL Granulocyte % 61.6 % Lymphocyte % 29.4 % Monocyte % 6.0 % Eosinophil % 2.4 % Basophil % 0.6 % Nucleated Red Blood Cells % 0.0 Comp Metabolic 01/30/2020 [facility] Sodium 142 mmol/L Normal 135-[address] [place] [address] [phone] Potassium 4.3 mmol/L Normal 3.5-5.0 Chloride 108 mmol/L Normal 101-111 Co2 Carbon Dioxide 28 mmol/L Normal 22-32 Anion Gap 6 mmol/L Normal 2-11 Glucose 102 mg/dL High 70-100 Blood Urea Nitrogen 19 mg/dL Normal 6-24 Creatinine 0.84 mg/dL Normal 0.51-0.95 BUN/Creatinine Ratio 22.6 High 8-20 Calcium 9.4 mg/dL Normal 8.6-10.3 Total Protein 6.9 g/dL Normal 6.4-8.9 Albumin 4.0 g/dL Normal 3.2-5.2 Globulin 2.9 g/dL Normal 2-4 Albumin/Globulin Ratio 1.4 Normal 1-3 Total Bilirubin 0.20 mg/dL Normal 0.2-1.0 Alkaline Phosphatase 111 U/L High 34-104 Alt 7 U/L Normal 7-52 Ast 12 U/L Low 13-39 Egfr Non- 68.0 >60 Egfr 82.3 >60 4 Laboratory test 01/30/2020 [facility] Troponin-I (TnI) 0.01 ng/ mL <0.03 5 finding [address] [place] [address] [phone] C Reactive Protein 55.63 mg/L High <8.01 Erythrocyte Sed Rate 32 mm/Hr High 0-29 CBC Auto 01/29/2020 [facility] White Blood 4.9 10^3/uL Normal 3.5-10.[address] [address] [phone] Red Blood Count 4.09 10^6/uL Normal 3.70-4.87 Hemoglobin 9.8 g/dL Low 12.0-16.0 Hematocrit 32 % Low 35-47 Mean Corpuscular Volume 77 fL Low 80-97 Mean Corpuscular Hemoglobin 24 pg Low 27-31 Mean Corpuscular HGB Conc 31 g/dL Normal 31-36 Red Cell Distribution Width 24 % High 10-15 6 Platelet Count 231 10^3/uL Normal 150-450 Mean Platelet Volume 6.9 fL Low 7.4-10.4 Abs Neutrophils 2.1 10^3/uL Normal 1.5-7.7 Abs Lymphocytes 2.3 10^3/uL Normal 1.0-4.8 Abs Monocytes 0.3 10^3/uL Normal 0-0.8 Abs Eosinophils 0.1 10^3/uL Normal 0-0.6 Abs Basophils 0.0 10^3/uL Normal 0-0.2 Abs Nucleated RBC 0.0 10^3/uL Granulocyte % 42.8 % Lymphocyte % 47.3 % Monocyte % 6.5 % Eosinophil % 2.8 % Basophil % 0.6 % Nucleated Red Blood Cells % 0.1 Comp Metabolic 01/29/2020 [facility] Sodium 140 mmol/L Normal 135-[address] [place] [address] [phone] Chloride 108 mmol/L Normal 101-111 Co2 Carbon Dioxide 23 mmol/L Normal 22-32 Calcium 9.3 mg/dL Normal 8.6-10.3 Albumin 4.1 g/dL Normal 3.2-5.2 Total Bilirubin 0.20 mg/dL Normal 0.2-1.0 Glucose 85 mg/dL Normal 70-100 Blood Urea Nitrogen 22 mg/dL Normal 6-24 Creatinine 0.85 mg/dL Normal 0.51-0.95 BUN/Creatinine Ratio 25.9 High 8-20 Total Protein 6.4 g/dL Normal 6.4-8.9 Globulin 2.3 g/dL Normal 2-4 Albumin/Globulin Ratio 1.8 Normal 1-3 Alkaline Phosphatase 109 U/L High 34-104 Alt 8 U/L Normal 7-52 Egfr Non- 67.1 >60 Egfr 81.2 >60 7 Potassium TNP mmol/L 3.5-5.0 8 Anion Gap 9 mmol/L Normal 2-11 Ast TNP U/L 13-39 9 Laboratory test finding 01/29/2020 [facility] Amylase 26 U/L Low 29-[address] [place] [address] [phone] Lipase < 10 U/L Low 11.0-82.0 C Reactive Protein 22.47 mg/L High <8.01 Urine Culture And 01/18/2020 [facility] Urine Culture SEE RESULT [address] [place] [address] [phone] Urinalysis Profile 01/18/2020 [facility] Urine Color Straw [address] [place] [address] [phone] Urine Appearance Clear Urine Specific [place] 1.009 Low 1.010-1.030 Urine pH 6.0 Normal 5-9 Urine Urobilinogen Negative Negative Urine Ketones Negative Negative Urine Protein Negative Negative Urine Leukocytes Trace Abnormal Negative Urine Blood Negative Negative Urine Nitrite Negative Negative Urine Bilirubin Negative Negative Urine Glucose Negative Negative Urine White Blood Cell Trace(0-5/hpf) Absent Urine Red Blood Cell Absent Absent Urine Bacteria Absent Absent Urine Squamous Epithelial Cell Present Abnormal Absent CBC Auto 01/18/2020 [facility] White Blood 7.0 10^3/uL Normal 3.5-10.[address] [place] [address] [phone] Red Blood Count 4.35 10^6/uL Normal 3.70-4.87 Hemoglobin 10.4 g/dL Low 12.0-16.0 Hematocrit 32 % Low 35-47 Mean Corpuscular Volume 74 fL Low 80-97 11 Mean Corpuscular Hemoglobin 24 pg Low 27-31 Mean Corpuscular HGB Conc 32 g/dL Normal 31-36 Red Cell Distribution Width 24 % High 10-15 12 Platelet Count 318 10^3/uL Normal 150-450 Mean Platelet Volume 7.0 fL Low 7.4-10.4 Abs Neutrophils 4.0 10^3/uL Normal 1.5-7.7 Abs Lymphocytes 2.3 10^3/uL Normal 1.0-4.8 Abs Monocytes 0.4 10^3/uL Normal 0-0.8 Abs Eosinophils 0.2 10^3/uL Normal 0-0.6 Abs Basophils 0.1 10^3/uL Normal 0-0.2 Abs Nucleated RBC 0.0 10^3/uL Granulocyte % 57.0 % Lymphocyte % 33.5 % Monocyte % 5.6 % Eosinophil % 2.4 % Basophil % 1.5 % Nucleated Red Blood Cells % 0.0 Laboratory test 01/18/2020 [facility] Magnesium 1.6 mg/dL Low 1.9-2.[address] [place] [address] [phone] Lipase 16 U/L Normal 11.0-82.0 C Reactive Protein 8.08 mg/L High <8.01 Lactic Acid 1.1 mmol/L Normal 0.5-2.0 13 Comp Metabolic 01/18/2020 [facility] Sodium 138 mmol/L Normal 135-145 Panel [address] [place] [address] [phone] Potassium 4.6 mmol/L Normal 3.5-5.0 Chloride 103 mmol/L Normal 101-111 Co2 Carbon Dioxide 27 mmol/L Normal 22-32 Anion Gap 8 mmol/L Normal 2-11 Glucose 95 mg/dL Normal 70-100 Blood Urea Nitrogen 20 mg/dL Normal 6-24 Creatinine 0.86 mg/dL Normal 0.51-0.95 BUN/Creatinine Ratio 23.3 High 8-20 Calcium 9.5 mg/dL Normal 8.6-10.3 Total Protein 7.2 g/dL Normal 6.4-8.9 Albumin 4.4 g/dL Normal 3.2-5.2 Globulin 2.8 g/dL Normal 2-4 Albumin/Globulin Ratio 1.6 Normal 1-3 Total Bilirubin 0.20 mg/dL Normal 0.2-1.0 Alkaline Phosphatase 106 U/L High 34-104 Alt 12 U/L Normal 7-52 Ast 16 U/L Normal 13-39 Egfr Non- 66.2 >60 Egfr 80.1 >60 14 Laboratory test 01/07/2020 [facility] Lactic Acid 1.0 mmol/L Normal 0.5-2.0 15 finding [address] [place] [address] [phone] Comp Metabolic 01/07/2020 [facility] Sodium 137 mmol/L Normal 135-145 Panel [address] [place] [address] [phone] Potassium 4.4 mmol/L Normal 3.5-5.0 Chloride 101 [...] Egfr Non- 73.0 >60 Egfr 88.4 >60 16 Laboratory test 01/07/2020 [facility] Lipase < 10 U/L Low 11.0 -82.[address] [place] [address] [phone] CBC Auto Diff 01/07/2020 [facility] White Blood 5.3 Normal 3.5 -10.[address] Count 10^3/uL [place], [place] [address] [phone] Red Blood Count 4.93 10^6/uL High 3.70-4.87 [...] Red Blood Cells % 0.0 Drug 12/15/2019 [facility] Urine Presumptive Abnormal None [address] Hydrocodone Posi <SEE [place] [address] Screen NOTE> Pain [phone] Clinic Urine Oxycodone Screen None Detected None Detect Urine Fentanyl Screen None Detected None Detect Urine Methadone Screen None Detected None Detect Urine Buprenorphine Screen None Detected None Detect Urine Amphetamine Screen None Detected None Detect Urine Barbiturates Screen Presumptive Posi <SEE NOTE> Abnormal None Detect 18 Urine Benzodiazepine Screen Presumptive Posi <SEE NOTE> Abnormal None Detect 19 Urine Cannabinoids Screen None Detected None Detect Urine Cocaine Screen None Detected None Detect Urine Opiates Screen Presumptive Posi <SEE NOTE> Abnormal None Detect 20 Urine Phencyclidine Screen None Detected None Detect 21 Hydrocodone 12/15/2019 [facility] Hydrocodone-by Negative Cutoff: Confiramtion, [address] LC-MS/MS ng/mL 25 Urine [place], [place] [id number] [phone] Norhydrocodone-by LC-MS/MS Negative ng/mL Cutoff: 25 Hydromorphone-by LC-MS/MS 259 ng/mL Cutoff: 25 Hydrocodone Interpretation Positive. 22 Laboratory test 12/08/2019 [facility] Pathologist Review (SEE NOTE) 23 finding [address] [address] [phone] Cell Morphology 12/08/2019 [facility] Polychromasia 1+ [address] [place] [address] [phone] Anisocytosis 2+ CBC Auto 12/08/2019 [facility] White Blood 6.7 10^3/uL Normal 3.5-10.[address] [place] [address] [phone] Red Blood Count 4.09 10^6/uL Normal 3.70-4.87 [...] Blood Cells % 0.0 Urinalysis Profile 12/08/2019 [facility] Urine Color Straw [address] [place] [address] [phone] Urine Appearance Clear Urine Specific [place] 1.006 Low 1.010-1.030 Urine pH 6.0 Normal 5-9 Urine Urobilinogen Negative Negative Urine Ketones Negative Negative Urine Protein Negative Negative Urine Leukocytes Negative Negative Urine Blood Negative Negative Urine Nitrite Negative Negative Urine Bilirubin Negative Negative Urine Glucose Negative Negative Laboratory test 12/08/2019 [facility] Lipase < 10 U/L Low 11.0 -82.0 finding [address] [place] [address] [phone] C Reactive Protein 5.19 mg/L Normal <8.01 Comp Metabolic 12/08/2019 [facility] Sodium 137 mmol/L Normal 135-145 Panel [address] [place] [address] [phone] Potassium 4.1 mmol/L Normal 3.5-5.0 Chloride 105 [...] Egfr Non- 64.5 >60 Egfr 78.0 >60 24 Laboratory test 12/08/2019 [facility] Lactic Acid 0.8 mmol/L Normal 0.5-2.0 25 finding [address] [place] [address] [phone] Laboratory test 12/08/2019 [facility] Lactic Acid 1.0 mmol/L Normal 0.5-2.[address] [place] [address] [phone] BMP W/Egfr 11/24/2019 [facility] Sodium 139 mmol/L Normal 135- [address] [place] [address] [phone] Potassium 4.5 mmol/L Normal 3.5-5.0 Chloride 104 mmol/L Normal 101-111 Co2 Carbon Dioxide 24 mmol/L Normal 22-32 Anion Gap 11 mmol/L Normal 2-11 Glucose 97 mg/dL Normal 70-100 Blood Urea Nitrogen 19 mg/dL Normal 6-24 Creatinine 0.78 mg/dL Normal 0.51-0.95 BUN/Creatinine Ratio 24.4 High 8-20 Calcium 9.7 mg/dL Normal 8.6-10.3 Egfr Non- 74.1 >60 Egfr 89.7 >60 27 Spep Protein 11/24/2019 [facility] Total Protein(Pep) 7.4 g/dL 6.3 - 7.9 Electro, Serum [address] [place] [address] [phone] Albumin 3.6 g/dL 3.4-4.7 Alpha-1 Globulin 0.3 g/dL 0.1-0.3 Alpha-2 Globulin 1.3 g/dL Abnormal 0.6-1.0 Beta Globulin 1.3 g/dL Abnormal 0.7-1.2 Gamma Globulin 1.0 g/dL 0.6-1.6 Albumin/Globulin Ratio 0.93 Impression See Comment 28 [place]/Lambda Free 11/24/2019 [facility] [place] Free 1.98 mg/dL Abnormal [address] [place] [address] [phone] Lambda Free Light Chain 1.00 mg/dL 30 [place]/Lambda Free Light Chain 1.98 Abnormal 31 Laboratory test 11/10/2019 [facility] Vitamin D 30.9 Normal 20 -[address] Total 25(Oh) ng/[place] [address] [phone] Pthi 11/10/2019 [facility] Calcium (PTH 10.1 Normal 8.6-10.[address] Intact) mg/[place] [address] [phone] PTH Intact 56.4 pg/mL Normal 12-88 Celiac Panel 11/10/2019 [facility] Tissue Transglutaminase <1.2 U/mL [address] [place] [address] [phone] Immunoglobulin A 256 mg/dL 61 - 356 Celiac Interpretation See Comment 34 Iron & Iron 11/10/2019 [facility] Total Iron 447 g/dL Normal 250-[address] [place] [address] Capacity [phone] Transferrin 319 mg/dL Normal 203-362 Iron < 20 g/dL Low 50-212 Unsaturated Iron Binding < 432 g/dL % Iron Saturation 4 % Low 15-55 Laboratory test 11/10/2019 [facility] Ferritin 4.8 ng/mL Low 11-[address] [place] [address] [phone] 1 Troponin-I testing on Plasma Separator Tubes (PST) has a known false positive rate of 0.20-0.40%. All positive troponins reflex immediately to secondary confirmatory testing. Using the [employer] DxI 800 Access Immunoassay systems, the 99th percentile upper reference limit was demonstrated to be < 0.03 ng/mL. 2 Consistent with Previous Results Reported on 01/18/20 3 Consistent with Previous Results Reported on 01/29/20 4 Because ethnic data is not always readily [...] 15-29 5 Kidney failure <15 (or dialysis) 5 Troponin-I testing on Plasma Separator Tubes (PST) has a known false positive rate of 0.20-0.40%. All positive troponins reflex immediately to secondary confirmatory testing. Using the [employer] DxI 800 Access Immunoassay systems, the 99th percentile upper reference limit was demonstrated to be < 0.03 ng/mL. 6 Consistent with Previous Results Reported on 01/18/20. 7 Because ethnic data is not always readily [...] 15-29 5 Kidney failure <15 (or dialysis) 8 Specimen Hemolyzed. Result may not be valid. Unable to report test result due to hemolysis. 9 Unable to report test result due to hemolysis. 10 SEE RESULT BELOW Name: WOODY STEPHENSON : [address]: Easton Rapp MD Acct: [id number] Unit: [id number] AGE: 64 Location: ED Re01/18/20 SEX: F Status: DEP ER SPEC: [id number] JACQUELIN: [birth year][address]: David MCFARLAND REQ: [id number] RECD: 01/18/20 STATUS: ANDREA LYONS DR: Easton Tenorio MD _ SOURCE: URINE [facility]: ORDERED: Urine Culture Procedure Result Reported Site Urine Culture Final 01/20/20- 1201 ML Organism 1 STREP GROUP B [place] Count 25-50,000 (Moderate) CFU/ML Organism 2 NORMAL CHAITANYA [place] Count 10-25,000 (Moderate) CFU/ML Susceptibility testing of penicillins and other B-lactams approved by FDA for treatment of Streptococcus pyogenes (Group A Strep) and Streptococcus agalactiae (Group B Strep) is not necessary for clinical purposes and need not be done routinely, since as with vancomycin, resistant strains have not been recognized. (CLSI X272-U28;p.66) Positive isolates will be saved for one week. Please call the Microbiology Laboratory if further susceptibility testing is needed. * [facility] - Main Lab . END OF REPORT DEPARTMENT OF PATHOLOGY, [address] [place] [address] Giuseppe Bailey M.D. Director [facility] # [id number] 11 Consistent with Previous Results Reported on 01/07/20. 12 Consistent with Previous Results Reported on 12/11/19. 13 Specimen hemolyzed. Result may not be valid. [facility] Severe Sepsis and Septic Shock Management Bundle Measure requires all lactic acids initially measuring >2.0 mmol/L be repeated. 14 Because ethnic data is not always readily [...] 15-29 5 Kidney failure <15 (or dialysis) 15 [facility] Severe Sepsis and Septic Shock Management Bundle Measure requires all lactic acids initially measuring >2.0 mmol/L be repeated. 16 Because ethnic data is not always readily [...] 15-29 5 Kidney failure <15 (or dialysis) 17 Presumptive Positive Presumptive positive results are unconfirmed. 18 Presumptive Positive Presumptive positive results are unconfirmed. 19 Presumptive Positive Presumptive positive results are unconfirmed. 20 Presumptive Positive Presumptive positive results are unconfirmed. 21 The specimen was tested at the listed cutoffs: Drug Class Test level (ng/mL) Hydrocodone 300 Oxycodone 100 Fentanyl 1 Methadone 150 Buprenorphine 5 Amphetamines 500 Barbiturates 200 Benzodiazepines 200 Cocaine 150 Cannabinoids 50 Opiates 300 PCP 25 Specimen was received without chain of custody. Results should be used for medical purposes only. 22 ADDITIONAL INFORMATION This report is intended for use in clinical monitoring and management of patients. It is not intended for use in employment-related testing. This test was developed and its performance characteristics determined by [facility] in a manner consistent with CLIA requirements. This test has not been cleared or approved by the U.S. Food and Drug Administration. Test Performed by: [facility] - [address] [address] Instructional Consultant: Gene Conn M.D. Ph.D.; CLIA# [id number] 23 Microcytic anemia with red cell indices suggestive of iron deficiency. Additional studies as clinically warranted. Reviewed by Dr. Bailey 24 Because ethnic data is not always readily [...] 15-29 5 Kidney failure <15 (or dialysis) 25 Specimen hemolyzed. Result may not be valid. [facility] Severe Sepsis and Septic Shock Management Bundle Measure requires all lactic acids initially measuring >2.0 mmol/L be repeated. 26 [facility] Severe Sepsis and Septic Shock Management Bundle Measure requires all lactic acids initially measuring >2.0 mmol/L be repeated. 27 Because ethnic data is not always readily [...] 15-29 5 Kidney failure <15 (or dialysis) 28 RESULT: No apparent monoclonal protein on serum electrophoresis. Test Performed by: [facility] [address] [place] [address] Instructional Consultant: Gene Conn M.D. Ph.D.; CLIA# [id number] 29 REFERENCE VALUE 0.3300-1.94 30 REFERENCE VALUE 0.5700-2.63 31 Elevated free light chain ratios between 1.66 and 3.00 may occur due to polyclonal hypergammaglobulinemia or impaired renal clearance. An isolated increased free light chain ratio in this range should be interpreted with caution, and clinical correlation is recommended. REFERENCE VALUE 0.2600-1.65 Test Performed by: [place] [address] Instructional Consultant: Gene Conn M.D. Ph.D.; CLIA# [id number] 32 Total 25-Hydroxyvitamin D2 and D3 (25-OH-VitD) <10 ng/mL (severe deficiency) 10-19 ng/mL (mild to moderate deficiency) 20-50 ng/mL (optimum levels) 51-80 ng/mL (increased risk of hypercalciuria) >80 ng/mL (toxicity possible) 33 REFERENCE VALUE <4.0 (Negative) Test Performed by: [place] [address] Instructional Consultant: Gene Conn M.D. Ph.D.; CLIA# [id number] 34 Negative serology. Celiac disease unlikely. However, approximately 10% of patients with celiac disease are seronegative. Also, patients who are already adhering to a gluten-free diet may be seronegative. If celiac disease is highly clinically suspected, consider HLA-DQ typing. Test Performed by: [place] [address] Instructional Consultant: Gene Conn M.D. Ph.D.; CLIA# [id number] Procedures Date Code Description Status 01/02/2020 12069 Injection Single Tendon Origin/Insertion Completed 12/13/2019 04520 Endoscopy Upper GI Biopsy Completed 12/05/2019 [id number] Bone Mineral Density Test Completed Medical Devices Description No Information Available Encounters Type Date Location Provider Dx Diagnosis Office Visit 01/16/2020 [facility] Internal Jayant Tenorio MD G43.909 Migraine, unsp , not 8:40a Medicine - Suite intractable, without R status migrainosus J32.9 Chronic sinusitis, unspecified K31.84 Gastroparesis K86.1 Other chronic pancreatitis D50.9 Iron deficiency anemia, unspecified K58.1 Irritable bowel syndrome with constipation Office Visit 01/02/2020 [facility] M77.12 Lateral 1:00p [facility]. 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 G57.92 Unspecified mononeuropathy of left lower limb G90.512 Complex regional pain syndrome I of left upper limb Office Visit 12/13/2019 [facility] Noreen Cyr, R10.9 Unspecified 9:52a Assoc,pc [employer] [employer] abdominal pain Hospitalists K21.9 Gastro-esophageal reflux disease without esophagitis K31.84 Gastroparesis F41.9 Anxiety disorder, unspecified G89.29 Other chronic pain Office Visit 12/12/2019 [facility] Noreen Cyr, R10.9 Unspecified 9:51a Assoc,pc [employer] abdominal pain Hospitalists F41.9 Anxiety disorder, unspecified G89.29 Other chronic pain K86.1 Other chronic pancreatitis K21.9 Gastro-esophageal reflux disease without esophagitis G43.909 Migraine, unsp, not intractable, without status migrainosus Z59.0 Homelessness Office Visit 12/11/2019 [facility] Noreen Cyr, R10.9 Unspecified 9:51a Assoc,pc [employer] abdominal pain Hospitalists F41.9 Anxiety disorder, unspecified G89.29 Other chronic pain K86.1 Other chronic pancreatitis K21.9 Gastro-esophageal reflux disease without esophagitis G43.909 Migraine, unsp, not intractable, without status migrainosus Z59.0 Homelessness Office Visit 12/11/2019 [facility] Rodri S. R10.9 Unspecified 7:00a [facility] Kingston MD abdominal pain Office Visit 12/10/2019 [facility] Margret R10.9 Unspecified 9:50a Assoc,BRUNA Wilkins abdominal pain Hospitalists K86.1 Other chronic pancreatitis K21.9 Gastro-esophageal reflux disease without esophagitis F41.9 Anxiety disorder, unspecified G89.29 Other chronic pain Z59.0 Homelessness Office Visit 12/10/2019 7:00a Surgical Rodri S. R10.9 Unspecified [facility] Vashti abdominal pain [employer] Office Visit 12/09/2019 7:00a Surgical Rodri S. 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 Hospitalists K21.9 Gastro-esophageal reflux disease without esophagitis F41.9 Anxiety disorder, unspecified K86.1 Other chronic pancreatitis G89.29 Other chronic pain Office Visit 12/08/2019 9:40a [facility] Heriberto Tenorio MD R10.9 Unspecified Medicine - Suite abdominal pain R D50.9 Iron deficiency anemia, unspecified F41.1 Generalized anxiety disorder K86.81 Exocrine pancreatic insufficiency M81.0 Age-related osteoporosis w/o current pathological fracture Office Visit 11/30/2019 9:40a [facility] Heriberto Tenorio MD D50.9 Iron deficiency Medicine - Suite anemia, unspecified R M80.00xA Age-rel osteopor w current path fracture, unsp site, init R51 Headache F41.1 Generalized anxiety disorder K86.81 Exocrine pancreatic insufficiency M54.2 Cervicalgia M25.511 Pain in right shoulder 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 M80.032S Age-rel osteopor w current path fracture, l forearm, sequela Office Visit 11/10/2019 1:00p [facility] Heriberto Tenorio MD D50.9 Iron deficiency Medicine - Suite anemia, unspecified R M80.00xA Age-rel osteopor w current path fracture, unsp site, init R51 Headache F41.1 Generalized anxiety disorder N17.9 Acute kidney failure, unspecified K86.81 Exocrine pancreatic insufficiency M54.2 Cervicalgia M25.511 Pain in right shoulder 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 M25.532 Pain in left wrist Office Visit 11/02/2019 9:00a [facility] Internal Medicine Camden Rondon MD R51 [...] 12/13/2019 R10.9 Unspecified abdominal pain Noreen Cyr, [employer] 12/13/2019 K29.70 Gastritis, unspecified, without bleeding Leon Mora MD 12/13/2019 K21.9 Gastro-esophageal reflux disease without Noreen Cyr, [employer] esophagitis 12/13/2019 K31.84 Gastroparesis Noreen Cyr, [employer] 12/13/2019 F41.9 Anxiety disorder, unspecified Noreen Cyr, [employer] 12/13/2019 G89.29 Other chronic pain Noreen Cyr, [employer] 12/12/2019 R10.9 Unspecified abdominal pain Noreen Cyr, [employer] 12/12/2019 F41.9 Anxiety disorder, unspecified Noreen Cyr, [employer] 12/12/2019 G89.29 Other chronic pain Noreen Cyr, [employer] 12/12/2019 K86.1 Other chronic pancreatitis Noreen Cyr, [employer] 12/12/2019 K21.9 Gastro-esophageal reflux disease without Noreen Cyr, [employer] esophagitis 12/12/2019 G43.909 Migraine, unspecified, not intractable, Noreen Cyr, EDYTA without status migrainosus 12/12/2019 Z59.0 Homelessness Noreen Cyr, [employer] 12/11/2019 R10.9 Unspecified abdominal pain Noreen Cyr, [employer] 12/11/2019 R10.9 Unspecified abdominal pain Rodri Kingston MD 12/11/2019 F41.9 Anxiety disorder, unspecified Noreen Cyr, [employer] 12/11/2019 G89.29 Other chronic pain Noreen Cyr, [employer] 12/11/2019 K86.1 Other chronic pancreatitis Noreen Cyr, [employer] 12/11/2019 K21.9 Gastro-esophageal reflux disease without Noreen Cyr, [employer] esophagitis 12/11/2019 G43.909 Migraine, unspecified, not intractable, Noreen Cyr, [employer] without status migrainosus 12/11/2019 Z59.0 Homelessness Noreen Cyr, [employer] 12/10/2019 R10.9 Unspecified abdominal pain Margret Gary [...] PA 12/08/2019 K56.7 Ileus, unspecified Noreen Cyr, [employer] 12/08/2019 R10.9 Unspecified abdominal pain Jayant Tenorio MD 12/08/2019 D50.9 Iron deficiency anemia, unspecified Jayant Tenorio MD 12/08/2019 K21.9 Gastro-esophageal reflux disease without Noreen Cyr, [employer] esophagitis 12/08/2019 F41.1 Generalized anxiety disorder Jayant Tenorio MD 12/08/2019 K86.81 Exocrine pancreatic insufficiency Jayant Tenorio MD 12/08/2019 M81.0 Age-related osteoporosis without current Jayant Tenorio MD pathological fracture 12/08/2019 F41.9 Anxiety disorder, unspecified Noreen Cyr, [employer] 12/08/2019 K86.1 Other chronic pancreatitis Noreen Cyr, [employer] 12/08/2019 G89.29 Other chronic pain Noreen Cyr, [employer] 11/30/2019 D50.9 Iron deficiency anemia, unspecified Jayant [...] encounter for fracture Plan of Treatment Future Appointment(s):02/21/2020 4:00 pm - Jayant Tenorio MD at [facility] Internal Medicine - [address]/29/2020 3:00 pm - Amaury Rodríguez MD at [facility]12/26/2019 - Jayant Tenorio MDF17.210 Nicotine dependence, cigarettes, uncomplicatedComments:Call [facility] to get nicotine replacement supplements.K21.9 Gastro-esophageal reflux disease without esophagitisComments: We changed the pantoprazole to 20mg twice a day from 40mg once a day. Follow-up with Dr. Mora of GI for a potential colonoscopy.Follow up:Week January 15.K31.84 LskyhdslvzrawM97.1 Other chronic pancreatitisComments:Call us with the name of the alternative to Zenpep/Creon.G43.909 Migraine, unspecified, not intractable, without status migrainosusComments:Follow-up with CfazsyzsxR29.29 Other chronic painNew Medication:Duloxetine HCL 30 mg - take one cap raeurI59.9 Iron deficiency anemia, unspecifiedNew Medication:Venofer 20 mg/ml - 200mg x 5 days at infusion center Over 14 day period Functional Status Description No Information Available Mental Status Description No Information Available Referrals Refer to Dr Nick monroe Referral Status Appt Date Laz Prakash NP severe HAs Sent 02/01/2020 [address] [place] [id number] [phone] Kim Nguyen MD left peroneal neuritis left ankle Closed 02/09/[address] [place] [address] [phone] Amaury Rodríguez MD severe osteoporsis with "35-45" Patient Notified 02/29/2020 fractures in life [address] [place] [phone] Maximino Elizabeth MD recent left ankle fracture, severe osteoporosis. Sent [address] [facility] [address] [place], [place] [id number] [phone] Leon Mora MD nausea. ?recent EGD with concern for small area of Sent 12/15/2019 [facility], I don't have biopsy results yet. Hx of exocrine pancreatic insuficiency. [address] [place] [phone] Jemal Armendariz M.D. Chronic headaches. Sent 03/20/2020 [address] [place] [address] [phone] Pollo Medina MD Has chronic pain. She was following with pain Sent 00/ clinic in [place] and given oxycodone and asked to f/u in 2 weeks. [address] [place] [address] [phone]
[2020-01-31] MEDS ORDERED: Lidocaine PATCH 5%* 1 PATCH TRANSDERM SCH (18:00)
--- NOTE | 2020-01-31 18:00 | ED ---
Back Pain - HPI Summary HPI Summary: Patient complains of upper mid back pain starting yesterday morning. Patient was seen here yesterday for same symptoms with negative workup including negative CTA chest, negative chest x-ray, negative EKG, negative labs. History of chronic pain. Pending pain management appointment later this month, states she just cannot wait as her normal prescription for Klonopin and morphine is not controlling pain any longer. Denies new trauma, fever, cough, sore throat, CP, SOB, N/3/D, abdominal pain, change in urine, change in BM. Medical history is pancreatitis, GERD, chronic pain, anxiety. - History of Current Complaint Chief Complaint: EDBackInjuryPain Stated Complaint: BACK PAIN PER EMS Time Seen by Provider: 01/31/20 17:28 Hx Obtained From: Patient Onset/Duration: Gradual Onset, Lasting Days Onset/Duration: Started Days Ago Timing: Constant Back Pain Location: Is Discrete @ Severity Initially: Severe Severity Currently: Severe Pain Intensity: 10 Pain Scale Used: 0-10 Numeric Character: Sharp, Aching Aggravating Symptom(s): Movement, Bending Alleviating Symptom(s): Nothing Associated Signs And Symptoms: Positive: Negative - Allergies/Home Medications Allergies/Adverse Reactions: Allergies Allergy/AdvReac Type Severity Reaction Status Date / Time amoxicillin Allergy Unknown Verified 01/29/20 02:49 Reaction Details erythromycin base Allergy Nausea And Verified 01/29/20 02:49 Vomiting fentanyl Allergy Rash Verified 01/29/20 04:13 ketorolac [From Toradol] Allergy Rash Verified 01/29/20 04:13 sulfamethoxazole Allergy Abdominal Verified 01/29/20 04:13 [From Bactrim] Pain trimethoprim [From Bactrim] Allergy Abdominal Verified 01/29/20 04:13 Pain Home Medications: Home Medications clonazePAM TAB(*) [Klonopin TAB(*)] 1 mg PO BID PRN 10/27/19 [History Confirmed 01/31/20] Butalb/Acetamin/Caff TAB* [Fioricet TAB*] 1 tab PO Q4H PRN 11/04/19 [History Confirmed 01/31/20] Ondansetron TAB* [Zofran 4 MG Tab*] 8 mg PO Q6HR PRN 11/14/19 [History Confirmed 01/31/20] Sucralfate TAB* [Carafate*] 1 tab PO ACHS 12/30/19 [History Confirmed 01/31/20] Docusate CAP* [Colace Cap*] 100 mg PO DAILY #14 cap 11/15/19 [Rx Confirmed 01/30] Albuterol HFA INHALER* [Ventolin HFA Inhaler*] 2 puff INH Q4HR 11/24/19 [ History Confirmed 01/31/20] Ferrous Sulfate TAB* 325 mg PO DAILY #30 tab 12/13/19 [Rx Confirmed 01/31/20] Metoclopramide TAB* [Reglan TAB*] 5 mg PO AC #90 tab 12/13/19 [Rx Confirmed ] Polyethylene Glycol 3350* [Miralax (17 GM DOSE GILBERT)] 17 gm PO DAILY PRN #30 packet 12/13/19 [Rx Confirmed 01/31/20] Senna TAB 8.6 mg* [Senokot 8.6 mg TAB*] 1 tab PO BEDTIME PRN #30 tab 12/13/19 [ Rx Confirmed 01/31/20] Morphine Sulfate 15 mg PO QID PRN MDD 4 12/15/19 [History Confirmed 01/31/20] DULoxetine DR CAP* [Cymbalta CAP*] 30 mg PO DAILY 01/18/20 [History Confirmed ] Lipase/Protease/Amylase [Zenpep Dr 20,000 Unit Capsule] 1 cap PO AC 01/29/20 [ History Confirmed 01/31/20] Pantoprazole Sodium [Protonix] 40 mg PO DAILY 01/29/20 [History Confirmed ] PMH/Surg Hx/FS Hx/Imm Hx Endocrine/Hematology History: Reports: Hx Anemia Denies: Hx Anticoagulant Therapy, Hx Diabetes Cardiovascular History: Denies: Hx Hypertension, Hx Pacemaker/ICD Respiratory History: Denies: Hx Asthma GI History: Reports: Hx Gall Bladder Disease - colecystitis, Hx Gastroesophageal Reflux Disease, Other GI Disorders - chronic pancreatitis History: Reports: Hx Kidney Stones Denies: Hx Renal Disease Musculoskeletal History: Reports: Hx Arthritis, Hx Back Problems, Hx Osteoporosis, Other Musculoskeletal History - Chronic Neck Pain Sensory History: Denies: Hx Contacts or Glasses, Hx Hearing Aid Opthamlomology History: Denies: Hx Contacts or Glasses EENT History: Denies: Hx Deafness Neurological History: Reports: Hx Migraine Psychiatric History: Reports: Hx Anxiety Denies: Hx Panic Disorder - Cancer History Hx Chemotherapy: No Hx Radiation Therapy: No - Surgical History Surgery Procedure, Year, and Place: lt great toe. left wrist pinning. EUA right knee, shoulder,achillies. other female surgeries Infectious Disease History: No Infectious Disease History: Reports: Hx of Known/Suspected MRSA Denies: Traveled Outside the [place] in Last 30 Days - Family History Known Family History: Positive: Cardiac Disease, Hypertension - Social History Alcohol Use: None Hx Substance Use: No Substance Use Type: Reports: None Hx Tobacco Use: Yes Smoking Status (MU): Light Every Day Tobacco Smoker Type: Cigarettes Amount Used/How Often: 1 cigarette/day Review of Systems Constitutional: Negative Eyes: Negative ENT: Negative Cardiovascular: Negative Respiratory: Negative Gastrointestinal: Negative Genitourinary: Negative Musculoskeletal: Other Skin: Negative Neurological/Mental Status: Negative Psychological: Normal All Other Systems Reviewed And Are Negative: Yes Physical Exam - Summary Physical Exam Summary: No erythema, ecchymosis, deformity, swelling, mass noted to back. No bony point tenderness. Tenderness along bilateral paraspinal muscles of the thoracic spine. Lung sounds clear to auscultation bilaterally. Regular rate and rhythm. Normal movement of all 4 extremities. Triage Information Reviewed: Yes Vital Signs On Initial Exam: Initial Vitals Temp Pulse Resp BP Pulse Ox 97.3 F 88 20 124/93 92 01/31/20 17:22 01/31/20 17:22 01/31/20 17:22 01/31/20 17:22 01/31/20 17:22 Vital Signs Reviewed: Yes Appearance: Positive: Well-Appearing Skin: Positive: Warm Head/Face: Positive: Normal Head/Face Inspection Eyes: Positive: Normal Neck: Positive: Supple Respiratory/Lung Sounds: Positive: Clear to Auscultation Cardiovascular: Positive: Normal Abdomen Description: Positive: Nontender Musculoskeletal: Positive: Normal Neurological: Positive: Normal Psychiatric: Positive: Normal AVPU Assessment: Alert - Kelvin Coma Scale Best Eye Response: 4 - Spontaneous Best Motor Response: 6 - Obeys Commands Best Verbal Response: 5 - Oriented Coma Scale Total: 15 Procedures - Sedation Patient Received Moderate/Deep Sedation with Procedure: No Diagnostics - Vital Signs Vital Signs Temp Pulse Resp BP Pulse Ox 01/31/20 17:22 97.3 F 88 20 124/93 92 - Laboratory Lab Statement: Any lab studies that have been ordered have been reviewed, and results considered in the medical decision making process. Back Pain Course/Dx - Course Course Of Treatment: Patient complains of upper mid back pain starting yesterday morning. Patient was seen here yesterday for same symptoms with negative workup including negative CTA chest, negative chest x-ray, negative EKG , negative labs. History of chronic pain. Pending pain management appointment later this month, states she just cannot wait as her normal prescription for Klonopin and morphine is not controlling pain any longer. Denies new trauma, fever, cough, sore throat, CP, SOB, N/3/D, abdominal pain, change in urine, change in BM. Medical history is pancreatitis, GERD, chronic pain, anxiety. Vital signs within normal limits. After application of lidocaine transdermal patch and Flexeril, patient stated she wanted to go home if we werent going to do anything more for her. - Diagnoses Provider Diagnoses: Back spasm Discharge ED - Sign-Out/Discharge Documenting (check all that apply): Patient Departure - Discharge Plan Condition: Stable Disposition: HOME Patient Education Materials: Muscle Spasm (ED) Referrals: Jayant Tenorio MD [Primary Care Provider] - Additional Instructions: Follow-up with primary care. Return to the ED for any new or worsening symptoms. - Billing Disposition and Condition Condition: STABLE Disposition: Home
[2020-01-31] MEDS ORDERED: Cyclobenzaprine TAB* 10 MG PO ONE (18:12)
[2020-01-31 18:59] VITALS: BP 113/74
[2020-01-31] MEDS ORDERED: Lidocaine Patch REMOVE* 1 NOTE MISC SCH (21:00)
== END 2020-01-31 18:58 | disposition home or self-care (01) ==
LOC: ED 17:14
DX: M62.830 Muscle spasm of back (principal); K21.9 Gastro-esophageal reflux disease without esophagitis; G89.29 Other chronic pain; K85.90 Acute pancreatitis without necrosis or infection, unspecified; F41.9 Anxiety disorder, unspecified; F17.210 Nicotine dependence, cigarettes, uncomplicated; Z88.0 Allergy status to penicillin
CPT/HCPCS: 99282; A9270-GY

== ENCOUNTER 2020-02-01 09:17 | Emergency (ER) | payer MEDICARE, MEDICAID ==
--- NOTE | 2020-02-01 09:54 | ED ---
Adult Trauma - HPI Summary HPI Summary: 64 year old female presents with left rib pain and bowel pain. States that yesterday she fell getting out of a wheelchair as she tripped over the edge of the wheelchair. States that she fell on her chest and abdomen. States the pain does radiate to the right side of abd. She is not on any blood thinners. She has history of chronic abdominal pain. She was just seen her in the past couple days and had negative workup. She denies any head injury. No loss conscious. No nausea or vomiting. No dizziness. Fall was mechanical fall. - History of Current Complaint Chief Complaint: EDChestWallPain Stated Complaint: FALL PER EMS Time Seen by Provider: 02/01/20 09:25 Pain Intensity: 9 - Additional Pertinent History Primary Care Physician: MAITE - Allergy/Home Medications Allergies/Adverse Reactions: Allergies Allergy/AdvReac Type Severity Reaction Status Date / Time amoxicillin Allergy Unknown Verified 02/01/20 09:24 Reaction Details erythromycin base Allergy Nausea And Verified 02/01/20 09:24 Vomiting fentanyl Allergy Rash Verified 02/01/20 09:24 ketorolac [From Toradol] Allergy Rash Verified 02/01/20 09:24 sulfamethoxazole Allergy Abdominal Verified 02/01/20 09:24 [From Bactrim] Pain trimethoprim [From Bactrim] Allergy Abdominal Verified 02/01/20 09:24 Pain Home Medications: Home Medications clonazePAM TAB(*) [Klonopin TAB(*)] 1 mg PO BID PRN 10/27/19 [History Confirmed 02/01/20] Butalb/Acetamin/Caff TAB* [Fioricet TAB*] 1 tab PO Q4H PRN 11/04/19 [History Confirmed 02/01/20] Ondansetron TAB* [Zofran 4 MG Tab*] 8 mg PO Q6HR PRN 11/14/19 [History Confirmed 02/01/20] Sucralfate TAB* [Carafate*] 1 tab PO ACHS 11/14/19 [History Confirmed 02/01/20] Docusate CAP* [Colace Cap*] 100 mg PO DAILY #14 cap 11/15/19 [Rx Confirmed 01/31] Albuterol HFA INHALER* [Ventolin HFA Inhaler*] 2 puff INH Q4HR 11/24/19 [ History Confirmed 02/01/20] Ferrous Sulfate TAB* 325 mg PO DAILY #30 tab 12/13/19 [Rx Confirmed 02/01/20] Metoclopramide TAB* [Reglan TAB*] 5 mg PO AC #90 tab 12/13/19 [Rx Confirmed ] Polyethylene Glycol 3350* [Miralax (17 GM DOSE GILBERT)] 17 gm PO DAILY PRN #30 packet 12/13/19 [Rx Confirmed 02/01/20] Senna TAB 8.6 mg* [Senokot 8.6 mg TAB*] 1 tab PO BEDTIME PRN #30 tab 12/13/19 [ Rx Confirmed 02/01/20] Morphine Sulfate 15 mg PO QID PRN MDD 4 12/15/19 [History Confirmed 02/01/20] DULoxetine CAP* [Cymbalta CAP*] 30 mg PO DAILY 01/18/20 [History Confirmed ] Lipase/Protease/Amylase [Zenpep 20,000 Unit Capsule] 1 cap PO AC 01/29/20 [ History Confirmed 02/01/20] Pantoprazole Sodium [Protonix] 40 mg PO DAILY 01/29/20 [History Confirmed ] PMH/Surg Hx/FS Hx/Imm Hx Endocrine/Hematology History: Reports: Hx Anemia Denies: Hx Anticoagulant Therapy, Hx Diabetes Cardiovascular History: Denies: Hx Hypertension, Hx Pacemaker/ICD Respiratory History: Denies: Hx Asthma GI History: Reports: Hx Gall Bladder Disease - colecystitis, Hx Gastroesophageal Reflux Disease, Other GI Disorders - chronic pancreatitis History: Reports: Hx Kidney Stones Denies: Hx Renal Disease Musculoskeletal History: Reports: Hx Arthritis, Hx Back Problems, Hx Osteoporosis, Other Musculoskeletal History - Chronic Neck Pain Sensory History: Denies: Hx Contacts or Glasses, Hx Deafness, Hx Hearing Aid Opthamlomology History: Denies: Hx Contacts or Glasses Neurological History: Reports: Hx Migraine Psychiatric History: Reports: Hx Anxiety Denies: Hx Panic Disorder - Cancer History Hx Chemotherapy: No Hx Radiation Therapy: No - Surgical History Surgery Procedure, Year, and Place: lt great toe. left wrist pinning. EUA right knee, shoulder,achillies. other female surgeries Infectious Disease History: No Infectious Disease History: Reports: Hx of Known/Suspected MRSA Denies: Traveled Outside the [place] in Last 30 Days - Family History Known Family History: Positive: Cardiac Disease, Hypertension - Social History Alcohol Use: None Hx Substance Use: No Substance Use Type: Reports: None Hx Tobacco Use: Yes Smoking Status (MU): Light Every Day Tobacco Smoker Type: Cigarettes Amount Used/How Often: 1 cigarette/day Review of Systems Negative: Fever Positive: Chest Pain - left rib pain Negative: Shortness Of Breath Positive: Abdominal Pain All Other Systems Reviewed And Are Negative: Yes Physical Exam Triage Information Reviewed: Yes Vital Signs On Initial Exam: Initial Vitals Temp Pulse Resp BP Pulse Ox 98.1 F 86 18 125/86 95 02/01/20 09:20 18 09:20 02/01/20 09:20 02/01/20 09:20 02/01/20 09:20 Vital Signs Reviewed: Yes Appearance: Positive: Well-Appearing Skin: Positive: Warm, Dry Head/Face: Positive: Normal Head/Face Inspection Eyes: Positive: Normal, Conjunctiva Clear ENT: Positive: Pharynx normal Respiratory/Lung Sounds: Positive: Clear to Auscultation, Breath Sounds Present , Other - tenderness over left side chest wall Cardiovascular: Positive: Normal, RRR Abdomen Description: Positive: Soft, Other: - tenderness in LUQ Bowel Sounds: Positive: Present Musculoskeletal: Positive: Normal Neurological: Positive: Normal Psychiatric: Positive: Normal Procedures - Sedation Patient Received Moderate/Deep Sedation with Procedure: No Diagnostics - Vital Signs Vital Signs Temp Pulse Resp BP Pulse Ox 02/01/20 09:20 98.1 F 86 18 125/86 95 - Laboratory Lab Statement: Any lab studies that have been ordered have been reviewed, and results considered in the medical decision making process. - Radiology rib Radiology Interpretation Completed By: Radiologist Summary of Radiographic Findings: IMPRESSION: NO DISPLACED RIB FRACTURE OR PNEUMOTHORAX Adult Trauma Course/Dx - Course Course Of Treatment: 64 year old female presents with left rib pain and bowel pain. States that yesterday she fell getting out of a wheelchair as she tripped over the edge of the wheelchair. States that she fell on her chest and abdomen. States the pain does radiate to the right side of abd. She is not on any blood thinners. She has history of chronic abdominal pain. She was just seen her in the past couple days and had negative workup. She denies any head injury. No loss conscious. No nausea or vomiting. No dizziness. Fall was mechanical fall. On exam has tenderness over left ribs. Tenderness over left upper quadrant. FAST exam done by me was negative. X-ray shows no fracture. told take tyenlol for pain. patient understand and agrees with plan. - Diagnoses Differential Diagnosis/HQI/PQRI: Positive: Contusion(s), Fracture, Hematoma(s) Provider Diagnoses: Rib pain on left side, Abdominal pain Discharge ED - Sign-Out/Discharge Documenting (check all that apply): Patient Departure - Discharge Plan Condition: Good Disposition: HOME Patient Education Materials: Chest Wall Pain (ED) Referrals: Jayant Tenorio MD [Primary Care Provider] - Additional Instructions: apply ice take tyenlol every 6 hours for pain take deep breaths throughout the day Return to ED if develop any new or worsening symptoms - Billing Disposition and Condition Condition: GOOD Disposition: Home - Attestation Statements Provider Attestation: I was available for consultation for this patient. I did not evaluate the patient or participate in any medical decision making or disposition decisions unless I am specifically named in the chart as having consulted on the patient. If I have consulted on the patient, please see my own ED note on the patient encounter. Easton Rapp MD
[2020-02-01] MEDS: Acetaminophen TAB* 325 MG PO ONE (10:22)
[2020-02-01 11:12] VITALS: BP 0/0
== END 2020-02-01 10:33 | disposition home or self-care (01) ==
LOC: ED 09:17
DX: R07.81 Pleurodynia (principal); R10.9 Unspecified abdominal pain; W05.0XXA Fall from non-moving wheelchair, initial encounter; Y92.9 Unspecified place or not applicable; D64.9 Anemia, unspecified; K21.9 Gastro-esophageal reflux disease without esophagitis; F41.9 Anxiety disorder, unspecified; F17.210 Nicotine dependence, cigarettes, uncomplicated; Z87.442 Personal history of urinary calculi; Z79.899 Other long term (current) drug therapy; Z88.0 Allergy status to penicillin; Z88.1 Allergy status to other antibiotic agents; Z88.2 Allergy status to sulfonamides; Z88.5 Allergy status to narcotic agent
CPT/HCPCS: 99282; A9270-GY

== ENCOUNTER 2020-02-12 16:46 | Emergency (ER) | payer MEDICARE, MEDICAID ==
[2020-02-12] MEDS ORDERED: Lidocaine PATCH 5%* 1 PATCH TRANSDERM ONE (16:54)
--- NOTE | 2020-02-12 17:00 | ED ---
HPI Chest Pain - HPI Summary HPI Summary: Patient is a 64 y/o F presenting to the ED for a chief complaint of bilateral rib pain, left more than right, after a fall that occurred one week ago. Patient reports falling onto the floor while she was sitting in a wheelchair waiting for a cab ride. Patient denies fever or shortness of breath. The rib pain worsens with deep breaths and movement. She has taken her prescribed 15 mg of morphine, last taken at 12:00 on 02/12/20, and finished an entire bottle of Tylenol in the last week without relief. Patient reports taking 8-10 pills of Tylenol daily until she was recommended against taking this amount of Tylenol. No alleviating factors are reported. Patient denies taking blood thinners. She states she takes morphine for chronic pain for a history of 35-40 fractures. Allergies reviewed. - History of Current Complaint Chief Complaint: EDChestWallPain Time Seen by Provider: 02/12/20 16:47 Hx Obtained From: Patient Onset/Duration: Started Days Ago, Traumatic - Fall, Still Present Timing: Constant Initial Severity: Moderate Current Severity: Moderate Pain Scale Used: 0-10 Numeric Chest Pain Location: Diffuse - Bilateral rib, left more than right Chest Pain Radiates: No Aggravating Factor(s): Movement, Deep Breaths Alleviating Factor(s): Nothing Associated Signs and Symptoms: Positive: Chest Pain - Bilateral rib pain, left more than right. Negative: Shortness of Breath, Fever - Additional Pertinent History Primary Care Physician: MAITE - Allergy/Home Medications Allergies/Adverse Reactions: Allergies Allergy/AdvReac Type Severity Reaction Status Date / Time amoxicillin Allergy Unknown Verified 02/12/20 16:52 Reaction Details erythromycin base Allergy Nausea And Verified 02/12/20 16:52 Vomiting fentanyl Allergy Rash Verified 02/12/20 16:52 ketorolac [From Toradol] Allergy Rash Verified 02/12/20 16:52 sulfamethoxazole Allergy Abdominal Verified 02/12/20 16:52 [From Bactrim] Pain trimethoprim [From Bactrim] Allergy Abdominal Verified 02/12/20 16:52 Pain Home Medications: Home Medications clonazePAM TAB(*) [Klonopin TAB(*)] 1 mg PO BID PRN 10/27/19 [History Confirmed 02/09/20] Butalb/Acetamin/Caff TAB* [Fioricet TAB*] 1 tab PO Q4H PRN 11/04/19 [History Confirmed 02/09/20] Ondansetron TAB* [Zofran 4 MG Tab*] 8 mg PO Q6HR PRN 11/14/19 [History Confirmed 02/09/20] Sucralfate TAB* [Carafate*] 1 tab PO ACHS 11/14/19 [History Confirmed 02/09/20] Docusate CAP* [Colace Cap*] 100 mg PO DAILY #14 cap 11/15/19 [Rx Confirmed 02/08] Albuterol HFA INHALER* [Ventolin HFA Inhaler*] 2 puff INH Q4HR 11/24/19 [ History Confirmed 02/09/20] Ferrous Sulfate TAB* 325 mg PO DAILY #30 tab 12/13/19 [Rx Confirmed 02/09/20] Metoclopramide TAB* [Reglan TAB*] 5 mg PO AC #90 tab 12/13/19 [Rx Confirmed ] Polyethylene Glycol 3350* [Miralax (17 GM DOSE GILBERT)] 17 gm PO DAILY PRN #30 packet 12/13/19 [Rx Confirmed 02/09/20] Senna TAB 8.6 mg* [Senokot 8.6 mg TAB*] 1 tab PO BEDTIME PRN #30 tab 12/13/19 [ Rx Confirmed 02/09/20] Morphine Sulfate 15 mg PO QID PRN MDD 4 12/15/19 [History Confirmed 02/09/20] Pantoprazole Sodium [Protonix] 40 mg PO DAILY 01/29/20 [History Confirmed ] PMH/Surg Hx/FS Hx/Imm Hx Previously Healthy: Yes Endocrine/Hematology History: Reports: Hx Anemia Denies: Hx Anticoagulant Therapy, Hx Diabetes Cardiovascular History: Denies: Hx Hypertension, Hx Pacemaker/ICD Respiratory History: Denies: Hx Asthma GI History: Reports: Hx Gall Bladder Disease - colecystitis, Hx Gastroesophageal Reflux Disease, Other GI Disorders - chronic pancreatitis History: Reports: Hx Kidney Stones Denies: Hx Renal Disease Musculoskeletal History: Reports: Hx Arthritis, Hx Back Problems, Hx Osteoporosis, Hx of Fracture(s) - 35-40, Other Musculoskeletal History - Chronic Neck Pain Sensory History: Denies: Hx Contacts or Glasses, Hx Legally Blind, Hx Deafness, Hx Hearing Aid Opthamlomology History: Denies: Hx Contacts or Glasses, Hx Legally Blind EENT History: Denies: Hx Deafness Neurological History: Reports: Hx Migraine Psychiatric History: Reports: Hx Anxiety Denies: Hx Panic Disorder - Cancer History Hx Chemotherapy: No Hx Radiation Therapy: No - Surgical History Surgical History: Yes Surgery Procedure, Year, and Place: lt great toe. left wrist pinning. EUA right knee, shoulder,achillies. other female surgeries Infectious Disease History: Yes Infectious Disease History: Reports: Hx of Known/Suspected MRSA - Family History Known Family History: Positive: Cardiac Disease, Hypertension - Social History Occupation: Unemployed Lives: Alone Alcohol Use: None Hx Substance Use: No Substance Use Type: Reports: None Hx Tobacco Use: Yes Smoking Status (MU): Light Every Day Tobacco Smoker Type: Cigarettes Amount Used/How Often: 1 cigarette/day Review of Systems Negative: Fever Positive: Chest Pain - Bilateral rib pain, left more than right Negative: Shortness Of Breath All Other Systems Reviewed And Are Negative: Yes Physical Exam - Summary Physical Exam Summary: Constitutional: Well-developed, Well-nourished, Alert. (-) Distressed Skin: Warm, Dry HENT: Normocephalic; Atraumatic Eyes: Conjunctiva normal Neck: Musculoskeletal ROM normal neck. (-) JVD, (-) Stridor, (-) Nuchal rigidity Cardio: Rhythm regular, rate normal, Heart sounds normal; Intact distal pulses; Radial pulses are 2+ and symmetric. (-) Murmur Pulmonary/Chest wall: Effort normal. (-) Respiratory distress, (-) Wheezes, (-) Rales Abd: Soft, (-) tenderness, (-) Distension, (-) Guarding, (-) Rebound Musculoskeletal: (-) Edema. Left and right chest wall tenderness, post surgical changes of right shoulder, no cervical, thoracic, or lumbar tenderness of the spine. Lymph: (-) Cervical adenopathy Neuro: Alert, Oriented x3 Psych: Mood and affect Normal Triage Information Reviewed: Yes Vital Signs Reviewed: Yes Procedures - Sedation Patient Received Moderate/Deep Sedation with Procedure: No Diagnostics - Laboratory Result Diagrams: 02/12/20 17:10 02/12/20 17:10 Lab Statement: Any lab studies that have been ordered have been reviewed, and results considered in the medical decision making process. - CT Chest CT CT Interpretation Completed By: Radiologist Summary of CT Findings: Chest CT IMPRESSION: No pneumothorax is noted. Left apical scarring is noted. No fracture of the ribs is definitively identified. Reviewed by Dr. Rapp. - EKG 16:48 Cardiac Rate: NL - 97 BPM EKG Rhythm: Sinus Rhythm ST Segment: Normal Ectopy: None Summary of EKG Findings: An EKG at 16:48 reveals normal sinus rhythm with 97 BPM , nml axis, nml intervals. No STEMI. No acute changes. ED physician has reviewed and interpreted this EKG. Re-Evaluation - Re-Evaluation First Eval Re-Evaluation Time: 17:36 Change: Unchanged Comment: At 17:36, on medical record review, patient filled her 60 15 mg morphine on 02/10/20. Chest Pain Course/Dx - Course Course Of Treatment: 64 y/o F w chronic pain p/w rib pain after fall 2 weeks ago. - well appearing, easy WOB on RA. TTP bilateral ribs. - recent negative XR, CT chest w/o fracture. Patient already on high dose of narcotics. Tylenol level normal, LFTs normal. - Diagnoses Provider Diagnoses: Chest wall pain Discharge ED - Sign-Out/Discharge Documenting (check all that apply): Patient Departure - Discharge - Discharge Plan Condition: Stable Disposition: HOME Patient Education Materials: Rib Contusion (ED) Referrals: Jayant Tenorio MD [Primary Care Provider] - Additional Instructions: You were seen in the emergency department for rib pain after fall. Your CT scan did not show any fractures. Please follow up with your primary care doctor in next 2-3 days and return to emergency department for trouble breathing, chest pain, worsening or concerning symptoms. It was a pleasure taking care of you today. - Billing Disposition and Condition Condition: STABLE Disposition: Home - Attestation Statements Document Initiated by Scribe: Yes Documenting Scribe: Kylee Brewer Provider For Whom Kendy is Documenting (Include Credential): Easton Rapp MD Scribe Attestation: Kylee Meléndez, scribed for Easton Rapp MD on 02/12/20 at 1815. Scribe Documentation Reviewed: Yes Provider Attestation: The documentation as recorded by the Kylee voss accurately reflects the service I personally performed and the decisions made by me, Easton Rapp MD Status of Scribe Document: Viewed
[2020-02-12 17:22] LABS: ABS Eosinophils 0.2 10^3/ul (0-0.6); ABS Lymphocytes 2.1 10^3/ul (1.0-4.8); ABS Monocytes 0.4 10^3/ul (0-0.8); ABS Neutrophils 3.2 10^3/ul (1.5-7.7); Eosinophil % 3.2 %; Hematocrit 33 % (35-47); Hemoglobin 10.5 g/dL (12.0-16.0); Lymphocyte % 34.7 %; Mean Corpuscular HGB Conc 32 g/dL (31-36); Mean Corpuscular Hemoglobin 24 pg (27-31); Mean Corpuscular Volume 75 fL (80-97); Mean Platelet Volume 6.9 fL (7.4-10.4); Platelet Count 370 10^3/uL (150-450); Red Blood Count 4.46 10^6 /uL (3.70-4.87); Red Cell Distribution Width 23 % (10-15)
[2020-02-12 17:33] LABS: ALT 8 U/L (7-52); AST 11 U/L (13-39); Albumin 4.3 g/dL (3.2-5.2); Albumin/Globulin Ratio 1.3 (1-3); Alkaline Phosphatase 132 U/L (34-104); Anion Gap 9 mmol/L (2-11); BUN/Creatinine Ratio 26.6 (8-20); Blood Urea Nitrogen 21 mg/dL (6-24); CO2 Carbon Dioxide 26 mmol/L (22-32); Calcium 9.9 mg/dL (8.6-10.3); Chloride 103 mmol/L (101-111); EGFR African American 88.4 (>60); Globulin 3.3 g/dL (2-4); Glucose 126 mg/dL (70-100); Potassium 4.4 mmol/L (3.5-5.0); Sodium 138 mmol/L (135-145); Total Protein 7.6 g/dL (6.4-8.9)
[2020-02-12 17:38] LABS: Acetaminophen < 15 mcg/mL; Salicylate < 2.50 mg/dL (<30)
--- OUTSIDE RECORDS SUMMARY | 2020-02-12 17:40 | XMS REPORT | Continuity of Care Document ---
:1955 External Reference #:[id number] Author Name Heidi Hidalgo, DO Address [address] [place] [address] Care Team Providers Name Role Phone Laz Prakash NP - Family Care Team Information Digital Media Representative [phone] Jayant Tenorio MD - Hospitalist Care Team Information Digital Media Representative [phone] Problems Active Problems Provider Date Bipolar II disorder Leon Mora MD Onset: 12/21/1994 Note: admitted to [place] [facility] [address] several times 1999 to 2002; also anxiety, depression , and drug abuse; on clonapin BID in 2019 Pulmonary emphysema Leon Mora MD Onset: 02/04/2010 Note: still smoking in 2019 Iron deficiency anemia Leon Mora MD Onset: 02/05/2020 Note: Hg 9.6 MCV 69 on move back from [place] Oct 2019; stool OB negative 11/04 and + 12/13/19; Family history of malignant neoplasm of Leon Mora MD Onset: 1994 gastrointestinal tract Note: maternal CRC Chronic abdominal pain Leon Mora MD Onset: 02/05/2016 Note: as inpatient 12/11/19 had EGD with MAC, mesenteric art doppler, MRCP Social History Type Date Description Comments Sex Unknown ETOH Use Denies alcohol use Recreational Drug Use Denies Drug Use Tobacco Use Start: Unknown Patient is a current 2 cigarettes per day smoker, smokes every - trying to quit day completely Smoking Status Reviewed: 02/02/20 Patient is a current 2 cigarettes per day smoker, smokes every - trying to quit day completely Exercise Type/Frequency Does not exercise Allergies, Adverse Reactions, Alerts Active Allergies Reaction Severity Comments Date Fentanyl Moderate rash 11/02/2019 Ketorolac Tromethamine rash 11/02/2019 Erythromycin N&V 11/02/2019 Bactrim N&V 11/02/2019 Medications Active Medications SIG Qnty Indications Ordering Date Provider Ventolin HFA take every 6 18gm Jayant Tenorio MD 01/19/2020 hours as needed 108(90Base) mcg/Act for shortness of Aerosol breath or wheezing. Nystatin 400,000-600,000 120ml Jayant Tenorio MD 01/19/2020 [id number]/ML units 4 times/day Suspension for 6 days Pantoprazole Sodium 1 by mouth twice 60tabs Jayant Tenorio MD 12/26/2019 a day 20mg Tablets DR Blaine 1 tabs twice 60caps R10.9 Jayant Tenorio MD 12/08/2019 100mg Capsules daily as needed for regular bowel movements Butalbital-Acetaminop 1 tab by mouth 30tabs R51 Heidi Hidalgo, 11/10/2019 hen every 4 hours but DO 50-325mg Tablets no more than 3 tabs in a day or 30 tabs a month. no refills until 01/25 Sucralfate take one tablet 120tabs Heidi Hiadlgo, 11/02/2019 1gm Tablets by mouth four DO times a day Ondansetron take 1 every 8 60tabs Jayant Tenorio MD 11/02/2019 8mg Tablets hours as needed Dispers nausea Clonazepam 1 tablet by mouth 30tabs F41.9 Heidi Hidalgo, 11/02/2019 1mg Tablets two times a day DO Miralax 17 grams by mouth Unknown Powder every day as needed Morphine Sulfate 4 times per day Unknown 15mg for chronic pain Tablets History Medications Doxycycline Hyclate take 1 pill twice 14tabs J01.90 Jayant Tenorio MD 2019 - a day for 7 days 02/01/2020 100mg Tablets Dicyclomine HCL take one tablet 120tabs K58.1 Jayant Tenorio MD 01/16/2020 - 20mg by mouth four 01/19/2020 Tablets times daily as needed Aimovig inject one pen 1units Jayant Tenorio MD 01/12/2020 - 70mg/ml monthly 01/16/2020 Solution Auto-Inject Pancreaze 1 capsule three 90caps Jayant Tenorio, MD 01/11/2020 - 46627Iegp times a day with 02/01/[address] Magy yeh Venofer 200mg x 5 days 50ml D50.9 Jayant Tenorio MD 12/26/2019 - 20mg/ml at infusion 01/16/2020 Solution center Over 14 day period Duloxetine HCL take one cap 60caps G89.29 Jayant Tenorio MD 12/26/2019 - 30mg daily 01/16/[address] Magy Lewis 1 by mouth daily 90caps R10.9 Jayant Tenorio MD 12/08/2019 - 8.6mg Capsules 01/16/2020 Zenpep 1 capsule(29728Q) 90caps R10.9 Jayant Tenorio MD 12/08/2019 - [id number] with each meal 01/11/[address] Bhatti Creon take 1 cap by 90caps K86.81 Jayant Tenorio MD 11/30/2019 - 28258Inrg Caps mouth with every 12/08/2019 DR Magy davis Alendronate Sodium take 2 pills of 60tabs Heidi 11/11/2019 - 5mg each day or 1 DO Gwen 02/01/2020 5mg Tablets 10mg tab Ferrous Gluconate 1 by mouth once a 60tabs D50.9 Jayant Tenorio MD 11/10/2019 - twice a day 12/08/2019 324(37.5Fe) mg Tablets Alendronate Sodium take 2 tabs daily 60tabs M80.00xA Jayant Tenorio MD 2018 - 11/17/2019 35mg Tablets Uwxnugtiyl-Cfxtixx-L take 1 by mouth 30caps Shaniqua Gardner [...] DR Green take 1 tablet 90caps R51 Angelokenny 11/02/2019 - 50-325-40mg every 4 hour as [...] Available Vital Signs Date Vital Result Comment 02/02/2020 9:20am Height 61.5 inches 5'1.50" Weight 131.00 lb Heart Rate 88 /min BP Systolic 112 mmHg BP Diastolic 74 mmHg Respiratory Rate 24 /min Body Temperature 98.0 F Pain Level 10 left rib area O2 % BldC Oximetry 92 % BMI (Body Mass Index) 24.3 kg/m2 01/16/2020 8:48am Height 61.5 inches 5'1.50" Weight 129.00 lb Heart Rate 81 /min BP Systolic Sitting 95 mmHg BP Diastolic Sitting 67 mmHg Body Temperature 96.4 F O2 % BldC Oximetry 91 % BMI (Body Mass Index) 24.0 kg/m2 Results Test Acquired Facility Test Result H/L Range Note Date Laboratory test 01/30/2020 [facility] Troponin-I 0.01 ng/mL < 0.03 [address] (TnI) [place] [address] [phone] Laboratory test 01/30/2020 [facility] B-Type 114 pg/mL High <= [address] [place] [address] Peptide BNP [phone] CBC Auto Diff 01/30/2020 [facility] White Blood 6.3 Normal 3.5 -10.[address] Count 10^3/uL [place], [place] [id number] [phone] Red Blood Count 4.09 10^6/uL Normal 3.70-4.87 [...] Blood Cells % 0.0 Comp Metabolic 01/30/2020 [facility] Sodium 142 mmol/L Normal 135-145 Panel [address] [place] [address] [phone] Potassium 4.3 mmol/L Normal 3.5-5.0 Chloride 108 [...] Egfr 82.3 >60 4 Laboratory test 01/30/2020 [facility] Troponin-I (TnI) 0.01 ng/ mL <0.03 5 finding [address] [place] [address] [phone] C Reactive Protein 55.63 mg/L High <8.01 Erythrocyte Sed Rate 32 mm/Hr High 0-29 CBC Auto 01/29/2020 [facility] White Blood 4.9 10^3/uL Normal 3.5-10.[address] [place] [address] [phone] Red Blood Count 4.09 10^6/uL Normal 3.70-4.87 [...] Blood Cells % 0.1 Comp Metabolic 01/29/2020 [facility] Sodium 140 mmol/L Normal 135-[address] [place] [address] [phone] Chloride 108 mmol/L Normal 101-111 Co2 Carbon [...] U/L 13-39 9 Laboratory test finding 01/29/2020 [facility] Amylase 26 U/L Low 29-[address] [place] [address] [phone] Lipase < 10 U/L Low 11.0-82.0 C Reactive Protein 22.47 mg/L High <8.01 Urine Culture And 01/18/2020 [facility] Urine Culture SEE RESULT [address] [place] [address] [phone] Urinalysis Profile 01/18/2020 [facility] Urine Color Straw [address] [place] [address] [phone] Urine Appearance Clear Urine Specific Lanagan 1.009 Low 1.010-1.030 Urine pH 6.0 Normal [...] Cell Present Abnormal Absent CBC Auto 01/18/2020 [facility] White Blood 7.0 10^3/uL Normal 3.5-10.[address] [place] [address] [phone] Red Blood Count 4.35 10^6/uL Normal 3.70-4.87 [...] Blood Cells % 0.0 Laboratory test 01/18/2020 [facility] Magnesium 1.6 mg/dL Low 1.9-2.7 finding [address] [place] [address] [phone] Lipase 16 U/L Normal 11.0-82.0 C Reactive Protein 8.08 mg/L High <8.01 Lactic Acid 1.1 mmol/L Normal 0.5-2.0 13 Comp Metabolic 01/18/2020 [facility] Sodium 138 mmol/L Normal 135-145 Panel [address] [place] [address] [phone] Potassium 4.6 mmol/L Normal 3.5-5.0 Chloride 103 [...] Egfr 80.1 >60 14 Laboratory test 01/07/2020 [facility] Lactic Acid 1.0 mmol/L Normal 0.5-2.0 15 finding [address] [place] [address] [phone] Comp Metabolic 01/07/2020 [facility] Sodium 137 mmol/L Normal 135-145 Panel [address] [place] [address] [phone] Potassium 4.4 mmol/L Normal 3.5-5.0 Chloride 101 [...] Egfr 88.4 >60 16 Laboratory test 01/07/2020 [facility] Lipase < 10 U/L Low 11.0 -82.0 finding [address] [place] [address] [phone] CBC Auto Diff 01/07/2020 [facility] White Blood 5.3 Normal 3.5 -10.8 [address] [facility] Count 10^3/[place] [address] [phone] Red Blood Count 4.93 10^6/uL High 3.70-4.87 [...] Red Blood Cells % 0.0 Drug 12/15/2019 [facility] Urine Presumptive Abnormal None [address] Hydrocodone Posi <[place] [address] Screen NOTE> Pain [phone] Clinic Urine Oxycodone Screen None Detected None [...] None Detected None Detect 21 Hydrocodone 12/15/2019 [facility] Hydrocodone-by Negative Cutoff: Confiramtion, [address] LC-MS/MS ng/mL 25 [place] [address] [phone] Norhydrocodone-by LC-MS/MS Negative ng/mL Cutoff: 25 Hydromorphone-by LC-MS/MS 259 ng/mL Cutoff: 25 Hydrocodone Interpretation Positive. 22 Laboratory test 12/08/2019 [facility] Pathologist Review (SEE NOTE) [address] [place] [address] [phone] Cell Morphology 12/08/2019 [facility] Polychromasia 1+ [address] [place], [place] [address] [phone] Anisocytosis 2+ CBC Auto 12/08/2019 [facility] White Blood 6.7 10^3/uL Normal 3.5-10.[address] [place] [address] [phone] Red Blood Count 4.09 10^6/uL Normal 3.70-4.87 [...] Blood Cells % 0.0 Urinalysis Profile 12/08/2019 [facility] Urine Color Straw [address] [place] [address] [phone] Urine Appearance Clear Urine Specific [place]agan 1.006 Low 1.010-1.030 Urine pH 6.0 Normal 5-9 Urine Urobilinogen Negative Negative Urine Ketones Negative Negative Urine Protein Negative Negative Urine Leukocytes Negative Negative Urine Blood Negative Negative Urine Nitrite Negative Negative Urine Bilirubin Negative Negative Urine Glucose Negative Negative Laboratory test 12/08/2019 [facility] Lipase < 10 U/L Low 11.0 -82.0 finding [address] [place] [address] [phone] C Reactive Protein 5.19 mg/L Normal <8.01 Comp Metabolic 12/08/2019 [facility] Sodium 137 mmol/L Normal 135-145 Panel [address] [place] [address] [phone] Potassium 4.1 mmol/L Normal 3.5-5.0 Chloride 105 [...] Egfr 78.0 >60 24 Laboratory test 12/08/2019 [facility] Lactic Acid 0.8 mmol/L Normal 0.5-2.0 25 finding [address] [place] [address] [phone] Laboratory test 12/08/2019 [facility] Lactic Acid 1.0 mmol/L Normal 0.5-2.0 26 finding [address] [place] [address] [phone] BMP W/Egfr 11/24/2019 [facility] Sodium 139 mmol/L Normal 135- 145 [address] [place] [address] [phone] Potassium 4.5 mmol/L Normal 3.5-5.0 Chloride 104 mmol/L Normal 101-111 Co2 Carbon Dioxide 24 mmol/L Normal 22-32 Anion Gap 11 mmol/L Normal 2-11 Glucose 97 mg/dL Normal 70-100 Blood Urea Nitrogen 19 mg/dL Normal 6-24 Creatinine 0.78 mg/dL Normal 0.51-0.95 BUN/Creatinine Ratio 24.4 High 8-20 Calcium 9.7 mg/dL Normal 8.6-10.3 Egfr Non- 74.1 >60 Egfr 89.7 >60 27 Spep Protein 11/24/2019 [facility] Total Protein(Pep) 7.4 g/dL 6.3 - 7.9 Electro, Serum [address] [place] [address] [phone] Albumin 3.6 g/dL 3.4-4.7 Alpha-1 Globulin 0.3 g/dL 0.1-0.3 Alpha-2 Globulin 1.3 g/dL Abnormal 0.6-1.0 Beta Globulin 1.3 g/dL Abnormal 0.7-1.2 Gamma Globulin 1.0 g/dL 0.6-1.6 Albumin/Globulin Ratio 0.93 Impression See Comment 28 Barada/Lambda Free 11/24/2019 [facility] Barada Free 1.98 mg/dL Abnormal [address]ains [address] [place] [address] [phone] Lambda Free Light Chain 1.00 mg/dL 30 Barada/Lambda Free Light Chain 1.98 Abnormal 31 Laboratory test 11/10/2019 [facility] Vitamin D 30.9 Normal 20 -50 [address] Total 25(Oh) ng/mL [place], [place] [address] [phone] Pthi 11/10/2019 [facility] Calcium (PTH 10.1 Normal 8.6-10.[address] Intact) mg/[place] [address] [phone] PTH Intact 56.4 pg/mL Normal 12-88 Celiac Panel 11/10/2019 [facility] Tissue Transglutaminase <1.2 U/mL [address] [place] [address] [phone] Immunoglobulin A 256 mg/dL 61 - 356 Celiac Interpretation See Comment 34 Iron & Iron 11/10/2019 [facility] Total Iron 447 g/dL Normal 250-[address] [place] [address] Capacity [phone] Transferrin 319 mg/dL Normal 203-362 Iron < 20 g/dL Low 50-212 Unsaturated Iron Binding < 432 g/dL % Iron Saturation 4 % Low 15-55 Laboratory test 11/10/2019 [facility] Ferritin 4.8 ng/mL Low 11-[address] [place] [address] [phone] 1 Troponin-I testing on Plasma Separator Tubes (PST) has a known false positive rate of 0.20-0.40%. All positive troponins reflex immediately to secondary confirmatory testing. Using the [employer] ([employer]) DxI 800 Access Immunoassay systems, the 99th [...] immediately to secondary confirmatory testing. Using the [employer] (TT[employer]) DxI 800 Access Immunoassay systems, the 99th [...] hemolysis. 10 SEE RESULT BELOW Name: WOODY STEPHENSON: [address]: Easton Rapp MD Acct: [id number] Unit: [id number] AGE: 64 Location: ED Re01/18/20 SEX: F Status: DEP ER SPEC: [id number] JACQUELIN: 01/18/[address]: David MCFARLAND REQ: [id number] RECD: 01/18/20 STATUS: ANDREA TORRES DR: Easton Tenorio MD _ SOURCE: URINE SPDESC: ORDERED: Urine Culture Procedure Result Reported Site Urine Culture Final 01/20/20- 1201 ML Organism 1 STREP GROUP B [place] Count 25-50,000 (Moderate) CFU/ML Organism 2 NORMAL CHAITANYA [place] Count 10-25,000 (Moderate) CFU/ML Susceptibility testing of penicillins and other B-lactams approved by FDA for treatment of Streptococcus pyogenes (Group A Strep) and Streptococcus agalactiae (Group B Strep) is not necessary for clinical purposes and need not be done routinely, since as with vancomycin, resistant strains have not been recognized. (CLSI V766-A30;p.66) Positive isolates will be saved for one week. Please call the Microbiology Laboratory if further susceptibility testing is needed. * ML - Main Lab . END OF REPORT DEPARTMENT OF PATHOLOGY, [address] [place] [address] Giuseppe Bailey M.D. Director [facility] # [id number] 11 Consistent with Previous Results Reported on 01/07/20. 12 Consistent with Previous Results Reported on 12/11/19. 13 Specimen hemolyzed. Result may not be valid. [facility] Severe Sepsis and Septic Shock Management [...] 5 Kidney failure <15 (or dialysis) 15 [facility] Severe Sepsis and Septic Shock Management [...] developed and its performance characteristics determined by [facility] in a manner consistent with CLIA requirements. This test has not been cleared or approved by the U.S. Food and Drug Administration. Test Performed by: [facility] - [facility] [address], [place] [address] Supervisor Packing Room: Gene Conn M.D. Ph.D.; CLIA# [id number] 23 Microcytic anemia with red cell indices [...] Specimen hemolyzed. Result may not be valid. [facility] Severe Sepsis and Septic Shock Management Bundle Measure requires all lactic acids initially measuring >2.0 mmol/L be repeated. 26 [facility] Severe Sepsis and Septic Shock Management [...] protein on serum electrophoresis. Test Performed by: [facility] [place] [address] Supervisor Packing Room: Gene Conn M.D. Ph.D.; CLIA# [id number] 29 REFERENCE VALUE 0.3300-1.94 30 REFERENCE VALUE 0.5700-2.63 31 Elevated free light chain ratios between 1.66 and 3.00 may occur due to polyclonal hypergammaglobulinemia or impaired renal clearance. An isolated increased free light chain ratio in this range should be interpreted with caution, and clinical correlation is recommended. REFERENCE VALUE 0.2600-1.65 Test Performed by: [facility] [place] [address] Supervisor Packing Room: Gene Conn M.D. Ph.D.; CLIA# [id number] 32 Total 25-Hydroxyvitamin D2 and D3 (25-OH-VitD) <10 ng/mL (severe deficiency) 10-19 ng/mL (mild to moderate deficiency) 20-50 ng/mL (optimum levels) 51-80 ng/mL (increased risk of hypercalciuria) >80 ng/mL (toxicity possible) 33 REFERENCE VALUE <4.0 (Negative) Test Performed by: [facility] - [address] [address] Supervisor Packing Room: Gene Conn M.D. Ph.D.; CLIA# [id number] 34 Negative serology. Celiac disease unlikely. However, approximately 10% of patients with celiac disease are seronegative. Also, patients who are already adhering to a gluten-free diet may be seronegative. If celiac disease is highly clinically suspected, consider HLA-DQ typing. Test Performed by: [facility] [place] [address] Supervisor Packing Room: Gene Conn M.D. Ph.D.; CLIA# [id number] Procedures Date Code Description Status 01/02/2020 36334 Injection Single Tendon Origin/Insertion Completed 12/13/2019 34584 Endoscopy Upper GI Biopsy Completed 12/05/2019 194740669 Bone Mineral Density Test Completed Medical Devices Description No Information Available Encounters Type Date Location Provider Dx Diagnosis Office Visit 02/07/2020 [facility] Internal Heidi Hidalgo, W05.0xxD Fall from 2:00p Medicine - Suite DO non-moving R wheelchair, subsequent encounter G89.29 Other chronic pain F41.1 Generalized anxiety disorder Office Visit 02/02/2020 [facility] Gastroenterology Leon Mei D50.9 Iron deficiency 9:00a MD Morgan anemia, unspecified J44.9 Chronic obstructive pulmonary disease, unspecified Z80.0 Family history of malignant neoplasm of digestive organs Office Visit 01/16/2020 8:40a [facility] Internal Jayant Tenorio, G43.909 Migraine, unsp, not Medicine - MD intractable, Suite R without status migrainosus J32.9 Chronic sinusitis, unspecified K31.84 Gastroparesis K86.1 Other chronic pancreatitis D50.9 Iron deficiency anemia, unspecified K58.1 Irritable bowel syndrome with constipation Office Visit 01/02/2020 Ramin Anders M77.12 Lateral 1:00p [facility] 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 G57.92 Unspecified mononeuropathy of left lower limb G90.512 Complex regional pain syndrome I of left upper limb Office Visit 12/13/2019 [facility] Noreen Cyr, R10.9 Unspecified 9:52a Assoc,pc CALL WORKER abdominal pain Hospitalists K21.9 Gastro-esophageal reflux disease without esophagitis K31.84 Gastroparesis F41.9 Anxiety disorder, unspecified G89.29 Other chronic pain Office Visit 12/12/2019 [facility] Noreen Cyr, R10.9 Unspecified 9:51a Assoc,pc CALL WORKER abdominal pain Hospitalists F41.9 Anxiety disorder, unspecified G89.29 Other chronic pain K86.1 Other chronic pancreatitis K21.9 Gastro-esophageal reflux disease without esophagitis G43.909 Migraine, unsp, not intractable, without status migrainosus Z59.0 Homelessness Office Visit 12/11/2019 [facility] Noreen Cyr, R10.9 Unspecified 9:51a Assoc,pc CALL WORKER abdominal pain Hospitalists F41.9 Anxiety disorder, unspecified G89.29 Other chronic pain K86.1 Other chronic pancreatitis K21.9 Gastro-esophageal reflux disease without esophagitis G43.909 Migraine, unsp, not intractable, without status migrainosus Z59.0 Homelessness Office Visit 12/11/2019 [facility] Rod[facility]. R10.9 Unspecified 7:00a [facility] MD abdominal pain Office Visit 12/10/2019 [facility] R10.9 Unspecified 9:50a Assoc,pc BRUNA Gary abdominal pain Hospitalists K86.1 Other chronic pancreatitis K21.9 Gastro-esophageal reflux disease without esophagitis F41.9 Anxiety disorder, unspecified G89.29 Other chronic pain Z59.0 Homelessness Office Visit 12/10/2019 7:00a Surgical Rodri S. 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 R10.9 Unspecified [facility] abdominal pain [facility] R11.0 Nausea Office Visit 12/08/2019 9:40a [facility] Internal Jayant Tenorio MD R10.9 Unspecified Medicine - Suite abdominal pain R D50.9 Iron deficiency anemia, unspecified F41.1 Generalized anxiety disorder K86.81 Exocrine pancreatic insufficiency M81.0 Age-related osteoporosis w/o current pathological fracture Office Visit 12/08/2019 [facility] Noreen Cyr, K56.7 Ileus, 9:47a Assoc,pc CALL WORKER unspecified Hospitalists K21.9 Gastro-esophageal reflux disease without esophagitis F41.9 Anxiety disorder, unspecified K86.1 Other chronic pancreatitis G89.29 Other chronic pain Office Visit 11/30/2019 9:40a [facility] Internal Jayant Tenorio MD D50.9 Iron deficiency Medicine - Suite anemia, unspecified R M80.00xA Age-rel osteopor w current path fracture, unsp site, init R51 Headache F41.1 Generalized anxiety disorder K86.81 Exocrine pancreatic insufficiency M54.2 Cervicalgia M25.511 Pain in right shoulder 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 M80.032S Age-rel osteopor w current path fracture, l forearm, sequela Office Visit 11/10/2019 1:00p [facility] Internal Jayant Tenorio MD D50.9 Iron deficiency Medicine - Suite anemia, unspecified R M80.00xA Age-rel osteopor w current path fracture, unsp site, init R51 Headache F41.1 Generalized anxiety disorder N17.9 Acute kidney failure, unspecified K86.81 Exocrine pancreatic insufficiency M54.2 Cervicalgia M25.511 Pain in right shoulder 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 M25.532 Pain in left wrist Office Visit 11/02/2019 9:00a [facility] Internal Medicine Camden Rondon MD R51 Headache - Suite R K29.60 Other gastritis without bleeding M25.532 Pain in left wrist M25.511 Pain in right shoulder Z12.11 Encounter for screening for malignant neoplasm of colon F41.9 Anxiety disorder, unspecified M80.00xA Age-rel osteopor w current path fracture, unsp site, init Assessments Date Code Description Provider 02/07/2020 W05.0xxD Fall from non-moving wheelchair, Heidi Hidalgo, subsequent encounter 02/07/2020 G89.29 Other chronic pain Heidi Hidalgo, DO 02/07/2020 F41.1 Generalized anxiety disorder Heidi Hidalgo, DO 02/02/2020 D50.9 Iron deficiency anemia, unspecified Leon Mora MD 02/02/2020 J44.9 Chronic obstructive pulmonary disease, Leon Mora MD unspecified 02/02/2020 Z80.0 Family history of malignant neoplasm of Leon Mora MD digestive organs 01/16/2020 G43.909 Migraine, unspecified, not intractable, Jayant [...] 12/20/2019 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 and foot 12/20/2019 G57.92 Unspecified mononeuropathy of left lower Maximino Elizabeth M.D. limb 12/20/2019 G90.512 Complex regional pain syndrome I of left Maximino Elizabeth M.D. upper limb 12/13/2019 K21.9 Gastro-esophageal reflux disease without Leon Mora MD esophagitis 12/13/2019 R10.9 Unspecified abdominal pain Noreen Cyr, CALL WORKER 12/13/2019 K29.70 Gastritis, unspecified, without bleeding Leon Mora MD 12/13/2019 K21.9 Gastro-esophageal reflux disease without Noreen Cyr, EDYTA esophagitis 12/13/2019 K31.84 Gastroparesis Noreen Cyr, CALL WORKER 12/13/2019 F41.9 Anxiety disorder, unspecified Noreen Cyr, CALL WORKER 12/13/2019 G89.29 Other chronic pain Noreen Cyr, CALL WORKER 12/12/2019 R10.9 Unspecified abdominal pain Noreen Cyr, CALL WORKER 12/12/2019 F41.9 Anxiety disorder, unspecified Noreen Cyr, CALL WORKER 12/12/2019 G89.29 Other chronic pain Noreen Cyr, CALL WORKER 12/12/2019 K86.1 Other chronic pancreatitis Noreen Cyr, CALL WORKER 12/12/2019 K21.9 Gastro-esophageal reflux disease without Noreen Cyr, EDYTA esophagitis 12/12/2019 G43.909 Migraine, unspecified, not intractable, Noreen Cyr, CALL WORKER without status migrainosus 12/12/2019 Z59.0 Homelessness Noreen Cyr, CALL WORKER 12/11/2019 R10.9 Unspecified abdominal pain Noreen Cyr, CALL WORKER 12/11/2019 R10.9 Unspecified abdominal pain Rodri Kingston MD 12/11/2019 F41.9 Anxiety disorder, unspecified Noreen Cyr, CALL WORKER 12/11/2019 G89.29 Other chronic pain Noreen Cyr, CALL WORKER 12/11/2019 K86.1 Other chronic pancreatitis Noreen Cyr, CALL WORKER 12/11/2019 K21.9 Gastro-esophageal reflux disease without Noreen Cyr, EDYTA esophagitis 12/11/2019 G43.909 Migraine, unspecified, not intractable, Norene Cry, EDYTA without status migrainosus 12/11/2019 Z59.0 Homelessness Noreen Cyr, EDYTA 12/10/2019 R10.9 Unspecified abdominal pain Margretgallito Gary, PA 12/10/2019 R10.9 Unspecified abdominal pain Rodri Kingston MD 12/10/2019 K86.1 Other chronic pancreatitis Margretgallito Gary, PA 12/10/2019 K21.9 Gastro-esophageal reflux disease without Margret Gary , PA esophagitis 12/10/2019 F41.9 Anxiety disorder, unspecified Margretgallito [place], PA 12/10/2019 G89.29 Other chronic pain Margret Gary, PA 12/10/2019 Z59.0 Homelessness Margretgallito Gary, PA 12/09/2019 K56.609 Unspecified intestinal obstruction, Margretgallito Gary, PA unspecified as to partial versus complete [...] K21.9 Gastro-esophageal reflux disease without Noreen Cyr, CALL WORKER esophagitis 12/08/2019 F41.1 Generalized anxiety disorder Jayant Tenorio MD 12/08/2019 K86.81 Exocrine pancreatic insufficiency Jayant Tenorio MD 12/08/2019 M81.0 Age-related osteoporosis without current Jayant Tenorio MD pathological fracture 12/08/2019 F41.9 Anxiety disorder, unspecified Noreen Cyr, CALL WORKER 12/08/2019 K86.1 Other chronic pancreatitis Noreen Cyr, CALL WORKER 12/08/2019 G89.29 Other chronic pain Noreen Cyr, CALL WORKER 11/30/2019 D50.9 Iron deficiency anemia, unspecified Jayant [...] forearm, sequela 11/10/2019 D50.9 Iron deficiency anemia, dylanified Jayant Tenorio MD 11/10/2019 M80.00xA Age-related osteoporosis [...] encounter for fracture Plan of Treatment Future Appointment(s):04/05/2020 10:15 am - Leon Mora MD at [facility] Rdbgwzhfgkiqktwx04/01/2020 2:30 pm - Laz Prakash NP at [facility]02/21/2020 4:00 pm - Jayant Tenorio MD at [facility] Internal Medicine - [address]/29/2020 3:00 pm - Amaury Rodríguez MD at [facility]12/26/2019 - Jayant Tenorio MDF17.210 Nicotine dependence, cigarettes, uncomplicatedComments:Call [facility] to get nicotine replacement supplements.K21.9 Gastro-esophageal reflux disease without esophagitisComments: We changed the pantoprazole to 20mg twice a day from 40mg once a day. Follow-up with Dr. Mora of GI for a potential colonoscopy.Follow up:Week January 15.K31.84 QikskabnezqftK49.1 Other chronic pancreatitisComments:Call us with the name of the alternative to Zenpep/Creon.G43.909 Migraine, unspecified, not intractable, without status migrainosusComments:Follow-up with KhfjgounkP46.29 Other chronic painNew Medication:Duloxetine HCL 30 mg - take one cap xuqpcI18.9 Iron deficiency anemia, unspecifiedNew Medication:Venofer 20 mg/ml - 200mg x 5 days at infusion center Over 14 day period Functional Status Description No Information Available Mental Status Description No Information Available Referrals Refer to Dr Romero for Referral Status Appt Date Laz Prakash NP severe HAs Sent 02/01/2020 [address] [place] [address] [place] [id number] [phone] Kim Nguyen MD left peroneal neuritis left ankle Closed 02/09/[address] [place] [address] [phone] Amaury Rodríguez MD severe osteoporsis with "35-45" Patient Notified 02/29/2020 fractures in life [address] [place] [phone] Maximino Elizabeth MD recent left ankle fracture, severe osteoporosis. Sent [address] [facility] [address] [place], [place] [id number] [phone] Leon Mora MD nausea. ?recent EGD with concern for small area of Sent 12/15/2019 [facility], I don't have biopsy results yet. Hx of exocrine pancreatic insuficiency. [address] [place] [phone] Jemal Armendariz M.D. Chronic headaches. Sent 03/20/2020 [address] [place] [address] [place] [address] [phone] Pollo Medina MD Has chronic pain. She was following with pain Sent 00/ clinic in [place] and given oxycodone and asked to f/u in 2 weeks. [address] [place] [address] [phone]
--- OUTSIDE RECORDS SUMMARY | 2020-02-12 17:40 | XMS REPORT | Continuity of Care Document ---
:1955 External Reference #:[id number] Author Name Heidi Hidalgo DO (transmitted by agent of provider Kamilah Rai) Address [address] [place] [address] Care Team Providers Name Role Phone Laz Prakash NP - Family Care Team Information Biometric Technician [phone] Jayant Tenorio MD - Hospitalist Care Team Information Biometric Technician [phone] Problems Active Problems Provider Date Bipolar II disorder Leon Mora MD Onset: 12/21/1994 Note: admitted to [place] [address] several times 1999 to 2002; also anxiety, depression , and drug abuse; on clonapin BID in 2019 Pulmonary emphysema Leon Mora MD Onset: 02/04/2010 Note: still smoking in 2019 Iron deficiency anemia Leon Mora MD Onset: 02/05/2020 Note: Hg 9.6 MCV 69 on move back from [place] Oct 2019; stool OB negative 11/04 and [...] Nystatin 400,000-600,000 120ml Jayant Tenorio MD 01/19/2020 [id number]/ML units 4 times/day Suspension for 6 days Pantoprazole Sodium 1 by mouth twice 60tabs Jayant Tenorio MD 12/26/2019 a day [address] Valladares 1 tabs twice 60caps R10.9 Jayant Tenorio [...] Auto-Inject Pancreaze 1 capsule three 90caps Jayant Tenorio MD 01/11/2020 - 31229Golg times a day with 02/01/[address] [...] 12/08/2019 - 8.6mg Capsules 01/16/2020 Zenpep 1 capsule(37624C) 90caps R10.9 Jayant Tenorio MD 12/08/2019 - [id number] with each meal 01/11/[address] Bhatti Creon take 1 cap by 90caps K86.81 Jayant Tenorio MD 11/30/2019 - 97361Xvmh Caps mouth with every 12/08/2019 DR Magy [...] Tenorio MD 2018 - 11/17/2019 35mg Tablets Oxotkagntb-Fhascxw-K take 1 by mouth 30caps Shaniqua Gardner [...] DR Green take 1 tablet 90caps R51 Jazlynstkenny 11/02/2019 - 50-325-40mg every 4 hour as [...] H/L Range Note Date Laboratory test 01/30/2020 [facility] Troponin-I 0.01 ng/mL < 0.03 [address] (TnI) [place] [address] [phone] Laboratory test 01/30/2020 [facility] B-Type 114 pg/mL High <= [address] [address] Peptide BNP [phone] CBC Auto Diff 01/30/2020 [facility] White Blood 6.3 Normal 3.5 -10.[address] Count 10^3/[place] [address] [phone] Red Blood Count 4.09 10^6/uL Normal 3.70-4.87 [...] Blood Cells % 0.0 Comp Metabolic 01/30/2020 [facility] Sodium 142 mmol/L Normal 135-145 Panel [address] [place] [address] [phone] Potassium 4.3 mmol/L Normal 3.5-5.0 Chloride 108 [...] Egfr 82.3 >60 4 Laboratory test 01/30/2020 [facility] Troponin-I (TnI) 0.01 ng/ mL <0.03 5 finding [address] [place] [address] [phone] C Reactive Protein 55.63 mg/L High <8.01 Erythrocyte Sed Rate 32 mm/Hr High 0-29 CBC Auto 01/29/2020 [facility] White Blood 4.9 10^3/uL Normal 3.5-10.[address] [place] [address] [phone] Red Blood Count 4.09 10^6/uL Normal 3.70-4.87 [...] Blood Cells % 0.1 Comp Metabolic 01/29/2020 [facility] Sodium 140 mmol/L Normal 135-[address] [place] [address] [phone] Chloride 108 mmol/L Normal 101-111 Co2 Carbon [...] U/L 13-39 9 Laboratory test finding 01/29/2020 [facility] Amylase 26 U/L Low 29-[address] [place] [address] [phone] Lipase < 10 U/L Low 11.0-82.0 C Reactive Protein 22.47 mg/L High <8.01 Urine Culture And 01/18/2020 [facility] Urine Culture SEE RESULT [address] [place] [address] [phone] Urinalysis Profile 01/18/2020 [facility] Urine Color Straw [address] [place] [address] [phone] Urine Appearance Clear Urine Specific [place] 1.009 Low 1.010-1.030 Urine pH 6.0 Normal [...] Cell Present Abnormal Absent CBC Auto 01/18/2020 [facility] White Blood 7.0 10^3/uL Normal 3.5-10.[address] [place] [address] [phone] Red Blood Count 4.35 10^6/uL Normal 3.70-4.87 [...] Blood Cells % 0.0 Laboratory test 01/18/2020 [facility] Magnesium 1.6 mg/dL Low 1.9-2.7 finding [address] [place] [address] [phone] Lipase 16 U/L Normal 11.0-82.0 C Reactive Protein 8.08 mg/L High <8.01 Lactic Acid 1.1 mmol/L Normal 0.5-2.0 13 Comp Metabolic 01/18/2020 [facility] Sodium 138 mmol/L Normal 135-145 Panel [address] [place] [address] [phone] Potassium 4.6 mmol/L Normal 3.5-5.0 Chloride 103 [...] Egfr 80.1 >60 14 Laboratory test 01/07/2020 [facility] Lactic Acid 1.0 mmol/L Normal 0.5-2.0 15 finding [address] [place] [address] [phone] Comp Metabolic 01/07/2020 [facility] Sodium 137 mmol/L Normal 135-145 Panel [address] [place] [address] [phone] Potassium 4.4 mmol/L Normal 3.5-5.0 Chloride 101 [...] Egfr 88.4 >60 16 Laboratory test 01/07/2020 [facility] Lipase < 10 U/L Low 11.0 -82.0 finding [address] [place] [address] [phone] CBC Auto Diff 01/07/2020 [facility] White Blood 5.3 Normal 3.5 -10.8 [address] [facility] Count 10^3/[place] [address] [phone] Red Blood Count 4.93 10^6/uL High 3.70-4.87 [...] Red Blood Cells % 0.0 Drug 12/15/2019 [facility] Urine Presumptive Abnormal None [address] Hydrocodone Posi <[place] [address] Screen NOTE> Pain [phone] Clinic Urine Oxycodone Screen None Detected None [...] None Detected None Detect 21 Hydrocodone 12/15/2019 [facility] Hydrocodone-by Negative Cutoff: Confiramtion, [address] LC-MS/MS ng/mL 25 [place] [address] [phone] Norhydrocodone-by LC-MS/MS Negative ng/mL Cutoff: 25 Hydromorphone-by LC-MS/MS 259 ng/mL Cutoff: 25 Hydrocodone Interpretation Positive. 22 Laboratory test 12/08/2019 [facility] Pathologist Review (SEE NOTE) [address] [place] [address] [phone] Cell Morphology 12/08/2019 [facility] Polychromasia 1+ [address] [place] [address] [phone] Anisocytosis 2+ CBC Auto 12/08/2019 [facility] White Blood 6.7 10^3/uL Normal 3.5-10.[address] [place] [place] [address] [phone] Red Blood Count 4.09 10^6/uL Normal 3.70-4.87 [...] Blood Cells % 0.0 Urinalysis Profile 12/08/2019 [facility] Urine Color Straw [address] [place] [address] [phone] Urine Appearance Clear Urine Specific [place] 1.006 Low 1.010-1.030 Urine pH 6.0 Normal 5-9 Urine Urobilinogen Negative Negative Urine Ketones Negative Negative Urine Protein Negative Negative Urine Leukocytes Negative Negative Urine Blood Negative Negative Urine Nitrite Negative Negative Urine Bilirubin Negative Negative Urine Glucose Negative Negative Laboratory test 12/08/2019 [facility] Lipase < 10 U/L Low 11.0 -82.0 finding [address] [place] [address] [phone] C Reactive Protein 5.19 mg/L Normal <8.01 Comp Metabolic 12/08/2019 [facility] Sodium 137 mmol/L Normal 135-145 Panel [address] [place] [address] [phone] Potassium 4.1 mmol/L Normal 3.5-5.0 Chloride 105 [...] Egfr 78.0 >60 24 Laboratory test 12/08/2019 [facility] Lactic Acid 0.8 mmol/L Normal 0.5-2.0 25 finding [address] [place] [address] [phone] Laboratory test 12/08/2019 [facility] Lactic Acid 1.0 mmol/L Normal 0.5-2.0 26 finding [address] [place] [address] [phone] BMP W/Egfr 11/24/2019 [facility] Sodium 139 mmol/L Normal 135- 145 [address] [place] [address] [phone] Potassium 4.5 mmol/L Normal 3.5-5.0 Chloride 104 mmol/L Normal 101-111 Co2 Carbon Dioxide 24 mmol/L Normal 22-32 Anion Gap 11 mmol/L Normal 2-11 Glucose 97 mg/dL Normal 70-100 Blood Urea Nitrogen 19 mg/dL Normal 6-24 Creatinine 0.78 mg/dL Normal 0.51-0.95 BUN/Creatinine Ratio 24.4 High 8-20 Calcium 9.7 mg/dL Normal 8.6-10.3 Egfr Non- 74.1 >60 Egfr 89.7 >60 27 Spep Protein 11/24/2019 [facility] Total Protein(Pep) 7.4 g/dL 6.3 - 7.9 Electro, Serum [address] [place] [address] [phone] Albumin 3.6 g/dL 3.4-4.7 Alpha-1 Globulin 0.3 g/dL 0.1-0.3 Alpha-2 Globulin 1.3 g/dL Abnormal 0.6-1.0 Beta Globulin 1.3 g/dL Abnormal 0.7-1.2 Gamma Globulin 1.0 g/dL 0.6-1.6 Albumin/Globulin Ratio 0.93 Impression See Comment 28 [place]/Lambda Free 11/24/2019 [facility] [place] Free 1.98 mg/dL Abnormal [address]ains [address] [place] [address] [phone] Lambda Free Light Chain 1.00 mg/dL 30 [place]/Lambda Free Light Chain 1.98 Abnormal 31 Laboratory test 11/10/2019 [facility] Vitamin D 30.9 Normal 20 -50 [address] Total 25(Oh) ng/[place] [address] [phone] Pthi 11/10/2019 [facility] Calcium (PTH 10.1 Normal 8.6-10.[address] Intact) mg/[place] [address] [phone] PTH Intact 56.4 pg/mL Normal 12-88 Celiac Panel 11/10/2019 [facility] Tissue Transglutaminase <1.2 U/mL [address] [place] [address] [phone] Immunoglobulin A 256 mg/dL 61 - 356 Celiac Interpretation See Comment 34 Iron & Iron 11/10/2019 [facility] Total Iron 447 g/dL Normal 250-[address] [place] [address] Capacity [phone] Transferrin 319 mg/dL Normal 203-362 Iron < 20 g/dL Low 50-212 Unsaturated Iron Binding < 432 g/dL % Iron Saturation 4 % Low 15-55 Laboratory test 11/10/2019 [facility] Ferritin 4.8 ng/mL Low 11-[address] [place] [address] [phone] 1 Troponin-I testing on Plasma Separator Tubes (PST) has a known false positive rate of 0.20-0.40%. All positive troponins reflex immediately to secondary confirmatory testing. Using the MailWriterI 800 Access Immunoassay systems, the 99th percentile upper reference limit was demonstrated to be < 0.03 ng/mL. 2 Consistent with Previous Results Reported on 3/4/20 3 Consistent with Previous Results Reported on [...] immediately to secondary confirmatory testing. Using the Ornicept DxI 800 Access Immunoassay systems, the 99th [...] [address]: Easton Rapp MD Acct: [id number] Unit: [id number] AGE: 64 Location: ED Re01/18/20 SEX: F Status: DEP ER SPEC: [id number] JACQUELIN: 01/18/[address]: David MCFARLAND REQ: [id number] RECD: 01/18/20 STATUS: ANDREA TORRES DR: Easton Tenorio MD _ SOURCE: URINE SPDESC: ORDERED: Urine Culture Procedure Result Reported Site Urine Culture Final 01/20/20- 1201 ML Organism 1 STREP GROUP B [place] Count 25-50,000 (Moderate) CFU/ML Organism 2 NORMAL CHAITANYA [place] Count 10-25,000 (Moderate) CFU/ML Susceptibility testing of penicillins and other B-lactams approved by FDA for treatment of Streptococcus pyogenes (Group A Strep) and Streptococcus agalactiae (Group B Strep) is not necessary for clinical purposes and need not be done routinely, since as with vancomycin, resistant strains have not been recognized. (CLSI L815-Q13;p.66) Positive isolates will be saved for one week. Please call the Microbiology Laboratory if further susceptibility testing is needed. * ML - Main Lab . END OF REPORT DEPARTMENT OF PATHOLOGY, [address] [place] [address] Giuseppe Bailey M.D. Director [facility] # [id number] 11 Consistent with Previous Results Reported on 01/07/20. 12 Consistent with Previous Results Reported on 12/11/19. 13 Specimen hemolyzed. Result may not be valid. [facility] Severe Sepsis and Septic Shock [...] 5 Kidney failure <15 (or dialysis) 15 [facility] Severe Sepsis and Septic Shock [...] developed and its performance characteristics determined by [facility] in a manner consistent with CLIA requirements. This test has not been cleared or approved by the U.S. Food and Drug Administration. Test Performed by: [facility] [address] [place] [address] Roto Rooter Operator: Gene Conn M.D. Ph.D.; CLIA# [id number] 23 Microcytic anemia with red cell indices [...] Specimen hemolyzed. Result may not be valid. [facility] Severe Sepsis and Septic Shock Management Bundle Measure requires all lactic acids initially measuring >2.0 mmol/L be repeated. 26 [facility] Severe Sepsis and Septic Shock [...] protein on serum electrophoresis. Test Performed by: [facility] [place] [address] Roto Rooter Operator: Gene Conn M.D. Ph.D.; CLIA# [id number] 29 REFERENCE VALUE 0.3300-1.94 30 REFERENCE VALUE 0.5700-2.63 31 Elevated free light chain ratios between 1.66 and 3.00 may occur due to polyclonal hypergammaglobulinemia or impaired renal clearance. An isolated increased free light chain ratio in this range should be interpreted with caution, and clinical correlation is recommended. REFERENCE VALUE 0.2600-1.65 Test Performed by: [place] [address] Roto Rooter Operator: Gene Conn M.D. Ph.D.; CLIA# [id number] 32 Total 25-Hydroxyvitamin D2 and D3 (25-OH-VitD) <10 ng/mL (severe deficiency) 10-19 ng/mL (mild to moderate deficiency) 20-50 ng/mL (optimum levels) 51-80 ng/mL (increased risk of hypercalciuria) >80 ng/mL (toxicity possible) 33 REFERENCE VALUE <4.0 (Negative) Test Performed by: [facility] [place] [address] Roto Rooter Operator: Gene Conn M.D. Ph.D.; CLIA# [id number] 34 Negative serology. Celiac disease unlikely. However, approximately 10% of patients with celiac disease are seronegative. Also, patients who are already adhering to a gluten-free diet may be seronegative. If celiac disease is highly clinically suspected, consider HLA-DQ typing. Test Performed by: [facility] [place] [address] Roto Rooter Operator: Gene Conn M.D. Ph.D.; CLIA# [id number] Procedures Date Code Description Status 01/02/202095667 Injection Single Tendon Origin/Insertion Completed 12/13/2019 41144 Endoscopy Upper GI Biopsy Completed 12/05/2019 [id number] Bone Mineral Density Test Completed Medical Devices Description No Information Available Encounters Type Date Location Provider Dx Diagnosis Office Visit 02/02/2020 [facility] G[facility]enterology Leon Mei D50.9 Iron deficiency 9:00a MD [place] anemia, unspecified J44.9 Chronic obstructive pulmonary disease, unspecified Z80.0 Family history of malignant neoplasm of digestive organs Office Visit 01/16/2020 8:40a [facility] Internal Jayant Tenorio, G43.909 Migraine, unsp, not Medicine - intractable, Suite R without status migrainosus J32.9 Chronic sinusitis, unspecified K31.84 Gastroparesis K86.1 Other chronic pancreatitis D50.9 Iron deficiency anemia, unspecified K58.1 Irritable bowel syndrome with constipation Office Visit 01/02/2020 Ramin Anders M77.12 Lateral 1:00p [facility]. 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 G57.92 Unspecified mononeuropathy of left lower limb G90.512 Complex regional pain syndrome I of left upper limb Office Visit 12/13/2019 [facility] Noreen Cyr, R10.9 Unspecified 9:52a Assoc,pc MID LEVEL PRACTITIONER abdominal pain Hospitalists K21.9 Gastro-esophageal reflux disease without esophagitis K31.84 Gastroparesis F41.9 Anxiety disorder, unspecified G89.29 Other chronic pain [facility] R10.9 Unspecified 9:51a Assoc,pc MID LEVEL PRACTITIONER abdominal pain Hospitalists F41.9 Anxiety disorder, unspecified G89.29 Other chronic pain K86.1 Other chronic pancreatitis K21.9 Gastro-esophageal reflux disease without esophagitis G43.909 Migraine, unsp, not intractable, without status migrainosus Z59.0 Homelessness Office Visit 12/11/2019 [facility] Noreen Cyr, R10.9 Unspecified 9:51a Assoc,pc MID LEVEL PRACTITIONER abdominal pain Hospitalists F41.9 Anxiety disorder, unspecified G89.29 Other chronic pain K86.1 Other chronic pancreatitis K21.9 Gastro-esophageal reflux disease without esophagitis G43.909 Migraine, unsp, not intractable, without status migrainosus Z59.0 Homelessness Office Visit 12/11/2019 [facility] Rodri S. R10.9 Unspecified 7:00a [facility] Kingston MD abdominal pain Office Visit 12/10/2019 [facility] R10.9 Unspecified 9:50a Assoc,pc BRUNA Gary abdominal pain Hospitalists K86.1 Other chronic pancreatitis K21.9 Gastro-esophageal reflux disease without esophagitis F41.9 Anxiety disorder, unspecified G89.29 Other chronic pain Z59.0 Homelessness Office Visit 12/10/2019 7:00a Surgical Rodri S. R10.9 Unspecified [facility] MD Vashti abdominal pain Clinical Law Professor Office Visit 12/09/2019 7:00a Surgical Rodri S. R10.9 Unspecified [facility]hti abdominal pain Clinical Law Professor R11.0 Nausea [facility], K56.7 Ileus, 9:47a Assoc,pc MID LEVEL PRACTITIONER unspecified Hospitalists K21.9 Gastro-esophageal reflux disease without esophagitis F41.9 Anxiety disorder, unspecified K86.1 Other chronic pancreatitis G89.29 Other chronic pain Office Visit 12/08/2019 9:40a [facility] Internal Jayant Tenorio MD R10.9 Unspecified Medicine - Suite abdominal pain R D50.9 Iron deficiency anemia, unspecified F41.1 Generalized anxiety disorder K86.81 Exocrine pancreatic insufficiency M81.0 Age-related osteoporosis w/o current pathological fracture Office Visit 11/30/2019 9:40a [facility] Internal Jayant Tenorio MD D50.9 Iron deficiency Medicine - Suite anemia, unspecified R M80.00xA Age-rel osteopor w current path fracture, unsp site, init R51 Headache F41.1 Generalized anxiety disorder K86.81 Exocrine pancreatic insufficiency M54.2 Cervicalgia M25.511 Pain in right shoulder 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 M80.032S Age-rel osteopor w current path fracture, l forearm, sequela Office Visit 11/10/2019 1:00p [facility] Internal Jayant Tenorio MD D50.9 Iron deficiency Medicine - Suite anemia, unspecified R M80.00xA Age-rel osteopor w current path fracture, unsp site, init R51 Headache F41.1 Generalized anxiety disorder N17.9 Acute kidney failure, unspecified K86.81 Exocrine pancreatic insufficiency M54.2 Cervicalgia M25.511 Pain in right shoulder 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 M25.532 Pain in left wrist Office Visit 11/02/2019 9:00a [facility] Internal Medicine Camden Rondon MD R51 Headache - Suite R K29.60 Other gastritis without bleeding M25.532 Pain in left wrist M25.511 Pain in right shoulder Z12.11 Encounter for screening for malignant neoplasm of colon F41.9 Anxiety disorder, unspecified M80.00xA Age-rel osteopor w current path fracture, unsp site, init Assessments Date Code Description Provider 02/07/2020 W05.0xxD Fall from non-moving wheelchair, Heidi Hidalgo, DO subsequent encounter 02/07/2020 G89.29 Other chronic pain [...] Tenorio MD 12/26/2019 D50.9 Iron deficiency anemia, dylanified Jayant Tenorio MD 12/20/2019 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 and foot 12/20/2019 G57.92 Unspecified mononeuropathy of left lower Maximino Elizabeth M.D. limb 12/20/2019 G90.512 Complex regional pain syndrome I of left Maximino Elizabeth M.D. upper limb 12/13/2019 K21.9 Gastro-esophageal reflux disease without Leon Mora MD esophagitis 12/13/2019 R10.9 Unspecified abdominal pain Noreen Cyr, MID LEVEL PRACTITIONER 12/13/2019 K29.70 Gastritis, unspecified, without bleeding Leon Mora MD 12/13/2019 K21.9 Gastro-esophageal reflux disease without Noreen Cyr, MID LEVEL PRACTITIONER esophagitis 12/13/2019 K31.84 Gastroparesis Noreen Cyr, MID LEVEL PRACTITIONER 12/13/2019 F41.9 Anxiety disorder, unspecified Noreengabrielle Aguayok, MID LEVEL PRACTITIONER 12/13/2019 G89.29 Other chronic pain Noreen RJacqueline, MID LEVEL PRACTITIONER 12/12/2019 R10.9 Unspecified abdominal pain Noreen RRumak, MID LEVEL PRACTITIONER 12/12/2019 F41.9 Anxiety disorder, unspecified Noreen RRumak, MID LEVEL PRACTITIONER 12/12/2019 G89.29 Other chronic pain Noreen RRumak, MID LEVEL PRACTITIONER 12/12/2019 K86.1 Other chronic pancreatitis Noreen Cyr, MID LEVEL PRACTITIONER 12/12/2019 K21.9 Gastro-esophageal reflux disease without Noreen RRumak, MID LEVEL PRACTITIONER esophagitis 12/12/2019 G43.909 Migraine, unspecified, not intractable, Noreen Cyr, MID LEVEL PRACTITIONER without status migrainosus 12/12/2019 Z59.0 Homelessness Noreen Cyr, MID LEVEL PRACTITIONER 12/11/2019 R10.9 Unspecified abdominal pain Noreen RJacqueline, MID LEVEL PRACTITIONER 12/11/2019 R10.9 Unspecified abdominal pain Rodri Kingston MD 12/11/2019 F41.9 Anxiety disorder, unspecified Noreen RRumak, MID LEVEL PRACTITIONER 12/11/2019 G89.29 Other chronic pain Noreen RRumak, MID LEVEL PRACTITIONER 12/11/2019 K86.1 Other chronic pancreatitis Noreen Cyr, MID LEVEL PRACTITIONER 12/11/2019 K21.9 Gastro-esophageal reflux disease without Noreen RJacqueline, MID LEVEL PRACTITIONER esophagitis 12/11/2019 G43.909 Migraine, unspecified, not intractable, Noreen R.Virgil, EDYTA without status migrainosus 12/11/2019 Z59.0 Homelessness Noreen Cyr NP 12/10/2019 R10.9 Unspecified abdominal pain Margret Gary, PA 12/10/2019 R10.9 Unspecified abdominal pain Rodri Kingston MD 12/10/2019 K86.1 Other chronic pancreatitis Margret Gary, PA 12/10/2019 K21.9 Gastro-esophageal reflux disease [...] MD 12/09/2019 K86.1 Other chronic pancreatitis Margret Gary, PA 12/09/2019 R11.0 Nausea Rodri Kingston [...] disease without Noreen Cyr, EDYTA esophagitis 12/08/2019 F41.1 Generalized anxiety disorder Jayant Tenorio MD 12/08/2019 K86.81 Exocrine pancreatic insufficiency Jayant Tenorio MD 12/08/2019 M81.0 Age-related osteoporosis without current Jayant Tenorio MD pathological fracture 12/08/2019 F41.9 Anxiety disorder, unspecified Noreen Cyr, MID LEVEL PRACTITIONER 12/08/2019 K86.1 Other chronic pancreatitis Noreen Cyr, MID LEVEL PRACTITIONER 12/08/2019 G89.29 Other chronic pain Noreen Cyr, MID LEVEL PRACTITIONER 11/30/2019 D50.9 Iron deficiency anemia, unspecified Jayant [...] MD 11/10/2019 M25.532 Pain in left wrist aJyant Tenorio MD 11/02/2019 R51 Headache Camden Rondon [...] 10:15 am - Leon Mora MD at [facility] Kceunvygyjkngscl73/01/2020 2:30 pm - Laz Prakash NP at [place] [facility]02/21/2020 4:00 pm - Jayant Tenorio MD at [facility] Internal Medicine - [address]/29/2020 3:00 pm - Amaury Rodríguez MD at [place] [facility]12/26/2019 - Jayant Tenorio MDF17.210 Nicotine dependence, cigarettes, uncomplicatedComments:Call [facility] to get nicotine replacement supplements.K21.9 Gastro-esophageal reflux disease without esophagitisComments: We changed the pantoprazole to 20mg twice a day from 40mg once a day. Follow-up with Dr. Mora of GI for a potential colonoscopy.Follow up:Week of January 15.K31.84 RcfvylhxmsgnbL57.1 Other chronic pancreatitisComments:Call us with the name of the alternative to Zenpep/Creon.G43.909 Migraine, unspecified, not intractable, without status migrainosusComments:Follow-up with GswxbamfnS75.29 Other chronic painNew Medication:Duloxetine HCL 30 mg - take one cap dmgkzL34.9 Iron deficiency anemia, unspecifiedNew Medication:Venofer 20 mg/ml - 200mg x 5 days at infusion center Over 14 day period Functional Status Description No Information Available Mental Status Description No Information Available Referrals Refer to Reason for Referral Status Appt Date Laz Prakash NP severe HAs Sent 02/01/2020 [address] [place] [address] [place] [id number] [phone] Kim Nguyen MD left peroneal neuritis left ankle Closed 02/09/[address] [place], [place] [id number] [phone] Amaury Rodríguez MD severe osteoporsis with "35-45" Patient Notified 02/29/2020 fractures in life [address] [facility] [address] [place] [phone] Maximino Elizabeth MD recent left ankle fracture, severe osteoporosis. Sent [address] [facility] [address] [place], [place] [id number] [phone] Leon Mora MD nausea. ?recent EGD with concern for small area of Sent 12/15/2019 [place], I don't have biopsy results yet. Hx of exocrine pancreatic insuficiency. [address] [place] [id number] [phone] Jemal Armendariz M.D. Chronic headaches. Sent 03/20/2020 [address] [place] [address] [phone] Pollo Medina MD Has chronic pain. She was following with [facility] in [place] and given oxycodone and asked to f/u in 2 weeks. [address] [place] [address] [phone]
--- OUTSIDE RECORDS SUMMARY | 2020-02-12 17:40 | XMS REPORT | Continuity of Care Document ---
:1955 External Reference #:[id number] Author Name Leon Mora MD (transmitted by agent of provider [address]) Address [address] [place] [address] Care Team Providers Name Role Phone Laz Prakash NP - Family Care Team Information Tank Hoop Bender [phone] Jayant Tenorio MD - Hospitalist Care Team Information Tank Hoop Bender [phone] Problems Active Problems Provider Date Bipolar II disorder Leon Mora MD Onset: 12/21/1994 Note: admitted to [place] [address] several times 1999 to 2002; also anxiety, depression , and drug abuse; on clonapin BID in 2019 Pulmonary emphysema Leon Mora MD Onset: 02/04/2010 Note: still smoking in 2019 Iron deficiency anemia Leon Mora MD Onset: 02/05/2020 Note: Hg 9.6 MCV 69 on move back from [place] Oct 2019; stool OB negative 11/04 and [...] Nystatin 400,000-600,000 120ml Jayant Tenorio MD 01/19/2020 [id number]/ML units 4 times/day Suspension for 6 days [...] three 90caps Jayant Tenorio MD 01/11/2020 - 15927Lpet times a day with 02/01/[address] [...] 12/08/2019 - 8.6mg Capsules 01/16/2020 Zenpep 1 capsule(60523C) 90caps R10.9 Jayant Tenorio MD 12/08/2019 - [id number] with each meal 01/11/[address] Bhatti Creon take 1 cap by 90caps K86.81 Jayant Tenorio MD 11/30/2019 - 39385Kpdz Caps mouth with every 12/08/2019 DR Magy [...] Tenorio MD 2018 - 11/17/2019 35mg Tablets Xkqqkgpgax-Lpgrekc-B take 1 by mouth 30caps Shaniqua Gardner [...] H/L Range Note Date Laboratory test 01/30/2020 [facility] Troponin-I 0.01 ng/mL < 0.03 [address] (TnI) [place] [address] [phone] Laboratory test 01/30/2020 [facility] B-Type 114 pg/mL High <= [address] [place] [address] Peptide BNP [phone] CBC Auto Diff 01/30/2020 [facility] White Blood 6.3 Normal 3.5 -10.[address] Count 10^3/[place] [address] [phone] Red Blood Count 4.09 10^6/uL Normal 3.70-4.87 [...] Blood Cells % 0.0 Comp Metabolic 01/30/2020 [facility] Sodium 142 mmol/L Normal 135-145 Panel [address] [place], [place] [id number] [phone] Potassium 4.3 mmol/L Normal 3.5-5.0 Chloride 108 [...] Egfr 82.3 >60 4 Laboratory test 01/30/2020 [facility] Troponin-I (TnI) 0.01 ng/ mL <0.03 5 finding [address] [place] [address] [phone] C Reactive Protein 55.63 mg/L High <8.01 Erythrocyte Sed Rate 32 mm/Hr High 0-29 CBC Auto 01/29/2020 [facility] White Blood 4.9 10^3/uL Normal 3.5-10.[address] [place] [address] [phone] Red Blood Count 4.09 10^6/uL Normal 3.70-4.87 [...] Blood Cells % 0.1 Comp Metabolic 01/29/2020 [facility] Sodium 140 mmol/L Normal 135-[address] [place] [address] [phone] Chloride 108 mmol/L Normal 101-111 Co2 Carbon [...] U/L 13-39 9 Laboratory test finding 01/29/2020 [facility] Amylase 26 U/L Low 29-[address] [place] [address] [phone] Lipase < 10 U/L Low 11.0-82.0 C Reactive Protein 22.47 mg/L High <8.01 Urine Culture And 01/18/2020 [facility] Urine Culture SEE RESULT [address] [place] [address] [phone] Urinalysis Profile 01/18/2020 [facility] Urine Color Straw [address] [place] [address] [phone] Urine Appearance Clear Urine Specific [place] 1.009 Low 1.010-1.030 Urine pH 6.0 Normal [...] Cell Present Abnormal Absent CBC Auto 01/18/2020 [facility] White Blood 7.0 10^3/uL Normal 3.5-10.[address] [place] [address] [phone] Red Blood Count 4.35 10^6/uL Normal 3.70-4.87 [...] Blood Cells % 0.0 Laboratory test 01/18/2020 [facility] Magnesium 1.6 mg/dL Low 1.9-2.7 finding [address] [place] [address] [phone] Lipase 16 U/L Normal 11.0-82.0 C Reactive Protein 8.08 mg/L High <8.01 Lactic Acid 1.1 mmol/L Normal 0.5-2.0 13 Comp Metabolic 01/18/2020 [facility] Sodium 138 mmol/L Normal 135-145 Panel [address] [place] [address] [phone] Potassium 4.6 mmol/L Normal 3.5-5.0 Chloride 103 [...] Egfr 80.1 >60 14 Laboratory test 01/07/2020 [facility] Lactic Acid 1.0 mmol/L Normal 0.5-2.0 15 finding [address] [place] [address] [phone] Comp Metabolic 01/07/2020 [facility] Sodium 137 mmol/L Normal 135-145 Panel [address] [place] [address] [phone] Potassium 4.4 mmol/L Normal 3.5-5.0 Chloride 101 [...] Egfr 88.4 >60 16 Laboratory test 01/07/2020 [facility] Lipase < 10 U/L Low 11.0 -82.0 finding [address] [place] [address] [phone] CBC Auto Diff 01/07/2020 [facility] White Blood 5.3 Normal 3.5 -10.8 [address] [facility] Count 10^3/[place] [address] [phone] Red Blood Count 4.93 10^6/uL High 3.70-4.87 [...] Red Blood Cells % 0.0 Drug 12/15/2019 [facility] Urine Presumptive Abnormal None [address] Hydrocodone Posi <[place] [address] Screen NOTE> Pain [phone] Clinic Urine Oxycodone Screen None Detected None [...] None Detected None Detect 21 Hydrocodone 12/15/2019 [facility] Hydrocodone-by Negative Cutoff: Confiramtion, [address] LC-MS/MS ng/mL 25 [place] [address] [phone] Norhydrocodone-by LC-MS/MS Negative ng/mL Cutoff: 25 Hydromorphone-by LC-MS/MS 259 ng/mL Cutoff: 25 Hydrocodone Interpretation Positive. 22 Laboratory test 12/08/2019 [facility] Pathologist Review (SEE NOTE) [address] [place] [address] [phone] Cell Morphology 12/08/2019 [facility] Polychromasia 1+ [address] [place] [address] [phone] Anisocytosis 2+ CBC Auto 12/08/2019 [facility] White Blood 6.7 10^3/uL Normal 3.5-10.[address] [place] [address] [phone] Red Blood Count 4.09 10^6/uL Normal 3.70-4.87 [...] Blood Cells % 0.0 Urinalysis Profile 12/08/2019 [facility] Urine Color Straw [address] [place] [address] [phone] Urine Appearance Clear Urine Specific [place] 1.006 Low 1.010-1.030 Urine pH 6.0 Normal 5-9 Urine Urobilinogen Negative Negative Urine Ketones Negative Negative Urine Protein Negative Negative Urine Leukocytes Negative Negative Urine Blood Negative Negative Urine Nitrite Negative Negative Urine Bilirubin Negative Negative Urine Glucose Negative Negative Laboratory test 12/08/2019 [facility] Lipase < 10 U/L Low 11.0 -82.0 finding [address] [place] [address] [phone] C Reactive Protein 5.19 mg/L Normal <8.01 Comp Metabolic 12/08/2019 [facility] Sodium 137 mmol/L Normal 135-145 Panel [address] [place] [address] [phone] Potassium 4.1 mmol/L Normal 3.5-5.0 Chloride 105 [...] Egfr 78.0 >60 24 Laboratory test 12/08/2019 [facility] Lactic Acid 0.8 mmol/L Normal 0.5-2.0 25 finding [address] [place] [address] [phone] Laboratory test 12/08/2019 [facility] Lactic Acid 1.0 mmol/L Normal 0.5-2.0 26 finding [address] [place] [address] [phone] BMP W/Egfr 11/24/2019 [facility] Sodium 139 mmol/L Normal 135- [address] [place] [address] [phone] Potassium 4.5 mmol/L Normal 3.5-5.0 Chloride 104 mmol/L Normal 101-111 Co2 Carbon Dioxide 24 mmol/L Normal 22-32 Anion Gap 11 mmol/L Normal 2-11 Glucose 97 mg/dL Normal 70-100 Blood Urea Nitrogen 19 mg/dL Normal 6-24 Creatinine 0.78 mg/dL Normal 0.51-0.95 BUN/Creatinine Ratio 24.4 High 8-20 Calcium 9.7 mg/dL Normal 8.6-10.3 Egfr Non- 74.1 >60 Egfr 89.7 >60 27 Spep Protein 11/24/2019 [facility] Total Protein(Pep) 7.4 g/dL 6.3 - 7.9 Electro, Serum [address] [place] [address] [phone] Albumin 3.6 g/dL 3.4-4.7 Alpha-1 Globulin 0.3 g/dL 0.1-0.3 Alpha-2 Globulin 1.3 g/dL Abnormal 0.6-1.0 Beta Globulin 1.3 g/dL Abnormal 0.7-1.2 Gamma Globulin 1.0 g/dL 0.6-1.6 Albumin/Globulin Ratio 0.93 Impression See Comment 28 [place]/Lambda Free 11/24/2019 [facility] [place] Free 1.98 mg/dL Abnormal [address] [place] [address] [phone] Lambda Free Light Chain 1.00 mg/dL 30 [place]/Lambda Free Light Chain 1.98 Abnormal 31 Laboratory test 11/10/2019 [facility] Vitamin D 30.9 Normal 20 -50 [address] Total 25(Oh) ng/[place] [address] [phone] Pthi 11/10/2019 [facility] Calcium (PTH 10.1 Normal 8.6-10.[address] Intact) mg/[place] [address] [phone] PTH Intact 56.4 pg/mL Normal 12-88 Celiac Panel 11/10/2019 [facility] Tissue Transglutaminase <1.2 U/mL [address] [place] [address] [phone] Immunoglobulin A 256 mg/dL 61 - 356 Celiac Interpretation See Comment 34 Iron & Iron 11/10/2019 [facility] Total Iron 447 g/dL Normal 250-[address] [place] [address] Capacity [phone] Transferrin 319 mg/dL Normal 203-362 Iron < 20 g/dL Low 50-212 Unsaturated Iron Binding < 432 g/dL % Iron Saturation 4 % Low 15-55 Laboratory test 11/10/2019 [facility] Ferritin 4.8 ng/mL Low 11-[address] [place] [address] [phone] 1 Troponin-I testing on Plasma Separator Tubes (PST) has a known false positive rate of 0.20-0.40%. All positive troponins reflex immediately to secondary confirmatory testing. Using the MedPlexus DxI 800 Access Immunoassay systems, the 99th [...] immediately to secondary confirmatory testing. Using the MedPlexus DxI 800 Access Immunoassay systems, the 99th [...] [address]: Easton Rapp MD Acct: [id number] Unit: [id number] AGE: 64 Location: ED Re01/18/20 SEX: F Status: DEP ER SPEC: [id number] JACQUELIN: 01/18/[address] [facility] [address]: David MCFARLAND REQ: [id number] RECD: 01/18/20 STATUS: COMP MELISSA DR: Easton Tenorio MD _ SOURCE: [facility]: Urine Culture Procedure Result Reported Site Urine Culture Final 01/20/20- 1201 ML Organism 1 STREP GROUP B [place] Count 25-50,000 (Moderate) CFU/ML Organism 2 NORMAL CHAITANYA [place] Count 10-25,000 (Moderate) CFU/ML Susceptibility testing of penicillins and other B-lactams approved by FDA for treatment of Streptococcus pyogenes (Group A Strep) and Streptococcus agalactiae (Group B Strep) is not necessary for clinical purposes and need not be done routinely, since as with vancomycin, resistant strains have not been recognized. (CLSI C043-Y59;p.66) Positive isolates will be saved for one week. Please call the Microbiology Laboratory if further susceptibility testing is needed. * ML - Main Lab . END OF REPORT DEPARTMENT OF PATHOLOGY, [address] [place] [address] Giuseppe Bailey M.D. Director [facility] # [id number] 11 Consistent with Previous Results Reported on 01/07/20. 12 Consistent with Previous Results Reported on 12/11/19. 13 Specimen hemolyzed. Result may not be valid. [facility] Severe Sepsis and Septic Shock Management [...] 5 Kidney failure <15 (or dialysis) 15 [facility] Severe Sepsis and Septic Shock Management [...] its performance characteristics determined by [facility] in a manner consistent with CLIA requirements. This test has not been cleared or approved by the U.S. Food and Drug Administration. Test Performed by: [facility] [address] [place] [address] Engineer/Conductor: Gene Conn M.D. Ph.D.; CLIA# [id number] 23 Microcytic anemia with red cell indices [...] Specimen hemolyzed. Result may not be valid. [facility] Severe Sepsis and Septic Shock Management Bundle Measure requires all lactic acids initially measuring >2.0 mmol/L be repeated. 26 [facility] Severe Sepsis and Septic Shock Management [...] protein on serum electrophoresis. Test Performed by: [facility] [employer] [address] [place] [address] Engineer/Conductor: Gene Conn M.D. Ph.D.; CLIA# [id number] 29 REFERENCE VALUE 0.3300-1.94 30 REFERENCE VALUE 0.5700-2.63 31 Elevated free light chain ratios between 1.66 and 3.00 may occur due to polyclonal hypergammaglobulinemia or impaired renal clearance. An isolated increased free light chain ratio in this range should be interpreted with caution, and clinical correlation is recommended. REFERENCE VALUE 0.2600-1.65 Test Performed by: [place] [address] Engineer/Conductor: Gene Conn M.D. Ph.D.; CLIA# [id number] 32 Total 25-Hydroxyvitamin D2 and D3 (25-OH-VitD) <10 ng/mL (severe deficiency) 10-19 ng/mL (mild to moderate deficiency) 20-50 ng/mL (optimum levels) 51-80 ng/mL (increased risk of hypercalciuria) >80 ng/mL (toxicity possible) 33 REFERENCE VALUE <4.0 (Negative) Test Performed by: [place] [address] Engineer/Conductor: Gene Conn M.D. Ph.D.; CLIA# [id number] 34 Negative serology. Celiac disease unlikely. However, approximately 10% of patients with celiac disease are seronegative. Also, patients who are already adhering to a gluten-free diet may be seronegative. If celiac disease is highly clinically suspected, consider HLA-DQ typing. Test Performed by: [facility] [place] [address] Engineer/Conductor: Gene Conn M.D. Ph.D.; CLIA# [id number] Procedures Date Code Description Status 01/02/202084089 Injection Single Tendon Origin/Insertion Completed 12/13/2019 26152 Endoscopy Upper GI Biopsy Completed 12/05/2019 [id number] Bone Mineral Density Test Completed Medical Devices Description No Information Available Encounters Type Date Location Provider Dx Diagnosis Office Visit 02/02/2020 [facility] Gastroenterology Leon Mei D50.9 Iron deficiency 9:00a MD Morgan anemia, unspecified J44.9 Chronic obstructive pulmonary disease, unspecified Z80.0 Family history of malignant neoplasm of digestive organs Office Visit 01/16/2020 8:40a [facility] Internal Jayant Tenorio, G43.909 Migraine, unsp, not Medicine - intractable, Suite R without status migrainosus J32.9 Chronic sinusitis, unspecified K31.84 Gastroparesis K86.1 Other chronic pancreatitis D50.9 Iron deficiency anemia, unspecified K58.1 Irritable bowel syndrome with constipation Office Visit 01/02/2020 Ramin Anders M77.12 Lateral 1:00p [facility] 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, left Martinez ankle and foot G57.92 Unspecified mononeuropathy of left lower limb G90.512 Complex regional pain syndrome I of left upper limb Office Visit 12/13/2019 [facility] Noreen Cyr, R10.9 Unspecified 9:52a Assoc,pc COLD HEADER abdominal pain Hospitalists K21.9 Gastro-esophageal reflux disease without esophagitis K31.84 Gastroparesis F41.9 Anxiety disorder, unspecified G89.29 Other chronic pain Office Visit 12/12/2019 [facility] Noreen Cyr, R10.9 Unspecified 9:51a Assoc,pc COLD HEADER abdominal pain Hospitalists F41.9 Anxiety disorder, unspecified G89.29 Other chronic pain K86.1 Other chronic pancreatitis K21.9 Gastro-esophageal reflux disease without esophagitis G43.909 Migraine, unsp, not intractable, without status migrainosus Z59.0 Homelessness Office Visit 12/11/2019 [facility] Noreen Cyr, R10.9 Unspecified 9:51a Assoc,pc COLD HEADER abdominal pain Hospitalists F41.9 Anxiety disorder, unspecified G89.29 Other chronic pain K86.1 Other chronic pancreatitis K21.9 Gastro-esophageal reflux disease without esophagitis G43.909 Migraine, unsp, not intractable, without status migrainosus Z59.0 Homelessness Office Visit 12/11/2019 [facility] Rodri S. R10.9 Unspecified 7:00a [facility] Kingston MD abdominal pain Office Visit 12/10/2019 [facility] R10.9 Unspecified 9:50a Assoc,pc BRUNA Gary abdominal pain Hospitalists K86.1 Other chronic pancreatitis K21.9 Gastro-esophageal reflux disease without esophagitis F41.9 Anxiety disorder, unspecified G89.29 Other chronic pain Z59.0 Homelessness Office Visit 12/10/2019 7:00a Surgical Rodri S. R10.9 Unspecified [facility] MD Vashti abdominal pain [employer] Office Visit 12/09/2019 7:00a Surgical Rodri S. R10.9 Unspecified [facility] Vashti abdominal pain [employer] R11.0 Nausea [facility], K56.7 Ileus, 9:47a Assoc,pc COLD HEADER unspecified Hospitalists K21.9 Gastro-esophageal reflux disease without esophagitis F41.9 Anxiety disorder, unspecified K86.1 Other chronic pancreatitis G89.29 Other chronic pain Office Visit 12/08/2019 9:40a [facility] Internal Jayant Tenorio MD R10.9 Unspecified Medicine - Suite abdominal pain R D50.9 Iron deficiency anemia, unspecified F41.1 Generalized anxiety disorder K86.81 Exocrine pancreatic insufficiency M81.0 Age-related osteoporosis w/o current pathological fracture Office Visit 11/30/2019 9:40a [facility] Internal Jayant Tenorio MD D50.9 Iron deficiency Medicine - Suite anemia, unspecified R M80.00xA Age-rel osteopor w current path fracture, unsp site, init R51 Headache F41.1 Generalized anxiety disorder K86.81 Exocrine pancreatic insufficiency M54.2 Cervicalgia M25.511 Pain in right shoulder 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 M80.032S Age-rel osteopor w current path fracture, l forearm, sequela Office Visit 11/10/2019 1:00p [facility] Internal Jayant Tenorio MD D50.9 Iron deficiency Medicine - Suite anemia, unspecified R M80.00xA Age-rel osteopor w current path fracture, unsp site, init R51 Headache F41.1 Generalized anxiety disorder N17.9 Acute kidney failure, unspecified K86.81 Exocrine pancreatic insufficiency M54.2 Cervicalgia M25.511 Pain in right shoulder 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 M25.532 Pain in left wrist Office Visit 11/02/2019 9:00a [facility] Internal Medicine Camden Rondon MD R51 Headache - Suite R K29.60 Other gastritis without bleeding M25.532 Pain in left wrist M25.511 Pain in right shoulder Z12.11 Encounter for screening for malignant neoplasm of colon F41.9 Anxiety disorder, unspecified M80.00xA Age-rel osteopor w current path fracture, unsp site, init Assessments Date Code Description Provider 02/02/2020 D50.9 Iron deficiency anemia, unspecified Leon [...] Jayant Tenorio MD esophagitis 12/26/2019 K31.84 Gastroparesis Jaaynt Tenorio MD 12/26/2019 K86.1 Other chronic pancreatitis [...] 12/13/2019 R10.9 Unspecified abdominal pain Noreen Cyr, COLD HEADER 12/13/2019 K29.70 Gastritis, unspecified, without bleeding Leon Mora MD 12/13/2019 K21.9 Gastro-esophageal reflux disease without Noreen Cyr, COLD HEADER esophagitis 12/13/2019 K31.84 Gastroparesis Noreen Cyr, COLD HEADER 12/13/2019 F41.9 Anxiety disorder, unspecified Noreengabrielle Aguayok, COLD HEADER 12/13/2019 G89.29 Other chronic pain Noreen RRumak, COLD HEADER 12/12/2019 R10.9 Unspecified abdominal pain Noreen RRumak, COLD HEADER 12/12/2019 F41.9 Anxiety disorder, unspecified Noreen RRumak, COLD HEADER 12/12/2019 G89.29 Other chronic pain Noreen RRumak, COLD HEADER 12/12/2019 K86.1 Other chronic pancreatitis Noreen Cyr, COLD HEADER 12/12/2019 K21.9 Gastro-esophageal reflux disease without Noreen Cyr, COLD HEADER esophagitis 12/12/2019 G43.909 Migraine, unspecified, not intractable, Noreen Cyr, COLD HEADER without status migrainosus 12/12/2019 Z59.0 Homelessness Noreen Cyr, COLD HEADER 12/11/2019 R10.9 Unspecified abdominal pain Noreen Cyr, COLD HEADER 12/11/2019 R10.9 Unspecified abdominal pain Rodri Kingston MD 12/11/2019 F41.9 Anxiety disorder, unspecified Noreen Cyr, COLD HEADER 12/11/2019 G89.29 Other chronic pain Noreen RRumak, COLD HEADER 12/11/2019 K86.1 Other chronic pancreatitis Noreen RJacqueline, COLD HEADER 12/11/2019 K21.9 Gastro-esophageal reflux disease without Noreen RRumak, COLD HEADER esophagitis 12/11/2019 G43.909 Migraine, unspecified, not intractable, Norene RRumak, COLD HEADER without status migrainosus 12/11/2019 Z59.0 Homelessness Noreen Cyr, COLD HEADER 12/10/2019 R10.9 Unspecified abdominal pain BRUNA Smith 12/10/2019 R10.9 Unspecified abdominal pain Rodri Kingston MD 12/10/2019 K86.1 Other chronic pancreatitis Margret Gary, PA 12/10/2019 K21.9 Gastro-esophageal reflux disease without Margretgallito Hallham , PA esophagitis 12/10/2019 F41.9 Anxiety disorder, unspecified Margret Gary, PA 12/10/2019 G89.29 Other chronic pain Margretgallito Gary, PA 12/10/2019 Z59.0 Homelessness Margret Gary, [...] Gary, PA 12/09/2019 G89.29 Other chronic pain Margretgallito Gary, PA 12/09/2019 Z59.0 Homelessness Margret Gary, PA 12/08/2019 K56.7 Ileus, unspecified Noreen Cyr, EDYTA 12/08/2019 R10.9 Unspecified abdominal pain Jayant Tenorio MD 12/08/2019 D50.9 Iron deficiency anemia, unspecified Jayant Tenorio MD 12/08/2019 K21.9 Gastro-esophageal reflux disease without oNreen Cyr, COLD HEADER esophagitis 12/08/2019 F41.1 Generalized anxiety disorder Jayant Tenorio MD 12/08/2019 K86.81 Exocrine pancreatic insufficiency Jayant Tenorio MD 12/08/2019 M81.0 Age-related osteoporosis without current Jayant Tenorio MD pathological fracture 12/08/2019 F41.9 Anxiety disorder, unspecified Noreen Cyr, EDYTA 12/08/2019 K86.1 Other chronic pancreatitis Noreen Cyr, EDYTA 12/08/2019 G89.29 Other chronic pain Noreen Cyr NP 11/30/2019 D50.9 Iron deficiency anemia, unspecified Jayant [...] 10:15 am - Leon Mora MD at [facility] Ncxjgsuzmxphlagz06/01/2020 2:30 pm - Laz Prakash NP at [facility]02/21/2020 4:00 pm - Jayant Tenorio MD at [facility] Internal Medicine - [address]/29/2020 3:00 pm - Amaury Rodríguez MD at [facility]12/26/2019 - Jayant Tenorio MDF17.210 Nicotine dependence, cigarettes, uncomplicatedComments:Call [facility] to get nicotine replacement supplements.K21.9 Gastro-esophageal reflux disease without esophagitisComments: We changed the pantoprazole to 20mg twice a day from 40mg once a day. Follow-up with Dr. Mora of GI for a potential colonoscopy.Follow up:Week of January 15.K31.84 NsryzoelzaxwyB09.1 Other chronic pancreatitisComments:Call us with the name of the alternative to Zenpep/Creon.G43.909 Migraine, unspecified, not intractable, without status migrainosusComments:Follow-up with AsjtbeqovS41.29 Other chronic painNew Medication:Duloxetine HCL 30 mg - take one cap awlqiE29.9 Iron deficiency anemia, unspecifiedNew Medication:Venofer 20 mg/ml - 200mg x 5 days at infusion center Over 14 day period Functional Status Description No Information Available Mental Status Description No Information Available Referrals Refer to Reason for Referral Status Appt Date Laz Prakash NP severe HAs Sent 02/01/[address] [place] [address] [phone] Kim Nguyen MD left peroneal neuritis left ankle Closed 02/09/[address] [place] [address] [phone] Amaury Rodríguez MD severe osteoporsis with "35-45" Patient Notified 02/29/2020 fractures in life [address] [place] [address] [phone] Maximino Elizabeth MD recent left ankle fracture, severe osteoporosis. Sent [address] [facility] [place] [address] [phone] Leon Mora MD nausea. ?recent EGD with concern for small area of Sent 12/15/2019 [facility], I don't have biopsy results yet. Hx of exocrine pancreatic insuficiency. [address] [place] [address] [phone] Jemal Armendariz M.D. Chronic headaches. Sent 03/20/2020 [address] [place] [address] [phone] Pollo Medina MD Has chronic pain. She was following with pain Sent 00/ clinic in [place] and given oxycodone and asked to f/u in 2 weeks. [address] [place] [address] [phone]
[2020-02-12 18:56] VITALS: BP 155/89
[2020-02-12] MEDS ORDERED: Lidocaine Patch REMOVE* 1 NOTE MISC SCH (21:00)
== END 2020-02-12 19:00 | disposition home or self-care (01) ==
LOC: ED 16:46
DX: R07.89 Other chest pain (principal); R07.9 Chest pain, unspecified; F17.210 Nicotine dependence, cigarettes, uncomplicated; Z88.0 Allergy status to penicillin; Z88.2 Allergy status to sulfonamides; Z87.442 Personal history of urinary calculi; Z79.899 Other long term (current) drug therapy; R94.31 Abnormal electrocardiogram [ECG] [EKG]
CPT/HCPCS: 36415; 71250; 80053; 80329; 85025; 93005; 99282; A9270-GY; G0480

== ENCOUNTER 2020-02-16 00:12 | Emergency (ER) | payer MEDICARE, MEDICAID ==
--- NOTE | 2020-02-16 00:18 | ED ---
Abdominal Pain/Female - HPI Summary HPI Summary: 64 year old F presenting to [facility] via EMS with a chief complaint of abdominal pain that radiates to her back since approximately 1 hour ago. The patient rates the pain 10/10 in severity. Symptoms aggravated by nothing. Symptoms alleviated by nothing. The patient reports diarrhea secondary to Miralax and nausea. She states that this pain feels different from her chronic pain. Patient denies vomiting, coughing, fever, dysuria, hematuria, recent travel outside of [place], or contacts with anyone with COVID-19. She also denies needing oxygen normally. Medication list reviewed. Allergy list reviewed. Home Medications Medication Instructions Recorded Confirmed Type clonazePAM TAB(*) [Klonopin TAB(*)] 1 mg PO BID PRN 10/27/19 02/09/20 History Butalb/Acetamin/Caff TAB* 1 tab PO Q4H PRN 11/04/19 02/09/20 History [Fioricet TAB*] Ondansetron TAB* [Zofran 4 MG Tab*] 8 mg PO Q6HR PRN 11/14/19 02/09/20 History Sucralfate TAB* [Carafate*] 1 tab PO ACHS 11/14/19 02/09/20 History Docusate CAP* [Colace Cap*] 100 mg PO DAILY #14 cap 11/15/19 02/09/20 Rx Albuterol HFA INHALER* [Ventolin 2 puff INH Q4HR 11/24/19 02/09/20 History HFA Inhaler*] Ferrous Sulfate TAB* 325 mg PO DAILY #30 tab 12/13/19 02/09/20 Rx Metoclopramide TAB* [Reglan TAB*] 5 mg PO AC #90 tab 12/13/19 02/09/20 Rx Polyethylene Glycol 3350* [Miralax 17 gm PO DAILY PRN #30 packet 12/13/19 Rx (17 GM DOSE GILBERT)] Senna TAB 8.6 mg* [Senokot 8.6 mg 1 tab PO BEDTIME PRN #30 tab 12/13/19 Rx TAB*] Morphine Sulfate 15 mg PO QID PRN MDD 4 12/15/19 02/09/20 History Pantoprazole Sodium [Protonix] 40 mg PO DAILY 01/29/20 02/09/20 History - History of Current Complaint Stated Complaint: ABD PAIN PER EMS Time Seen by Provider: 02/16/20 00:15 Hx Obtained From: Patient Onset/Duration: Lasting Hours Timing: Constant Severity Currently: Severe Pain Intensity: 10 Pain Scale Used: 0-10 Numeric Radiates: Yes Radiates to: Back Aggravating Factor(s): Nothing Alleviating Factor(s): Nothing Associated Signs and Symptoms: Positive: Nausea. Negative: Fever, Cough, Urinary Symptoms, Vomiting Allergies/Adverse Reactions: Allergies Allergy/AdvReac Type Severity Reaction Status Date / Time amoxicillin Allergy Unknown Verified 02/16/20 00:35 Reaction Details erythromycin base Allergy Nausea And Verified 02/16/20 00:35 Vomiting fentanyl Allergy Rash Verified 02/16/20 00:35 ketorolac [From Toradol] Allergy Rash Verified 02/16/20 00:35 sulfamethoxazole Allergy Abdominal Verified 02/16/20 00:35 [From Bactrim] Pain trimethoprim [From Bactrim] Allergy Abdominal Verified 02/16/20 00:35 Pain Home Medications: Home Medications clonazePAM TAB(*) [Klonopin TAB(*)] 1 mg PO BID PRN 10/27/19 [History Confirmed 02/16/20] Butalb/Acetamin/Caff TAB* [Fioricet TAB*] 1 tab PO Q4H PRN 11/04/19 [History Confirmed 02/16/20] Ondansetron TAB* [Zofran 4 MG Tab*] 8 mg PO Q6HR PRN 11/14/19 [History Confirmed 02/16/20] Sucralfate TAB* [Carafate*] 1 tab PO ACHS 11/14/19 [History Confirmed 02/16/20] Docusate CAP* [Colace Cap*] 100 mg PO DAILY #14 cap 11/15/19 [Rx Confirmed 02/15] Albuterol HFA INHALER* [Ventolin HFA Inhaler*] 2 puff INH Q4HR 11/24/19 [ History Confirmed 02/16/20] Ferrous Sulfate TAB* 325 mg PO DAILY #30 tab 12/13/19 [Rx Confirmed 02/16/20] Metoclopramide TAB* [Reglan TAB*] 5 mg PO AC #90 tab 12/13/19 [Rx Confirmed 01/05] Polyethylene Glycol 3350* [Miralax (17 GM DOSE GILBERT)] 17 gm PO DAILY PRN #30 packet 12/13/19 [Rx Confirmed 02/16/20] Senna TAB 8.6 mg* [Senokot 8.6 mg TAB*] 1 tab PO BEDTIME PRN #30 tab 12/13/19 [ Rx Confirmed 02/16/20] Morphine Sulfate 15 mg PO QID PRN MDD 4 12/15/19 [History Confirmed 02/16/20] Pantoprazole Sodium [Protonix] 40 mg PO DAILY 01/29/20 [History Confirmed ] PMH/Surg Hx/FS Hx/Imm Hx Endocrine/Hematology History: Reports: Hx Anemia Denies: Hx Anticoagulant Therapy, Hx Diabetes Cardiovascular History: Denies: Hx Hypertension, Hx Pacemaker/ICD Respiratory History: Denies: Hx Asthma GI History: Reports: Hx Gall Bladder Disease - colecystitis, Hx Gastroesophageal Reflux Disease, Other GI Disorders - chronic pancreatitis History: Reports: Hx Kidney Stones Denies: Hx Renal Disease Musculoskeletal History: Reports: Hx Arthritis, Hx Back Problems, Hx Osteoporosis, Other Musculoskeletal History - Chronic Neck Pain Sensory History: Denies: Hx Contacts or Glasses, Hx Legally Blind, Hx Deafness, Hx Hearing Aid Opthamlomology History: Denies: Hx Contacts or Glasses, Hx Legally Blind Neurological History: Reports: Hx Migraine Psychiatric History: Reports: Hx Anxiety Denies: Hx Panic Disorder - Cancer History Hx Chemotherapy: No Hx Radiation Therapy: No - Surgical History Surgical History: Yes Surgery Procedure, Year, and Place: lt great toe. left wrist pinning. EUA right knee, shoulder,achillies. other female surgeries Infectious Disease History: Reports: Hx of Known/Suspected MRSA - Family History Known Family History: Positive: Cardiac Disease, Hypertension - Social History Alcohol Use: None Hx Substance Use: No Substance Use Type: Reports: None Hx Tobacco Use: Yes Smoking Status (MU): Light Every Day Tobacco Smoker Type: Cigarettes Amount Used/How Often: 1 cigarette/day Review of Systems Negative: Fever Negative: Cough Positive: Abdominal Pain, Diarrhea, Nausea. Negative: Vomiting Negative: dysuria, hematuria All Other Systems Reviewed And Are Negative: Yes Physical Exam - Summary Physical Exam Summary: Constitutional: Well-developed, Well-nourished, Alert. (-) Distressed Skin: Warm, Dry HENT: Normocephalic; Atraumatic Eyes: Conjunctiva normal Neck: Musculoskeletal ROM normal neck. (-) JVD, (-) Stridor, (-) Tracheal deviation Cardio: Rhythm regular, rate normal, Heart sounds normal; Intact distal pulses; Radial pulses are 2+ and symmetric. (-) Murmur Pulmonary/Chest wall: Effort normal. (-) Respiratory distress, (-) Wheezes, (-) Rales Abd: Soft, epigastric abdominal tenderness, (-) Distension, (-) Guarding, (-) Rebound Musculoskeletal: (-) Edema Lymph: (-) Cervical adenopathy Neuro: Alert, Oriented x3 Psych: Mood and affect Normal Triage Information Reviewed: Yes Vital Signs Reviewed: Yes Procedures - Sedation Patient Received Moderate/Deep Sedation with Procedure: No Diagnostics - Laboratory Result Diagrams: 02/16/20 00:32 02/16/20 00:32 Lab Statement: Any lab studies that have been ordered have been reviewed, and results considered in the medical decision making process. - Radiology Chest x-ray Radiology Interpretation Completed By: ED Physician Summary of Radiographic Findings: No change from prior. ED physician has reviewed and interpreted this report. - CT Chest/Thorax CTA CT Interpretation Completed By: Radiologist Summary of CT Findings: No acute pulmonary embolic disease. ED physician has reviewed this report. - EKG 01:02 Cardiac Rate: NL - 80 BPM EKG Rhythm: Sinus Rhythm Summary of EKG Findings: QTC of 435. ED physician has reviewed and interpreted this EKG. Re-Evaluation - Re-Evaluation First Eval Re-Evaluation Time: 04:10 Change: Unchanged Comment: Patient was offered admission, she says that she is not ready to start oxygen because she is too young. She says that she is never coming back here and ripped off her pulse ox. Abdominal Pain Fem Course/Dx - Course Course Of Treatment: Patient is here with left upper quadrant abdominal pain. Patient's been here multiple times for similar symptoms in the past with multiple negative workups. Patient had) which showed a CRP of 52 which is consistent with her last seizure P roughly 1 month ago. Patient's lipase was less than 10. Patient's alkaline phosphatase is noted at 140 which is also consistent with his prior numbers. However, patient was periodically hypoxic here. Patient does have a history of COPD and does not use oxygen at home. Per chart review, patient's had multiple visits for her hypoxemia was at this level. However, this has never been addressed. Patient had a CTA of her chest which was negative for PE. Patient was offered admission to be placed on oxygen but declined. Patient was encouraged to follow up with her primary care doctor to get placed on home oxygen. - Diagnoses Provider Diagnoses: Left upper quadrant pain, Hypoxia, COPD (chronic obstructive pulmonary disease) Discharge ED - Sign-Out/Discharge Documenting (check all that apply): Patient Departure - Discharge Plan Condition: Stable Disposition: HOME Patient Education Materials: COPD (Chronic Obstructive Pulmonary Disease) (ED) , Abdominal Pain (ED) Referrals: Jayant Tenorio MD [Primary Care Provider] - Jona KOCH,Juan Corrales [Medical Doctor] - 02/16/20 Additional Instructions: Call Dr. Tenorio to discuss starting oxygen. Return to the emergency department for trouble breathing or any other concerning symptoms. - Billing Disposition and Condition Condition: STABLE Disposition: Home - Attestation Statements Document Initiated by Mayitoibe: Yes Documenting Scribe: Tigist Jonas Provider For Whom Kendy is Documenting (Include Credential): Robinson Martinez MD Scribe Attestation: Tigist Meléndez, scribed for Robinson Martinez MD on 02/16/20 at 0527. Scribe Documentation Reviewed: Yes Provider Attestation: The documentation as recorded by the Tigist voss accurately reflects the service I personally performed and the decisions made by me, Robinson Martinez MD Status of Scribe Document: Viewed
[2020-02-16 00:47] LABS: Hematocrit 31 % (35-47); Hemoglobin 9.9 g/dL (12.0-16.0); Mean Corpuscular HGB Conc 32 g/dL (31-36); Mean Corpuscular Hemoglobin 24 pg (27-31); Mean Corpuscular Volume 74 fL (80-97); Platelet Count 359 10^3/uL (150-450); Red Blood Count 4.15 10^6 /uL (3.70-4.87); Red Cell Distribution Width 22 % (10-15); White Blood Count 6.5 10^3/uL (3.5-10.8)
[2020-02-16 01:01] LABS: ALT 12 U/L (7-52); AST 15 U/L (13-39); Albumin/Globulin Ratio 1.3 (1-3); Alkaline Phosphatase 140 U/L (34-104); Anion Gap 7 mmol/L (2-11); BUN/Creatinine Ratio 26.7 (8-20); Blood Urea Nitrogen 23 mg/dL (6-24); C Reactive Protein 52.52 mg/L (<8.01); CO2 Carbon Dioxide 26 mmol/L (22-32); Calcium 9.8 mg/dL (8.6-10.3); Chloride 103 mmol/L (101-111); EGFR African American 80.1 (>60); EGFR Non-African American 66.2 (>60); Globulin 3.1 g/dL (2-4); Glucose 96 mg/dL (70-100); Sodium 136 mmol/L (135-145); Total Protein 7.1 g/dL (6.4-8.9)
[2020-02-16] MEDS ORDERED: Morphine 4 MG/ML VIAL (1 ml) 4 MG/ML VIAL IV ONE (01:11)
[2020-02-16] MEDS ORDERED: NS 0.9% 1000 ML** 1,000 ML IV ONE (01:11)
[2020-02-16] MEDS ORDERED: Ondansetron INJ* 2 MG/ML VIAL IV ONE (01:11)
[2020-02-16 01:44] LABS: ABS Basophils 0.1 10^3/ul (0-0.2); ABS Eosinophils 0.2 10^3/ul (0-0.6); ABS Lymphocytes 2.1 10^3/ul (1.0-4.8); ABS Monocytes 0.5 10^3/ul (0-0.8); ABS Neutrophils 3.7 10^3/ul (1.5-7.7); Eosinophil % 2.5 %; Lymphocyte % 31.9 %
[2020-02-16] MEDS ORDERED: Iohexol 350* (CONTRAST) 500 ML MDV IV ONE (02:36)
[2020-02-16 04:32] VITALS: BP 103/69
== END 2020-02-16 04:20 | disposition home or self-care (01) ==
LOC: ED 00:12
DX: R10.9 Unspecified abdominal pain (principal); R10.12 Left upper quadrant pain; R09.02 Hypoxemia; J44.9 Chronic obstructive pulmonary disease, unspecified; F17.210 Nicotine dependence, cigarettes, uncomplicated; Z79.890 Hormone replacement therapy; Z79.899 Other long term (current) drug therapy; Z88.0 Allergy status to penicillin; Z88.2 Allergy status to sulfonamides
CPT/HCPCS: 36415; 71046; 71275; 80053; 83605; 83690; 85025; 85379; 86140; 93005; 96361; 96374; 96375; 99285; J2270; J2405; Q9967

== ENCOUNTER 2020-02-23 21:26 | Emergency (ER) | payer MEDICARE, MEDICAID ==
[2020-02-23] MEDS ORDERED: oxyCODONE/Acetamin 5/325 MG* TAB PO ONE (21:53)
--- NOTE | 2020-02-23 22:01 | ED ---
Complex/Multi-Sys Presentation - HPI Summary HPI Summary: 64-year-old female with a significant past medical history of chronic pain, chronic pancreatitis, GERD presents to the emergency department today with a chief complaint left rib pain 2 weeks. Patient is here seeking pain control as she ran out of medications which she takes for her chronic pain. Patient was seen here in this emergency department for the same reason one week ago with a negative workup including CT scan and laboratory studies. Patient states she has run out of her morphine however she is getting a new prescription tomorrow. Patient states she otherwise feels well and denies fevers, chest pain, abdominal pain, shortness of breath, pain with urination, nausea, vomiting, diarrhea. No modifying factors. - History Of Current Complaint Chief Complaint: EDChestWallPain Time Seen by Provider: 02/23/20 21:33 Hx Obtained From: Patient Onset/Duration: Gradual Onset Timing: Constant Severity Currently: Severe Severity Initially: Severe Character: Sharp Associated Signs And Symptoms: Positive: Agitation. Negative: Syncope, SOB, Cough, Chest Pain, Nausea, Vomiting, Diarrhea, Abdominal Pain, Back Pain, Fever , Recent Trauma, Remote Trauma - Allergies/Home Medications Allergies/Adverse Reactions: Allergies Allergy/AdvReac Type Severity Reaction Status Date / Time amoxicillin Allergy Unknown Verified 02/16/20 00:35 Reaction Details erythromycin base Allergy Nausea And Verified 02/16/20 00:35 Vomiting fentanyl Allergy Rash Verified 02/16/20 00:35 ketorolac [From Toradol] Allergy Rash Verified 02/16/20 00:35 sulfamethoxazole Allergy Abdominal Verified 02/16/20 00:35 [From Bactrim] Pain trimethoprim [From Bactrim] Allergy Abdominal Verified 02/16/20 00:35 Pain Home Medications: Home Medications clonazePAM TAB(*) [Klonopin TAB(*)] 1 mg PO BID PRN 10/27/19 [History Confirmed 02/23/20] Butalb/Acetamin/Caff TAB* [Fioricet TAB*] 1 tab PO Q4H PRN 11/04/19 [History Confirmed 02/23/20] Ondansetron TAB* [Zofran 4 MG Tab*] 8 mg PO Q6HR PRN 11/14/19 [History Confirmed 02/23/20] Sucralfate TAB* [Carafate*] 1 tab PO ACHS 11/14/19 [History Confirmed 02/23/20] Albuterol HFA INHALER* [Ventolin HFA Inhaler*] 2 puff INH Q4HR 11/24/19 [ History Confirmed 02/23/20] Ferrous Sulfate TAB* 325 mg PO DAILY #30 tab 12/13/19 [Rx Confirmed 02/23/20] Metoclopramide TAB* [Reglan TAB*] 5 mg PO AC #90 tab 12/13/19 [Rx Confirmed 08/05] Polyethylene Glycol 3350* [Miralax (17 GM DOSE GILBERT)] 17 gm PO DAILY PRN #30 packet 12/13/19 [Rx Confirmed 02/23/20] Senna TAB 8.6 mg* [Senokot 8.6 mg TAB*] 1 tab PO BEDTIME PRN #30 tab 12/13/19 [ Rx Confirmed 02/23/20] Morphine Sulfate 15 mg PO QID PRN MDD 4 12/15/19 [History Confirmed 02/23/20] Pantoprazole Sodium [Protonix] 40 mg PO DAILY 01/29/20 [History Confirmed ] Docusate CAP* [Colace Cap*] 100 mg PO DAILY PRN 02/23/20 [History Confirmed 08/05] PMH/Surg Hx/FS Hx/Imm Hx Endocrine/Hematology History: Reports: Hx Anemia Denies: Hx Anticoagulant Therapy, Hx Diabetes Cardiovascular History: Denies: Hx Hypertension, Hx Pacemaker/ICD Respiratory History: Denies: Hx Asthma GI History: Reports: Hx Gall Bladder Disease - colecystitis, Hx Gastroesophageal Reflux Disease, Other GI Disorders - chronic pancreatitis History: Reports: Hx Kidney Stones Denies: Hx Renal Disease Musculoskeletal History: Reports: Hx Arthritis, Hx Back Problems, Hx Osteoporosis, Other Musculoskeletal History - Chronic Neck Pain Sensory History: Denies: Hx Contacts or Glasses, Hx Legally Blind, Hx Deafness, Hx Hearing Aid Opthamlomology History: Denies: Hx Contacts or Glasses, Hx Legally Blind Neurological History: Reports: Hx Migraine Psychiatric History: Reports: Hx Anxiety Denies: Hx Panic Disorder - Cancer History Hx Chemotherapy: No Hx Radiation Therapy: No - Surgical History Surgery Procedure, Year, and Place: lt great toe. left wrist pinning. EUA right knee, shoulder,achillies. other female surgeries Infectious Disease History: Yes Infectious Disease History: Reports: Hx of Known/Suspected MRSA Denies: Traveled Outside the [place] in Last 30 Days - Family History Known Family History: Positive: Cardiac Disease, Hypertension - Social History Alcohol Use: None Hx Substance Use: No Substance Use Type: Reports: None Hx Tobacco Use: Yes Smoking Status (MU): Light Every Day Tobacco Smoker Type: Cigarettes Amount Used/How Often: 1 cigarette/day Review of Systems Constitutional: Negative Eyes: Negative ENT: Negative Cardiovascular: Negative Respiratory: Negative Gastrointestinal: Negative Genitourinary: Negative Positive: Arthralgia, Myalgia Skin: Negative Neurological/Mental Status: Negative Positive: Anxious. Negative: Depressed All Other Systems Reviewed And Are Negative: Yes Physical Exam - Summary Physical Exam Summary: Patient is in distress. There is no evidence of trauma including no erythema, ecchymosis, erythema, edema. Patient has tender palpation of the left lateral ribs. Patient has no abdominal pain with palpation. Triage Information Reviewed: Yes Vital Signs On Initial Exam: Initial Vitals Temp Pulse Resp BP Pulse Ox 98.2 F 73 24 135/70 94 02/23/20 21:30 02/23/20 21:30 02/23/20 21:30 02/23/20 21:30 02/23/20 21:30 Vital Signs Reviewed: Yes Appearance: Positive: Well-Appearing, Well-Nourished, Pain Distress Skin: Positive: Warm, Skin Color Reflects Adequate Perfusion Eyes: Positive: EOMI, RED ENT: Positive: Hearing grossly normal Respiratory/Lung Sounds: Positive: Clear to Auscultation, Breath Sounds Present Cardiovascular: Positive: RRR, S1, S2 Abdomen Description: Positive: Nontender, Soft Bowel Sounds: Positive: Present Musculoskeletal: Positive: Strength/ROM Intact Neurological: Positive: Sensory/Motor Intact, Alert, Oriented to Person Place, Time, Normal Gait, Facial Symmetry, Speech Normal Psychiatric: Positive: Normal, Affect/Mood Appropriate AVPU Assessment: Alert Procedures - Sedation Patient Received Moderate/Deep Sedation with Procedure: No Diagnostics - Vital Signs Vital Signs Temp Pulse Resp BP Pulse Ox 02/23/20 21:30 98.2 F 73 24 135/70 94 - Laboratory Lab Statement: Any lab studies that have been ordered have been reviewed, and results considered in the medical decision making process. Complex Multi-Symp Course/Dx Course Of Treatment: Patient was evaluated in the emergency department today for rib pain. Vitals noted and stable. Patient was not complaining of shortness breath or chest pain. Patient was here for pain control from chronic pain. She was seen approximately 7 days ago with a negative workup including CT imaging and laboratory studies. Patient was given Percocet in the emergency department for pain and discharged home with outpatient follow-up with her primary care physician for further management of her chronic pain. Patient did not appear to have any medical pathology requiring intervention at this time. - Diagnoses Differential Diagnoses/HQI/PQRI: Metabolic Abnormality, Other - rib pain Provider Diagnoses: Rib pain on left side Discharge ED - Sign-Out/Discharge Documenting (check all that apply): Patient Departure - Discharge Plan Condition: Stable Disposition: HOME Patient Education Materials: Chest Wall Pain (ED) Referrals: Jayant Tenorio MD [Primary Care Provider] - 3 Days Additional Instructions: You were seen in the emergency department today due to pain. Based on your physical exam today, history and previous workups there is no evidence of medical pathology requiring intervention at this time. Please follow-up with your primary care provider for further evaluation and management of your chronic pain. We have given you pain medication prior to discharge however we do not want to violate the pain contract you have with your primary care provider and are unable to give you higher doses. These return to this emergency department immediately should you develop any new or worsening symptoms. Please follow up with your PCP in 3 days for further evaluation and management. - Billing Disposition and Condition Condition: STABLE Disposition: Home - Attestation Statements Provider Attestation: I was available for consult. This patient was seen by the ROBIN. The patient was not presented to, seen by, or examined by me. Robinson Martinez MD
[2020-02-23 22:18] VITALS: BP 111/85
== END 2020-02-23 22:49 | disposition home or self-care (01) ==
LOC: ED 21:26
DX: R07.81 Pleurodynia (principal); G89.29 Other chronic pain; K86.1 Other chronic pancreatitis; K21.9 Gastro-esophageal reflux disease without esophagitis; F41.9 Anxiety disorder, unspecified; F17.210 Nicotine dependence, cigarettes, uncomplicated; Z88.0 Allergy status to penicillin; Z88.2 Allergy status to sulfonamides; Z79.899 Other long term (current) drug therapy; Z87.442 Personal history of urinary calculi
CPT/HCPCS: 99282; A9270-GY

== ENCOUNTER 2020-02-24 19:39 | Emergency (ER) | payer MEDICARE, MEDICAID ==
--- NOTE | 2020-02-24 20:32 | ED ---
HPI Chest Pain - HPI Summary HPI Summary: 64 year old F presenting to [facility] via EMS with a chief complaint of left lateral chest wall pain since 2.5-3 weeks ago. She states that she tripped on the legs of her wheelchair approximately 3 weeks ago, and that she has experienced pain ever since. The patient rates the pain 10/10 in severity. Patient visited the ER on 02/23/2020 and 02/12/2020 due to a similar chief complaint. The patient is currently taking Tylenol and morphine with no relief. Patient has been taking morphine for the past 4 years for her chronic pain and states she last took it at 0300 this morning on 02/24/2020. Patient denies trouble breathing, fever, and cough. In addition to her chronic pain, patient states she has a PMHx of gastritis and cannot take ibuprofen or Aleve due to this issue. Patient denies use of marijuana, alcohol and other recreational drugs but states that she smokes cigarettes. PMHx includes anemia, chronic pancreatitis. Patient states that she has an extensive surgical history. Of note, patient was seen here yesterday for same symptoms. She was awaiting her morphine to be delivered today to her home. She states it was delivered at 2: 00. She gets prescriptions every 14 days. - History of Current Complaint Chief Complaint: EDChestWallPain Time Seen by Provider: 02/24/20 20:05 Hx Obtained From: Patient Onset/Duration: Started Weeks Ago - Patient states she has this pain for 2.5-3 weeks. Current Severity: Severe Pain Intensity: 10 Pain Scale Used: 0-10 Numeric Chest Pain Location: Left Lateral Chest Pain Radiates: No Alleviating Factor(s): Nothing Associated Signs and Symptoms: Positive: Chest Pain. Negative: Shortness of Breath, Fever, Cough - Additional Pertinent History Primary Care Physician: MAITE - Allergy/Home Medications Allergies/Adverse Reactions: Allergies Allergy/AdvReac Type Severity Reaction Status Date / Time amoxicillin Allergy Unknown Verified 02/24/20 21:13 Reaction Details erythromycin base Allergy Nausea And Verified 02/24/20 21:13 Vomiting fentanyl Allergy Rash Verified 02/24/20 21:13 ketorolac [From Toradol] Allergy Rash Verified 02/24/20 21:13 sulfamethoxazole Allergy Abdominal Verified 02/24/20 21:13 [From Bactrim] Pain trimethoprim [From Bactrim] Allergy Abdominal Verified 02/24/20 21:13 Pain Home Medications: Home Medications clonazePAM TAB(*) [Klonopin TAB(*)] 1 mg PO BID PRN 10/27/19 [History Confirmed 02/24/20] Butalb/Acetamin/Caff TAB* [Fioricet TAB*] 1 tab PO Q4H PRN 11/04/19 [History Confirmed 02/24/20] Ondansetron TAB* [Zofran 4 MG Tab*] 8 mg PO Q6HR PRN 11/14/19 [History Confirmed 02/24/20] Sucralfate TAB* [Carafate*] 1 tab PO ACHS 11/14/19 [History Confirmed 02/24/20] Albuterol HFA INHALER* [Ventolin HFA Inhaler*] 2 puff INH Q4HR 11/24/19 [ History Confirmed 02/24/20] Ferrous Sulfate TAB* 325 mg PO DAILY #30 tab 12/13/19 [Rx Confirmed 02/24/20] Metoclopramide TAB* [Reglan TAB*] 5 mg PO AC #90 tab 12/13/19 [Rx Confirmed 09/04] Polyethylene Glycol 3350* [Miralax (17 GM DOSE GILBERT)] 17 gm PO DAILY PRN #30 packet 12/13/19 [Rx Confirmed 02/24/20] Senna TAB 8.6 mg* [Senokot 8.6 mg TAB*] 1 tab PO BEDTIME PRN #30 tab 12/13/19 [ Rx Confirmed 02/24/20] Morphine Sulfate 15 mg PO QID PRN MDD 4 12/15/19 [History Confirmed 02/24/20] Pantoprazole Sodium [Protonix] 40 mg PO DAILY 01/29/20 [History Confirmed ] Docusate CAP* [Colace Cap*] 100 mg PO DAILY PRN 02/23/20 [History Confirmed 09/04] PMH/Surg Hx/FS Hx/Imm Hx Endocrine/Hematology History: Reports: Hx Anemia Denies: Hx Anticoagulant Therapy, Hx Diabetes Cardiovascular History: Denies: Hx Hypertension, Hx Pacemaker/ICD Respiratory History: Denies: Hx Asthma GI History: Reports: Hx Gall Bladder Disease - colecystitis, Hx Gastroesophageal Reflux Disease, Other GI Disorders - chronic pancreatitis, gastritis. History: Reports: Hx Kidney Stones Denies: Hx Renal Disease Musculoskeletal History: Reports: Hx Arthritis, Hx Back Problems, Hx Osteoporosis, Other Musculoskeletal History - Chronic Neck Pain Sensory History: Denies: Hx Contacts or Glasses, Hx Legally Blind, Hx Deafness, Hx Hearing Aid Opthamlomology History: Denies: Hx Contacts or Glasses, Hx Legally Blind Neurological History: Reports: Hx Migraine Psychiatric History: Reports: Hx Anxiety Denies: Hx Panic Disorder - Cancer History Hx Chemotherapy: No Hx Radiation Therapy: No - Surgical History Surgical History: Yes Surgery Procedure, Year, and Place: lt great toe. left wrist pinning. EUA right knee, shoulder,achillies. other female surgeries Infectious Disease History: Yes Infectious Disease History: Reports: Hx of Known/Suspected MRSA Denies: Traveled Outside the [place] in Last 30 Days - Family History Known Family History: Positive: Cardiac Disease, Hypertension, Other - Migranes and anxiety. - Social History Alcohol Use: None Hx Substance Use: No Substance Use Type: Reports: None Substance Use Comment - Amount & Last Used: Morphine IR 15mg QID-pain clinic pt. Hx Tobacco Use: Yes Smoking Status (MU): Light Every Day Tobacco Smoker Type: Cigarettes Amount Used/How Often: 1 cigarette/day - Additional Comments History Additional Comments: chronic pain with pancreatitis and gastritis, anxiety, anemia, current smoker Review of Systems - ROS Summary Review of Systems Summary: Home Medications Medication Instructions Recorded Confirmed Type clonazePAM TAB(*) [Klonopin TAB(*)] 1 mg PO BID PRN 10/27/19 02/24/20 History Butalb/Acetamin/Caff TAB* 1 tab PO Q4H PRN 11/04/19 02/24/20 History [Fioricet TAB*] Ondansetron TAB* [Zofran 4 MG Tab*] 8 mg PO Q6HR PRN 11/14/19 02/24/20 History Sucralfate TAB* [Carafate*] 1 tab PO ACHS 11/14/19 02/24/20 History Albuterol HFA INHALER* [Ventolin 2 puff INH Q4HR 11/24/19 02/24/20 History HFA Inhaler*] Ferrous Sulfate TAB* 325 mg PO DAILY #30 tab 12/13/19 02/24/20 Rx Metoclopramide TAB* [Reglan TAB*] 5 mg PO AC #90 tab 12/13/19 02/24/20 Rx Polyethylene Glycol 3350* [Miralax 17 gm PO DAILY PRN #30 packet 12/13/19 Rx (17 GM DOSE GILBERT)] Senna TAB 8.6 mg* [Senokot 8.6 mg 1 tab PO BEDTIME PRN #30 tab 12/13/19 Rx TAB*] Morphine Sulfate 15 mg PO QID PRN MDD 4 12/15/19 02/24/20 History Pantoprazole Sodium [Protonix] 40 mg PO DAILY 01/29/20 02/24/20 History Docusate CAP* [Colace Cap*] 100 mg PO DAILY PRN 02/23/20 02/24/20 History Negative: Fever Positive: Chest Pain - left lateral Negative: Shortness Of Breath, Cough, Other - Patient denies trouble breathing. All Other Systems Reviewed And Are Negative: Yes Physical Exam - Summary Physical Exam Summary: General: Cachectic-appearing elderly female. Moderate distress when not distracted. HEENT: Normocephalic, Atraumatic. Eyes: Conjuctiva normal, PERRL. Oropharynx: Clear, mucous membranes moist, (-) exudates. Neck: Soft, FROM, (-) lymphadenopathy, (-) thyromegaly, (-) JVD. Cardiovascular: Normal sinus rhythm, (-) murmur. Lungs: Clear to auscultation bilaterally (-) wheezes, (-) rales, (-) rhonchi. Abdomen: Soft, non-distended, (-) organomegaly, normal bowel sounds. Severe tenderness to palpation of the left abdomen and chest out of proportion to exam. Back: (-) CVA tenderness Extremities: No edema. Skin: Warm, dry, (-) rash. Neuro: Alert and oriented x3, moves all extremities equally. Slurring speech, somewhat slow to respond. No ataxia. No gait disturbance. No sensory deficit. Normal strength, normal sensation. Psychiatric: Irritable and agitated Triage Information Reviewed: Yes Vital Signs On Initial Exam: Initial Vitals Temp Pulse Resp BP Pulse Ox 97.8 F 71 20 117/65 95 02/24/20 19:44 02/24/20 19:44 02/24/20 19:44 02/24/20 19:44 02/24/20 19:44 Vital Signs Reviewed: Yes Procedures - Sedation Patient Received Moderate/Deep Sedation with Procedure: No Diagnostics - Vital Signs Vital Signs Temp Pulse Resp BP Pulse Ox 02/24/20 19:44 97.8 F 71 20 117/65 95 - Laboratory Result Diagrams: 02/24/20 20:34 02/24/20 20:34 Lab Statement: Any lab studies that have been ordered have been reviewed, and results considered in the medical decision making process. - Radiology CXR Radiology Interpretation Completed By: ED Physician Summary of Radiographic Findings: XRAY shows no change. This imaging report has been reviewed and interpreted by Dr. Henson, pending official report. - CT Chest Thorax CTA CT Interpretation Completed By: Radiologist Summary of CT Findings: IMPRESSION: 1. There is moderate to severe centrilobular emphysema. 2. There is left upper lobe subsegmental atelectasis or parenchymal scarring and there is mild bibasilar subsegmental atelectasis or parenchymal scarring. 3. There are subacute or chronic fractures involving the anterior aspect of the right 8th and 7th ribs and also involving the anterior aspect of the 5th, 6th, 7th, 8th, 9th ribs. No visible acute pulmonary embolism. 4. No aortic dissection. Dr. Henson has reviewed this report. - EKG 2018 Cardiac Rate: NL EKG Rhythm: Sinus Rhythm Summary of EKG Findings: EKG at 2018 reveals normal sinus rhythm with rate of 66 BPM, no acute changes, no ischemic changes. This EKG was reviewed and interpreted by Dr. Henson. Re-Evaluation - Re-Evaluation First Eval Re-Evaluation Time: 01:05 Change: Improved Comment: I discussed all results and pain has improved. Discussed all symptoms that warrant return to the ED. Chest Pain Course/Dx - Course Course Of Treatment: 64-year-old female presents from home by ambulance with severe left chest pain. Patient states she has had this pain for 2-3 weeks ever since she fell. Was seen here last night for the same pain. Patient was given oxycodone at that time. She does note her morphine refill came today in the mail. She did take it. States it's not helping at all. She denies any cough. No fever. Patient only recently moved to this area from [place]. She lives in a homeless nursing home. Sees pain management for multiple different areas of chronic pain. On exam patient's pain is significantly out of proportion to exam. She is moderately agitated. When distracted does not appear to be in pain. She is slurring her words and slow to respond. Appears to be under the influence of something. Patient's laboratories demonstrated an elevated d- dimer which was not present one week ago when she was seen for this. CTA of the chest was done and demonstrated no PE. Subacute to chronic fractures are noted. Patient states she is allergic to Toradol because it gives her a rash. She cannot take ibuprofen or Aleve due to gastritis. Patient given extended release morphine. Patient insisted on leaving. She was discharged to home at that time. Advised patient to use ice or heat. Continue medication as prescribed. Follow up with PCP. Follow up sooner for any worsening symptoms. - Diagnoses Provider Diagnoses: Tobacco use, Rib pain Discharge ED - Sign-Out/Discharge Documenting (check all that apply): Patient Departure - Discharged to home. - Discharge Plan Condition: Stable Disposition: HOME Patient Education Materials: How to Stop Smoking (ED), Chest Wall Pain (ED) Referrals: Jayant Tenorio MD [Primary Care Provider] - 3 Days Additional Instructions: Please follow up with your primary care physician within three days. Please return to the Emergency Department for any new or worsening symptoms. - Billing Disposition and Condition Condition: STABLE Disposition: Home - Attestation Statements Document Initiated by Bipin: Yes Documenting Scribe: Rhianna Jeter Provider For Whom Bipin is Documenting (Include Credential): Lissa Henson MD Scribe Attestation: Rika, Rhianna Jeter, scribed for Lissa Henson MD on 02/25/20 at 0557. Scribe Documentation Reviewed: Yes Provider Attestation: The documentation as recorded by the bipin, Rhianna Jeter accurately reflects the service I personally performed and the decisions made by me, Lissa Henson MD Status of Scribe Document: Viewed
[2020-02-24 20:43] LABS: ABS Basophils 0.1 10^3/ul (0-0.2); ABS Eosinophils 0.2 10^3/ul (0-0.6); ABS Lymphocytes 2.4 10^3/ul (1.0-4.8); ABS Monocytes 0.4 10^3/ul (0-0.8); ABS Neutrophils 3.2 10^3/ul (1.5-7.7); Eosinophil % 3.7 %; Hematocrit 33 % (35-47); Hemoglobin 10.4 g/dL (12.0-16.0); Lymphocyte % 37.6 %; Mean Corpuscular HGB Conc 31 g/dL (31-36); Mean Corpuscular Hemoglobin 24 pg (27-31); Mean Corpuscular Volume 75 fL (80-97); Mean Platelet Volume 7.3 fL (7.4-10.4); Platelet Count 311 10^3/uL (150-450); Red Blood Count 4.41 10^6 /uL (3.70-4.87); Red Cell Distribution Width 22 % (10-15); White Blood Count 6.3 10^3/uL (3.5-10.8)
[2020-02-24 20:54] LABS: INR 1.07 (0.82-1.09)
[2020-02-24 21:00] LABS: ALT 8 U/L (7-52); AST 12 U/L (13-39); Albumin 3.8 g/dL (3.2-5.2); Albumin/Globulin Ratio 1.3 (1-3); Alkaline Phosphatase 119 U/L (34-104); Anion Gap 7 mmol/L (2-11); BUN/Creatinine Ratio 24.4 (8-20); Blood Urea Nitrogen 19 mg/dL (6-24); CO2 Carbon Dioxide 25 mmol/L (22-32); Calcium 9.3 mg/dL (8.6-10.3); Chloride 107 mmol/L (101-111); EGFR African American 89.7 (>60); EGFR Non-African American 74.1 (>60); Glucose 88 mg/dL (70-100); Potassium 4.3 mmol/L (3.5-5.0); Sodium 139 mmol/L (135-145); Total Protein 6.8 g/dL (6.4-8.9)
[2020-02-24 21:12] LABS: Alcohol < 10 mg/dL (<10)
[2020-02-24] MEDS ORDERED: Iohexol 350* (CONTRAST) 500 ML MDV IV ONE (21:30)
[2020-02-24 23:47] LABS: Urine Benzodiazepine Screen Presumptive Positive (None Detect); Urine Opiates Screen Presumptive Positive (None Detect)
[2020-02-25] MEDS ORDERED: Morphine TAB Extended Release (*) 15 MG TAB.ER PO ONE (00:05)
[2020-02-25 01:25] VITALS: BP 115/78
== END 2020-02-25 01:24 | disposition home or self-care (01) ==
LOC: ED 19:39
DX: R07.81 Pleurodynia (principal); F17.210 Nicotine dependence, cigarettes, uncomplicated; D64.9 Anemia, unspecified; K21.9 Gastro-esophageal reflux disease without esophagitis; F41.9 Anxiety disorder, unspecified; Z87.442 Personal history of urinary calculi; Z79.899 Other long term (current) drug therapy; Z88.0 Allergy status to penicillin; Z88.1 Allergy status to other antibiotic agents; Z88.2 Allergy status to sulfonamides; Z88.5 Allergy status to narcotic agent
CPT/HCPCS: 36415; 71045; 71275; 80053; 80307; 80320; 83605; 83880; 84484; 85025; 85379; 85610; 93005; 99284; A9270-GY; G0480; Q9967

== ENCOUNTER 2020-03-06 09:12 | Emergency (ER) | payer MEDICARE, MEDICAID ==
--- OUTSIDE RECORDS SUMMARY | 2020-03-06 09:53 | XMS REPORT | Continuity of Care Document ---
:1955 External Reference #:[id number] Author Name Heidi Hidalgo DO (transmitted by agent of provider Criss Michelle) Address [address] [place] [address] Care Team Providers Name Role Phone Camden Rondon MD - Student in an Care Team Information [employer] Organized Health Care Education/Training Program Laz Prakash NP - Family Care Team Information [employer] [phone] Problems Active Problems Provider Date Bipolar II disorder Leon Mora MD Onset: 12/21/1994 Note: admitted to [facility] [address] several times 1999 to 2002; also anxiety, depression , and drug abuse; on clonapin BID in 2019 Pulmonary emphysema Leon Mora MD Onset: 02/04/2010 Note: still smoking in 2019 Iron deficiency anemia Leon Mora MD Onset: 02/05/2020 Note: Hg 9.6 MCV 69 on move back from [place] Oct 2019; stool OB negative 11/04 and [...] Use Start: Unknown Patient is a current 1 every few days - smoker, smokes every trying to quit day completely Smoking Status Reviewed: 03/01/20 Patient is a current 1 every few days - smoker, smokes every trying to quit day completely Exercise Type/Frequency Does not exercise Allergies, Adverse Reactions, Alerts Active Allergies Reaction Severity Comments Date Fentanyl Moderate rash 11/02/2019 Ketorolac Tromethamine rash 11/02/2019 Erythromycin N&V 11/02/2019 Bactrim N&V 11/02/2019 Medications Active Medications SIG Qnty Indications Ordering Provider Date Lidocaine Pain use up to 3 60units Ulices Silverio, 02/29/2020 Relief patches daily for M.D. 4% Patches pain, not longer than 12 hrs/day Lidocaine use up to 3 60units Nataliya Perdue, 02/21/2020 5% Patches patches/day. M.D. apply for no more than 12 hours/day Ventolin HFA take 2 puffs 8gm Ulices Silverio, 01/19/2020 every 6 hours as M.D. 108(90Base) mcg/Act needed for Aerosol shortness of breath or wheezing. Nystatin 400,000-600,000 120ml Jayant Tenorio MD 01/19/2020 units 4 times/day [id number]/ML for 6 days Suspension Pantoprazole Sodium 1 by mouth twice 60tabs Jayant Tenorio MD 12/26/[address] a day [address] Valladares 1 tabs twice 60caps R10.9 Jayant Tenorio MD 12/08/2019 100mg Capsules daily as needed for regular bowel movements Butalbital-Acetamino 1 tab by mouth 30tabs R51 Jayant Tenorio MD 11/10/2019 phen every 4 hours but 50-325mg Tablets no more than 3 tabs in a day or 30 tabs a month. no refills until 03/22 Sucralfate take one tablet 120tabs Heidi Hidalgo, 11/02/2019 1gm by mouth four DO Tablets times a day Ondansetron take 1 every 8 60tabs Jayant Tenorio MD 11/02/2019 8mg hours as needed Tablets Dispers nausea Clonazepam 1 tablet by mouth 30tabs F41.9 Jayant Tenorio MD 11/02/2019 1mg two times a day Tablets Miralax 17 grams by mouth Unknown Powder [...] three 90caps Jayant Tenorio MD 01/11/2020 - [id number] times a day with 02/01/[address] Magy yeh Duloxetine HCL take one cap 60caps G89.29 Jayant Tenorio MD 12/26/2019 - 30mg daily 01/16/[address] Bhatti Venofer 200mg x 5 days 50ml D50.9 Jayant Tenorio MD 12/26/2019 - 20mg/ml at infusion 01/16/2020 Solution center Over 14 day period Senna 1 by mouth daily 90caps R10.9 Jayant Tenorio MD 12/08/2019 - 8.6mg Capsules 01/16/2020 Zenpep 1 capsule(01879H) 90caps R10.9 Jayant Tenorio MD 12/08/2019 - [id number] with each meal 01/11/[address] Bhatti Creon take 1 cap by 90caps K86.81 Jayant Tenorio MD 11/30/2019 - [id number] Caps mouth with every 12/08/2019 DR Magy davis Alendronate Sodium take 2 pills of 60tabs Heidi 11/11/2019 - 5mg each day or 1 Senner, DO 02/01/2020 5mg Tablets 10mg tab Ferrous Gluconate 1 by mouth once a 60tabs D50.9 Jayant Tenorio MD 11/10/2019 - twice a day 12/08/2019 324(37.5Fe) mg Tablets Alendronate Sodium take 2 tabs daily 60tabs M80.00xA Jayant Tenorio MD 2018 - 11/17/2019 35mg Tablets Qbdzaukmlv-Ghrrcsd-G take 1 by mouth 30caps Shaniqua Gardner 11/02/2019 - affeine every 4 hours as 11/10/2019 50-325-40mg needed for Capsules headaches Oxycodone HCL 1 by mouth every 120tabs [facility] 11/02/2019 - 10mg 6 hours as needed DO Gwen 11/17/2019 Tablets Clonazepam 1 tablet by mouth 90tabs [facility] 11/02/2019 - 1mg three times daily MD Nela 11/02/2019 Tablets Pantoprazole Sodium 1 by mouth every 30tabs [facility] 11/02/2019 - day DO Gwen 12/26/[address] Green take 1 tablet 90caps R51 [facility] 11/02/2019 - 50-325-40mg every 4 hour as MD Nela 11/02/2019 Capsules needed Maximum daily dose is 6 tablets Oxycodone HCL take one every 6 60tabs [facility] 11/02/2019 - 10mg hours as needed DO Gwen 12/26/2019 Tablets for pain Medications Administered in Office Medication SIG Qnty Indications Ordering Provider Date Depomedrol 40MG Martita Peña M.D. 01/02/2020 Injection Immunizations Description No Information Available Vital Signs Date Vital Result Comment 03/01/2020 9:08am Height 61.5 inches 5'1.50" Weight 131.00 lb Heart Rate 80 /min BP Systolic 141 mmHg BP Diastolic 78 mmHg O2 % BldC Oximetry 92 % BMI (Body Mass Index) 24.3 kg/m2 02/02/2020 9:20am Height 61.5 inches 5'1.50" Weight 131.00 lb Heart Rate 88 /min BP Systolic 112 mmHg BP Diastolic 74 mmHg Respiratory Rate 24 /min Body Temperature 98.0 F Pain Level 10 left rib area O2 % BldC Oximetry 92 % BMI (Body Mass Index) 24.3 kg/m2 Results Test Acquired Date Facility Test Result H/L Range Note Laboratory test 03/01/2020 [facility] Amylase 27 U/L Low 29- [address] [place] [address] [phone] C Reactive Protein 37.38 mg/L High <8.01 Erythrocyte Sed Rate <pending> Lipase < 10 U/L Low 11.0-82.0 Laboratory 03/01/2020 [facility] Lyme Screen W/ <pending> test finding [address] [place] [address] [phone] Urine Drug SCR 02/24/2020 [facility] Urine None Detected None ED & Pain [address] [place] [address] Screen [phone] Urine Barbiturates Screen Presumptive Posi <SEE NOTE> Abnormal None Detect 1 Urine Benzodiazepine Screen Presumptive Posi <SEE NOTE> Abnormal None Detect 2 Urine Cannabinoids Screen None Detected None Detect Urine Cocaine Screen None Detected None Detect Urine Opiates Screen Presumptive Posi <SEE NOTE> Abnormal None Detect 3 Urine Phencyclidine Screen None Detected None Detect 4 CBC Auto 02/24/2020 [facility] White Blood 6.3 10^3/uL Normal 3.5-10.[address] [place] [address] [phone] Red Blood Count 4.41 10^6/uL Normal 3.70-4.87 Hemoglobin 10.4 g/dL Low 12.0-16.0 Hematocrit 33 % Low 35-47 Mean Corpuscular Volume 75 fL Low 80-97 Mean Corpuscular Hemoglobin 24 pg Low 27-31 Mean Corpuscular HGB Conc 31 g/dL Normal 31-36 Red Cell Distribution Width 22 % High 10-15 Platelet Count 311 10^3/uL Normal 150-450 Mean Platelet Volume 7.3 fL Low 7.4-10.4 Abs Neutrophils 3.2 10^3/uL Normal 1.5-7.7 Abs Lymphocytes 2.4 10^3/uL Normal 1.0-4.8 Abs Monocytes 0.4 10^3/uL Normal 0-0.8 Abs Eosinophils 0.2 10^3/uL Normal 0-0.6 Abs Basophils 0.1 10^3/uL Normal 0-0.2 Abs Nucleated RBC 0.0 10^3/uL Granulocyte % 51.3 % Lymphocyte % 37.6 % Monocyte % 6.4 % Eosinophil % 3.7 % Basophil % 1.0 % Nucleated Red Blood Cells % 0.0 Comp Metabolic 02/24/2020 [facility] Sodium 139 mmol/L Normal 135-[address] [place] [address] [phone] Potassium 4.3 mmol/L Normal 3.5-5.0 Chloride 107 mmol/L Normal 101-111 Co2 Carbon Dioxide 25 mmol/L Normal 22-32 Anion Gap 7 mmol/L Normal 2-11 Glucose 88 mg/dL Normal 70-100 Blood Urea Nitrogen 19 mg/dL Normal 6-24 Creatinine 0.78 mg/dL Normal 0.51-0.95 BUN/Creatinine Ratio 24.4 High 8-20 Calcium 9.3 mg/dL Normal 8.6-10.3 Total Protein 6.8 g/dL Normal 6.4-8.9 Albumin 3.8 g/dL Normal 3.2-5.2 Globulin 3.0 g/dL Normal 2-4 Albumin/Globulin Ratio 1.3 Normal 1-3 Total Bilirubin 0.10 mg/dL Low 0.2-1.0 Alkaline Phosphatase 119 U/L High 34-104 Alt 8 U/L Normal 7-52 Ast 12 U/L Low 13-39 Egfr Non- 74.1 >60 Egfr 89.7 >60 5 Laboratory test 02/24/2020 [facility] Troponin-I (TnI) 0.00 ng/ mL <0.[address] [place] [address] [phone] Alcohol < 10 mg/dL Normal <10 B-Type Natriuretic Peptide BNP 20 pg/mL <=100 Inr/Protime 02/24/2020 [facility] Inr 1.07 Normal 0.82-1.[address] [place] [address] [phone] Laboratory 02/24/2020 [facility] D Dimer 256 High Less Than [address] Quantitative ng/mL 230 [place] [address] [phone] Lactic Acid 0.6 mmol/L Normal 0.5-2.0 9 Laboratory 02/16/2020 [facility] D Dimer < 200 Normal Less 10 test finding [address] Quantitative ng/[place] [address] 230 [phone] CBC Auto Diff 02/16/2020 [facility] White Blood 6.5 Normal 3.5 -10. [address] Count 10^3/uL 8 [place] [address] [phone] Red Blood Count 4.15 10^6/uL Normal 3.70-4.87 Hemoglobin 9.9 g/dL Low 12.0-16.0 Hematocrit 31 % Low 35-47 Mean Corpuscular Volume 74 fL Low 80-97 Mean Corpuscular Hemoglobin 24 pg Low 27-31 Mean Corpuscular HGB Conc 32 g/dL Normal 31-36 Red Cell Distribution Width 22 % High 10-15 Platelet Count 359 10^3/uL Normal 150-450 Mean Platelet Volume 7.0 fL Low 7.4-10.4 Abs Neutrophils 3.7 10^3/uL Normal 1.5-7.7 Abs Lymphocytes 2.1 10^3/uL Normal 1.0-4.8 Abs Monocytes 0.5 10^3/uL Normal 0-0.8 Abs Eosinophils 0.2 10^3/uL Normal 0-0.6 Abs Basophils 0.1 10^3/uL Normal 0-0.2 Abs Nucleated RBC 0.0 10^3/uL Granulocyte % 56.5 % Lymphocyte % 31.9 % Monocyte % 8.3 % Eosinophil % 2.5 % Basophil % 0.8 % Nucleated Red Blood Cells % 0.0 Laboratory test 02/16/2020 [facility] Lipase < 10 U/L Low 11.0 -82.0 finding [address] [place] [address] [phone] C Reactive Protein 52.52 mg/L High <8.01 Comp Metabolic 02/16/2020 [facility] Sodium 136 mmol/L Normal 135-145 Panel [address] [place] [address] [phone] Potassium 4.0 mmol/L Normal 3.5-5.0 Chloride 103 mmol/L Normal 101-111 Co2 Carbon Dioxide 26 mmol/L Normal 22-32 Anion Gap 7 mmol/L Normal 2-11 Glucose 96 mg/dL Normal 70-100 Blood Urea Nitrogen 23 mg/dL Normal 6-24 Creatinine 0.86 mg/dL Normal 0.51-0.95 BUN/Creatinine Ratio 26.7 High 8-20 Calcium 9.8 mg/dL Normal 8.6-10.3 Total Protein 7.1 g/dL Normal 6.4-8.9 Albumin 4.0 g/dL Normal 3.2-5.2 Globulin 3.1 g/dL Normal 2-4 Albumin/Globulin Ratio 1.3 Normal 1-3 Total Bilirubin 0.20 mg/dL Normal 0.2-1.0 Alkaline Phosphatase 140 U/L High 34-104 Alt 12 U/L Normal 7-52 Ast 15 U/L Normal 13-39 Egfr Non- 66.2 >60 Egfr 80.1 >60 11 Laboratory test 02/16/2020 [facility] Lactic Acid 1.2 mmol/L Normal 0.5-2.[address] [place] [address] [phone] CBC Auto Diff 02/12/2020 [facility] White Blood 6.0 Normal 3.5 -10.[address] Count 10^3/[place] [address] [phone] Red Blood Count 4.46 10^6/uL Normal 3.70-4.87 Hemoglobin 10.5 g/dL Low 12.0-16.0 Hematocrit 33 % Low 35-47 Mean Corpuscular Volume 75 fL Low 80-97 13 Mean Corpuscular Hemoglobin 24 pg Low 27-31 Mean Corpuscular HGB Conc 32 g/dL Normal 31-36 Red Cell Distribution Width 23 % High 10-15 14 Platelet Count 370 10^3/uL Normal 150-450 Mean Platelet Volume 6.9 fL Low 7.4-10.4 Abs Neutrophils 3.2 10^3/uL Normal 1.5-7.7 Abs Lymphocytes 2.1 10^3/uL Normal 1.0-4.8 Abs Monocytes 0.4 10^3/uL Normal 0-0.8 Abs Eosinophils 0.2 10^3/uL Normal 0-0.6 Abs Basophils 0.0 10^3/uL Normal 0-0.2 Abs Nucleated RBC 0.0 10^3/uL Granulocyte % 54.2 % Lymphocyte % 34.7 % Monocyte % 7.1 % Eosinophil % 3.2 % Basophil % 0.8 % Nucleated Red Blood Cells % 0.0 Comp Metabolic 02/12/2020 [facility] Sodium 138 mmol/L Normal 135-[address] [place] [address] [phone] Potassium 4.4 mmol/L Normal 3.5-5.0 Chloride 103 mmol/L Normal 101-111 Co2 Carbon Dioxide 26 mmol/L Normal 22-32 Anion Gap 9 mmol/L Normal 2-11 Glucose 126 mg/dL High 70-100 Blood Urea Nitrogen 21 mg/dL Normal 6-24 Creatinine 0.79 mg/dL Normal 0.51-0.95 BUN/Creatinine Ratio 26.6 High 8-20 Calcium 9.9 mg/dL Normal 8.6-10.3 Total Protein 7.6 g/dL Normal 6.4-8.9 Albumin 4.3 g/dL Normal 3.2-5.2 Globulin 3.3 g/dL Normal 2-4 Albumin/Globulin Ratio 1.3 Normal 1-3 Total Bilirubin 0.20 mg/dL Normal 0.2-1.0 Alkaline Phosphatase 132 U/L High 34-104 Alt 8 U/L Normal 7-52 Ast 11 U/L Low 13-39 Egfr Non- 73.0 >60 Egfr 88.4 >60 15 Laboratory test 02/12/2020 [facility] Acetaminophen < 15 g/mL [address] [place] [address] [phone] Salicylate < 2.50 mg/dL <30 Laboratory 01/30/2020 [facility] Troponin-I 0.01 <0.03 17 test finding [address] (TnI) ng/[place] [address] [phone] Laboratory 01/30/2020 [facility] B-Type 114 pg/mL High <=100 test finding [address] [place] [address] Peptide BNP [phone] CBC Auto Diff 01/30/2020 [facility] White Blood 6.3 Normal 3.5 -10.[address] Count 10^3/[place] [address] [phone] Red Blood Count 4.09 10^6/uL Normal 3.70-4.87 Hemoglobin 10.1 g/dL Low 12.0-16.0 Hematocrit 30 % Low 35-47 Mean Corpuscular Volume 73 fL Low 80-97 18 Mean Corpuscular Hemoglobin 25 pg Low 27-31 Mean Corpuscular HGB Conc 34 g/dL Normal 31-36 Red Cell Distribution Width 23 % High 10-15 19 Platelet Count 289 10^3/uL Normal 150-450 Mean [...] Blood Cells % 0.0 Comp Metabolic 01/30/2020 [facility] Sodium 142 mmol/L Normal 135-[address] [place] [address] [phone] Potassium 4.3 mmol/L Normal 3.5-5.0 Chloride 108 [...] Egfr Non- 68.0 >60 Egfr 82.3 >60 20 Laboratory test 01/30/2020 [facility] Troponin-I (TnI) 0.01 ng/ mL <0.03 [address] [place] [address] [phone] C Reactive Protein 55.63 mg/L High <8.01 Erythrocyte Sed Rate 32 mm/Hr High 0-29 CBC Auto 01/29/2020 [facility] White Blood 4.9 10^3/uL Normal 3.5-10.[address] [place] [address] [phone] Red Blood Count 4.09 10^6/uL Normal 3.70-4.87 Hemoglobin 9.8 g/dL Low 12.0-16.0 Hematocrit 32 % Low 35-47 Mean Corpuscular Volume 77 fL Low 80-97 Mean Corpuscular Hemoglobin 24 pg Low 27-31 Mean Corpuscular HGB Conc 31 g/dL Normal 31-36 Red Cell Distribution Width 24 % High 10-15 22 Platelet Count 231 10^3/uL Normal 150-450 Mean [...] Blood Cells % 0.1 Comp Metabolic 01/29/2020 [facility] Sodium 140 mmol/L Normal 135-145 Panel [address] [place] [address] [phone] Chloride 108 mmol/L Normal 101-111 Co2 Carbon [...] Egfr Non- 67.1 >60 Egfr 81.2 >60 23 Potassium TNP mmol/L 3.5-5.0 24 Anion Gap 9 mmol/L Normal 2-11 Ast TNP U/L 13-39 25 Laboratory test finding 01/29/2020 [facility] Amylase 26 U/L Low 29-103 [address] [place] [address] [phone] Lipase < 10 U/L Low 11.0-82.0 C Reactive Protein 22.47 mg/L High <8.01 Urine Culture And 01/18/2020 [facility] Urine Culture SEE RESULT [address] [place] [address] [phone] Urinalysis Profile 01/18/2020 [facility] Urine Color Straw [address] [place] [address] [phone] Urine Appearance Clear Urine Specific [place] 1.009 Low 1.010-1.030 Urine pH 6.0 Normal [...] Cell Present Abnormal Absent CBC Auto 01/18/2020 [facility] White Blood 7.0 10^3/uL Normal 3.5-10.[address] [place] [address] [phone] Red Blood Count 4.35 10^6/uL Normal 3.70-4.87 Hemoglobin 10.4 g/dL Low 12.0-16.0 Hematocrit 32 % Low 35-47 Mean Corpuscular Volume 74 fL Low 80-97 27 Mean Corpuscular Hemoglobin 24 pg Low 27-31 Mean Corpuscular HGB Conc 32 g/dL Normal 31-36 Red Cell Distribution Width 24 % High 10-15 28 Platelet Count 318 10^3/uL Normal 150-450 Mean [...] Blood Cells % 0.0 Laboratory test 01/18/2020 [facility] Magnesium 1.6 mg/dL Low 1.9-2.7 finding [address] [place] [address] [phone] Lipase 16 U/L Normal 11.0-82.0 C Reactive Protein 8.08 mg/L High <8.01 Lactic Acid 1.1 mmol/L Normal 0.5-2.0 29 Comp Metabolic 01/18/2020 [facility] Sodium 138 mmol/L Normal 135-145 Panel [address] [place] [address] [phone] Potassium 4.6 mmol/L Normal 3.5-5.0 Chloride 103 [...] Egfr Non- 66.2 >60 Egfr 80.1 >60 30 Laboratory test 01/07/2020 [facility] Lactic Acid 1.0 mmol/L Normal 0.5-2.0 31 finding [address] [place] [address] [phone] Comp Metabolic 01/07/2020 [facility] Sodium 137 mmol/L Normal 135-145 Panel [address] [place] [address] [phone] Potassium 4.4 mmol/L Normal 3.5-5.0 Chloride 101 [...] Egfr Non- 73.0 >60 Egfr 88.4 >60 32 Laboratory test 01/07/2020 [facility] Lipase < 10 U/L Low 11.0 -82.[address] [place] [address] [phone] CBC Auto Diff 01/07/2020 [facility] White Blood 5.3 Normal 3.5 -10.[address] Count 10^3/[place] [address] [phone] Red Blood Count 4.93 10^6/uL High 3.70-4.87 [...] Red Blood Cells % 0.0 Drug 12/15/2019 [facility] Urine Presumptive Abnormal None [address] Hydrocodone Posi <[place] [address] Screen NOTE> Pain [phone] Clinic Urine Oxycodone Screen None Detected None Detect Urine Fentanyl Screen None Detected None Detect Urine Methadone Screen None Detected None Detect Urine Buprenorphine Screen None Detected None Detect Urine Amphetamine Screen None Detected None Detect Urine Barbiturates Screen Presumptive Posi <SEE NOTE> Abnormal None Detect 34 Urine Benzodiazepine Screen Presumptive Posi <SEE NOTE> Abnormal None Detect 35 Urine Cannabinoids Screen None Detected None Detect Urine Cocaine Screen None Detected None Detect Urine Opiates Screen Presumptive Posi <SEE NOTE> Abnormal None Detect 36 Urine Phencyclidine Screen None Detected None Detect 37 Hydrocodone 12/15/2019 [facility] Hydrocodone-by Negative Cutoff: Confiramtion, [address] LC-MS/MS ng/mL 25 Urine [place], [place] [address] [phone] Norhydrocodone-by LC-MS/MS Negative ng/mL Cutoff: 25 Hydromorphone-by LC-MS/MS 259 ng/mL Cutoff: 25 Hydrocodone Interpretation Positive. 38 Laboratory test 12/08/2019 [facility] Pathologist Review (SEE NOTE) [address] [place] [address] [phone] Cell Morphology 12/08/2019 [facility] Polychromasia 1+ [address] [place], [place] [address] [phone] Anisocytosis 2+ CBC Auto 12/08/2019 [facility] White Blood 6.7 10^3/uL Normal 3.5-10.[address] [place] [address] [phone] Red Blood Count 4.09 10^6/uL Normal 3.70-4.87 [...] Blood Cells % 0.0 Urinalysis Profile 12/08/2019 [facility] Urine Color Straw [address] [place] [address] [phone] Urine Appearance Clear Urine Specific [place] 1.006 Low 1.010-1.030 Urine pH 6.0 Normal 5-9 Urine Urobilinogen Negative Negative Urine Ketones Negative Negative Urine Protein Negative Negative Urine Leukocytes Negative Negative Urine Blood Negative Negative Urine Nitrite Negative Negative Urine Bilirubin Negative Negative Urine Glucose Negative Negative Laboratory test 12/08/2019 [facility] Lipase < 10 U/L Low 11.0 -82.0 finding [address] [place] [address] [phone] C Reactive Protein 5.19 mg/L Normal <8.01 Comp Metabolic 12/08/2019 [facility] Sodium 137 mmol/L Normal 135-145 Panel [address] [place] [address] [phone] Potassium 4.1 mmol/L Normal 3.5-5.0 Chloride 105 [...] Egfr Non- 64.5 >60 Egfr 78.0 >60 40 Laboratory test 12/08/2019 [facility] Lactic Acid 0.8 mmol/L Normal 0.5-2.0 41 finding [address] [place] [address] [phone] Laboratory test 12/08/2019 [facility] Lactic Acid 1.0 mmol/L Normal 0.5-2.0 42 finding [address] [place] [address] [phone] BMP W/Egfr 11/24/2019 [facility] Sodium 139 mmol/L Normal 135- 145 [address] [place] [address] [phone] Potassium 4.5 mmol/L Normal 3.5-5.0 Chloride 104 mmol/L Normal 101-111 Co2 Carbon Dioxide 24 mmol/L Normal 22-32 Anion Gap 11 mmol/L Normal 2-11 Glucose 97 mg/dL Normal 70-100 Blood Urea Nitrogen 19 mg/dL Normal 6-24 Creatinine 0.78 mg/dL Normal 0.51-0.95 BUN/Creatinine Ratio 24.4 High 8-20 Calcium 9.7 mg/dL Normal 8.6-10.3 Egfr Non- 74.1 >60 Egfr 89.7 >60 43 Spep Protein 11/24/2019 [facility] Total Protein(Pep) 7.4 g/dL 6.3 - 7.9 Electro, Serum [address] [place] [address] [phone] Albumin 3.6 g/dL 3.4-4.7 Alpha-1 Globulin 0.3 g/dL 0.1-0.3 Alpha-2 Globulin 1.3 g/dL Abnormal 0.6-1.0 Beta Globulin 1.3 g/dL Abnormal 0.7-1.2 Gamma Globulin 1.0 g/dL 0.6-1.6 Albumin/Globulin Ratio 0.93 Impression See Comment 44 [place]/Lambda Free 11/24/2019 [facility] [place] Free 1.98 mg/dL Abnormal [address] [place] [address] [phone] Lambda Free Light Chain 1.00 mg/dL 46 [place]/Lambda Free Light Chain 1.98 Abnormal 47 Laboratory test 11/10/2019 [facility] Vitamin D 30.9 Normal 20 -50 [address] Total 25(Oh) ng/[place] [address] [phone] Pthi 11/10/2019 [facility] Calcium (PTH 10.1 Normal 8.6-10.[address] Intact) mg/[place] [address] [phone] PTH Intact 56.4 pg/mL Normal 12-88 Celiac Panel 11/10/2019 [facility] Tissue Transglutaminase <1.2 U/mL [address] [place] [address] [phone] Immunoglobulin A 256 mg/dL 61 - 356 Celiac Interpretation See Comment 50 Iron & Iron 11/10/2019 [facility] Total Iron 447 g/dL Normal 250-[address] [place] [address] Capacity [phone] Transferrin 319 mg/dL Normal 203-362 Iron < 20 g/dL Low 50-212 Unsaturated Iron Binding < 432 g/dL % Iron Saturation 4 % Low 15-55 Laboratory test 11/10/2019 [facility] Ferritin 4.8 ng/mL Low 11-[address] [place] [address] [phone] 1 Presumptive Positive Presumptive positive results are unconfirmed. 2 Presumptive Positive Presumptive positive results are unconfirmed. 3 Presumptive Positive Presumptive positive results are unconfirmed. 4 The urine specimen was tested at the listed cutoffs: Drug class test level (ng/mL) Amphetamines 500 Barbiturates 200 Benzodiazepine metabolites 200 Cocaine metabolites 150 Cannabinoids 50 Opiates 300 Pcp 25 Specimen was received without chain of custody. Results should be used for medical purposes only. 5 Because ethnic data is not always readily [...] 15-29 5 Kidney failure <15 (or dialysis) 6 Troponin-I testing on Plasma Separator Tubes (PST) has a known false positive rate of 0.20-0.40%. All positive troponins reflex immediately to secondary confirmatory testing. Using the [employer] DxI 800 Access Immunoassay systems, the 99th percentile upper reference limit was demonstrated to be < 0.03 ng/mL. 7 Standard intensity warfarin therapeutic range: 2.0-3.0 High intensity warfarin therapeutic range: 2.5-3.5 8 Please note: The following may produce a false positive D Dimer test: - Rheumatoid factor greater than 60 IU/ml - Plasma hemoglobin greater than 0.05 gm/dl - Bilirubin greater than 50 mg/dl - Lipids greater than 1000 mg/dl - FDP greater than 20 ug/ml 9 Specimen hemolyzed. Result may not be valid. [facility] Severe Sepsis and Septic Shock Management Bundle Measure requires all lactic acids initially measuring >2.0 mmol/L be repeated. 10 Please note: The following may produce a false positive D Dimer test: - Rheumatoid factor greater than 60 IU/ml - Plasma hemoglobin greater than 0.05 gm/dl - Bilirubin greater than 50 mg/dl - Lipids greater than 1000 mg/dl - FDP greater than 20 ug/ml 11 Because ethnic data is not always [...] 5 Kidney failure <15 (or dialysis) 12 [facility] Severe Sepsis and Septic Shock Management Bundle Measure requires all lactic acids initially measuring >2.0 mmol/L be repeated. 13 Consistent with Previous Results Reported on 01/30/20 14 Consistent with Previous Results Reported on 01/30/20 15 Because ethnic data is not always readily [...] 15-29 5 Kidney failure <15 (or dialysis) 16 Therapeutic concentration: <50 ug/mL Toxic concentration: >120 ug/mL 17 Troponin-I testing on Plasma Separator Tubes (PST) has a known false positive rate of 0.20-0.40%. All positive troponins reflex immediately to secondary confirmatory testing. Using the [employer] DxI 800 Access Immunoassay systems, the 99th percentile upper reference limit was demonstrated to be < 0.03 ng/mL. 18 Consistent with Previous Results Reported on 01/18/20 19 Consistent with Previous Results Reported on 01/29/20 20 Because ethnic data is not always readily [...] 15-29 5 Kidney failure <15 (or dialysis) 21 Troponin-I testing on Plasma Separator Tubes (PST) has a known false positive rate of 0.20-0.40%. All positive troponins reflex immediately to secondary confirmatory testing. Using the [employer] DxI 800 Access Immunoassay systems, the 99th percentile upper reference limit was demonstrated to be < 0.03 ng/mL. 22 Consistent with Previous Results Reported on 01/18/20. 23 Because ethnic data is not always readily [...] 15-29 5 Kidney failure <15 (or dialysis) 24 Specimen Hemolyzed. Result may not be valid. Unable to report test result due to hemolysis. 25 Unable to report test result due to hemolysis. 26 SEE RESULT BELOW Name: WOODY STEPHENSON : [address]: Easton Rapp MD Acct: [id number] Unit: [id number] AGE: 64 Location: ED Re01/18/20 SEX: F Status: DEP ER SPEC: [id number] JACQUELIN: 01/18/20 [facility] [address]: David MCFARLAND REQ: [id number] RECD: 01/18/20 STATUS: ANDREA TORRES DR: Easton Tenorio MD _ SOURCE: URINE SPDESC: ORDERED: Urine Culture Procedure Result Reported Site Urine Culture Final 01/20/20- 1201 ML Organism 1 STREP GROUP B [place] Count 25-50,000 (Moderate) CFU/ML Organism 2 NORMAL CHAITANYA [place] Count 10-25,000 (Moderate) CFU/ML Susceptibility testing of penicillins and other B-lactams approved by FDA for treatment of Streptococcus pyogenes (Group A Strep) and Streptococcus agalactiae (Group B Strep) is not necessary for clinical purposes and need not be done routinely, since as with vancomycin, resistant strains have not been recognized. (CLSI P403-F74;p.66) Positive isolates will be saved for one week. Please call the Microbiology Laboratory if further susceptibility testing is needed. * ML - Main Lab . END OF REPORT DEPARTMENT OF PATHOLOGY, [address] [place] [address] Giuseppe Bailey M.D. Director [facility] # [id number] 27 Consistent with Previous Results Reported on 01/07/20. 28 Consistent with Previous Results Reported on 12/11/19. 29 Specimen hemolyzed. Result may not be valid. [facility] Severe Sepsis and Septic Shock Management Bundle Measure requires all lactic acids initially measuring >2.0 mmol/L be repeated. 30 Because ethnic data is not always readily [...] 15-29 5 Kidney failure <15 (or dialysis) 31 [facility] Severe Sepsis and Septic Shock Management Bundle Measure requires all lactic acids initially measuring >2.0 mmol/L be repeated. 32 Because ethnic data is not always readily [...] 15-29 5 Kidney failure <15 (or dialysis) 33 Presumptive Positive Presumptive positive results are unconfirmed. 34 Presumptive Positive Presumptive positive results are unconfirmed. 35 Presumptive Positive Presumptive positive results are unconfirmed. 36 Presumptive Positive Presumptive positive results are unconfirmed. 37 The specimen was tested at the listed cutoffs: Drug Class Test level (ng/mL) Hydrocodone 300 Oxycodone 100 Fentanyl 1 Methadone 150 Buprenorphine 5 Amphetamines 500 Barbiturates 200 Benzodiazepines 200 Cocaine 150 Cannabinoids 50 Opiates 300 PCP 25 Specimen was received without chain of custody. Results should be used for medical purposes only. 38 ADDITIONAL INFORMATION This report is intended for use in clinical monitoring and management of patients. It is not intended for use in employment-related testing. This test was developed and its performance characteristics determined by [facility] in a manner consistent with CLIA requirements. This test has not been cleared or approved by the U.S. Food and Drug Administration. Test Performed by: [facility] [place] [place] [address] Cart Driver: Gene Conn M.D. Ph.D.; CLIA# [id number] 39 Microcytic anemia with red cell indices suggestive of iron deficiency. Additional studies as clinically warranted. Reviewed by Dr. Bailey 40 Because ethnic data is not always readily [...] 15-29 5 Kidney failure <15 (or dialysis) 41 Specimen hemolyzed. Result may not be valid. [facility] Severe Sepsis and Septic Shock Management Bundle Measure requires all lactic acids initially measuring >2.0 mmol/L be repeated. 42 [facility] Severe Sepsis and Septic Shock Management Bundle Measure requires all lactic acids initially measuring >2.0 mmol/L be repeated. 43 Because ethnic data is not always readily [...] 15-29 5 Kidney failure <15 (or dialysis) 44 RESULT: No apparent monoclonal protein on serum electrophoresis. Test Performed by: [facility] [address] [place] [address] Cart Driver: Gene Conn M.D. Ph.D.; [facility]# [id number] 45 REFERENCE VALUE 0.3300-1.94 46 REFERENCE VALUE 0.5700-2.63 47 Elevated free light chain ratios between 1.66 and 3.00 may occur due to polyclonal hypergammaglobulinemia or impaired renal clearance. An isolated increased free light chain ratio in this range should be interpreted with caution, and clinical correlation is recommended. REFERENCE VALUE 0.2600-1.65 Test Performed by: [place] [address] Cart Driver: Gene Conn M.D. Ph.D.; CLIA# [id number] 48 Total 25-Hydroxyvitamin D2 and D3 (25-OH-VitD) <10 ng/mL (severe deficiency) 10-19 ng/mL (mild to moderate deficiency) 20-50 ng/mL (optimum levels) 51-80 ng/mL (increased risk of hypercalciuria) >80 ng/mL (toxicity possible) 49 REFERENCE VALUE <4.0 (Negative) Test Performed by: [place] [address] Cart Driver: Gene Conn M.D. Ph.D.; CLIA# [id number] 50 Negative serology. Celiac disease unlikely. However, approximately 10% of patients with celiac disease are seronegative. Also, patients who are already adhering to a gluten-free diet may be seronegative. If celiac disease is highly clinically suspected, consider HLA-DQ typing. Test Performed by: [place] [address] Cart Driver: Gene Conn M.D. Ph.D.; CLIA# [id number] Procedures Date Code Description Status 01/02/2020 07271 Injection Single Tendon Origin/Insertion Completed 12/13/2019 51371 Endoscopy Upper GI Biopsy Completed 12/05/2019 342015504 Bone Mineral Density Test Completed Medical Devices Description No Information Available Encounters Type Date Location Provider Dx Diagnosis Office Visit 02/07/2020 [facility] Internal Heidi Hidalgo, W05.0xxD Fall from 2:00p Medicine - Suite DO non-moving R wheelchair, subsequent encounter G89.29 Other chronic pain F41.1 Generalized anxiety disorder Office Visit 02/02/2020 [facility] Gastroenterology Peter T. D50.9 Iron deficiency 9:00a MD Morgan anemia, unspecified J44.9 Chronic obstructive pulmonary disease, unspecified Z80.0 Family history of malignant neoplasm of digestive organs Office Visit 01/16/2020 8:40a [facility] Internal Jayant Tenorio, G43.909 Migraine, unsp, not Medicine - MD intractable, Suite R without status migrainosus J32.9 Chronic sinusitis, unspecified K31.84 Gastroparesis K86.1 Other chronic pancreatitis D50.9 Iron deficiency anemia, unspecified K58.1 Irritable bowel syndrome with constipation Office Visit 01/02/2020 [place] Martita M77.12 Lateral 1:00p [facility]. 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 G57.92 Unspecified mononeuropathy of left lower limb G90.512 Complex regional pain syndrome I of left upper limb Office Visit 12/13/2019 [facility] Noreen Cyr, R10.9 Unspecified 9:52a [employer]oc[employer] abdominal pain Hospitalists K21.9 Gastro-esophageal reflux disease without esophagitis K31.84 Gastroparesis F41.9 Anxiety disorder, unspecified G89.29 Other chronic pain Office Visit 12/12/2019 [facility] Noreen Cyr, R10.9 Unspecified 9:51a Assoc,pc [employer] abdominal pain Hospitalists F41.9 Anxiety disorder, unspecified G89.29 Other chronic pain K86.1 Other chronic pancreatitis K21.9 Gastro-esophageal reflux disease without esophagitis G43.909 Migraine, unsp, not intractable, without status migrainosus Z59.0 Homelessness Office Visit 12/11/2019 [facility] Noreen Cyr, R10.9 Unspecified 9:51a Assoc,pc [employer] abdominal pain Hospitalists F41.9 Anxiety disorder, unspecified G89.29 Other chronic pain K86.1 Other chronic pancreatitis K21.9 Gastro-esophageal reflux disease without esophagitis G43.909 Migraine, unsp, not intractable, without status migrainosus Z59.0 Homelessness Office Visit 12/11/2019 [facility] S. R10.9 Unspecified 7:00a [facility] Kingston MD abdominal pain [facility] R10.9 Unspecified 9:50a Assoc,pc BRUNA Gary abdominal pain Hospitalists K86.1 Other chronic pancreatitis K21.9 Gastro-esophageal reflux disease without esophagitis F41.9 Anxiety disorder, unspecified G89.29 Other chronic pain Z59.0 Homelessness Office Visit 12/10/2019 7:00a Surgical Rodri S. R10.9 Unspecified [facility] MD Vashti abdominal pain Sash Maker Office Visit 12/09/2019 7:00a Surgical Rodri S. R10.9 Unspecified [facility] Vashti abdominal pain Sash Maker R11.0 Nausea Office Visit 12/08/2019 9:40a [facility] Internal Jayant Tenorio MD R10.9 Unspecified Medicine - Suite abdominal pain R D50.9 Iron deficiency anemia, unspecified F41.1 Generalized anxiety disorder K86.81 Exocrine pancreatic insufficiency M81.0 Age-related osteoporosis w/o current pathological fracture Office Visit 12/08/2019 [facility] Noreen Cyr, K56.7 Ileus, 9:47a Assoc,pc [employer] unspecified Hospitalists K21.9 Gastro-esophageal reflux disease without esophagitis F41.9 Anxiety disorder, unspecified K86.1 Other chronic pancreatitis G89.29 Other chronic pain Office Visit 11/30/2019 9:40a [facility] Internal Jayant Tenorio MD D50.9 Iron deficiency Medicine - Suite anemia, unspecified R M80.00xA Age-rel osteopor w current path fracture, unsp site, init R51 Headache F41.1 Generalized anxiety disorder K86.81 Exocrine pancreatic insufficiency M54.2 Cervicalgia M25.511 Pain in right shoulder 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 M80.032S Age-rel osteopor w current path fracture, l forearm, sequela Office Visit 11/10/2019 1:00p [facility] Internal Jayant Tenorio MD D50.9 Iron deficiency Medicine - Suite anemia, unspecified R M80.00xA Age-rel osteopor w current path fracture, unsp site, init R51 Headache F41.1 Generalized anxiety disorder N17.9 Acute kidney failure, unspecified K86.81 Exocrine pancreatic insufficiency M54.2 Cervicalgia M25.511 Pain in right shoulder 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 M25.532 Pain in left wrist Office Visit 11/02/2019 9:00a [facility] Internal Medicine Camden Rondon MD R51 Headache - Suite R K29.60 Other gastritis without bleeding M25.532 Pain in left wrist M25.511 Pain in right shoulder Z12.11 Encounter for screening for malignant neoplasm of colon F41.9 Anxiety disorder, unspecified M80.00xA Age-rel osteopor w current path fracture, unsp site, init Assessments Date Code Description Provider 03/01/2020 R10.12 Left upper quadrant pain Ulices Silverio M.D. 03/01/2020 G89.29 Other chronic pain Ulices Silverio M.D. 02/07/2020 W05.0xxD Fall from non-moving wheelchair, Heidi Hidalgo, subsequent encounter 02/07/2020 G89.29 Other chronic pain Heidi Hidalgo DO 02/07/2020 F41.1 Generalized anxiety disorder Heidi Hidalgo DO 02/02/2020 D50.9 Iron deficiency anemia, unspecified [...] MD esophagitis 12/13/2019 R10.9 Unspecified abdominal pain Noreengabrielle Aguayok, [employer] 12/13/2019 K29.70 Gastritis, unspecified, without bleeding Leon Mora MD 12/13/2019 K21.9 Gastro-esophageal reflux disease without Noreen RRumak, [employer] esophagitis 12/13/2019 K31.84 Gastroparesis Noreen RRumak, [employer] 12/13/2019 F41.9 Anxiety disorder, unspecified Noreen RDignaVirgil, [employer]ANT 12/13/2019 G89.29 Other chronic pain Noreen R.Virgil, [employer] 12/12/2019 R10.9 Unspecified abdominal pain Noreen RDignaVirgil, [employer] 12/12/2019 F41.9 Anxiety disorder, unspecified Noreen RDignaVirgil, [employer] 12/12/2019 G89.29 Other chronic pain Noreen R.Virgil, [employer] 12/12/2019 K86.1 Other chronic pancreatitis Noreen RRumak, [employer] 12/12/2019 K21.9 Gastro-esophageal reflux disease without Noreen RRumak, [employer] esophagitis 12/12/2019 G43.909 Migraine, unspecified, not intractable, Noreen Cyr, [employer] without status migrainosus 12/12/2019 Z59.0 Homelessness Noreen Aguayok, [employer] 12/11/2019 R10.9 Unspecified abdominal pain Noreen RRumak, [employer] 12/11/2019 R10.9 Unspecified abdominal pain Rodri Kingston MD 12/11/2019 F41.9 Anxiety disorder, unspecified Noreen RRumak, [employer] 12/11/2019 G89.29 Other chronic pain Noreen R.Virgil, [employer] 12/11/2019 K86.1 Other chronic pancreatitis Noreen RRumak, [employer] 12/11/2019 K21.9 Gastro-esophageal reflux disease without Noreen RDignaVirgil, [employer] esophagitis 12/11/2019 G43.909 Migraine, unspecified, not intractable, Noreen RDignaVirgil, [employer] without status migrainosus 12/11/2019 Z59.0 Homelessness Noreen RJacqueline, [employer] 12/10/2019 R10.9 Unspecified abdominal pain BRUNA Smith 12/10/2019 R10.9 Unspecified abdominal pain Rodri Kingston MD 12/10/2019 K86.1 Other chronic pancreatitis Margretgallito Gary PA 12/10/2019 K21.9 Gastro-esophageal reflux disease without Margret Gary , PA esophagitis 12/10/2019 F41.9 Anxiety disorder, unspecified Margret Gary, PA 12/10/2019 G89.29 Other chronic pain Margretgallito Gary, PA 12/10/2019 Z59.0 Homelessness Margret Gary PA 12/09/2019 K56.609 Unspecified intestinal obstruction, Margret Gary PA unspecified as to partial versus complete obstruction 12/09/2019 R10.9 Unspecified abdominal pain Rodri Kingston MD 12/09/2019 K86.1 Other chronic pancreatitis Margret Gary, PA 12/09/2019 R11.0 Nausea Rodri Kingston MD 12/09/2019 K21.9 Gastro-esophageal reflux disease without Margret Gary , PA esophagitis 12/09/2019 F41.9 Anxiety disorder, unspecified Margret Agry, PA 12/09/2019 G89.29 Other chronic pain Margret Abdirahman PA 12/09/2019 Z59.0 Homelessness Margret Gary, PA [...] 12/08/2019 F41.9 Anxiety disorder, unspecified Noreen Cyr, [employer] 12/08/2019 K86.1 Other chronic pancreatitis Noreen Cyr, EDYTA 12/08/2019 G89.29 Other chronic pain Noreen Cyr [employer] 11/30/2019 D50.9 Iron deficiency anemia, unspecified Jayant [...] encounter for fracture Plan of Treatment Future Appointment(s):05/15/2020 10:00 am - Amaury Rodríguez MD at [place] [facility]04/05/2020 10:15 am - Leon Mora MD at [facility] Yoweipyjgwphjheu56/16/2020 - Ulices Silverio M.D.R10.12 Left upper quadrant painG89.29 Other chronic pain Functional Status Description No Information Available Mental Status Description No Information Available Referrals Refer to Reason for Referral Status Appt Date Laz Prakash NP severe HAs Sent 02/01/2020 [address] [place] [address] [place] [address] [phone] Kim Nguyen MD left peroneal neuritis left ankle Closed 02/09/[address] [place], [place] [id number] [phone] Amaury Rodríguez MD severe osteoporsis with "35-45" Patient Notified 05/15/2020 fractures in life [address] [place] [id number] [phone] Maximino Elizabeth MD recent left ankle fracture, severe osteoporosis. Sent [address] [facility] [place] [address] [place] [address] [phone] Leon Mora MD nausea. ?recent EGD with concern for small area of Sent 12/15/2019 [facility], I don't have biopsy results yet. Hx of exocrine pancreatic insuficiency. [address] [place] [address] [phone] Jemal Armendariz M.D. Chronic headaches. Sent 03/20/2020 [address] [place] [address] [place] [address] [phone] Pollo Medina MD Has chronic pain. She was following with pain [facility] in [place] and given oxycodone and asked to f/u in 2 weeks. [address] [place] [address] [phone]
[2020-03-06] MEDS ORDERED: Lidocaine PATCH 5%* 1 PATCH TRANSDERM ONE (09:56)
--- NOTE | 2020-03-06 09:58 | ED ---
Back Pain - HPI Summary HPI Summary: Patient is a 64-year-old female who presents emergency department for low back pain. Pt. has a hx of chronic pain and is rx morphine from the pain clinic. Pt. states she bent over three days ago and since has had increased back pain. Pt. notes pain radiates into right leg. She notes chronic weakness in left foot from a surgery. Denies fever, cough, V/D, abd. pain, urinary sxs. Denies bowel or bladder incontinence or retention. Pt. notes she ran out of her morphine. Sxs are mild in severity. Movement makes sxs worse. Nothing improves pain. Pt. has been taking tylenol without relief. - History of Current Complaint Chief Complaint: EDBackInjuryPain Stated Complaint: BACK PAIN PER EMS Time Seen by Provider: 03/06/20 09:17 Hx Obtained From: Patient Pain Intensity: 10 - Allergies/Home Medications Allergies/Adverse Reactions: Allergies Allergy/AdvReac Type Severity Reaction Status Date / Time amoxicillin Allergy Unknown Verified 03/06/20 09:19 Reaction Details erythromycin base Allergy Nausea And Verified 03/06/20 09:19 Vomiting fentanyl Allergy Rash Verified 03/06/20 09:19 ketorolac [From Toradol] Allergy Rash Verified 03/06/20 09:19 sulfamethoxazole Allergy Abdominal Verified 03/06/20 09:19 [From Bactrim] Pain trimethoprim [From Bactrim] Allergy Abdominal Verified 03/06/20 09:19 Pain Home Medications: Home Medications clonazePAM TAB(*) [Klonopin TAB(*)] 1 mg PO BID 10/27/19 [History Confirmed ] Butalb/Acetamin/Caff TAB* [Fioricet TAB*] 1 tab PO Q4H PRN MDD 3 tabs 11/04/19 [ History Confirmed 03/06/20] Ondansetron TAB* [Zofran 4 MG Tab*] 8 mg PO Q8H PRN 11/14/19 [History Confirmed 03/06/20] Sucralfate TAB* [Carafate*] 1 gm PO QID 11/14/19 [History Confirmed 03/06/20] Albuterol HFA INHALER* [Ventolin HFA Inhaler*] 2 puff INH Q6H PRN 11/24/19 [ History Confirmed 03/06/20] Polyethylene Glycol 3350* [Miralax (17 GM DOSE GILBERT)] 17 gm PO DAILY PRN #30 packet 12/13/19 [Rx Confirmed 03/06/20] Morphine Sulfate 15 mg PO QID PRN MDD 4 12/15/19 [History Confirmed 03/06/20] Pantoprazole Sodium [Protonix] 20 mg PO BID 01/29/20 [History Confirmed 03/06/20 ] Docusate CAP* [Colace Cap*] 100 mg PO BID PRN 02/23/20 [History Confirmed ] Lidocaine PATCH 5%* [Lidoderm 5% Patch*] 1 patch TRANSDERM TID 03/06/20 [ History Confirmed 03/06/20] Lidocaine [Lidocare Back/Shoulder] 4 % TRANSDERM TID 03/06/20 [History Confirmed 03/06/20] PMH/Surg Hx/FS Hx/Imm Hx Previously Healthy: Yes Endocrine/Hematology History: Reports: Hx Anemia Denies: Hx Anticoagulant Therapy, Hx Diabetes Cardiovascular History: Denies: Hx Hypertension, Hx Pacemaker/ICD Respiratory History: Denies: Hx Asthma GI History: Reports: Hx Gall Bladder Disease - colecystitis, Hx Gastroesophageal Reflux Disease, Other GI Disorders - chronic pancreatitis, gastritis. History: Reports: Hx Kidney Stones Denies: Hx Renal Disease Musculoskeletal History: Reports: Hx Arthritis, Hx Back Problems, Hx Osteoporosis, Other Musculoskeletal History - Chronic Neck Pain Sensory History: Denies: Hx Contacts or Glasses, Hx Legally Blind, Hx Deafness, Hx Hearing Aid Opthamlomology History: Denies: Hx Contacts or Glasses, Hx Legally Blind Neurological History: Reports: Hx Migraine Psychiatric History: Reports: Hx Anxiety Denies: Hx Panic Disorder - Cancer History Hx Chemotherapy: No Hx Radiation Therapy: No - Surgical History Surgery Procedure, Year, and Place: lt great toe. left wrist pinning. EUA right knee, shoulder,achillies. other female surgeries Infectious Disease History: No Infectious Disease History: Reports: Hx of Known/Suspected MRSA Denies: Traveled Outside the [place] in Last 30 Days - Family History Known Family History: Positive: Cardiac Disease, Hypertension, Other - Migranes and anxiety. - Social History Occupation: Disabled Lives: With Family Alcohol Use: None Hx Substance Use: No Substance Use Type: Reports: None Substance Use Comment - Amount & Last Used: Morphine IR 15mg QID-pain clinic pt. Hx Tobacco Use: Yes Smoking Status (MU): Former Smoker Type: Cigarettes Amount Used/How Often: 1 cigarette/day Review of Systems Constitutional: Negative Negative: Fever Cardiovascular: Negative Respiratory: Negative Gastrointestinal: Negative Genitourinary: Negative Positive: Other - low back pain Neurological/Mental Status: Negative All Other Systems Reviewed And Are Negative: Yes Physical Exam Triage Information Reviewed: Yes Vital Signs On Initial Exam: Initial Vitals Temp Pulse Resp BP Pulse Ox 98.8 F 62 22 156/107 96 03/06/20 09:17 03/06/20 09:17 03/06/20 09:17 03/06/20 09:17 03/06/20 09:17 Vital Signs Reviewed: Yes Appearance: Positive: Well-Appearing - Pt. lying in bed in NAD. Skin: Positive: Warm, Dry Head/Face: Positive: Normal Head/Face Inspection Eyes: Positive: Normal, EOMI Neck: Positive: Supple Respiratory/Lung Sounds: Positive: Clear to Auscultation, Breath Sounds Present Cardiovascular: Positive: Normal, RRR Musculoskeletal: Positive: Normal, Strength/ROM Intact, Other - 5/5 strength in right foot. Chronic weakness to left foot per pt. Tenderness to low lumbar spine. Pt. easily moves from lying flat to sitting up. Neurological: Positive: Normal, CN Intact II-III Psychiatric: Positive: Affect/Mood Appropriate Procedures - Sedation Patient Received Moderate/Deep Sedation with Procedure: No Diagnostics - Vital Signs Vital Signs Temp Pulse Resp BP Pulse Ox 03/06/20 09:18 63 156/107 96 03/06/20 09:17 98.8 F 61 22 156/107 94 - Laboratory Lab Statement: Any lab studies that have been ordered have been reviewed, and results considered in the medical decision making process. Back Pain Course/Dx - Course Course Of Treatment: Pt. with exacerbation of chronic pain. Pt. notes she bent over 3 days ago and pain increased. Pt. notes she ran out of her morphine. Pt. rx a 15 day supply of morphine on 02/23, so she should have 4 days left. Lidocaine patch provided for pain. XRAY per radiology: IMPRESSION: 1. OSTEOPENIA WITH NO NEW COMPRESSION DEFORMITY. 2. 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 3. MULTILEVEL SPONDYLOSIS ABOVE. 15 day supply of morphine rx 02/24/2020. Case discussed with pt.'s pain mangement provider, Meme Carr NP. Pt. states she has an apt. with PM tomorrow. Xrays shows chronic findings without new findings per radiology. Will dc pt. to f.u with PM and PCP. Plan discussed with pt. She states she is in too much pain to walk. box worker, Daly, spoke with pt. Daly offered home walker or wheelchair, home aids, ect. and pt. declined all services and options. Pt. dc with wheelchair van. - Diagnoses Differential Diagnosis/HQI/PQRI: Positive: Arthritis, Fracture, Herniated Disc, Strain, Sprain Provider Diagnoses: Chronic pain, Back pain - Critical Care Time Critical Care Statement: Critical care time is provided exclusive of any time spent performing procedures. Discharge ED - Sign-Out/Discharge Documenting (check all that apply): Patient Departure - Discharge Plan Condition: Good Disposition: HOME Patient Education Materials: Chronic Pain (ED) Referrals: Meme Carr NP [Nurse Practitioner] - Jayant Tenorio MD [Primary Care Provider] - Additional Instructions: Call your PCP and the pain clinic today for further pain medication Can take tylenol for pain as directed Return to ER if symptoms change or worsen - Billing Disposition and Condition Condition: GOOD Disposition: Home
[2020-03-06 11:28] VITALS: BP 145/68
[2020-03-06] MEDS ORDERED: Lidocaine Patch REMOVE* 1 NOTE MISC SCH (21:00)
== END 2020-03-06 13:31 | disposition home or self-care (01) ==
LOC: ED 09:12
DX: M54.5 Low back pain (principal); G89.29 Other chronic pain; M54.9 Dorsalgia, unspecified; Z88.0 Allergy status to penicillin; Z88.2 Allergy status to sulfonamides; Z79.899 Other long term (current) drug therapy; Z87.442 Personal history of urinary calculi; F41.9 Anxiety disorder, unspecified
CPT/HCPCS: 72110; 99283; A9270-GY

== ENCOUNTER 2021-04-29 09:48 | Inpatient (IN) ==
[2021-04-29] MEDS ORDERED: NS 0.9% 1000 ml BAG 1,000 ML IV ONE (10:31)
[2021-04-29] MEDS ORDERED: Ondansetron 4 mg VIAL 2 MG/ML 2 ml VIAL IV ONE ×2 (10:31→12:21)
[2021-04-29 11:33] LABS: ABS Basophils 0.1 10^3/ul (0-0.2); ABS Lymphocytes 0.6 10^3/ul (1.0-4.8); ABS Monocytes 0.2 10^3/ul (0-0.8); ABS Neutrophils 10.8 10^3/ul (1.5-7.7); Hematocrit 36 % (35-47); Hemoglobin 11.6 g/dL (12.0-16.0); Lymphocyte % 5.4 %; Mean Corpuscular HGB Conc 32 g/dL (31-36); Mean Corpuscular Hemoglobin 22 pg (27-31); Mean Corpuscular Volume 69 fL (80-97); Mean Platelet Volume 8.3 fL (7.4-10.4); Platelet Count 331 10^3/uL (150-450); Red Blood Count 5.25 10^6 /uL (3.70-4.87); Red Cell Distribution Width 21 % (10-15); White Blood Count 11.8 10^3/uL (3.5-10.8)
[2021-04-29 12:02] LABS: Troponin I 0.03 ng/mL (<0.03)
[2021-04-29 12:03] LABS: Alcohol, S < 10 mg/dL (<10)
[2021-04-29 12:18] LABS: ALT 18 U/L (7-52); AST 25 U/L (13-39); Albumin 4.3 g/dL (3.2-5.2); Albumin/Globulin Ratio 1.1 (1-3); Alkaline Phosphatase 99 U/L (35-149); Anion Gap 16 mmol/L (2-11); Blood Urea Nitrogen 23 mg/dL (6-24); CO2 Carbon Dioxide 21 mmol/L (22-32); Chloride 102 mmol/L (101-111); EGFR African American 82.1 (>60); EGFR Non-African American 67.8 (>60); Glucose 122 mg/dL (70-100); Magnesium 1.9 mg/dL (1.9-2.7); Potassium 3.6 mmol/L (3.5-5.0); Sodium 139 mmol/L (135-145); Total Protein 8.3 g/dL (6.4-8.9)
[2021-04-29 15:15] LABS: Troponin I 0.03 ng/mL (<0.03)
[2021-04-29] MEDS ORDERED: Ondansetron 4 mg VIAL 2 MG/ML 2 ml VIAL IV PRN (20:52)
[2021-04-29] MEDS ORDERED: Glycopyrrolate/Formoterol (NF) MDI INH SCH (21:00)
[2021-04-29] MEDS: Albuterol HFA INHALER 8 gm MDI INH PRN (22:06)
[2021-04-30 04:06] LABS: Urine Appearance Clear; Urine Bilirubin Negative (Negative); Urine Blood Negative (Negative); Urine Color Yellow; Urine Glucose Negative (Negative); Urine Ketones 1+ (Negative); Urine Nitrite Negative (Negative); Urine Protein Negative (Negative); Urine Specific Gravity 1.013 (1.002-1.030); Urine Urobilinogen Negative (Negative)
[2021-04-30] MEDS: Albuterol HFA INHALER 8 gm MDI INH PRN ×3 (04:09→20:47)
[2021-04-30 06:09] LABS: ABS Basophils 0.1 10^3/ul (0-0.2); ABS Lymphocytes 2.1 10^3/ul (1.0-4.8); ABS Monocytes 0.5 10^3/ul (0-0.8); Eosinophil % 0.2 %; Hematocrit 35 % (35-47); Lymphocyte % 26.9 %; Mean Corpuscular HGB Conc 32 g/dL (31-36); Mean Corpuscular Hemoglobin 22 pg (27-31); Mean Corpuscular Volume 70 fL (80-97); Mean Platelet Volume 8.3 fL (7.4-10.4); Platelet Count 275 10^3/uL (150-450); Red Blood Count 4.94 10^6 /uL (3.70-4.87); Red Cell Distribution Width 21 % (10-15); White Blood Count 7.8 10^3/uL (3.5-10.8)
[2021-04-30 06:19] LABS: Calcium 9.4 mg/dL (8.6-10.3); EGFR African American 85.6 (>60); EGFR Non-African American 70.7 (>60); Potassium 3.1 mmol/L (3.5-5.0)
[2021-04-30 07:46] LABS: Magnesium 1.7 mg/dL (1.9-2.7)
[2021-04-30] MEDS: Tiotropium Brom/Olodaterol MDI INH SCH (08:19)
[2021-04-30] MEDS: Vitamin THERAPEUTIC TAB PO SCH (08:42)
[2021-04-30] MEDS: KCL 20 MEQ/100 ML IVPREMIX 20 MEQ/100 ML BAG IV SCH ×3 (08:43→17:55)
[2021-04-30] MEDS: Fluticasone NASAL SPRAY 50MCG 16 gm SPRAY BTL INTRANASAL SCH (08:55)
[2021-04-30] MEDS ORDERED: Magnesium Sulfate 2 gm BAG 2 GM/50 ML BAG IVPB ONE (14:30)
[2021-04-30] MEDS: Ondansetron 4 mg VIAL 2 MG/ML 2 ml VIAL IV PRN (14:31)
[2021-05-01] MEDS: Albuterol HFA INHALER 8 gm MDI INH PRN (07:37)
[2021-05-01] MEDS: Tiotropium Brom/Olodaterol MDI INH SCH (07:41)
[2021-05-01] MEDS: Vitamin THERAPEUTIC TAB PO SCH (07:51)
[2021-05-01] MEDS: Fluticasone NASAL SPRAY 50MCG 16 gm SPRAY BTL INTRANASAL SCH (09:43)
[2021-05-01] MEDS: Enoxaparin 40 MG/0.4 ML SYR SUBCUT SCH (10:05)
[2021-05-01] MEDS: Ondansetron 4 mg VIAL 2 MG/ML 2 ml VIAL IV PRN (13:13)
[2021-05-02] MEDS: Vitamin THERAPEUTIC TAB PO SCH (07:17)
[2021-05-02] MEDS: Fluticasone NASAL SPRAY 50MCG 16 gm SPRAY BTL INTRANASAL SCH (07:18)
[2021-05-02] MEDS: Tiotropium Brom/Olodaterol MDI INH SCH (07:22)
[2021-05-02 09:33] LABS: ABS Basophils 0.1 10^3/ul (0-0.2); ABS Eosinophils 0.1 10^3/ul (0-0.6); ABS Lymphocytes 1.8 10^3/ul (1.0-4.8); ABS Monocytes 0.3 10^3/ul (0-0.8); ABS Neutrophils 3.3 10^3/ul (1.5-7.7); Eosinophil % 1.5 %; Hematocrit 33 % (35-47); Hemoglobin 10.6 g/dL (12.0-16.0); Lymphocyte % 31.9 %; Mean Corpuscular HGB Conc 33 g/dL (31-36); Mean Corpuscular Hemoglobin 23 pg (27-31); Mean Corpuscular Volume 70 fL (80-97); Platelet Count 298 10^3/uL (150-450); Red Blood Count 4.65 10^6 /uL (3.70-4.87); Red Cell Distribution Width 21 % (10-15); White Blood Count 5.6 10^3/uL (3.5-10.8)
[2021-05-02 09:46] LABS: Calcium 8.7 mg/dL (8.6-10.3); EGFR African American 89.4 (>60); EGFR Non-African American 73.9 (>60); Potassium 3.3 mmol/L (3.5-5.0)
[2021-05-02] MEDS: Enoxaparin 40 MG/0.4 ML SYR SUBCUT SCH (10:06)
[2021-05-02] MEDS: Ondansetron 4 mg VIAL 2 MG/ML 2 ml VIAL IV PRN (10:06)
[2021-05-02 11:17] VITALS: BP 104/56
== END 2021-05-02 17:35 | disposition home health service (06) | DRG 897 ==
LOC: ED 09:48 → MED 09:48 → OBSVTOIN 14:57 → INTOOBSV 14:57 → MED 15:02
PROVIDERS: ADMIT Internal Medicine; ATTEND Internal Medicine

== ENCOUNTER 2021-06-06 07:05 | Inpatient (IN) ==
[2021-06-06] MEDS ORDERED: NS 0.9% 1000 ml BAG 1,000 ML IV ONE (07:31)
[2021-06-06] MEDS ORDERED: Ondansetron 4 mg VIAL 2 MG/ML 2 ml VIAL IV ONE (07:32)
[2021-06-06] MEDS ORDERED: Albuterol/Ipratropium NEB.SOL (2.5/0.5 MG) 3 ML NEB.SOLN INH ONE (07:41)
[2021-06-06 10:18] LABS: ALT 14 U/L (7-52); AST 19 U/L (13-39); Albumin/Globulin Ratio 1.2 (1-3); Alkaline Phosphatase 98 U/L (35-149); Anion Gap 6 mmol/L (2-11); Blood Urea Nitrogen 12 mg/dL (6-24); CO2 Carbon Dioxide 28 mmol/L (22-32); Calcium 9.6 mg/dL (8.6-10.3); Chloride 103 mmol/L (101-111); EGFR African American 77.8 (>60); EGFR Non-African American 64.3 (>60); Globulin 3.4 g/dL (2-4); Glucose 117 mg/dL (70-100); Magnesium 1.5 mg/dL (1.9-2.7); Potassium 4.2 mmol/L (3.5-5.0); Sodium 137 mmol/L (135-145); Total Protein 7.4 g/dL (6.4-8.9)
[2021-06-06] MEDS ORDERED: Magnesium Sulfate 2 gm BAG 2 GM/50 ML BAG IVPB ONE (10:19)
[2021-06-06 10:46] LABS: ABS Lymphocytes 1.4 10^3/ul (1.0-4.8); ABS Monocytes 0.2 10^3/ul (0-0.8); ABS Neutrophils 4.4 10^3/ul (1.5-7.7); Eosinophil % 0.5 %; Hematocrit 34 % (35-47); Hemoglobin 10.7 g/dL (12.0-16.0); Lymphocyte % 22.7 %; Mean Corpuscular HGB Conc 32 g/dL (31-36); Mean Corpuscular Hemoglobin 23 pg (27-31); Mean Corpuscular Volume 71 fL (80-97); Mean Platelet Volume 8.3 fL (7.4-10.4); Platelet Count 275 10^3/uL (150-450); Red Blood Count 4.72 10^6 /uL (3.70-4.87); Red Cell Distribution Width 21 % (10-15)
[2021-06-06] MEDS ORDERED: Albuterol 2.5mg/3 ml (0.083%) NEB.SOLN INH ONE (11:12)
[2021-06-06] MEDS ORDERED: Famotidine IV 10 MG/ML 2 ml VIAL (20 mg) IV SLOW PU ONE (12:11)
[2021-06-06] MEDS ORDERED: Pantoprazole VIAL 40 MG VIAL IV ONE (12:45)
[2021-06-06] MEDS ORDERED: Metoclopramide 5 MG/ML VIAL (10 mg) IV ONE (13:27)
[2021-06-06] MEDS ORDERED: Magnesium Sulf 4 GM/100 ML IV 4,000 MG/100 ML BAG IVPB ONE (14:10)
[2021-06-06] MEDS ORDERED: Ondansetron 4 mg VIAL 2 MG/ML 2 ml VIAL IV PRN (15:46)
[2021-06-06] MEDS ORDERED: diPHENhydraMINE 25 mg TAB PO PRN (16:01)
[2021-06-06] MEDS ORDERED: Naloxone Nasal Spray 4 MG/0.1 ML NASAL.SPR INTRANASAL PRN (16:01)
[2021-06-06 18:27] LABS: % Iron Saturation 5 % (15-55); Iron 22 ug/dL (50-212); Total Iron Binding Capacity 445 mcg/dL (250-450); Transferrin 318 mg/dL (203-362); Unsaturated Iron Binding < 430 ug/dL
[2021-06-06 18:42] LABS: Urine Benzodiazepine Screen None Detected (None Detect); Urine Buprenorphine Screen None Detected (None Detect); Urine Cannabinoids Screen None Detected (None Detect); Urine Fentanyl Screen None Detected (None Detect); Urine Hydrocodone Screen None Detected (None Detect); Urine Opiates Screen None Detected (None Detect)
[2021-06-06] MEDS ORDERED: Naloxone 0.4 mg VIAL 0.4 mg/ml 1 ml VIAL IV PUSH PRN (20:01)
[2021-06-06] MEDS ORDERED: Iron Sucrose 200 MG in NS 0.9% 100 ml BAG 100 ML IVPB ONE (20:15)
[2021-06-06] MEDS ORDERED: Glycopyrrolate/Formoterol (NF) MDI INH SCH (21:00)
[2021-06-06] MEDS: Enoxaparin 40 MG/0.4 ML SYR SUBCUT SCH (22:15)
[2021-06-06] MEDS: Ondansetron 4 mg VIAL 2 MG/ML 2 ml VIAL IV PRN (22:27)
[2021-06-07] MEDS: Ondansetron 4 mg VIAL 2 MG/ML 2 ml VIAL IV PRN ×2 (06:52→17:08)
[2021-06-07] MEDS: Albuterol HFA INHALER 8 gm MDI INH PRN (07:10)
[2021-06-07] MEDS: Tiotropium Brom/Olodaterol MDI INH SCH (07:11)
[2021-06-07 07:28] LABS: Hematocrit 32 % (35-47); Hemoglobin 10.5 g/dL (12.0-16.0); Mean Corpuscular HGB Conc 32 g/dL (31-36); Mean Corpuscular Hemoglobin 23 pg (27-31); Mean Corpuscular Volume 70 fL (80-97); Mean Platelet Volume 7.8 fL (7.4-10.4); Platelet Count 254 10^3/uL (150-450); Red Blood Count 4.61 10^6 /uL (3.70-4.87); Red Cell Distribution Width 22 % (10-15); White Blood Count 6.5 10^3/uL (3.5-10.8)
[2021-06-07 07:37] LABS: Calcium 9.3 mg/dL (8.6-10.3); EGFR African American 73.9 (>60); EGFR Non-African American 61.1 (>60); Potassium 3.6 mmol/L (3.5-5.0)
[2021-06-07] MEDS: Fluticasone NASAL SPRAY 50MCG 16 gm SPRAY BTL INTRANASAL SCH ×2 (07:47→07:49)
[2021-06-07] MEDS: Enoxaparin 40 MG/0.4 ML SYR SUBCUT SCH (21:43)
[2021-06-08] MEDS: Ondansetron 4 mg VIAL 2 MG/ML 2 ml VIAL IV PRN ×2 (05:38→16:21)
[2021-06-08] MEDS: Albuterol HFA INHALER 8 gm MDI INH PRN (07:24)
[2021-06-08] MEDS: Tiotropium Brom/Olodaterol MDI INH SCH (07:26)
[2021-06-08] MEDS: Polyethylene Glycol 3350 17 GM PACKET PO PRN (09:40)
[2021-06-08] MEDS: Metoclopramide 5 MG/ML VIAL (10 mg) IV PRN (09:40)
[2021-06-08] MEDS ORDERED: Butalb/Acetamin/Caff TAB 325-50-40MG PO ONE ×2 (11:08→15:45)
[2021-06-08] MEDS: Fluticasone NASAL SPRAY 50MCG 16 gm SPRAY BTL INTRANASAL SCH (11:51)
[2021-06-08] MEDS: Enoxaparin 40 MG/0.4 ML SYR SUBCUT SCH (21:02)
[2021-06-08] MEDS: Calcium Carb (TUMS) 500 mg CHEW TAB PO PRN (23:11)
[2021-06-08] MEDS ORDERED: Prochlorperazine 5 mg/ml 2 ml VIAL (10 mg) IV ONE (23:42)
[2021-06-09] MEDS: Ondansetron 4 mg VIAL 2 MG/ML 2 ml VIAL IV PRN ×2 (06:10→21:30)
[2021-06-09] MEDS: Albuterol HFA INHALER 8 gm MDI INH PRN (07:56)
[2021-06-09] MEDS: Tiotropium Brom/Olodaterol MDI INH SCH (07:56)
[2021-06-09] MEDS: Fluticasone NASAL SPRAY 50MCG 16 gm SPRAY BTL INTRANASAL SCH (09:33)
[2021-06-09] MEDS ORDERED: Butalb/Acetamin/Caff TAB 325-50-40MG PO ONE ×2 (13:13→21:00)
[2021-06-09] MEDS: Metoclopramide 5 MG/ML VIAL (10 mg) IV PRN (13:22)
[2021-06-09] MEDS: Enoxaparin 40 MG/0.4 ML SYR SUBCUT SCH (21:19)
[2021-06-10] MEDS: Ondansetron 4 mg VIAL 2 MG/ML 2 ml VIAL IV PRN ×2 (05:38→22:21)
[2021-06-10] MEDS: Fluticasone NASAL SPRAY 50MCG 16 gm SPRAY BTL INTRANASAL SCH (08:18)
[2021-06-10] MEDS: Tiotropium Brom/Olodaterol MDI INH SCH (08:24)
[2021-06-10] MEDS: Polyethylene Glycol 3350 17 GM PACKET PO PRN (10:37)
[2021-06-10] MEDS: Metoclopramide 5 MG/ML VIAL (10 mg) IV PRN (11:50)
[2021-06-10] MEDS ORDERED: Butalb/Acetamin/Caff TAB 325-50-40MG PO ONE (22:31)
[2021-06-10] MEDS: Enoxaparin 40 MG/0.4 ML SYR SUBCUT SCH (22:31)
[2021-06-11] MEDS: Ondansetron 4 mg VIAL 2 MG/ML 2 ml VIAL IV PRN ×3 (05:47→23:59)
[2021-06-11] MEDS: Calcium Carb (TUMS) 500 mg CHEW TAB PO PRN ×2 (05:48→21:54)
[2021-06-11] MEDS: Tiotropium Brom/Olodaterol MDI INH SCH (07:23)
[2021-06-11] MEDS: Albuterol HFA INHALER 8 gm MDI INH PRN (07:25)
[2021-06-11] MEDS: Metoclopramide 5 MG/ML VIAL (10 mg) IV PRN (10:37)
[2021-06-11] MEDS ORDERED: Butalb/Acetamin/Caff TAB 325-50-40MG PO ONE ×2 (11:13→21:15)
[2021-06-11] MEDS: Fluticasone NASAL SPRAY 50MCG 16 gm SPRAY BTL INTRANASAL SCH (11:45)
[2021-06-11] MEDS: Enoxaparin 40 MG/0.4 ML SYR SUBCUT SCH (20:42)
[2021-06-12 05:11] LABS: ABS Basophils 0.2 10^3/ul (0-0.2); ABS Eosinophils 0.3 10^3/ul (0-0.6); ABS Lymphocytes 2.9 10^3/ul (1.0-4.8); ABS Monocytes 0.3 10^3/ul (0-0.8); ABS Neutrophils 2.3 10^3/ul (1.5-7.7); Eosinophil % 4.5 %; Hematocrit 30 % (35-47); Hemoglobin 9.7 g/dL (12.0-16.0); Lymphocyte % 48.9 %; Mean Corpuscular HGB Conc 33 g/dL (31-36); Mean Corpuscular Hemoglobin 24 pg (27-31); Mean Corpuscular Volume 71 fL (80-97); Mean Platelet Volume 8.2 fL (7.4-10.4); Platelet Count 256 10^3/uL (150-450); Red Blood Count 4.14 10^6 /uL (3.70-4.87); Red Cell Distribution Width 21 % (10-15); White Blood Count 5.9 10^3/uL (3.5-10.8)
[2021-06-12 05:32] LABS: EGFR African American 83.2 (>60); EGFR Non-African American 68.8 (>60); Magnesium 1.4 mg/dL (1.9-2.7); Potassium 3.9 mmol/L (3.5-5.0)
[2021-06-12] MEDS ORDERED: Magnesium Sulf 4 GM/100 ML IV 4,000 MG/100 ML BAG IVPB ONE (08:19)
[2021-06-12 08:55] LABS: HDL Cholesterol 30.9 mg/dL
[2021-06-12] MEDS: Fluticasone NASAL SPRAY 50MCG 16 gm SPRAY BTL INTRANASAL SCH (09:20)
[2021-06-12] MEDS: Tiotropium Brom/Olodaterol MDI INH SCH (09:58)
[2021-06-12] MEDS: Metoclopramide 5 MG/ML VIAL (10 mg) IV PRN (09:58)
[2021-06-12] MEDS: Ondansetron 4 mg VIAL 2 MG/ML 2 ml VIAL IV PRN (14:13)
[2021-06-12] MEDS: Butalb/Acetamin/Caff TAB 325-50-40MG PO PRN (15:28)
[2021-06-12] MEDS: Enoxaparin 40 MG/0.4 ML SYR SUBCUT SCH (21:23)
[2021-06-12] MEDS: Calcium Carb (TUMS) 500 mg CHEW TAB PO PRN (21:23)
[2021-06-13] MEDS: Butalb/Acetamin/Caff TAB 325-50-40MG PO PRN (03:04)
[2021-06-13] MEDS: Tiotropium Brom/Olodaterol MDI INH SCH (07:52)
[2021-06-13] MEDS: Calcium Carb (TUMS) 500 mg CHEW TAB PO PRN (08:06)
[2021-06-13] MEDS: Fluticasone NASAL SPRAY 50MCG 16 gm SPRAY BTL INTRANASAL SCH (08:11)
[2021-06-13] MEDS: Ondansetron 4 mg VIAL 2 MG/ML 2 ml VIAL IV PRN (09:23)
[2021-06-13] MEDS ORDERED: Lidocaine PATCH 5% PATCH TRANSDERM SCH (10:00)
[2021-06-13 11:45] VITALS: BP 100/64
[2021-06-13] MEDS ORDERED: Lidocaine Patch REMOVE PATCH PATCH OFF SCH (21:00)
== END 2021-06-13 14:30 | DRG 897 ==
LOC: ED 07:05 → MED 15:46
PROVIDERS: ADMIT Student in an Organized Health Care Education/Training Program; ATTEND Hospitalist

== ENCOUNTER 2021-10-22 09:48 | Inpatient (IN) ==
[2021-10-22] MEDS ORDERED: methylPREDNISolone 125 mg 2 ML VIAL IV ONE (11:32)
[2021-10-22] MEDS ORDERED: Albuterol/Ipratropium NEB.SOL (2.5/0.5 MG) 3 ML NEB.SOLN INH ONE ×2 (11:32→14:51)
[2021-10-22] MEDS ORDERED: Magnesium Sulfate 2 gm BAG 2 GM/50 ML BAG IVPB ONE (11:32)
[2021-10-22 12:44] LABS: ABS Lymphocytes 0.8 10^3/ul (1.0-4.8); ABS Monocytes 0.3 10^3/ul (0-0.8); ABS Neutrophils 3.6 10^3/ul (1.5-7.7); Eosinophil % 0.3 %; Hematocrit 28 % (35-47); Hemoglobin 9.1 g/dL (12.0-16.0); Lymphocyte % 16.5 %; Mean Corpuscular HGB Conc 32 g/dL (31-36); Mean Corpuscular Hemoglobin 22 pg (27-31); Mean Corpuscular Volume 67 fL (80-97); Mean Platelet Volume 7.6 fL (7.4-10.4); Platelet Count 272 10^3/uL (150-450); Red Blood Count 4.19 10^6 /uL (3.70-4.87); Red Cell Distribution Width 21 % (10-15); White Blood Count 4.7 10^3/uL (3.5-10.8)
[2021-10-22 12:58] LABS: Albumin 3.8 g/dL (3.2-5.2); Albumin/Globulin Ratio 1.1 (1-3); Calcium 8.9 mg/dL (8.6-10.3); Globulin 3.5 g/dL (2-4); Potassium 4.2 mmol/L (3.5-5.0); Total Bilirubin 0.2 mg/dL (0.2-1.0); Total Protein 7.3 g/dL (6.4-8.9)
[2021-10-22] MEDS ORDERED: guaiFENesin 100 mg/5 ml LIQ unit dose cup PO ONE (14:52)
[2021-10-22] MEDS: SPIRIVA Respimat (tiotropium) 2.5 mcg/inh Inhaler INH SCH (17:09)
[2021-10-22] MEDS ORDERED: DOXYcycline 100 MG in NS 0.9% 250 ml 250 ML IVPB ONE (18:30)
[2021-10-22 18:35] LABS: Rapid COVID-19 Molecular Undetected (Undetected)
[2021-10-22] MEDS: Ondansetron ODT 4 mg TAB 4 MG TAB SL PRN (21:46)
[2021-10-22] MEDS: Enoxaparin 40 MG/0.4 ML SYR SUBCUT SCH (21:47)
[2021-10-22] MEDS: Senna TAB 8.6 mg TAB PO SCH (21:48)
[2021-10-23] MEDS: SPIRIVA Respimat (tiotropium) 2.5 mcg/inh Inhaler INH SCH (07:13)
[2021-10-23] MEDS: Mometasone/Formoter 200/5 MDI INH SCH ×3 (07:14→18:50)
[2021-10-23] MEDS: Albuterol HFA INHALER 8 gm MDI INH SCH ×5 (07:15→18:50)
[2021-10-23] MEDS: Fluticasone NASAL SPRAY 50MCG 16 gm SPRAY BTL INTRANASAL SCH (08:24)
[2021-10-23] MEDS: Methadone ORALSYR CONC LIQ 10 MG/ML PO SCH (08:24)
[2021-10-23] MEDS: Polyethylene Glycol 3350 17 GM PACKET PO SCH (08:26)
[2021-10-23] MEDS: Ondansetron ODT 4 mg TAB 4 MG TAB SL PRN ×2 (08:29→20:27)
[2021-10-23 09:02] LABS: ABS Basophils 0.1 10^3/ul (0-0.2); ABS Lymphocytes 1.6 10^3/ul (1.0-4.8); ABS Monocytes 0.5 10^3/ul (0-0.8); ABS Neutrophils 3.9 10^3/ul (1.5-7.7); Eosinophil % 0.2 %; Hematocrit 31 % (35-47); Hemoglobin 9.6 g/dL (12.0-16.0); Lymphocyte % 26.4 %; Mean Corpuscular HGB Conc 31 g/dL (31-36); Mean Corpuscular Hemoglobin 21 pg (27-31); Mean Corpuscular Volume 67 fL (80-97); Mean Platelet Volume 8.3 fL (7.4-10.4); Platelet Count 306 10^3/uL (150-450); Red Blood Count 4.58 10^6 /uL (3.70-4.87); Red Cell Distribution Width 21 % (10-15)
[2021-10-23 09:06] LABS: Calcium 9.6 mg/dL (8.6-10.3); Magnesium 2.1 mg/dL (1.9-2.7); Potassium 4.1 mmol/L (3.5-5.0); eGFR CKD-EPI 70.1 (>60)
[2021-10-23] MEDS: Butalb/Acetamin/Caff TAB 325-50-40MG PO PRN (10:04)
[2021-10-23] MEDS: Pantoprazole VIAL 40 MG VIAL IV SCH (18:35)
[2021-10-23] MEDS: Enoxaparin 40 MG/0.4 ML SYR SUBCUT SCH (20:29)
[2021-10-23] MEDS: Senna TAB 8.6 mg TAB PO SCH (20:29)
[2021-10-24 05:22] LABS: Hematocrit 28 % (35-47); Hemoglobin 8.8 g/dL (12.0-16.0); Mean Corpuscular HGB Conc 31 g/dL (31-36); Mean Corpuscular Hemoglobin 21 pg (27-31); Mean Corpuscular Volume 67 fL (80-97); Mean Platelet Volume 7.6 fL (7.4-10.4); Platelet Count 303 10^3/uL (150-450); Red Blood Count 4.25 10^6 /uL (3.70-4.87); Red Cell Distribution Width 21 % (10-15); White Blood Count 7.5 10^3/uL (3.5-10.8)
[2021-10-24 05:32] LABS: Magnesium 1.6 mg/dL (1.9-2.7); Potassium 4.1 mmol/L (3.5-5.0); eGFR CKD-EPI 70.1 (>60)
[2021-10-24] MEDS ORDERED: Sodium Chloride(INHALANT)0.9% 5 ML NEB.SOLN INH ONE (08:15)
[2021-10-24] MEDS ORDERED: Magnesium Sulfate 2 gm BAG 2 GM/50 ML BAG IVPB ONE (08:50)
[2021-10-24] MEDS: Polyethylene Glycol 3350 17 GM PACKET PO SCH (09:03)
[2021-10-24] MEDS: Pantoprazole VIAL 40 MG VIAL IV SCH ×2 (09:03→22:43)
[2021-10-24] MEDS: Methadone ORALSYR CONC LIQ 10 MG/ML PO SCH (09:04)
[2021-10-24] MEDS: Albuterol HFA INHALER 8 gm MDI INH SCH ×5 (10:21→23:11)
[2021-10-24] MEDS: Mometasone/Formoter 200/5 MDI INH SCH ×2 (10:21→22:55)
[2021-10-24] MEDS: SPIRIVA Respimat (tiotropium) 2.5 mcg/inh Inhaler INH SCH (10:31)
[2021-10-24] MEDS: Fluticasone NASAL SPRAY 50MCG 16 gm SPRAY BTL INTRANASAL SCH (10:37)
[2021-10-24] MEDS ORDERED: Albuterol/Ipratropium NEB.SOL (2.5/0.5 MG) 3 ML NEB.SOLN INH SCH (11:00)
[2021-10-24] MEDS: Butalb/Acetamin/Caff TAB 325-50-40MG PO PRN (11:44)
[2021-10-24] MEDS: Ondansetron ODT 4 mg TAB 4 MG TAB SL PRN (17:57)
[2021-10-24] MEDS: Enoxaparin 40 MG/0.4 ML SYR SUBCUT SCH (20:26)
[2021-10-24] MEDS: Senna TAB 8.6 mg TAB PO SCH (22:42)
[2021-10-25] MEDS: Albuterol HFA INHALER 8 gm MDI INH SCH ×5 (03:00→20:03)
[2021-10-25 05:12] LABS: Calcium 9.6 mg/dL (8.6-10.3); Magnesium 2.6 mg/dL (1.9-2.7); Potassium 4.6 mmol/L (3.5-5.0); eGFR CKD-EPI 81.9 (>60)
[2021-10-25 05:18] LABS: ABS Lymphocytes 2.2 10^3/ul (1.0-4.8); ABS Monocytes 0.5 10^3/ul (0-0.8); ABS Neutrophils 4.2 10^3/ul (1.5-7.7); Eosinophil % 0.1 %; Hematocrit 31 % (35-47); Hemoglobin 9.7 g/dL (12.0-16.0); Lymphocyte % 31.7 %; Mean Corpuscular HGB Conc 32 g/dL (31-36); Mean Corpuscular Hemoglobin 21 pg (27-31); Mean Corpuscular Volume 68 fL (80-97); Mean Platelet Volume 8.2 fL (7.4-10.4); Platelet Count 290 10^3/uL (150-450); Red Blood Count 4.55 10^6 /uL (3.70-4.87); Red Cell Distribution Width 21 % (10-15); White Blood Count 6.9 10^3/uL (3.5-10.8)
[2021-10-25] MEDS: Mometasone/Formoter 200/5 MDI INH SCH ×2 (07:50→20:03)
[2021-10-25] MEDS: Pantoprazole VIAL 40 MG VIAL IV SCH ×2 (08:11→20:22)
[2021-10-25] MEDS: Polyethylene Glycol 3350 17 GM PACKET PO SCH (08:11)
[2021-10-25] MEDS: Methadone ORALSYR CONC LIQ 10 MG/ML PO SCH (08:17)
[2021-10-25] MEDS: Fluticasone NASAL SPRAY 50MCG 16 gm SPRAY BTL INTRANASAL SCH (08:17)
[2021-10-25] MEDS: Butalb/Acetamin/Caff TAB 325-50-40MG PO PRN (11:32)
[2021-10-25] MEDS: Ondansetron ODT 4 mg TAB 4 MG TAB SL PRN (17:16)
[2021-10-25] MEDS: Enoxaparin 40 MG/0.4 ML SYR SUBCUT SCH (20:22)
[2021-10-25] MEDS: Senna TAB 8.6 mg TAB PO SCH (20:23)
[2021-10-25] MEDS ORDERED: Calcium Carb (TUMS) 500 mg CHEW TAB PO ONE (21:40)
[2021-10-26] MEDS: Albuterol HFA INHALER 8 gm MDI INH SCH ×7 (01:41→23:46)
[2021-10-26] MEDS: Mometasone/Formoter 200/5 MDI INH SCH ×2 (09:16→19:49)
[2021-10-26] MEDS: Methadone ORALSYR CONC LIQ 10 MG/ML PO SCH (09:33)
[2021-10-26] MEDS: Pantoprazole VIAL 40 MG VIAL IV SCH ×2 (09:33→18:38)
[2021-10-26] MEDS: Ondansetron ODT 4 mg TAB 4 MG TAB SL PRN ×2 (09:45→17:18)
[2021-10-26] MEDS: Fluticasone NASAL SPRAY 50MCG 16 gm SPRAY BTL INTRANASAL SCH (09:53)
[2021-10-26] MEDS: Polyethylene Glycol 3350 17 GM PACKET PO SCH (09:54)
[2021-10-26] MEDS ORDERED: ESOMEPRAZOLE 20 MG PO SCH (11:00)
[2021-10-26] MEDS: Butalb/Acetamin/Caff TAB 325-50-40MG PO PRN (11:25)
[2021-10-26] MEDS: Lansoprazole SUSP ORALSYR 3 MG/ML PO SCH ×2 (12:48→21:29)
[2021-10-26] MEDS: Senna TAB 8.6 mg TAB PO SCH (21:17)
[2021-10-26] MEDS: Enoxaparin 40 MG/0.4 ML SYR SUBCUT SCH (21:26)
[2021-10-27] MEDS: Albuterol HFA INHALER 8 gm MDI INH SCH ×5 (02:31→19:59)
[2021-10-27] MEDS: Lansoprazole SUSP ORALSYR 3 MG/ML PO SCH ×2 (07:47→21:59)
[2021-10-27] MEDS: Butalb/Acetamin/Caff TAB 325-50-40MG PO PRN (07:48)
[2021-10-27] MEDS: Fluticasone NASAL SPRAY 50MCG 16 gm SPRAY BTL INTRANASAL SCH (07:49)
[2021-10-27] MEDS: Polyethylene Glycol 3350 17 GM PACKET PO SCH (07:49)
[2021-10-27] MEDS: Methadone ORALSYR CONC LIQ 10 MG/ML PO SCH (07:57)
[2021-10-27] MEDS: Mometasone/Formoter 200/5 MDI INH SCH ×2 (11:57→20:00)
[2021-10-27] MEDS: Ondansetron ODT 4 mg TAB 4 MG TAB SL PRN (12:48)
[2021-10-27] MEDS: Enoxaparin 40 MG/0.4 ML SYR SUBCUT SCH (20:07)
[2021-10-27] MEDS: Senna TAB 8.6 mg TAB PO SCH (20:09)
[2021-10-28] MEDS: Albuterol HFA INHALER 8 gm MDI INH SCH ×5 (04:41→15:19)
[2021-10-28 05:30] LABS: ABS Lymphocytes 3.5 10^3/ul (1.0-4.8); ABS Monocytes 0.7 10^3/ul (0-0.8); ABS Neutrophils 5.3 10^3/ul (1.5-7.7); Eosinophil % 0.1 %; Hematocrit 30 % (35-47); Hemoglobin 9.5 g/dL (12.0-16.0); Lymphocyte % 36.8 %; Mean Corpuscular HGB Conc 32 g/dL (31-36); Mean Corpuscular Hemoglobin 21 pg (27-31); Mean Corpuscular Volume 66 fL (80-97); Mean Platelet Volume 7.2 fL (7.4-10.4); Platelet Count 341 10^3/uL (150-450); Red Cell Distribution Width 21 % (10-15); White Blood Count 9.4 10^3/uL (3.5-10.8)
[2021-10-28 05:50] LABS: Calcium 9.5 mg/dL (8.6-10.3); Magnesium 1.6 mg/dL (1.9-2.7); Potassium 4.5 mmol/L (3.5-5.0); eGFR CKD-EPI 77.2 (>60)
[2021-10-28] MEDS ORDERED: Magnesium Sulfate IV 3 GM in NS 0.9% 100 ml BAG 100 ML IVPB ONE (06:15)
[2021-10-28] MEDS: Mometasone/Formoter 200/5 MDI INH SCH (08:16)
[2021-10-28] MEDS: Polyethylene Glycol 3350 17 GM PACKET PO SCH (09:00)
[2021-10-28] MEDS: Fluticasone NASAL SPRAY 50MCG 16 gm SPRAY BTL INTRANASAL SCH (09:01)
[2021-10-28] MEDS: Lansoprazole SUSP ORALSYR 3 MG/ML PO SCH (09:01)
[2021-10-28] MEDS: Methadone ORALSYR CONC LIQ 10 MG/ML PO SCH (09:02)
[2021-10-28] MEDS: Butalb/Acetamin/Caff TAB 325-50-40MG PO PRN (09:12)
[2021-10-28] MEDS: Ondansetron ODT 4 mg TAB 4 MG TAB SL PRN (10:06)
[2021-10-28 11:38] VITALS: BP 115/46
== END 2021-10-28 17:00 | disposition home or self-care (01) | DRG 190 ==
LOC: ED 09:48 → EDHOLD 09:48 → SUATTDRO 15:34 → MED 16:42 → SUATTDRO 10-23 18:30 → MED 10-24 03:35
PROVIDERS: ADMIT Hospitalist; ATTEND Hospitalist

== ENCOUNTER 2021-12-02 21:00 | Inpatient (IN) ==
[2021-12-02] MEDS ORDERED: D5LR 1000 ml BAG 1,000 ML IV ONE (21:27)
[2021-12-02] MEDS ORDERED: Dextrose 50% Syringe 50 ml 25 GM/50 ML SYRINGE IV PUSH ONE ×3 (21:27→23:03)
[2021-12-02] MEDS: Cefepime 1 GM in Dextrose 1 GM/50 ML BAG IV ONE (22:37)
[2021-12-02 22:41] LABS: ABS Basophils 0.1 10^3/ul (0-0.2); ABS Lymphocytes 1.5 10^3/ul (1.0-4.8); ABS Monocytes 0.7 10^3/ul (0-0.8); ABS Neutrophils 14.8 10^3/ul (1.5-7.7); Hematocrit 35 % (35-47); Hemoglobin 10.9 g/dL (12.0-16.0); Lymphocyte % 8.8 %; Mean Corpuscular HGB Conc 31 g/dL (31-36); Mean Corpuscular Hemoglobin 22 pg (27-31); Mean Corpuscular Volume 71 fL (80-97); Mean Platelet Volume 7.5 fL (7.4-10.4); Nucleated Red Blood Cells % 0.1; Platelet Count 270 10^3/uL (150-450); Red Blood Count 4.99 10^6 /uL (3.70-4.87); Red Cell Distribution Width 24 % (10-15); White Blood Count 17.1 10^3/uL (3.5-10.8)
[2021-12-02 22:56] LABS: ALT 117 U/L (7-52); AST 278 U/L (13-39); Albumin 3.5 g/dL (3.2-5.2); Albumin/Globulin Ratio 1.1 (1-3); Alkaline Phosphatase 133 U/L (35-149); Blood Urea Nitrogen 40 mg/dL (6-24); CO2 Carbon Dioxide 27 mmol/L (22-32); Calcium 8.6 mg/dL (8.6-10.3); Chloride 104 mmol/L (101-111); Globulin 3.3 g/dL (2-4); Glucose 123 mg/dL (70-100); Magnesium 1.2 mg/dL (1.9-2.7); Sodium 141 mmol/L (135-145); Total Protein 6.8 g/dL (6.4-8.9)
[2021-12-02] MEDS ORDERED: Vancomycin 1,250 MG in NS 0.9% 250 ml 250 ML IVPB ONE (23:00)
[2021-12-02 23:03] LABS: Troponin I 2.48 ng/mL (<0.03)
[2021-12-02] MEDS ORDERED: Albuterol HFA INHALER 8 gm MDI INH ONE (23:03)
[2021-12-02] MEDS ORDERED: Calcium Gluconate 2 GM in NS 0.9% 100 ml BAG 100 ML IVPB ONE (23:03)
[2021-12-02 23:04] LABS: Anion Gap 10 mmol/L (2-11); Potassium 6.5 mmol/L (3.5-5.0)
[2021-12-02] MEDS ORDERED: Magnesium Sulfate IV 3 GM in NS 0.9% 100 ml BAG 100 ML IVPB ONE (23:06)
[2021-12-02 23:12] LABS: Creatine Kinase 13270 U/L (10-223)
[2021-12-02] MEDS ORDERED: Iodixanol (CONTRAST) 320 MG/ML 100 ML SDV IV ONE (23:14)
[2021-12-02] MEDS ORDERED: Droperidol 5 MG/2 ML 2 ML VIAL IV ONE (23:16)
[2021-12-02] MEDS ORDERED: Droperidol 5 MG/2 ML 2 ML VIAL ONE (23:16)
[2021-12-02 23:35] LABS: POC Creatinine 1.9 mg/dL (0.6-1.3); eGFR CKD-EPI 28.6 (>60)
[2021-12-02] MEDS ORDERED: Remdesivir 100 mg Vial 200 MG in NS 0.9% 250 ml 210 ML IV ONE (23:56)
[2021-12-03 00:18] LABS: INR 1.56 (0.86-1.15)
[2021-12-03 00:40] LABS: Urine Benzodiazepine Screen None Detected (None Detect); Urine Cannabinoids Screen None Detected (None Detect); Urine Opiates Screen None Detected (None Detect)
[2021-12-03] MEDS ORDERED: NS 0.9% 1000 ml BAG 1,000 ML IV ONE (00:48)
[2021-12-03 00:56] LABS: TSH Ultra Thyroid Stim Horm 1.08 mcIU/mL (0.34-5.60)
[2021-12-03] MEDS ORDERED: Cefepime 1 GM in Dextrose 1 GM/50 ML BAG IV SCH (01:00)
[2021-12-03] MEDS ORDERED: Vancomycin per Pharmacy 1 EA NOTE FOLLOW UP SCH (01:00)
[2021-12-03 01:17] LABS: Urine Appearance Clear; Urine Color Yellow; Urine Specific Gravity 1.015 (1.002-1.030); Urine Urobilinogen Negative (Negative)
[2021-12-03 01:18] LABS: Urine Bilirubin Negative (Negative); Urine Blood 3+ (Negative); Urine Glucose 3+(>=500 mg/dL) (Negative); Urine Ketones Negative (Negative); Urine Nitrite Negative (Negative); Urine Protein 1+(30 mg/dL) (Negative)
[2021-12-03 01:29] LABS: Urine White Blood Cell Trace(0-5/hpf) (Absent)
[2021-12-03 01:30] LABS: Urine Bacteria 1+ (Absent); Urine Red Blood Cell Trace(0-2/hpf) (Absent); Urine Squamous Epithelial Cell Present (Absent)
[2021-12-03] MEDS: Pantoprazole VIAL 40 MG VIAL IV SCH ×2 (01:34→22:07)
[2021-12-03 02:39] LABS: Potassium 5.8 mmol/L (3.5-5.0)
[2021-12-03 02:48] LABS: CO2 Carbon Dioxide 28 mmol/L (22-32); Chloride 109 mmol/L (101-111); Sodium 142 mmol/L (135-145)
[2021-12-03 02:55] LABS: Anion Gap 5 mmol/L (2-11); Potassium 5.6 mmol/L (3.5-5.0)
[2021-12-03 02:56] LABS: Troponin I 3.35 ng/mL (<0.03)
[2021-12-03 03:55] LABS: ABS Monocytes 0.4 10^3/ul (0-0.8); ABS Neutrophils 8.2 10^3/ul (1.5-7.7); Hematocrit 27 % (35-47); Lymphocyte % 10.6 %; Mean Corpuscular HGB Conc 30 g/dL (31-36); Mean Corpuscular Hemoglobin 22 pg (27-31); Mean Corpuscular Volume 72 fL (80-97); Mean Platelet Volume 8.2 fL (7.4-10.4); Nucleated Red Blood Cells % 0.2; Platelet Count 189 10^3/uL (150-450); Red Blood Count 3.69 10^6 /uL (3.70-4.87); Red Cell Distribution Width 23 % (10-15); White Blood Count 9.6 10^3/uL (3.5-10.8)
[2021-12-03] MEDS ORDERED: Enoxaparin 30 MG/0.3 ML SYR SUBCUT SCH (04:00)
[2021-12-03 04:02] LABS: Creatine Kinase 6771 U/L (10-223)
[2021-12-03 05:58] LABS: INR 1.33 (0.86-1.15)
[2021-12-03 06:06] LABS: Albumin 2.9 g/dL (3.2-5.2); Calcium 8.4 mg/dL (8.6-10.3); Globulin 2.9 g/dL (2-4); Total Bilirubin 0.2 mg/dL (0.2-1.0); Total Protein 5.8 g/dL (6.4-8.9); eGFR CKD-EPI 23.7 (>60)
[2021-12-03 06:09] LABS: Potassium 5.9 mmol/L (3.5-5.0)
[2021-12-03 06:11] LABS: Troponin I 4.62 ng/mL (<0.03)
[2021-12-03] MEDS ORDERED: Calcium Gluconate 2 GM in NS 0.9% 100 ml BAG 100 ML IV ONE (06:15)
[2021-12-03] MEDS ORDERED: Patiromer POWDER 8.4 GM PAK PO ONE (06:16)
[2021-12-03] MEDS ORDERED: Dextrose 50% VIAL 50 ml IV ONE (06:18)
[2021-12-03] MEDS ORDERED: Dextrose 50% Syringe 50 ml 25 GM/50 ML SYRINGE IV PUSH ONE (06:30)
[2021-12-03] MEDS: Dexamethasone IV 4 MG/ML VIAL 1 ml VIAL IV SLOW PU SCH (08:43)
[2021-12-03 08:47] LABS: Magnesium 2.5 mg/dL (1.9-2.7)
[2021-12-03] MEDS ORDERED: Dextrose 50% Syringe 50 ml 25 GM/50 ML SYRINGE IV PUSH PRN (11:33)
[2021-12-03 15:27] LABS: Hematocrit 33 % (35-47); Hemoglobin 10.3 g/dL (12.0-16.0)
[2021-12-03 15:50] LABS: Calcium 9.2 mg/dL (8.6-10.3); eGFR CKD-EPI 20.7 (>60)
[2021-12-03 15:52] LABS: Potassium 5.8 mmol/L (3.5-5.0)
[2021-12-03] MEDS ORDERED: Piperacillin/Tazobac ADVAN 3.375 GM in NS 0.9% 100 ml BAG 100 ML IV ONE (16:32)
[2021-12-03] MEDS ORDERED: Zosyn per Pharmacy NOTE FOLLOW UP SCH (17:00)
[2021-12-03] MEDS ORDERED: Acetaminophen IV 1 GM/100ML 100 ML IV PRN (18:38)
[2021-12-03] MEDS ORDERED: Remdesivir 100 mg Vial 100 MG in NS 0.9% 250 ml 230 ML IV SCH (21:00)
[2021-12-03] MEDS: Cefepime 1 GM in Dextrose 1 GM/50 ML BAG IV ONE (22:09)
[2021-12-03] MEDS: ZOSYN 3.375 GM Q8H per EXTENDED INFUSION IV SCH (22:27)
[2021-12-04] MEDS: Lactated Ringers 1000 ml BAG 1,000 ML IV SCH ×2 (02:45→12:36)
[2021-12-04 02:48] LABS: Hematocrit 30 % (35-47); Hemoglobin 9.5 g/dL (12.0-16.0); Mean Corpuscular HGB Conc 32 g/dL (31-36); Mean Corpuscular Hemoglobin 22 pg (27-31); Mean Corpuscular Volume 68 fL (80-97); Mean Platelet Volume 8.5 fL (7.4-10.4); Platelet Count 194 10^3/uL (150-450); Red Blood Count 4.35 10^6 /uL (3.70-4.87); Red Cell Distribution Width 23 % (10-15); White Blood Count 14.2 10^3/uL (3.5-10.8)
[2021-12-04 02:51] LABS: INR 1.63 (0.86-1.15)
[2021-12-04 03:02] LABS: Albumin 2.6 g/dL (3.2-5.2); Calcium 8.6 mg/dL (8.6-10.3); Globulin 2.6 g/dL (2-4); Magnesium 2.1 mg/dL (1.9-2.7); Phosphorus 2.4 mg/dL (2.5-5.0); Total Bilirubin 0.2 mg/dL (0.2-1.0); Total Protein 5.2 g/dL (6.4-8.9); eGFR CKD-EPI 17.6 (>60)
[2021-12-04 03:32] LABS: Potassium 5.6 mmol/L (3.5-5.0)
[2021-12-04] MEDS ORDERED: Sodium Phosphate IV 15 MMOLE in NS 0.9% 250 ml 250 ML IV ONE (05:00)
[2021-12-04] MEDS ORDERED: Vancomycin Random Level NOTE FOLLOW UP ONE (06:00)
[2021-12-04] MEDS: Heparin 5000 UNITS/ML 1 mL VIAL SUBCUT SCH ×4 (06:37→21:27)
[2021-12-04] MEDS: ZOSYN 3.375 GM Q8H per EXTENDED INFUSION IV SCH (06:49)
[2021-12-04 06:50] LABS: Venous Bicarbonate HCO3 26.6 mmol/L (24-28)
[2021-12-04 09:45] LABS: Ferritin 41.1 ng/mL (11-307)
[2021-12-04] MEDS: Dexamethasone IV 4 MG/ML VIAL 1 ml VIAL IV SLOW PU SCH (11:11)
[2021-12-04] MEDS: ZOSYN 3.375 GM Q12H per EXTENDED INFUSION IV SCH (18:27)
[2021-12-04] MEDS: Pantoprazole VIAL 40 MG VIAL IV SCH (21:27)
[2021-12-04] MEDS: Albuterol HFA INHALER 8 gm MDI INH PRN (21:59)
[2021-12-04] MEDS ORDERED: Buffered Lidocaine 1% SYRIN 1 ml INTRADERM ONE (22:10)
[2021-12-04] MEDS ORDERED: Cefepime ADVAN 1 GM in NS 0.9% 50 ML 50 ML IVPB SCH (23:00)
[2021-12-05 05:09] LABS: Hematocrit 26 % (35-47); Hemoglobin 8.1 g/dL (12.0-16.0); Mean Corpuscular HGB Conc 32 g/dL (31-36); Mean Corpuscular Hemoglobin 22 pg (27-31); Mean Corpuscular Volume 68 fL (80-97); Mean Platelet Volume 8.1 fL (7.4-10.4); Platelet Count 137 10^3/uL (150-450); Red Blood Count 3.77 10^6 /uL (3.70-4.87); Red Cell Distribution Width 23 % (10-15); White Blood Count 11.4 10^3/uL (3.5-10.8)
[2021-12-05 05:24] LABS: Calcium 8.1 mg/dL (8.6-10.3); Magnesium 1.9 mg/dL (1.9-2.7); Phosphorus 3.4 mg/dL (2.5-5.0); Potassium 4.7 mmol/L (3.5-5.0); eGFR CKD-EPI 19.5 (>60)
[2021-12-05] MEDS: ZOSYN 3.375 GM Q12H per EXTENDED INFUSION IV SCH ×5 (05:54→17:58)
[2021-12-05] MEDS: Heparin 5000 UNITS/ML 1 mL VIAL SUBCUT SCH ×3 (05:54→22:00)
[2021-12-05] MEDS ORDERED: Magnesium Sulfate IV 1GM/100ML 1 GM/100 ML BAG IV ONE (07:30)
[2021-12-05] MEDS: Dexamethasone IV 4 MG/ML VIAL 1 ml VIAL IV SLOW PU SCH (09:07)
[2021-12-05] MEDS ORDERED: LORazepam 2 mg VIAL 1 ml ONE (12:49)
[2021-12-05] MEDS ORDERED: Lorazepam PYXIS KEY ONE (12:49)
[2021-12-05] MEDS ORDERED: LORazepam 2 mg VIAL 1 ml IV PUSH ONE ×2 (12:52→13:00)
[2021-12-05] MEDS ORDERED: Lorazepam PYXIS KEY PRN (12:52)
[2021-12-05 14:38] LABS: % Iron Saturation 4 % (14 - 50); Total Iron Binding Capacity 202 mcg/dL (250 - 400)
[2021-12-05] MEDS ORDERED: D5LR 1000 ml BAG 1,000 ML IV SCH (17:00)
[2021-12-05] MEDS ORDERED: D5W 1/2 NS 1000 ml BAG 1,000 ML IV SCH (18:00)
[2021-12-05] MEDS: Pantoprazole VIAL 40 MG VIAL IV SCH (19:54)
[2021-12-06 05:14] LABS: Hematocrit 25 % (35-47); Mean Corpuscular HGB Conc 32 g/dL (31-36); Mean Corpuscular Hemoglobin 22 pg (27-31); Mean Corpuscular Volume 69 fL (80-97); Mean Platelet Volume 8.4 fL (7.4-10.4); Platelet Count 137 10^3/uL (150-450); Red Blood Count 3.69 10^6 /uL (3.70-4.87); Red Cell Distribution Width 24 % (10-15)
[2021-12-06 05:18] LABS: Calcium 8.3 mg/dL (8.6-10.3); Magnesium 2.1 mg/dL (1.9-2.7); Phosphorus 3.8 mg/dL (2.5-5.0); Potassium 4.6 mmol/L (3.5-5.0); eGFR CKD-EPI 25.1 (>60)
[2021-12-06] MEDS ORDERED: NS 0.9% 100 ml BAG 100 ML ONE (06:08)
[2021-12-06] MEDS: Heparin 5000 UNITS/ML 1 mL VIAL SUBCUT SCH ×3 (06:27→21:03)
[2021-12-06] MEDS: ZOSYN 3.375 GM Q12H per EXTENDED INFUSION IV SCH ×3 (06:30→22:37)
[2021-12-06] MEDS ORDERED: Iron Sucrose 200 MG in NS 0.9% 100 ml BAG 100 ML IVPB ONE (08:00)
[2021-12-06] MEDS: Albuterol HFA INHALER 8 gm MDI INH PRN (08:46)
[2021-12-06] MEDS ORDERED: Haloperidol 5 mg/ml SDV IV/IM 5 MG/ML AMP IV SLOW PU PRN (09:02)
[2021-12-06] MEDS ORDERED: Methadone ORALSYR CONC LIQ 10 MG/ML PO SCH (10:00)
[2021-12-06] MEDS: Dexamethasone IV 4 MG/ML VIAL 1 ml VIAL IV SLOW PU SCH (10:52)
[2021-12-06] MEDS ORDERED: Saline NASAL SPRAY 0.65% BTL BOTH NARES PRN (11:27)
[2021-12-06] MEDS: Tiotropium Brom/Olodaterol MDI INH SCH (14:31)
[2021-12-07] MEDS: Heparin 5000 UNITS/ML 1 mL VIAL SUBCUT SCH ×2 (05:15→13:51)
[2021-12-07] MEDS: ZOSYN 3.375 GM Q12H per EXTENDED INFUSION IV SCH ×2 (05:16→15:08)
[2021-12-07 07:01] LABS: Calcium 8.6 mg/dL (8.6-10.3); Magnesium 1.9 mg/dL (1.9-2.7); Phosphorus 3.8 mg/dL (2.5-5.0); Potassium 4.4 mmol/L (3.5-5.0); eGFR CKD-EPI 32.4 (>60)
[2021-12-07] MEDS: Tiotropium Brom/Olodaterol MDI INH SCH (07:33)
[2021-12-07] MEDS ORDERED: Iron Sucrose 200 MG in NS 0.9% 100 ml BAG 100 ML IVPB ONE (09:00)
[2021-12-07] MEDS: Dexamethasone IV 4 MG/ML VIAL 1 ml VIAL IV SLOW PU SCH (09:58)
[2021-12-07 10:22] LABS: Hematocrit 27 % (35-47); Hemoglobin 8.5 g/dL (12.0-16.0); Mean Corpuscular HGB Conc 31 g/dL (31-36); Mean Corpuscular Hemoglobin 22 pg (27-31); Mean Corpuscular Volume 70 fL (80-97); Mean Platelet Volume 8.4 fL (7.4-10.4); Platelet Count 144 10^3/uL (150-450); Red Blood Count 3.89 10^6 /uL (3.70-4.87); Red Cell Distribution Width 24 % (10-15); White Blood Count 14.6 10^3/uL (3.5-10.8)
[2021-12-07] MEDS ORDERED: D5W 1/2 NS 1000 ml BAG 1,000 ML IV SCH (15:00)
[2021-12-07] MEDS: Enoxaparin 40 MG/0.4 ML SYR SUBCUT SCH (20:11)
[2021-12-08] MEDS: Tiotropium Brom/Olodaterol MDI INH SCH (07:45)
[2021-12-08 09:20] LABS: Hematocrit 28 % (35-47); Hemoglobin 8.6 g/dL (12.0-16.0); Mean Corpuscular HGB Conc 31 g/dL (31-36); Mean Corpuscular Hemoglobin 21 pg (27-31); Mean Corpuscular Volume 70 fL (80-97); Mean Platelet Volume 8.4 fL (7.4-10.4); Platelet Count 157 10^3/uL (150-450); Red Blood Count 4.03 10^6 /uL (3.70-4.87); Red Cell Distribution Width 24 % (10-15); White Blood Count 14.5 10^3/uL (3.5-10.8)
[2021-12-08] MEDS: Iron Sucrose 200 MG in NS 0.9% 100 ml BAG 100 ML IVPB SCH (09:24)
[2021-12-08 09:30] LABS: Calcium 8.9 mg/dL (8.6-10.3); Magnesium 1.6 mg/dL (1.9-2.7); Potassium 3.9 mmol/L (3.5-5.0); eGFR CKD-EPI 45.9 (>60)
[2021-12-08] MEDS ORDERED: Magnesium Sulf 4 GM/100 ML IV 4,000 MG/100 ML BAG IVPB ONE (09:34)
[2021-12-08] MEDS: Enoxaparin 40 MG/0.4 ML SYR SUBCUT SCH (19:55)
[2021-12-09] MEDS ORDERED: Benzocaine/Menthol LOZ PO PRN (01:20)
[2021-12-09] MEDS: Tiotropium Brom/Olodaterol MDI INH SCH (08:29)
[2021-12-09] MEDS: Iron Sucrose 200 MG in NS 0.9% 100 ml BAG 100 ML IVPB SCH (09:31)
[2021-12-09] MEDS: Benzocaine/Menthol LOZ PO PRN (19:50)
[2021-12-10] MEDS: Tiotropium Brom/Olodaterol MDI INH SCH (07:56)
[2021-12-10] MEDS: Iron Sucrose 200 MG in NS 0.9% 100 ml BAG 100 ML IVPB SCH (09:45)
[2021-12-10] MEDS: Methadone ORALSYR CONC LIQ 10 MG/ML PO SCH (09:48)
[2021-12-10 11:22] LABS: Hematocrit 26 % (35-47); Mean Corpuscular HGB Conc 30 g/dL (31-36); Mean Corpuscular Hemoglobin 22 pg (27-31); Mean Corpuscular Volume 72 fL (80-97); Red Blood Count 3.68 10^6 /uL (3.70-4.87); Red Cell Distribution Width 23 % (10-15)
[2021-12-10 11:26] LABS: Calcium 8.8 mg/dL (8.6-10.3); Magnesium 1.8 mg/dL (1.9-2.7); Potassium 3.7 mmol/L (3.5-5.0); eGFR CKD-EPI 50.1 (>60)
[2021-12-10 11:50] LABS: ABS Lymphocytes 1.5 10^3/ul (1.0-4.8); ABS Monocytes 0.7 10^3/ul (0-0.8); ABS Neutrophils 10.8 10^3/ul (1.5-7.7); Lymphocyte % 11.6 %; Mean Platelet Volume 8.8 fL (7.4-10.4); Nucleated Red Blood Cells % 0.1; Platelet Count 161 10^3/uL (150-450)
[2021-12-10 11:51] LABS: Microcytosis 2+
[2021-12-10 11:52] LABS: Anisocytosis 3+; Hypochromasia 2+; Polychromasia 2+
[2021-12-10 11:53] LABS: Acanthocytes 1+
[2021-12-10] MEDS ORDERED: Magnesium Sulfate 2 gm BAG 2 GM/50 ML BAG IVPB ONE (14:07)
[2021-12-10] MEDS: Butalb/Acetamin/Caff TAB 325-50-40MG PO PRN (14:48)
[2021-12-10] MEDS ORDERED: Potassium Chlor 20 meq TAB.ER PO ONE (17:28)
[2021-12-11] MEDS: Tiotropium Brom/Olodaterol MDI INH SCH (08:12)
[2021-12-11 08:25] LABS: Hematocrit 28 % (35-47); Hemoglobin 8.5 g/dL (12.0-16.0); Mean Corpuscular HGB Conc 30 g/dL (31-36); Mean Corpuscular Hemoglobin 22 pg (27-31); Mean Corpuscular Volume 72 fL (80-97); Mean Platelet Volume 9.7 fL (7.4-10.4); Platelet Count 195 10^3/uL (150-450); Red Blood Count 3.88 10^6 /uL (3.70-4.87); Red Cell Distribution Width 24 % (10-15); White Blood Count 17.7 10^3/uL (3.5-10.8)
[2021-12-11 08:28] LABS: CO2 Carbon Dioxide 24 mmol/L (22-32); Calcium 8.7 mg/dL (8.6-10.3); Chloride 109 mmol/L (101-111); Sodium 142 mmol/L (135-145)
[2021-12-11 08:30] LABS: Anion Gap 9 mmol/L (2-11)
[2021-12-11 08:34] LABS: Blood Urea Nitrogen 12 mg/dL (6-24); Glucose 72 mg/dL (70-100); eGFR CKD-EPI 49.6 (>60)
[2021-12-11 09:42] LABS: PCO2 Arterial 63 mmHg (35-45)
[2021-12-11] MEDS ORDERED: Ondansetron ODT 4 mg TAB 4 MG TAB ONE (09:52)
[2021-12-11] MEDS: Methadone ORALSYR CONC LIQ 10 MG/ML PO SCH (09:59)
[2021-12-11] MEDS: Ondansetron ODT 4 mg TAB 4 MG TAB SL PRN (10:05)
[2021-12-11 10:19] LABS: PO2 Arterial < 38 mmHg (80-100)
[2021-12-11 10:57] LABS: PCO2 Arterial 44 mmHg (35-45); PO2 Arterial 125 mmHg (80-100)
[2021-12-11] MEDS ORDERED: Potassium Chlor 20 meq TAB.ER PO ONE (13:20)
[2021-12-11] MEDS ORDERED: Lactated Ringers 1000 ml BAG 1,000 ML IV ONE (15:42)
[2021-12-11] MEDS ORDERED: Methadone ORALSYR CONC LIQ 10 MG/ML PO SCH (16:07)
[2021-12-12] MEDS: Butalb/Acetamin/Caff TAB 325-50-40MG PO PRN ×2 (02:37→11:39)
[2021-12-12 06:26] LABS: Hematocrit 28 % (35-47); Hemoglobin 8.6 g/dL (12.0-16.0); Mean Corpuscular HGB Conc 31 g/dL (31-36); Mean Corpuscular Hemoglobin 22 pg (27-31); Mean Corpuscular Volume 73 fL (80-97); Mean Platelet Volume 8.5 fL (7.4-10.4); Platelet Count 163 10^3/uL (150-450); Red Blood Count 3.88 10^6 /uL (3.70-4.87); Red Cell Distribution Width 24 % (10-15); White Blood Count 19.8 10^3/uL (3.5-10.8)
[2021-12-12 06:55] LABS: Calcium 8.2 mg/dL (8.6-10.3); Magnesium 1.7 mg/dL (1.9-2.7); Potassium 4.2 mmol/L (3.5-5.0)
[2021-12-12 07:01] LABS: C Reactive Protein 179.67 mg/L (<8.01); eGFR CKD-EPI 43.9 (>60)
[2021-12-12] MEDS ORDERED: Magnesium Sulfate 2 gm BAG 2 GM/50 ML BAG IVPB ONE (07:06)
[2021-12-12 08:30] LABS: ABS Basophils 0.1 10^3/ul (0-0.2); ABS Eosinophils 0.1 10^3/ul (0-0.6); ABS Lymphocytes 2.2 10^3/ul (1.0-4.8); ABS Monocytes 0.8 10^3/ul (0-0.8); ABS Neutrophils 16.9 10^3/ul (1.5-7.7); Eosinophil % 0.5 %; Lymphocyte % 11.1 %
[2021-12-12] MEDS: Tiotropium Brom/Olodaterol MDI INH SCH (08:30)
[2021-12-12 08:31] LABS: Anisocytosis 2+; Polychromasia 1+
[2021-12-12] MEDS ORDERED: Methadone ORALSYR CONC LIQ 10 MG/ML PO SCH (09:00)
[2021-12-12 12:08] LABS: Urine Appearance Clear; Urine Bilirubin Negative (Negative); Urine Blood 1+ (Negative); Urine Color Straw; Urine Glucose Negative (Negative); Urine Ketones Negative (Negative); Urine Nitrite Negative (Negative); Urine Protein Negative (Negative); Urine Specific Gravity 1.006 (1.002-1.030); Urine Urobilinogen Negative (Negative)
[2021-12-12] MEDS: Methadone ORALSYR CONC LIQ 10 MG/ML PO SCH (12:14)
[2021-12-12 12:20] LABS: Urine Bacteria 1+ (Absent); Urine Red Blood Cell Trace(0-2/hpf) (Absent); Urine Squamous Epithelial Cell Present (Absent); Urine White Blood Cell Trace(0-5/hpf) (Absent)
[2021-12-12 12:26] LABS: Urine Benzodiazepine Screen None Detected (None Detect); Urine Cannabinoids Screen None Detected (None Detect); Urine Opiates Screen None Detected (None Detect)
[2021-12-12] MEDS ORDERED: Enoxaparin 30 MG/0.3 ML SYR SUBCUT SCH (16:00)
[2021-12-13 07:06] LABS: Hematocrit 24 % (35-47); Hemoglobin 7.5 g/dL (12.0-16.0); Mean Corpuscular HGB Conc 31 g/dL (31-36); Mean Corpuscular Hemoglobin 23 pg (27-31); Mean Corpuscular Volume 72 fL (80-97); Red Blood Count 3.32 10^6 /uL (3.70-4.87); Red Cell Distribution Width 23 % (10-15); White Blood Count 21.5 10^3/uL (3.5-10.8)
[2021-12-13 07:07] LABS: CO2 Carbon Dioxide 23 mmol/L (22-32); Chloride 108 mmol/L (101-111); Magnesium 1.8 mg/dL (1.9-2.7); Sodium 139 mmol/L (135-145)
[2021-12-13] MEDS ORDERED: Magnesium Sulfate IV 3 GM in NS 0.9% 100 ml BAG 100 ML IVPB ONE (07:09)
[2021-12-13 07:13] LABS: Blood Urea Nitrogen 13 mg/dL (6-24); Glucose 123 mg/dL (70-100); eGFR CKD-EPI 45.9 (>60)
[2021-12-13] MEDS: Tiotropium Brom/Olodaterol MDI INH SCH (07:28)
[2021-12-13 08:05] LABS: C Reactive Protein 179.45 mg/L (<8.01)
[2021-12-13 08:24] LABS: Large Platelets Present; Mean Platelet Volume 8.8 fL (7.4-10.4); Platelet Count 164 10^3/uL (150-450)
[2021-12-13 08:46] LABS: Anion Gap 8 mmol/L (2-11)
[2021-12-13] MEDS: Methadone ORALSYR CONC LIQ 10 MG/ML PO SCH (09:14)
[2021-12-13] MEDS ORDERED: Lactated Ringers 500 ml BAG 500 ML IV ONE (10:50)
[2021-12-13] MEDS: Butalb/Acetamin/Caff TAB 325-50-40MG PO PRN (11:26)
[2021-12-13] MEDS: Lactated Ringers 500 ml BAG 500 ML IV ONE ×2 (12:20→12:37)
[2021-12-13 12:44] LABS: Corrected Retic Count 1.9 % (0.5-1.5); Hematocrit for Retic CNT 25 % (35-47); Immature Retic Fraction 0.54; RBC Retic Count 3.49 10^6/uL (3.70-4.87)
[2021-12-13] MEDS ORDERED: Iodixanol (CONTRAST) 320 MG/ML 100 ML SDV IV ONE (14:35)
[2021-12-13] MEDS ORDERED: Piperacillin/Tazobac ADVAN 3.375 GM in NS 0.9% 100 ml BAG 100 ML IV ONE (16:34)
[2021-12-13] MEDS ORDERED: Zosyn per Pharmacy NOTE FOLLOW UP SCH (17:00)
[2021-12-13] MEDS: ZOSYN 3.375 GM Q8H per EXTENDED INFUSION IV SCH (21:08)
[2021-12-14] MEDS: ZOSYN 3.375 GM Q8H per EXTENDED INFUSION IV SCH ×3 (04:57→21:04)
[2021-12-14 06:23] LABS: ABS Eosinophils 0.2 10^3/ul (0-0.6); ABS Monocytes 0.7 10^3/ul (0-0.8); Eosinophil % 1.2 %; Hematocrit 21 % (35-47); Hemoglobin 6.7 g/dL (12.0-16.0); Lymphocyte % 15.6 %; Mean Corpuscular HGB Conc 32 g/dL (31-36); Mean Corpuscular Hemoglobin 23 pg (27-31); Mean Corpuscular Volume 71 fL (80-97); Mean Platelet Volume 8.5 fL (7.4-10.4); Platelet Count 175 10^3/uL (150-450); Red Blood Count 2.96 10^6 /uL (3.70-4.87); Red Cell Distribution Width 23 % (10-15); White Blood Count 12.9 10^3/uL (3.5-10.8)
[2021-12-14 06:25] LABS: Calcium 8.1 mg/dL (8.6-10.3); Potassium 4.1 mmol/L (3.5-5.0); eGFR CKD-EPI 45.5 (>60)
[2021-12-14] MEDS: Ondansetron ODT 4 mg TAB 4 MG TAB SL PRN (07:34)
[2021-12-14] MEDS: Tiotropium Brom/Olodaterol MDI INH SCH (08:11)
[2021-12-14] MEDS ORDERED: Iodixanol (CONTRAST) 320 MG/ML 100 ML SDV IV ONE (08:48)
[2021-12-14] MEDS: Methadone ORALSYR CONC LIQ 10 MG/ML PO SCH (08:49)
[2021-12-14] MEDS ORDERED: Furosemide 20 mg/2 ml IV VIAL IV SLOW PU ONE (09:55)
[2021-12-14] MEDS ORDERED: Phytonadione Oral Solution 5 MG/25 ML UDC PO ONE (13:55)
[2021-12-14] MEDS ORDERED: PEG 3000 GI LAVAGE 1 GALLON PO ONE (15:00)
[2021-12-14 17:03] LABS: Hematocrit 28 % (35-47); Hemoglobin 8.7 g/dL (12.0-16.0)
[2021-12-14] MEDS: Pantoprazole VIAL 40 MG VIAL IV SCH (21:04)
[2021-12-15] MEDS: ZOSYN 3.375 GM Q8H per EXTENDED INFUSION IV SCH ×3 (05:14→22:13)
[2021-12-15 06:25] LABS: ABS Eosinophils 0.2 10^3/ul (0-0.6); ABS Lymphocytes 1.9 10^3/ul (1.0-4.8); ABS Neutrophils 11.3 10^3/ul (1.5-7.7); Eosinophil % 1.4 %; Hematocrit 28 % (35-47); Hemoglobin 9.1 g/dL (12.0-16.0); Mean Corpuscular HGB Conc 32 g/dL (31-36); Mean Corpuscular Hemoglobin 23 pg (27-31); Mean Corpuscular Volume 72 fL (80-97); Mean Platelet Volume 8.5 fL (7.4-10.4); Nucleated Red Blood Cells % 0.2; Platelet Count 207 10^3/uL (150-450); Red Blood Count 3.91 10^6 /uL (3.70-4.87); Red Cell Distribution Width 23 % (10-15); White Blood Count 14.4 10^3/uL (3.5-10.8)
[2021-12-15 06:31] LABS: Calcium 8.9 mg/dL (8.6-10.3); Magnesium 1.7 mg/dL (1.9-2.7); Potassium 3.8 mmol/L (3.5-5.0); eGFR CKD-EPI 43.1 (>60)
[2021-12-15] MEDS: Tiotropium Brom/Olodaterol MDI INH SCH (07:19)
[2021-12-15] MEDS ORDERED: Lactated Ringers 1000 ml BAG 1,000 ML IV SCH (08:00)
[2021-12-15] MEDS ORDERED: fentaNYL 100 mcg/2 ml 50 MCG/ML VIAL ONE (08:17)
[2021-12-15] MEDS ORDERED: Magnesium Sulfate IV 3 GM in NS 0.9% 100 ml BAG 100 ML IVPB ONE (08:43)
[2021-12-15] MEDS ORDERED: Ondansetron 4 mg VIAL 2 MG/ML 2 ml VIAL ONE ×2 (08:51→09:28)
[2021-12-15] MEDS ORDERED: EPHEDrine (Pressors) 50 MG/ML VIAL ONE (08:51)
[2021-12-15] MEDS ORDERED: Propofol 10 MG/ML 20 ML BTL ONE (09:07)
[2021-12-15 09:11] LABS: C Reactive Protein 111.69 mg/L (<8.01)
[2021-12-15] MEDS: Ondansetron 4 mg VIAL 2 MG/ML 2 ml VIAL IV PRN ×2 (09:29→22:09)
[2021-12-15] MEDS: Methadone ORALSYR CONC LIQ 10 MG/ML PO SCH (10:16)
[2021-12-15] MEDS: Pantoprazole VIAL 40 MG VIAL IV SCH ×2 (10:16→22:11)
[2021-12-15] MEDS ORDERED: fentaNYL 100 mcg/2 ml 50 MCG/ML VIAL IV PRN (10:21)
[2021-12-15] MEDS ORDERED: Naloxone 0.4 mg VIAL 0.4 mg/ml 1 ml VIAL IV PRN (10:21)
[2021-12-15 12:51] LABS: Hepatitis B Surface Antigen Nonreactive (Nonreactive)
[2021-12-15 12:56] LABS: Hepatitis B Core IgM Nonreactive (Nonreactive)
[2021-12-15 13:22] LABS: Hepatitis C Antibody Reactive (Negative)
[2021-12-15] MEDS: Benzocaine/Menthol LOZ PO PRN (16:27)
[2021-12-15] MEDS: Butalb/Acetamin/Caff TAB 325-50-40MG PO PRN (16:51)
[2021-12-15] MEDS ORDERED: Nystatin SUSPENSION 100,000 UNITS/ML UDC PO SCH (21:00)
[2021-12-15] MEDS: Nystatin SUSPENSION 100,000 UNITS/ML UDC PO SCH (22:08)
[2021-12-16] MEDS: ZOSYN 3.375 GM Q8H per EXTENDED INFUSION IV SCH (05:40)
[2021-12-16 06:26] LABS: Albumin 2.8 g/dL (3.2-5.2); Albumin/Globulin Ratio 0.9 (1-3); Calcium 8.3 mg/dL (8.6-10.3); Globulin 3.1 g/dL (2-4); Potassium 3.4 mmol/L (3.5-5.0); Total Bilirubin 0.3 mg/dL (0.2-1.0); Total Protein 5.9 g/dL (6.4-8.9); eGFR CKD-EPI 43.5 (>60)
[2021-12-16] MEDS: Nystatin SUSPENSION 100,000 UNITS/ML UDC PO SCH ×4 (08:14→22:02)
[2021-12-16] MEDS: Butalb/Acetamin/Caff TAB 325-50-40MG PO PRN ×2 (08:16→23:52)
[2021-12-16] MEDS: Pantoprazole VIAL 40 MG VIAL IV SCH ×2 (08:16→22:02)
[2021-12-16] MEDS: Methadone ORALSYR CONC LIQ 10 MG/ML PO SCH (08:17)
[2021-12-16] MEDS: Benzocaine/Menthol LOZ PO PRN (08:17)
[2021-12-16] MEDS: Tiotropium Brom/Olodaterol MDI INH SCH (08:21)
[2021-12-16 08:34] LABS: ABS Eosinophils 0.2 10^3/ul (0-0.6); ABS Lymphocytes 0.9 10^3/ul (1.0-4.8); ABS Monocytes 0.7 10^3/ul (0-0.8); ABS Neutrophils 8.1 10^3/ul (1.5-7.7); Eosinophil % 1.8 %; Hematocrit 25 % (35-47); Lymphocyte % 9.5 %; Mean Corpuscular HGB Conc 32 g/dL (31-36); Mean Corpuscular Hemoglobin 23 pg (27-31); Mean Corpuscular Volume 73 fL (80-97); Mean Platelet Volume 8.4 fL (7.4-10.4); Platelet Count 189 10^3/uL (150-450); Red Blood Count 3.43 10^6 /uL (3.70-4.87); Red Cell Distribution Width 23 % (10-15); White Blood Count 9.9 10^3/uL (3.5-10.8)
[2021-12-16] MEDS ORDERED: Potassium Chlor 20 meq TAB.ER PO SCH (09:00)
[2021-12-16] MEDS: Ondansetron 4 mg VIAL 2 MG/ML 2 ml VIAL IV PRN (13:28)
[2021-12-16] MEDS ORDERED: Cyanocobalamin INJ 1,000 MCG/ML VIAL 1 ML VIAL IM ONE (14:00)
[2021-12-16] MEDS: Thiamine 100 MG/ML 2 ml VIAL 100 MG in NS 0.9% 50 ML 50 ML IV SCH (14:25)
[2021-12-16 14:35] LABS: Folate 6.92 ng/mL (5.90-24.80)
[2021-12-16] MEDS: ceFAZolin 1 GM ADVAN 1 GM in NS 0.9% 50 ML 50 ML IVPB SCH ×2 (15:26→22:03)
[2021-12-16] MEDS: Heparin 5000 UNITS/ML 1 mL VIAL SUBCUT SCH (22:02)
[2021-12-17] MEDS: Heparin 5000 UNITS/ML 1 mL VIAL SUBCUT SCH (05:48)
[2021-12-17] MEDS: ceFAZolin 1 GM ADVAN 1 GM in NS 0.9% 50 ML 50 ML IVPB SCH (05:49)
[2021-12-17] MEDS: Ondansetron 4 mg VIAL 2 MG/ML 2 ml VIAL IV PRN (06:26)
[2021-12-17 06:36] LABS: ABS Eosinophils 0.2 10^3/ul (0-0.6); ABS Lymphocytes 1.2 10^3/ul (1.0-4.8); ABS Monocytes 0.6 10^3/ul (0-0.8); ABS Neutrophils 4.7 10^3/ul (1.5-7.7); Eosinophil % 2.4 %; Hematocrit 26 % (35-47); Hemoglobin 8.3 g/dL (12.0-16.0); Lymphocyte % 17.4 %; Mean Corpuscular HGB Conc 33 g/dL (31-36); Mean Corpuscular Hemoglobin 24 pg (27-31); Mean Corpuscular Volume 74 fL (80-97); Mean Platelet Volume 9.2 fL (7.4-10.4); Platelet Count 193 10^3/uL (150-450); Red Blood Count 3.46 10^6 /uL (3.70-4.87); Red Cell Distribution Width 23 % (10-15); White Blood Count 6.6 10^3/uL (3.5-10.8)
[2021-12-17 06:46] LABS: Calcium 8.3 mg/dL (8.6-10.3); Magnesium 1.5 mg/dL (1.9-2.7); Potassium 3.8 mmol/L (3.5-5.0)
[2021-12-17 06:52] LABS: eGFR CKD-EPI 48.2 (>60)
[2021-12-17] MEDS ORDERED: Magnesium Sulf 4 GM/100 ML IV 4,000 MG/100 ML BAG IVPB ONE ×2 (07:38→07:42)
[2021-12-17] MEDS ORDERED: Regadenoson 0.4 MG/5 ML SYRINGE ONE ×2 (07:58→13:04)
[2021-12-17] MEDS ORDERED: Aminophylline 25 MG/ML VIAL ONE ×2 (07:59→13:05)
[2021-12-17] MEDS ORDERED: Buffered Lidocaine 1% SYRIN 1 ml INTRADERM ONE (08:41)
[2021-12-17] MEDS: Tiotropium Brom/Olodaterol MDI INH SCH (08:45)
[2021-12-17 11:05] LABS: Cytomegalovirus IgG Antibody Positive (Negative)
[2021-12-17] MEDS: Nystatin SUSPENSION 100,000 UNITS/ML UDC PO SCH ×4 (11:08→22:04)
[2021-12-17] MEDS: Pantoprazole VIAL 40 MG VIAL IV SCH (14:09)
[2021-12-17 14:31] LABS: TB2 Ag minus Nil Result -0.01 IU/mL
[2021-12-17 14:32] LABS: QuantiferonTb Gold Plus Result Negative (Negative)
[2021-12-17] MEDS: Butalb/Acetamin/Caff TAB 325-50-40MG PO PRN (15:13)
[2021-12-17] MEDS: Methadone ORALSYR CONC LIQ 10 MG/ML PO SCH (15:14)
[2021-12-17] MEDS: Thiamine 100 MG/ML 2 ml VIAL 100 MG in NS 0.9% 50 ML 50 ML IV SCH (15:28)
[2021-12-17] MEDS: Enoxaparin 30 MG/0.3 ML SYR SUBCUT SCH (22:03)
[2021-12-18 06:31] LABS: Calcium 8.5 mg/dL (8.6-10.3); Magnesium 1.4 mg/dL (1.9-2.7); Potassium 3.7 mmol/L (3.5-5.0)
[2021-12-18 06:34] LABS: Hematocrit 27 % (35-47); Hemoglobin 8.7 g/dL (12.0-16.0); Mean Corpuscular HGB Conc 32 g/dL (31-36); Mean Corpuscular Hemoglobin 24 pg (27-31); Mean Corpuscular Volume 74 fL (80-97); Mean Platelet Volume 8.5 fL (7.4-10.4); Platelet Count 224 10^3/uL (150-450); Red Blood Count 3.69 10^6 /uL (3.70-4.87); Red Cell Distribution Width 25 % (10-15); White Blood Count 6.2 10^3/uL (3.5-10.8)
[2021-12-18 06:36] LABS: eGFR CKD-EPI 51.7 (>60)
[2021-12-18] MEDS: Tiotropium Brom/Olodaterol MDI INH SCH (07:13)
[2021-12-18] MEDS ORDERED: Magnesium Sulf 4 GM/100 ML IV 4,000 MG/100 ML BAG IVPB ONE (07:55)
[2021-12-18] MEDS ORDERED: Tiotropium Brom/Olodaterol MDI INH PRN (08:54)
[2021-12-18] MEDS: Methadone ORALSYR CONC LIQ 10 MG/ML PO SCH (09:24)
[2021-12-18] MEDS: Nystatin SUSPENSION 100,000 UNITS/ML UDC PO SCH ×4 (09:24→20:02)
[2021-12-18] MEDS: Butalb/Acetamin/Caff TAB 325-50-40MG PO PRN (09:28)
[2021-12-18 11:06] LABS: Rapid COVID-19 Molecular Undetected (Undetected)
[2021-12-18] MEDS: Ondansetron ODT 4 mg TAB 4 MG TAB SL PRN (13:23)
[2021-12-18 17:57] LABS: C Reactive Protein 79.05 mg/L (<8.01)
[2021-12-18] MEDS: Enoxaparin 30 MG/0.3 ML SYR SUBCUT SCH (20:02)
[2021-12-18] MEDS: Mesalamine 1.2 gm TAB (NF) PO SCH (20:03)
[2021-12-19 06:23] LABS: Magnesium 1.4 mg/dL (1.9-2.7); Potassium 4.1 mmol/L (3.5-5.0); eGFR CKD-EPI 44.3 (>60)
[2021-12-19 06:46] LABS: CMV DNA DETECT/QT, P Undetected IU/mL (Undetected)
[2021-12-19 07:02] LABS: Hematocrit 29 % (35-47); Hemoglobin 9.2 g/dL (12.0-16.0); Mean Corpuscular HGB Conc 32 g/dL (31-36); Mean Corpuscular Hemoglobin 23 pg (27-31); Mean Corpuscular Volume 74 fL (80-97); Mean Platelet Volume 8.7 fL (7.4-10.4); Platelet Count 262 10^3/uL (150-450); Red Blood Count 3.93 10^6 /uL (3.70-4.87); Red Cell Distribution Width 27 % (10-15); White Blood Count 5.9 10^3/uL (3.5-10.8)
[2021-12-19] MEDS: Nystatin SUSPENSION 100,000 UNITS/ML UDC PO SCH (09:02)
[2021-12-19] MEDS: Methadone ORALSYR CONC LIQ 10 MG/ML PO SCH (09:03)
[2021-12-19] MEDS: Butalb/Acetamin/Caff TAB 325-50-40MG PO PRN (09:05)
[2021-12-19] MEDS: Mesalamine 1.2 gm TAB (NF) PO SCH ×2 (09:20→21:14)
[2021-12-19] MEDS: Ondansetron ODT 4 mg TAB 4 MG TAB SL PRN (13:19)
[2021-12-19] MEDS: CMCS: Saliva Substitute (NF) 1 SPRAY BTL MT SCH ×3 (13:20→21:13)
[2021-12-19] MEDS: Magic MouthWash2-BEN/MAAL/LIDO/NYST 240 ML BTL (alt formulation) SWISH SPIT SCH ×4 (15:26→21:17)
[2021-12-19] MEDS: Enoxaparin 30 MG/0.3 ML SYR SUBCUT SCH (21:15)
[2021-12-20] MEDS: CMCS: Saliva Substitute (NF) 1 SPRAY BTL MT SCH ×4 (08:14→21:24)
[2021-12-20] MEDS: Magic MouthWash2-BEN/MAAL/LIDO/NYST 240 ML BTL (alt formulation) SWISH SPIT SCH ×4 (08:16→21:22)
[2021-12-20] MEDS: Methadone ORALSYR CONC LIQ 10 MG/ML PO SCH (08:16)
[2021-12-20] MEDS: Polyethylene Glycol 3350 17 GM PACKET PO SCH (08:18)
[2021-12-20] MEDS: Mesalamine 1.2 gm TAB (NF) PO SCH (08:18)
[2021-12-20] MEDS: Butalb/Acetamin/Caff TAB 325-50-40MG PO PRN (08:22)
[2021-12-20] MEDS: Ondansetron ODT 4 mg TAB 4 MG TAB SL PRN (09:13)
[2021-12-20 09:52] LABS: Hematocrit 31 % (35-47); Mean Corpuscular HGB Conc 32 g/dL (31-36); Mean Corpuscular Hemoglobin 24 pg (27-31); Mean Corpuscular Volume 75 fL (80-97); Mean Platelet Volume 8.2 fL (7.4-10.4); Platelet Count 266 10^3/uL (150-450); Red Blood Count 4.11 10^6 /uL (3.70-4.87); Red Cell Distribution Width 28 % (10-15); White Blood Count 7.5 10^3/uL (3.5-10.8)
[2021-12-20 10:11] LABS: Calcium 9.1 mg/dL (8.6-10.3); Magnesium 1.5 mg/dL (1.9-2.7); Phosphorus 2.3 mg/dL (2.5-5.0); Potassium 3.7 mmol/L (3.5-5.0); eGFR CKD-EPI 56.3 (>60)
[2021-12-20] MEDS ORDERED: COVID-19 VACCINE, MRNA(MODERNA)/PF 100 MCG/0.5 ML IM ONE (12:30)
[2021-12-20] MEDS: Potassium & Sodium Phos 250 mg = 1 PACKET PO SCH ×3 (13:37→21:21)
[2021-12-20] MEDS ORDERED: COVID-19 VACCINE, MRNA(MODERNA) BOOSTER/PF 50 MCG/0.25 ML IM ONE (14:00)
[2021-12-20] MEDS: Enoxaparin 30 MG/0.3 ML SYR SUBCUT SCH (21:24)
[2021-12-21 08:48] LABS: Hematocrit 32 % (35-47); Hemoglobin 10.4 g/dL (12.0-16.0); Mean Corpuscular HGB Conc 32 g/dL (31-36); Mean Corpuscular Hemoglobin 24 pg (27-31); Mean Corpuscular Volume 75 fL (80-97); Mean Platelet Volume 8.1 fL (7.4-10.4); Platelet Count 279 10^3/uL (150-450); Red Blood Count 4.29 10^6 /uL (3.70-4.87); Red Cell Distribution Width 28 % (10-15); White Blood Count 8.3 10^3/uL (3.5-10.8)
[2021-12-21] MEDS: Methadone ORALSYR CONC LIQ 10 MG/ML PO SCH (08:54)
[2021-12-21 08:59] LABS: Calcium 9.4 mg/dL (8.6-10.3); Magnesium 1.5 mg/dL (1.9-2.7)
[2021-12-21] MEDS: Potassium & Sodium Phos 250 mg = 1 PACKET PO SCH ×4 (09:01→20:45)
[2021-12-21 09:05] LABS: Phosphorus 2.8 mg/dL (2.5-5.0); eGFR CKD-EPI 57.6 (>60)
[2021-12-21] MEDS: CMCS: Saliva Substitute (NF) 1 SPRAY BTL MT SCH ×4 (09:15→21:03)
[2021-12-21] MEDS: Polyethylene Glycol 3350 17 GM PACKET PO SCH (09:16)
[2021-12-21] MEDS: Magic MouthWash2-BEN/MAAL/LIDO/NYST 240 ML BTL (alt formulation) SWISH SPIT SCH ×4 (09:17→21:03)
[2021-12-21] MEDS: Butalb/Acetamin/Caff TAB 325-50-40MG PO PRN (09:34)
[2021-12-21] MEDS: Ondansetron ODT 4 mg TAB 4 MG TAB SL PRN (09:35)
[2021-12-21] MEDS: Enoxaparin 30 MG/0.3 ML SYR SUBCUT SCH (20:51)
[2021-12-22] MEDS: Butalb/Acetamin/Caff TAB 325-50-40MG PO PRN (11:03)
[2021-12-22] MEDS: Methadone ORALSYR CONC LIQ 10 MG/ML PO SCH (11:03)
[2021-12-22] MEDS: Magic MouthWash2-BEN/MAAL/LIDO/NYST 240 ML BTL (alt formulation) SWISH SPIT SCH ×4 (11:05→20:39)
[2021-12-22] MEDS: Polyethylene Glycol 3350 17 GM PACKET PO SCH (11:14)
[2021-12-22] MEDS: CMCS: Saliva Substitute (NF) 1 SPRAY BTL MT SCH (11:19)
[2021-12-22] MEDS: Enoxaparin 30 MG/0.3 ML SYR SUBCUT SCH (20:34)
[2021-12-23] MEDS: Butalb/Acetamin/Caff TAB 325-50-40MG PO PRN (08:29)
[2021-12-23] MEDS: Ondansetron ODT 4 mg TAB 4 MG TAB SL PRN (08:30)
[2021-12-23] MEDS: Methadone ORALSYR CONC LIQ 10 MG/ML PO SCH (08:31)
[2021-12-23] MEDS: Polyethylene Glycol 3350 17 GM PACKET PO SCH (08:32)
[2021-12-23] MEDS: Magic MouthWash2-BEN/MAAL/LIDO/NYST 240 ML BTL (alt formulation) SWISH SPIT SCH ×2 (08:32→10:46)
[2021-12-23 12:57] VITALS: BP 119/73
[2021-12-23 18:23] LABS: Calprotectin 180 mcg/g
[2021-12-26 12:38] LABS: 6Methylmercaptopurine Riboside 10.14 nmol/mL/h (5.04-9.57)
== END 2021-12-23 14:00 | disposition home or self-care (01) | DRG 871 ==
LOC: ED 21:00 → SUATTDRO 23:56 → EDHOLD 23:56 → ICU 12-03 02:49 → MED 12-06 16:52 → MEDTELE 12-13 12:50
PROVIDERS: ADMIT Hospitalist; ATTEND Hospitalist

== ENCOUNTER 2023-11-09 11:54 | Observation (INO) ==
[2023-11-09] MEDS ORDERED: cefTRIAXone 1 gm/50 mL D5W 1 GM/50 ML BAG IV ONE (12:08)
[2023-11-09] MEDS ORDERED: methylPREDNISolone SOD SUCC 125 mg 2 ML VIAL IV ONE ×2 (12:08→15:59)
[2023-11-09] MEDS ORDERED: Acetaminophen IV 1 GM/100ML 1,000 MG/100 ML BAG IV ONE ×2 (12:39→20:57)
[2023-11-09] MEDS ORDERED: fentaNYL 100 mcg/2 ml 50 MCG/ML VIAL IV ONE (12:40)
[2023-11-09] MEDS ORDERED: Morphine 10 MG/ML VIAL (1 ml) IV ONE (12:49)
[2023-11-09 12:51] LABS: ABS Lymphocytes 0.5 10^3/uL (1.0-4.8); ABS Monocytes 0.1 10^3/uL (0.0-0.9); ABS Neutrophils 4.3 10^3/uL (1.5-7.6); Eosinophil % 0.1 %; Hematocrit 37.5 % (35-45); Lymphocyte % 10.9 %; Mean Corpuscular Hemoglobin 25.2 pg (27-33); Mean Corpuscular Volume 78.6 fL (80-97); Mean Platelet Volume 7.5 fL (7.5-11.2); Platelet Count 319 10^3/uL (150-450); Red Blood Count 4.77 10^6/uL (3.63-4.92); Red Cell Distribution Width 19.8 % (12-17)
[2023-11-09 13:27] LABS: Albumin 4.2 g/dL (3.2-5.2); Albumin/Globulin Ratio 1.2 (1-3); C Reactive Protein 21.04 mg/L (<8.01); Creatinine, Serum 0.92 mg/dL (0.51-0.95); Globulin 3.4 g/dL (2-4); Potassium 4.5 mmol/L (3.5-5.0); Total Bilirubin 0.2 mg/dL (0.2-1.0); Total Protein 7.6 g/dL (6.4-8.9); eGFR CKD-EPI 67.4 (>60)
[2023-11-09] MEDS ORDERED: Albuterol/Ipratropium NEB.SOL (2.5/0.5 MG) 3 ML NEB.SOLN INH ONE (14:11)
[2023-11-09 14:18] LABS: High Sensitivity Troponin 1 Hr 6 pg/mL (<15)
[2023-11-09] MEDS ORDERED: Albuterol/Ipratropium NEB.SOL (2.5/0.5 MG) 3 ML NEB.SOLN INH SCH ×2 (16:00→19:00)
[2023-11-09] MEDS ORDERED: Albuterol HFA INHALER 8 gm MDI INH PRN ×2 (16:46→21:13)
[2023-11-09] MEDS: Morphine ORAL.SOLN 10 mg 2 mg/ml UDC 5 ml (10 mg) PO PRN (17:56)
[2023-11-09] MEDS: methylPREDNISolone SOD SUCC 40 mg/ml 1 ml VIAL IV SCH (18:01)
[2023-11-09] MEDS: Albuterol/Ipratropium NEB.SOL (2.5/0.5 MG) 3 ML NEB.SOLN INH SCH ×2 (20:01→22:41)
[2023-11-09] MEDS: Mometasone/Formoter 100/5 MDI INH SCH (20:10)
[2023-11-09] MEDS: DOXYcycline 100 MG in NS 0.9% 250 ml 250 ML IVPB SCH (22:32)
[2023-11-09] MEDS: Nystatin TOP POWDER 15 GM BTL TOPICAL SCH (22:34)
[2023-11-09] MEDS ORDERED: Butalb/Acetamin/Caff TAB 325-50-40MG PO PRN (22:45)
[2023-11-10] MEDS: Enoxaparin 40 MG/0.4 ML SYR SUBCUT SCH ×2 (00:56→21:05)
[2023-11-10] MEDS: methylPREDNISolone SOD SUCC 40 mg/ml 1 ml VIAL IV SCH ×3 (00:57→18:25)
[2023-11-10] MEDS: Morphine ORAL.SOLN 10 mg 2 mg/ml UDC 5 ml (10 mg) PO PRN ×3 (02:32→19:42)
[2023-11-10] MEDS: Albuterol/Ipratropium NEB.SOL (2.5/0.5 MG) 3 ML NEB.SOLN INH SCH ×4 (03:12→19:45)
[2023-11-10 05:45] LABS: ABS Lymphocytes 0.6 10^3/uL (1.0-4.8); ABS Monocytes 0.1 10^3/uL (0.0-0.9); ABS Neutrophils 4.4 10^3/uL (1.5-7.6); ABS Nucleated RBC 0.01 10^3/ul; Hemoglobin 11.4 g/dL (11.5-14.3); Lymphocyte % 12.2 %; Mean Corpuscular Hemoglobin 25.5 pg (27-33); Mean Corpuscular Hgb Conc 32.5 g/dL (31-36); Mean Corpuscular Volume 78.7 fL (80-97); Mean Platelet Volume 7.7 fL (7.5-11.2); Nucleated Red Blood Cells % 0.1 %/100WBC (0.0-0.8); Platelet Count 293 10^3/uL (150-450); Red Blood Count 4.46 10^6/uL (3.63-4.92); Red Cell Distribution Width 19.5 % (12-17); White Blood Count 5.1 10^3/uL (3.8-11.8)
[2023-11-10 05:57] LABS: Creatinine, Serum 0.78 mg/dL (0.51-0.95); Magnesium 1.8 mg/dL (1.9-2.7); Potassium 4.1 mmol/L (3.5-5.0); eGFR CKD-EPI 82.2 (>60)
[2023-11-10] MEDS: Methadone ORALSYR CONC LIQ 10 MG/ML PO SCH (06:43)
[2023-11-10] MEDS: Mometasone/Formoter 100/5 MDI INH SCH ×2 (07:35→19:48)
[2023-11-10] MEDS ORDERED: Tiotropium Brom/Olodaterol MDI (ACUTE) INH SCH (09:00)
[2023-11-10] MEDS ORDERED: Methadone ORALSYR CONC LIQ 10 MG/ML PO SCH (09:00)
[2023-11-10] MEDS: Nystatin TOP POWDER 15 GM BTL TOPICAL SCH ×2 (09:24→21:36)
[2023-11-10] MEDS: DOXYcycline 100 MG in NS 0.9% 250 ml 250 ML IVPB SCH ×2 (10:06→21:05)
[2023-11-10] MEDS ORDERED: Butalb/Acetamin/Caff TAB 325-50-40MG PO PRN (13:12)
[2023-11-11] MEDS: methylPREDNISolone SOD SUCC 40 mg/ml 1 ml VIAL IV SCH ×2 (00:23→08:13)
[2023-11-11] MEDS: Morphine ORAL.SOLN 10 mg 2 mg/ml UDC 5 ml (10 mg) PO PRN ×3 (01:44→16:46)
[2023-11-11] MEDS: Albuterol/Ipratropium NEB.SOL (2.5/0.5 MG) 3 ML NEB.SOLN INH SCH ×3 (02:01→13:39)
[2023-11-11] MEDS: Methadone ORALSYR CONC LIQ 10 MG/ML PO SCH (06:38)
[2023-11-11] MEDS: Mometasone/Formoter 100/5 MDI INH SCH (07:45)
[2023-11-11 08:35] LABS: ABS Lymphocytes 0.9 10^3/uL (1.0-4.8); ABS Monocytes 0.3 10^3/uL (0.0-0.9); Hematocrit 36.4 % (35-45); Hemoglobin 11.8 g/dL (11.5-14.3); Lymphocyte % 8.9 %; Mean Corpuscular Hemoglobin 25.4 pg (27-33); Mean Corpuscular Hgb Conc 32.4 g/dL (31-36); Mean Corpuscular Volume 78.4 fL (80-97); Mean Platelet Volume 7.4 fL (7.5-11.2); Platelet Count 318 10^3/uL (150-450); Red Blood Count 4.65 10^6/uL (3.63-4.92); Red Cell Distribution Width 20.2 % (12-17); White Blood Count 10.2 10^3/uL (3.8-11.8)
[2023-11-11 08:55] LABS: Calcium 9.9 mg/dL (8.6-10.3); Creatinine, Serum 0.86 mg/dL (0.51-0.95); Potassium 4.1 mmol/L (3.5-5.0); eGFR CKD-EPI 73.1 (>60)
[2023-11-11] MEDS: DOXYcycline 100 MG in NS 0.9% 250 ml 250 ML IVPB SCH (09:27)
[2023-11-11 10:06] LABS: Magnesium 1.8 mg/dL (1.9-2.7)
[2023-11-11] MEDS: Nystatin TOP POWDER 15 GM BTL TOPICAL SCH (13:16)
[2023-11-11 17:21] VITALS: BP 124/73
== END 2023-11-11 17:40 | disposition home or self-care (01) ==
LOC: EDHOLD 11:54 → ED 11:54 → MED 15:57
PROVIDERS: ADMIT Internal Medicine; ATTEND Internal Medicine

== ENCOUNTER 2023-12-05 09:05 | Inpatient (IN) ==
[2023-12-05] MEDS ORDERED: Propofol 10 mg/ml 100 ML BTL 1,000 MG/100 ML BTL ONE (09:09)
[2023-12-05] MEDS ORDERED: Midazolam 10 mg/10 ml VIAL 1 mg/ml 10 ml VIAL (10 mg) ONE ×4 (09:09→11:11)
[2023-12-05] MEDS ORDERED: Etomidate 40 mg/20 ml (2 MG/ML) 20 ml VIAL (40 mg) ONE ×2 (09:14→09:16)
[2023-12-05] MEDS: Propofol 10 mg/ml 100 ML BTL 1,000 MG/100 ML BTL IV SCH ×5 (09:20→23:40)
[2023-12-05] MEDS: Lactated Ringers 1000 ml BAG 1,000 ML IV SCH ×2 (09:24→10:15)
[2023-12-05] MEDS ORDERED: Norepinephrine 4 MG/250mL D5W 4,000 MCG/250 ML BAG IV ONE (09:27)
[2023-12-05 09:38] LABS: ABS Basophils 0.1 10^3/uL (0.0-0.1); ABS Monocytes 0.5 10^3/uL (0.0-0.9); ABS Neutrophils 9.7 10^3/uL (1.5-7.6); ABS Nucleated RBC 0.02 10^3/ul; Eosinophil % 0.2 %; Hematocrit 38.3 % (35-45); Hemoglobin 12.6 g/dL (11.5-14.3); Lymphocyte % 16.2 %; Mean Corpuscular Hemoglobin 26.1 pg (27-33); Mean Corpuscular Volume 79.1 fL (80-97); Mean Platelet Volume 7.4 fL (7.5-11.2); Nucleated Red Blood Cells % 0.2 %/100WBC (0.0-0.8); Platelet Count 324 10^3/uL (150-450); Red Blood Count 4.84 10^6/uL (3.63-4.92); Red Cell Distribution Width 19.9 % (12-17); White Blood Count 12.3 10^3/uL (3.8-11.8)
[2023-12-05] MEDS ORDERED: fentaNYL 100 mcg/2 ml 50 MCG/ML VIAL ONE (09:43)
[2023-12-05 09:59] LABS: Activated Partial Thrombo Time 32.9 seconds (26.0-38.0); INR 1.13 (0.83-1.13)
[2023-12-05] MEDS ORDERED: Albuterol/Ipratropium NEB.SOL (2.5/0.5 MG) 3 ML NEB.SOLN INH SCH (10:00)
[2023-12-05] MEDS ORDERED: Propofol 10 mg/ml 100 ML BTL 1,000 MG/100 ML BTL IV SCH (10:00)
[2023-12-05] MEDS ORDERED: Norepinephrine 4 MG/250mL NS 4,000 MCG/250 ML BAG IV SCH ×2 (10:00)
[2023-12-05 10:03] LABS: Blood Urea Nitrogen 9 mg/dL (6-24); CO2 Carbon Dioxide 27 mmol/L (22-32); Calcium 9.4 mg/dL (8.6-10.3); Chloride 101 mmol/L (101-111); Creatinine, Serum 0.85 mg/dL (0.51-0.95); Glucose 114 mg/dL (70-100); eGFR CKD-EPI 74.1 (>60)
[2023-12-05] MEDS ORDERED: Tetan/Diph/Pertus SYR(Tdap) 0.5 ML SYR(BOOSTRIX) use SYR contains LATEX IM ONE (10:03)
[2023-12-05 10:04] LABS: ALT 20 U/L (7-52); Albumin/Globulin Ratio 1.1 (1-3); Alkaline Phosphatase 117 U/L (35-149); Globulin 3.5 g/dL (2-4); Sodium 142 mmol/L (135-145); Total Bilirubin 0.4 mg/dL (0.2-1.0); Total Protein 7.5 g/dL (6.4-8.9)
[2023-12-05] MEDS ORDERED: Iodixanol (CONTRAST) 320 MG/ML 100 ML SDV IV ONE (10:05)
[2023-12-05] MEDS ORDERED: Albuterol/Ipratropium NEB.SOL (2.5/0.5 MG) 3 ML NEB.SOLN ONE (10:18)
[2023-12-05 10:19] LABS: Anion Gap 14 mmol/L (2-16)
[2023-12-05] MEDS ORDERED: Norepinephrine 16MCG/ML IVPREMIX 4,000 MCG/250 ML D5W BAG IV SCH (10:25)
[2023-12-05] MEDS: Albuterol/Ipratropium NEB.SOL (2.5/0.5 MG) 3 ML NEB.SOLN INH SCH ×4 (10:27→23:24)
[2023-12-05] MEDS ORDERED: Enoxaparin 60 MG/0.6 ML SYR SUBCUT SCH (11:00)
[2023-12-05 11:17] LABS: Influenza A Molecular Negative (Negative); Influenza B Molecular Negative (Negative)
[2023-12-05 11:42] LABS: High Sens Troponin Baseline 800 pg/mL (<15)
[2023-12-05 11:43] LABS: Potassium Redraw 4.2 mmol/L (3.5-5.0)
[2023-12-05 11:55] LABS: Rapid COVID-19 Molecular Undetected (Undetected)
[2023-12-05] MEDS: methylPREDNISolone SOD SUCC 40 mg/ml 1 ml VIAL IV SCH ×3 (12:05→21:11)
[2023-12-05] MEDS ORDERED: HYDROmorphone PCA 20 MG/20 ML PCA.SYRING PCA SCH (13:00)
[2023-12-05] MEDS ORDERED: fentaNYL 100 mcg/2 ml 50 MCG/ML VIAL IV SLOW PU ONE (13:16)
[2023-12-05] MEDS: Enoxaparin 40 MG/0.4 ML SYR SUBCUT SCH (13:51)
[2023-12-05] MEDS: Chlorhexidine MOUTHWASH 0.12% 15 ML UDC TOPICAL SCH ×4 (13:51→23:38)
[2023-12-05] MEDS ORDERED: Bacitracin OINTMENT TUBE ONE (14:14)
[2023-12-05] MEDS: Aztreonam 1 GM in NS 0.9% 50 ML 50 ML IV SCH ×3 (14:55→21:26)
[2023-12-05] MEDS ORDERED: Omeprazole 20 mg CAP (NF) PO SCH (21:00)
[2023-12-05 23:27] LABS: Urine Appearance Clear; Urine Bilirubin Negative (Negative); Urine Blood Negative (Negative); Urine Color Yellow; Urine Glucose Negative (Negative); Urine Ketones 1+ (Negative); Urine Nitrite Negative (Negative); Urine Protein Negative (Negative); Urine Specific Gravity 1.053 (1.002-1.030); Urine Urobilinogen Negative (Negative)
[2023-12-05 23:48] LABS: High Sensitivity Troponin 3 Hr 527 pg/mL (<15)
[2023-12-06] MEDS: Propofol 10 mg/ml 100 ML BTL 1,000 MG/100 ML BTL IV SCH ×2 (02:30→05:40)
[2023-12-06] MEDS: Albuterol/Ipratropium NEB.SOL (2.5/0.5 MG) 3 ML NEB.SOLN INH SCH ×4 (03:40→17:07)
[2023-12-06] MEDS: Chlorhexidine MOUTHWASH 0.12% 15 ML UDC TOPICAL SCH ×4 (03:47→14:01)
[2023-12-06] MEDS: methylPREDNISolone SOD SUCC 40 mg/ml 1 ml VIAL IV SCH ×3 (03:54→15:42)
[2023-12-06] MEDS: Aztreonam 1 GM in NS 0.9% 50 ML 50 ML IV SCH ×2 (03:55→13:28)
[2023-12-06 08:21] LABS: ABS Lymphocytes 0.8 10^3/uL (1.0-4.8); ABS Monocytes 0.5 10^3/uL (0.0-0.9); ABS Neutrophils 12.8 10^3/uL (1.5-7.6); Hematocrit 34.9 % (35-45); Hemoglobin 11.3 g/dL (11.5-14.3); Mean Corpuscular Hemoglobin 25.4 pg (27-33); Mean Corpuscular Hgb Conc 32.4 g/dL (31-36); Mean Corpuscular Volume 78.6 fL (80-97); Mean Platelet Volume 7.6 fL (7.5-11.2); Platelet Count 247 10^3/uL (150-450); Red Blood Count 4.45 10^6/uL (3.63-4.92); Red Cell Distribution Width 19.8 % (12-17); White Blood Count 14.2 10^3/uL (3.8-11.8)
[2023-12-06 08:35] LABS: Calcium 8.8 mg/dL (8.6-10.3); Creatinine, Serum 0.85 mg/dL (0.51-0.95); Magnesium 1.8 mg/dL (1.9-2.7); Potassium 3.9 mmol/L (3.5-5.0); eGFR CKD-EPI 74.1 (>60)
[2023-12-06] MEDS ORDERED: methylPREDNISolone SOD SUCC 125 mg 2 ML VIAL ONE (08:51)
[2023-12-06] MEDS ORDERED: LORazepam 2 mg VIAL 1 ml ONE ×2 (08:51→13:53)
[2023-12-06] MEDS ORDERED: Morphine 2 MG/ML SYRINGE ONE ×2 (08:53→12:55)
[2023-12-06] MEDS ORDERED: Nicotine PATCH 21 MG/24 HR PATCH ONE (08:54)
[2023-12-06] MEDS ORDERED: Morphine ORAL.SOLN 10 mg 2 mg/ml UDC 5 ml (10 mg) PO PRN (08:55)
[2023-12-06] MEDS ORDERED: Pantoprazole VIAL 40 MG VIAL IV SCH (09:00)
[2023-12-06] MEDS ORDERED: Methadone ORALSYR CONC LIQ 10 MG/ML PO SCH (09:00)
[2023-12-06] MEDS ORDERED: methylPREDNISolone SOD SUCC 125 mg 2 ML VIAL IM ONE (09:08)
[2023-12-06] MEDS ORDERED: methylPREDNISolone SOD SUCC 125 mg 2 ML VIAL IV ONE (09:08)
[2023-12-06] MEDS ORDERED: Morphine 2 MG/ML SYRINGE IV ONE ×2 (09:08→09:58)
[2023-12-06] MEDS ORDERED: Senna TAB 8.6 mg TAB PO PRN (10:01)
[2023-12-06] MEDS ORDERED: Morphine 4 MG/ML VIAL (1 ml) IV PRN (10:05)
[2023-12-06] MEDS ORDERED: Magnesium Sulfate 2 gm BAG 2 GM/50 ML BAG IVPB ONE (11:29)
[2023-12-06] MEDS: Enoxaparin 40 MG/0.4 ML SYR SUBCUT SCH (11:30)
[2023-12-06] MEDS: Morphine 2 MG/ML SYRINGE IV PRN ×2 (12:57→16:47)
[2023-12-06] MEDS ORDERED: Lorazepam PYXIS KEY PRN (13:52)
[2023-12-06] MEDS ORDERED: LORazepam 2 mg VIAL 1 ml IV PUSH ONE (13:52)
[2023-12-06 17:05] VITALS: BP 111/76
[2023-12-06] MEDS ORDERED: Silver Sulfadiazine 1% 20 gm TUBE TOPICAL SCH (21:00)
== END 2023-12-06 17:30 | disposition short-term general hospital (02) | DRG 935 ==
LOC: ED 09:05 → EDHOLD 10:25 → ICU 12:33
PROVIDERS: ADMIT Internal Medicine; ATTEND Internal Medicine

== ENCOUNTER 2024-01-17 20:25 | Inpatient (IN) ==
[2024-01-17] MEDS: Albuterol/Ipratropium NEB.SOL (2.5/0.5 MG) 3 ML NEB.SOLN INH ONE (21:09)
[2024-01-17 21:16] LABS: ABS Basophils 0.1 10^3/uL (0.0-0.1); ABS Eosinophils 0.4 10^3/uL (0.0-0.5); ABS Lymphocytes 2.3 10^3/uL (1.0-4.8); ABS Monocytes 0.8 10^3/uL (0.0-0.9); Eosinophil % 2.9 %; Hematocrit 34.6 % (35-45); Hemoglobin 11.1 g/dL (11.5-14.3); Lymphocyte % 18.1 %; Mean Corpuscular Hemoglobin 25.3 pg (27-33); Mean Corpuscular Hgb Conc 32.1 g/dL (31-36); Mean Corpuscular Volume 78.6 fL (80-97); Mean Platelet Volume 7.6 fL (7.5-11.2); Platelet Count 296 10^3/uL (150-450); Red Cell Distribution Width 18.8 % (12-17); White Blood Count 12.5 10^3/uL (3.8-11.8)
[2024-01-17 21:19] LABS: Urine Appearance Clear; Urine Bilirubin Negative (Negative); Urine Blood Negative (Negative); Urine Color Colorless; Urine Glucose 3+ (>=300 mg/dL) (Negative); Urine Ketones Negative (Negative); Urine Nitrite Negative (Negative); Urine Protein Negative (Negative); Urine Specific Gravity 1.004 (1.002-1.030); Urine Urobilinogen Negative (Negative)
[2024-01-17] MEDS: Magnesium Sulfate 2 gm BAG 2 GM/50 ML BAG IVPB ONE (21:23)
[2024-01-17] MEDS: methylPREDNISolone SOD SUCC 125 mg 2 ML VIAL IV ONE (21:23)
[2024-01-17 21:32] LABS: PCO2 Arterial 50 mmHg (35-45); PO2 Arterial 149 mmHg (80-100)
[2024-01-17 21:42] LABS: High Sens Troponin Baseline 4 pg/mL (<15)
[2024-01-17 21:43] LABS: ALT 9 U/L (7-52); AST 15 U/L (13-39); Albumin 3.9 g/dL (3.2-5.2); Albumin/Globulin Ratio 1.1 (1-3); Alkaline Phosphatase 106 U/L (35-149); Anion Gap 9 mmol/L (2-16); Blood Urea Nitrogen 12 mg/dL (6-24); C Reactive Protein 86.39 mg/L (<8.01); CO2 Carbon Dioxide 30 mmol/L (22-32); Calcium 9.2 mg/dL (8.6-10.3); Chloride 100 mmol/L (101-111); Creatinine, Serum 1.14 mg/dL (0.51-0.95); Globulin 3.6 g/dL (2-4); Glucose 80 mg/dL (70-100); Lipase < 10 U/L (11.0-82.0); Magnesium 1.7 mg/dL (1.9-2.7); Phosphorus 4.3 mg/dL (2.5-5.0); Potassium 4.7 mmol/L (3.5-5.0); Sodium 139 mmol/L (135-145); Total Bilirubin 0.2 mg/dL (0.2-1.0); Total Protein 7.5 g/dL (6.4-8.9); eGFR CKD-EPI 52.1 (>60)
[2024-01-17] MEDS: Piperacillin/Tazobac 3.375 BAG 3.375 GM/100 ML BAG IV ONE (21:50)
[2024-01-17 22:50] LABS: High Sensitivity Troponin 1 Hr 4 pg/mL (<15)
[2024-01-17] MEDS: Morphine ORAL.SOLN 10 mg 2 mg/ml UDC 5 ml (10 mg) PO PRN (23:58)
[2024-01-18] MEDS: cefTRIAXone 1 gm/50 mL D5W 1 GM/50 ML BAG IV SCH (01:05)
[2024-01-18] MEDS: Butalb/Acetamin/Caff TAB 325-50-40MG PO PRN (01:36)
[2024-01-18 05:04] LABS: Calcium 9.3 mg/dL (8.6-10.3); Creatinine, Serum 1.08 mg/dL (0.51-0.95); eGFR CKD-EPI 55.6 (>60)
[2024-01-18 05:33] LABS: ABS Lymphocytes 0.9 10^3/uL (1.0-4.8); ABS Monocytes 0.1 10^3/uL (0.0-0.9); ABS Neutrophils 7.6 10^3/uL (1.5-7.6); ABS Nucleated RBC 0.01 10^3/ul; Hematocrit 32.5 % (35-45); Hemoglobin 10.6 g/dL (11.5-14.3); Lymphocyte % 10.9 %; Mean Corpuscular Hemoglobin 25.6 pg (27-33); Mean Corpuscular Hgb Conc 32.6 g/dL (31-36); Mean Corpuscular Volume 78.6 fL (80-97); Mean Platelet Volume 7.8 fL (7.5-11.2); Nucleated Red Blood Cells % 0.1 %/100WBC (0.0-0.8); Platelet Count 248 10^3/uL (150-450); Red Blood Count 4.13 10^6/uL (3.63-4.92); Red Cell Distribution Width 18.9 % (12-17); White Blood Count 8.6 10^3/uL (3.8-11.8)
[2024-01-18] MEDS: Heparin 5000 UNITS/ML 1 mL VIAL SUBCUT SCH (08:05)
[2024-01-18] MEDS: Methadone ORALSYR CONC LIQ 10 MG/ML PO SCH (08:06)
[2024-01-18] MEDS: Tiotropium Brom/Olodaterol MDI (ACUTE) INH SCH (08:55)
[2024-01-18] MEDS ORDERED: Metoclopramide 5 MG/ML VIAL (10 mg) IV PRN ×2 (09:30→09:32)
[2024-01-18] MEDS: Albuterol/Ipratropium NEB.SOL (2.5/0.5 MG) 3 ML NEB.SOLN INH PRN (11:01)
[2024-01-18] MEDS: Calamine LOTION BTL TOPICAL SCH (20:31)
[2024-01-19] MEDS: Albuterol HFA INHALER 8 gm MDI INH PRN (04:47)
[2024-01-19 05:20] LABS: ABS Basophils 0.1 10^3/uL (0.0-0.1); ABS Eosinophils 0.1 10^3/uL (0.0-0.5); ABS Lymphocytes 2.9 10^3/uL (1.0-4.8); ABS Monocytes 0.5 10^3/uL (0.0-0.9); ABS Neutrophils 4.3 10^3/uL (1.5-7.6); Eosinophil % 1.1 %; Hematocrit 30.6 % (35-45); Hemoglobin 9.9 g/dL (11.5-14.3); Lymphocyte % 37.3 %; Mean Corpuscular Hemoglobin 25.5 pg (27-33); Mean Corpuscular Hgb Conc 32.2 g/dL (31-36); Mean Platelet Volume 7.8 fL (7.5-11.2); Platelet Count 283 10^3/uL (150-450); Red Blood Count 3.87 10^6/uL (3.63-4.92); Red Cell Distribution Width 18.6 % (12-17); White Blood Count 7.8 10^3/uL (3.8-11.8)
[2024-01-19 05:57] LABS: Calcium 9.3 mg/dL (8.6-10.3); Creatinine, Serum 1.02 mg/dL (0.51-0.95); Potassium 4.4 mmol/L (3.5-5.0); eGFR CKD-EPI 59.6 (>60)
[2024-01-19 12:12] VITALS: BP 116/75
== END 2024-01-19 13:00 | disposition home or self-care (01) | DRG 189 ==
LOC: ED 20:25 → EDHOLD 21:49 → SUATTDRO 21:49 → ICU 23:13
PROVIDERS: ADMIT Internal Medicine; ATTEND Surgery Surgical Critical Care

== ENCOUNTER 2024-02-15 11:38 | Observation (INO) ==
[2024-02-15] MEDS: Albuterol/Ipratropium NEB.SOL (2.5/0.5 MG) 3 ML NEB.SOLN INH ONE ×2 (13:41→15:21)
[2024-02-15] MEDS: Ondansetron 4 mg VIAL 2 MG/ML 2 ml VIAL IV ONE (14:09)
[2024-02-15] MEDS: methylPREDNISolone SOD SUCC 125 mg 2 ML VIAL IV ONE (14:09)
[2024-02-15 14:23] LABS: ABS Basophils 0.1 10^3/uL (0.0-0.1); ABS Eosinophils 0.1 10^3/uL (0.0-0.5); ABS Lymphocytes 1.6 10^3/uL (1.0-4.8); ABS Monocytes 0.5 10^3/uL (0.0-0.9); ABS Neutrophils 7.6 10^3/uL (1.5-7.6); ABS Nucleated RBC 0.01 10^3/ul; Hematocrit 32.6 % (35-45); Hemoglobin 10.5 g/dL (11.5-14.3); Lymphocyte % 16.3 %; Mean Corpuscular Hemoglobin 25.3 pg (27-33); Mean Corpuscular Hgb Conc 32.1 g/dL (31-36); Mean Corpuscular Volume 78.6 fL (80-97); Mean Platelet Volume 7.9 fL (7.5-11.2); Nucleated Red Blood Cells % 0.1 %/100WBC (0.0-0.8); Platelet Count 233 10^3/uL (150-450); Red Blood Count 4.15 10^6/uL (3.63-4.92); Red Cell Distribution Width 18.1 % (12-17); White Blood Count 9.9 10^3/uL (3.8-11.8)
[2024-02-15 14:45] LABS: High Sens Troponin Baseline 35 pg/mL (<15)
[2024-02-15 14:54] LABS: Activated Partial Thrombo Time 30.3 seconds (26.0-38.0)
[2024-02-15 15:09] LABS: ALT 17 U/L (7-52); Albumin 4.1 g/dL (3.2-5.2); Albumin/Globulin Ratio 1.3 (1-3); Alkaline Phosphatase 109 U/L (35-149); Anion Gap 4 mmol/L (2-16); Blood Urea Nitrogen 15 mg/dL (6-24); C Reactive Protein 43.69 mg/L (<8.01); CO2 Carbon Dioxide 35 mmol/L (22-32); Calcium 9.5 mg/dL (8.6-10.3); Chloride 97 mmol/L (101-111); Creatinine, Serum 0.88 mg/dL (0.51-0.95); Globulin 3.2 g/dL (2-4); Glucose 95 mg/dL (70-100); Sodium 136 mmol/L (135-145); Total Bilirubin 0.3 mg/dL (0.2-1.0); Total Protein 7.3 g/dL (6.4-8.9); eGFR CKD-EPI 71.1 (>60)
[2024-02-15] MEDS: Furosemide 40 mg/4 ml IV VIAL IV SLOW PU ONE (15:24)
[2024-02-15 15:45] LABS: Potassium Redraw 3.1 mmol/L (3.5-5.0)
[2024-02-15 17:14] LABS: Venous Bicarbonate HCO3 25.4 mmol/L (24-28)
[2024-02-15] MEDS: DOXYcycline 100 MG in NS 0.9% 250 ml 250 ML IVPB ONE (17:22)
[2024-02-15] MEDS: Butalb/Acetamin/Caff TAB 325-50-40MG PO ONE (17:27)
[2024-02-15] MEDS ORDERED: Albuterol/Ipratropium NEB.SOL (2.5/0.5 MG) 3 ML NEB.SOLN INH PRN (18:38)
[2024-02-15] MEDS: Albuterol 2.5mg/3 ml (0.083%) NEB.SOLN INH SCH (19:21)
[2024-02-15 20:33] LABS: Magnesium 1.3 mg/dL (1.9-2.7); Phosphorus 3.2 mg/dL (2.5-5.0)
[2024-02-15] MEDS: Potassium Chloride LIQUID 20 MEQ/15 ML LIQUID PO ONE (21:06)
[2024-02-15] MEDS: methylPREDNISolone SOD SUCC 40 mg/ml 1 ml VIAL IV SCH (21:07)
[2024-02-15] MEDS: Enoxaparin 40 MG/0.4 ML SYR SUBCUT SCH (21:07)
[2024-02-15] MEDS: cefTRIAXone 1 gm/50 mL D5W 1 GM/50 ML BAG IV SCH (21:10)
[2024-02-15] MEDS: NF:BUDESONIDE/GLYCOPYR/FORMOTEROL MDI (NF) INH SCH (22:22)
[2024-02-15] MEDS: Magnesium Sulf 4 GM/100 ML IV 4,000 MG/100 ML BAG IVPB ONE (23:11)
[2024-02-16 05:12] LABS: ABS Basophils 0.1 10^3/uL (0.0-0.1); ABS Lymphocytes 0.8 10^3/uL (1.0-4.8); ABS Monocytes 0.1 10^3/uL (0.0-0.9); ABS Nucleated RBC 0.01 10^3/ul; Hematocrit 35.2 % (35-45); Hemoglobin 11.3 g/dL (11.5-14.3); Lymphocyte % 11.7 %; Mean Corpuscular Hgb Conc 32.2 g/dL (31-36); Mean Corpuscular Volume 77.5 fL (80-97); Mean Platelet Volume 7.7 fL (7.5-11.2); Nucleated Red Blood Cells % 0.1 %/100WBC (0.0-0.8); Platelet Count 218 10^3/uL (150-450); Red Blood Count 4.54 10^6/uL (3.63-4.92); Red Cell Distribution Width 18.9 % (12-17)
[2024-02-16] MEDS: DOXYcycline 100 MG in NS 0.9% 250 ml 250 ML IVPB SCH (05:26)
[2024-02-16 05:53] LABS: % Iron Saturation 4 % (15-55); .Transferrin 322 mg/dL (203-362); ALT 15 U/L (7-52); AST 16 U/L (13-39); Albumin 4.2 g/dL (3.2-5.2); Albumin/Globulin Ratio 1.2 (1-3); Alkaline Phosphatase 109 U/L (35-149); Anion Gap 8 mmol/L (2-16); Blood Urea Nitrogen 23 mg/dL (6-24); CO2 Carbon Dioxide 35 mmol/L (22-32); Calcium 9.8 mg/dL (8.6-10.3); Chloride 95 mmol/L (101-111); Creatinine, Serum 1.09 mg/dL (0.51-0.95); Globulin 3.4 g/dL (2-4); Glucose 146 mg/dL (70-100); Iron < 20 ug/dL (50-212); Magnesium 3.4 mg/dL (1.9-2.7); Potassium 4.6 mmol/L (3.5-5.0); Sodium 138 mmol/L (135-145); Total Bilirubin 0.2 mg/dL (0.2-1.0); Total Iron Binding Capacity 451 mcg/dL (250-450); Total Protein 7.6 g/dL (6.4-8.9); Unsaturated Iron Binding 431 ug/dL
[2024-02-16 06:20] LABS: Ferritin 9.4 ng/mL (11-307)
[2024-02-16] MEDS: Albuterol/Ipratropium NEB.SOL (2.5/0.5 MG) 3 ML NEB.SOLN INH SCH ×2 (09:18→11:22)
[2024-02-16] MEDS: Butalb/Acetamin/Caff TAB 325-50-40MG PO PRN (09:51)
[2024-02-16] MEDS: Nicotine PATCH 7 MG/24 HR PATCH TRANSDERM SCH (09:53)
[2024-02-16] MEDS: Ondansetron 4 mg VIAL 2 MG/ML 2 ml VIAL IV ONE (11:59)
[2024-02-16] MEDS: Ferric Gluconate IV 250 MG in NS 0.9% 250 ml 200 ML IVPB SCH (15:42)
[2024-02-16] MEDS: Butalb/Acetamin/Caff TAB 325-50-40MG PO ONE (17:03)
[2024-02-17 06:28] LABS: ABS Basophils 0.1 10^3/uL (0.0-0.1); ABS Lymphocytes 1.2 10^3/uL (1.0-4.8); ABS Monocytes 0.6 10^3/uL (0.0-0.9); ABS Neutrophils 9.9 10^3/uL (1.5-7.6); ABS Nucleated RBC 0.01 10^3/ul; Hematocrit 33.4 % (35-45); Hemoglobin 10.6 g/dL (11.5-14.3); Mean Corpuscular Hemoglobin 24.8 pg (27-33); Mean Corpuscular Hgb Conc 31.6 g/dL (31-36); Mean Corpuscular Volume 78.3 fL (80-97); Mean Platelet Volume 7.8 fL (7.5-11.2); Nucleated Red Blood Cells % 0.1 %/100WBC (0.0-0.8); Platelet Count 203 10^3/uL (150-450); Red Blood Count 4.27 10^6/uL (3.63-4.92); Red Cell Distribution Width 19.1 % (12-17); White Blood Count 11.7 10^3/uL (3.8-11.8)
[2024-02-17 07:42] LABS: Anion Gap 12 mmol/L (2-16); Blood Urea Nitrogen 38 mg/dL (6-24); CO2 Carbon Dioxide 29 mmol/L (22-32); Calcium 9.6 mg/dL (8.6-10.3); Chloride 99 mmol/L (101-111); Creatinine, Serum 1.04 mg/dL (0.51-0.95); Glucose 115 mg/dL (70-100); Sodium 140 mmol/L (135-145); eGFR CKD-EPI 58.2 (>60)
[2024-02-17 09:59] LABS: Potassium, Whole Blood 4.6 mmol/L (3.4-4.5)
[2024-02-17 10:18] VITALS: BP 155/86
[2024-02-17] MEDS ORDERED: Albuterol/Ipratropium NEB.SOL (2.5/0.5 MG) 3 ML NEB.SOLN INH PRN (11:33)
== END 2024-02-17 12:55 | disposition home or self-care (01) ==
LOC: EDHOLD 11:38 → ED 11:38 → SUATTDRO 17:26 → MED 18:10
PROVIDERS: ADMIT Internal Medicine; ATTEND Internal Medicine

== ENCOUNTER 2024-02-22 01:04 | Inpatient (IN) ==
[2024-02-22] MEDS: Albuterol 2.5mg/3 ml (0.083%) NEB.SOLN INH ONE ×3 (01:37→06:32)
[2024-02-22 03:14] LABS: Hematocrit 35.6 % (35-45); Hemoglobin 11.5 g/dL (11.5-14.3); Mean Corpuscular Hemoglobin 25.1 pg (27-33); Mean Corpuscular Hgb Conc 32.2 g/dL (31-36); Mean Corpuscular Volume 77.9 fL (80-97); Red Blood Count 4.57 10^6/uL (3.63-4.92); Red Cell Distribution Width 18.3 % (12-17); White Blood Count 15.5 10^3/uL (3.8-11.8)
[2024-02-22] MEDS ORDERED: Butalb/Acetamin/Caff TAB 325-50-40MG ONE (03:34)
[2024-02-22 03:39] LABS: ABS Basophils 0.1 10^3/uL (0.0-0.1); ABS Eosinophils 0.3 10^3/uL (0.0-0.5); ABS Lymphocytes 2.8 10^3/uL (1.0-4.8); ABS Monocytes 0.8 10^3/uL (0.0-0.9); ABS Neutrophils 11.6 10^3/uL (1.5-7.6); ABS Nucleated RBC 0.03 10^3/ul; Eosinophil % 1.8 %; Mean Platelet Volume 7.5 fL (7.5-11.2); Nucleated Red Blood Cells % 0.2 %/100WBC (0.0-0.8); Platelet Count 233 10^3/uL (150-450)
[2024-02-22] MEDS: Butalb/Acetamin/Caff TAB 325-50-40MG PO ONE (03:39)
[2024-02-22 03:48] LABS: ALT 13 U/L (7-52); Albumin/Globulin Ratio 1.3 (1-3); Alkaline Phosphatase 101 U/L (35-149); Anion Gap 8 mmol/L (2-16); Blood Urea Nitrogen 21 mg/dL (6-24); CO2 Carbon Dioxide 34 mmol/L (22-32); Calcium 9.1 mg/dL (8.6-10.3); Chloride 96 mmol/L (101-111); Creatinine, Serum 0.82 mg/dL (0.51-0.95); Glucose 91 mg/dL (70-100); Sodium 138 mmol/L (135-145); Total Bilirubin 0.3 mg/dL (0.2-1.0); eGFR CKD-EPI 77.4 (>60)
[2024-02-22] MEDS: methylPREDNISolone SOD SUCC 125 mg 2 ML VIAL IV ONE (05:57)
[2024-02-22 07:36] LABS: Venous Bicarbonate HCO3 33.8 mmol/L (24-28)
[2024-02-22] MEDS ORDERED: Polyethylene Glycol 3350 17 GM PACKET PO PRN (08:21)
[2024-02-22] MEDS ORDERED: Senna TAB 8.6 mg TAB PO PRN (08:21)
[2024-02-22 08:26] LABS: Potassium Redraw 5.2 mmol/L (3.5-5.0)
[2024-02-22] MEDS ORDERED: Nicotine GUM 2MG FRUIT FLAVOR PO PRN (09:10)
[2024-02-22] MEDS: Enoxaparin 40 MG/0.4 ML SYR SUBCUT SCH (09:21)
[2024-02-22] MEDS: Methadone ORALSYR CONC LIQ 10 MG/ML PO SCH (09:22)
[2024-02-22] MEDS: Nicotine PATCH 14 MG/24 HR PATCH TRANSDERM SCH (10:10)
[2024-02-22] MEDS: Albuterol/Ipratropium NEB.SOL (2.5/0.5 MG) 3 ML NEB.SOLN INH SCH ×2 (11:13→19:21)
[2024-02-22] MEDS: Ondansetron 4 mg VIAL 2 MG/ML 2 ml VIAL IV PRN (11:15)
[2024-02-22] MEDS: GLYCOPYRROLATE INH SCH (12:36)
[2024-02-22] MEDS: FORMOTEROL INH SCH (12:36)
[2024-02-22] MEDS: BUDESONIDE INH SCH (12:36)
[2024-02-22] MEDS: Butalb/Acetamin/Caff TAB 325-50-40MG PO PRN (12:47)
[2024-02-22] MEDS: FLUTICAS/UMECLI/VILANT 200-62.5-25 MDI (NF) INH SCH (13:26)
[2024-02-22] MEDS: FLUTICAS/UMECLI/VILANT 100-62.5-25 MDI (NF) INH SCH (14:36)
[2024-02-22] MEDS: Prochlorperazine 5 mg/ml 2 ml VIAL (10 mg) IV PRN (22:08)
[2024-02-22] MEDS: Senna TAB 8.6 mg TAB PO SCH (22:14)
[2024-02-23] MEDS: Albuterol HFA INHALER 8 gm MDI INH PRN (01:24)
[2024-02-23] MEDS: Albuterol 2.5mg/3 ml (0.083%) NEB.SOLN INH ONE ×2 (04:28→04:33)
[2024-02-23 09:20] LABS: Hematocrit 34.6 % (35-45); Mean Corpuscular Hemoglobin 24.7 pg (27-33); Mean Corpuscular Hgb Conc 31.7 g/dL (31-36); Mean Corpuscular Volume 77.7 fL (80-97); Mean Platelet Volume 7.4 fL (7.5-11.2); Platelet Count 222 10^3/uL (150-450); Red Blood Count 4.46 10^6/uL (3.63-4.92); Red Cell Distribution Width 18.7 % (12-17); White Blood Count 10.1 10^3/uL (3.8-11.8)
[2024-02-23 09:33] LABS: Calcium 9.6 mg/dL (8.6-10.3); Creatinine, Serum 0.88 mg/dL (0.51-0.95); Potassium 4.8 mmol/L (3.5-5.0); eGFR CKD-EPI 71.1 (>60)
[2024-02-23] MEDS: Butalb/Acetamin/Caff TAB 325-50-40MG PO PRN (11:20)
[2024-02-24] MEDS: Albuterol 2.5mg/3 ml (0.083%) NEB.SOLN INH PRN (00:44)
[2024-02-24] MEDS ORDERED: Albuterol/Ipratropium NEB.SOL (2.5/0.5 MG) 3 ML NEB.SOLN INH PRN (07:42)
[2024-02-24] MEDS: Albuterol 2.5mg/3 ml (0.083%) NEB.SOLN INH SCH ×2 (08:00→08:44)
[2024-02-24] MEDS: Albuterol 2.5mg/3 ml (0.083%) NEB.SOLN INH ONE (13:28)
[2024-02-24] MEDS: Al Hydrox/Mg Hydrox/Simet LIQ 30 ML UDC PO PRN (18:32)
[2024-02-25] MEDS: Albuterol HFA INHALER 8 gm MDI INH PRN ×3 (01:13→20:10)
[2024-02-25] MEDS ORDERED: Albuterol/Ipratropium NEB.SOL (2.5/0.5 MG) 3 ML NEB.SOLN INH PRN (09:55)
[2024-02-25] MEDS: Nystatin SUSPENSION 100,000 UNITS/ML UDC PO SCH (11:10)
[2024-02-25] MEDS: Albuterol 2.5mg/3 ml (0.083%) NEB.SOLN INH SCH (19:21)
[2024-02-26] MEDS: Albuterol/Ipratropium NEB.SOL (2.5/0.5 MG) 3 ML NEB.SOLN INH PRN (03:43)
[2024-02-26 09:55] VITALS: BP 139/65
== END 2024-02-26 13:40 | disposition home health service (06) | DRG 190 ==
LOC: ED 01:04 → EDHOLD 01:04 → MED 20:25
PROVIDERS: ADMIT Internal Medicine; ATTEND Internal Medicine

== ENCOUNTER 2024-02-26 18:52 | Inpatient (IN) ==
[2024-02-26] MEDS: Albuterol (2.5 MG) 0.5 % CONC 0.5 ML NEB.SOLN INH ONE (19:08)
[2024-02-26] MEDS: Albuterol/Ipratropium NEB.SOL (2.5/0.5 MG) 3 ML NEB.SOLN INH ONE ×2 (19:09→21:02)
[2024-02-26 19:31] LABS: PO2 Arterial 70 mmHg (80-100)
[2024-02-26 19:37] LABS: PCO2 Arterial 73 mmHg (35-45)
[2024-02-26] MEDS: Magnesium Sulfate 2 gm BAG 2 GM/50 ML BAG IVPB ONE (19:40)
[2024-02-26] MEDS: Acetaminophen IV 1 GM/100ML 1,000 MG/100 ML BAG IV ONE (20:03)
[2024-02-26 20:12] LABS: Albumin/Globulin Ratio 1.3 (1-3); C Reactive Protein 54.11 mg/L (<8.01); Calcium 9.3 mg/dL (8.6-10.3); Creatinine, Serum 0.83 mg/dL (0.51-0.95); Magnesium 1.9 mg/dL (1.9-2.7); Potassium 5.1 mmol/L (3.5-5.0); Total Bilirubin 0.2 mg/dL (0.2-1.0); eGFR CKD-EPI 76.3 (>60)
[2024-02-26] MEDS: Cefepime 1 GM in Dextrose 1 GM/50 ML BAG IV ONE (20:37)
[2024-02-26] MEDS: Morphine 2 MG/ML SYRINGE IV ONE (21:06)
[2024-02-26 21:16] LABS: High Sensitivity Troponin 1 Hr 39 pg/mL (<15)
[2024-02-26 21:26] LABS: Mean Corpuscular Hemoglobin 24.6 pg (27-33); Mean Corpuscular Hgb Conc 31.5 g/dL (31-36); Mean Corpuscular Volume 77.9 fL (80-97); Mean Platelet Volume 7.5 fL (7.5-11.2); Platelet Count 240 10^3/uL (150-450); Red Blood Count 4.49 10^6/uL (3.63-4.92); Red Cell Distribution Width 19.4 % (12-17); White Blood Count 13.3 10^3/uL (3.8-11.8)
[2024-02-26 22:02] LABS: ABS Basophils 0.1 10^3/uL (0.0-0.1); ABS Lymphocytes 0.8 10^3/uL (1.0-4.8); ABS Monocytes 0.5 10^3/uL (0.0-0.9); ABS Neutrophils 11.9 10^3/uL (1.5-7.6)
[2024-02-26] MEDS: Iohexol 350 (CONTRAST) 500 ML MDV IV ONE (23:16)
[2024-02-27] MEDS: Morphine 2 MG/ML SYRINGE IV ONE (00:05)
[2024-02-27] MEDS: Albuterol 2.5mg/3 ml (0.083%) NEB.SOLN INH ONE (01:16)
[2024-02-27] MEDS: methylPREDNISolone SOD SUCC 125 mg 2 ML VIAL IV ONE (01:42)
[2024-02-27] MEDS: Ondansetron 4 mg VIAL 2 MG/ML 2 ml VIAL IV PRN (01:57)
[2024-02-27] MEDS ORDERED: hydrALAZINE 20 mg/ml 1 ML Vial IV IV SLOW PU SCH (02:00)
[2024-02-27 02:13] LABS: Venous Bicarbonate HCO3 32.9 mmol/L (24-28)
[2024-02-27] MEDS: Butalb/Acetamin/Caff TAB 325-50-40MG PO ONE (02:14)
[2024-02-27] MEDS: fentaNYL INFUSION 50 mcg/mL VL 2,500 MCG/50 ML VIAL IV SCH (03:21)
[2024-02-27] MEDS: Albuterol 2.5mg/3 ml (0.083%) NEB.SOLN INH PRN (03:34)
[2024-02-27] MEDS: Norepinephrine 4 MG/250mL D5W 4,000 MCG/250 ML BAG IV SCH (03:40)
[2024-02-27] MEDS: Propofol 10 mg/ml 100 ML BTL 1,000 MG/100 ML BTL IV SCH (03:40)
[2024-02-27] MEDS: Midazolam 5 mg/5 ml VIAL 1 mg/ml 5 ml VIAL (5 mg) IV SLOW PU PRN (04:05)
[2024-02-27] MEDS: Succinylcholine 200 mg VIAL 20 mg/ml 10 ml VIAL (200 mg) IV ONE (04:30)
[2024-02-27] MEDS: Ketamine HCL 50 mg/ml 10 ml VIAL (500 MG) IV ONE (04:30)
[2024-02-27] MEDS: Propofol 10 mg/ml 100 ML BTL 1,000 MG/100 ML BTL ONE (04:55)
[2024-02-27] MEDS: Chlorhexidine MOUTHWASH 0.12% 15 ML UDC TOPICAL SCH (04:59)
[2024-02-27] MEDS: Enoxaparin 40 MG/0.4 ML SYR SUBCUT SCH (05:03)
[2024-02-27] MEDS: Midazolam 5 mg/5 ml VIAL 1 mg/ml 5 ml VIAL (5 mg) IV SLOW PU ONE (05:26)
[2024-02-27] MEDS: Midazolam 5 mg/5 ml VIAL 1 mg/ml 5 ml VIAL (5 mg) ONE (05:27)
[2024-02-27] MEDS: Midazolam PREMIXBAG 1 MG/ML NS 100 ML IV SCH (07:10)
[2024-02-27 08:41] LABS: Resp Rate 20
[2024-02-27 08:43] LABS: PCO2 Arterial 57 mmHg (35-45); PO2 Arterial 93 mmHg (80-100)
[2024-02-27] MEDS ORDERED: Methadone ORALSYR CONC LIQ 10 MG/ML PO SCH (09:00)
[2024-02-27] MEDS ORDERED: NF: BUDESONIDE/GLYCOPYR/FORMOTEROL MDI (NF) INH SCH (09:00)
[2024-02-27] MEDS: methylPREDNISolone SOD SUCC 40 mg/ml 1 ml VIAL IV SCH (09:15)
[2024-02-27] MEDS: cefTRIAXone 1 gm/50 mL D5W 1 GM/50 ML BAG IV SCH (09:16)
[2024-02-27] MEDS: Pantoprazole VIAL 40 MG VIAL IV SCH (09:16)
[2024-02-27 10:10] LABS: Urine Appearance Clear; Urine Bilirubin Negative (Negative); Urine Blood Negative (Negative); Urine Color Colorless; Urine Glucose 3+ (>=300 mg/dL) (Negative); Urine Ketones Negative (Negative); Urine Nitrite Negative (Negative); Urine Protein Negative (Negative); Urine Specific Gravity 1.007 (1.002-1.030); Urine Urobilinogen Negative (Negative)
[2024-02-27 13:46] LABS: ABS Basophils 0.1 10^3/uL (0.0-0.1); ABS Lymphocytes 0.9 10^3/uL (1.0-4.8); ABS Monocytes 0.7 10^3/uL (0.0-0.9); ABS Neutrophils 10.3 10^3/uL (1.5-7.6); ABS Nucleated RBC 0.02 10^3/ul; Hematocrit 32.5 % (35-45); Hemoglobin 10.4 g/dL (11.5-14.3); Lymphocyte % 7.3 %; Mean Corpuscular Hemoglobin 24.4 pg (27-33); Mean Corpuscular Hgb Conc 31.8 g/dL (31-36); Mean Corpuscular Volume 76.6 fL (80-97); Mean Platelet Volume 7.6 fL (7.5-11.2); Nucleated Red Blood Cells % 0.1 %/100WBC (0.0-0.8); Platelet Count 258 10^3/uL (150-450); Red Blood Count 4.25 10^6/uL (3.63-4.92); Red Cell Distribution Width 19.6 % (12-17); White Blood Count 11.9 10^3/uL (3.8-11.8)
[2024-02-27] MEDS: Methadone ORALSYR CONC LIQ 10 MG/ML G TUBE ONE (13:49)
[2024-02-27 14:21] LABS: Albumin 3.6 g/dL (3.2-5.2); Albumin/Globulin Ratio 1.3 (1-3); Calcium 9.4 mg/dL (8.6-10.3); Creatinine, Serum 1.01 mg/dL (0.51-0.95); Globulin 2.8 g/dL (2-4); Magnesium 2.1 mg/dL (1.9-2.7); Potassium 4.6 mmol/L (3.5-5.0); Total Bilirubin 0.2 mg/dL (0.2-1.0); Total Protein 6.4 g/dL (6.4-8.9); eGFR CKD-EPI 60.3 (>60)
[2024-02-27] MEDS ORDERED: Senna TAB 8.6 mg TAB PO SCH (21:00)
[2024-02-28 08:03] LABS: ABS Basophils 0.2 10^3/uL (0.0-0.1); ABS Lymphocytes 1.5 10^3/uL (1.0-4.8); ABS Monocytes 0.8 10^3/uL (0.0-0.9); ABS Neutrophils 9.4 10^3/uL (1.5-7.6); ABS Nucleated RBC 0.02 10^3/ul; Hematocrit 31.8 % (35-45); Hemoglobin 10.4 g/dL (11.5-14.3); Lymphocyte % 12.7 %; Mean Corpuscular Hemoglobin 24.9 pg (27-33); Mean Corpuscular Hgb Conc 32.6 g/dL (31-36); Mean Corpuscular Volume 76.4 fL (80-97); Mean Platelet Volume 7.6 fL (7.5-11.2); Nucleated Red Blood Cells % 0.1 %/100WBC (0.0-0.8); Platelet Count 234 10^3/uL (150-450); Red Blood Count 4.16 10^6/uL (3.63-4.92); Red Cell Distribution Width 19.9 % (12-17); White Blood Count 11.9 10^3/uL (3.8-11.8)
[2024-02-28 08:40] LABS: ALT 12 U/L (7-52); Albumin 3.6 g/dL (3.2-5.2); Albumin/Globulin Ratio 1.3 (1-3); Alkaline Phosphatase 74 U/L (35-149); Anion Gap 8 mmol/L (2-16); Blood Urea Nitrogen 26 mg/dL (6-24); CO2 Carbon Dioxide 35 mmol/L (22-32); Calcium 9.1 mg/dL (8.6-10.3); Chloride 96 mmol/L (101-111); Creatinine, Serum 0.93 mg/dL (0.51-0.95); Globulin 2.7 g/dL (2-4); Glucose 118 mg/dL (70-100); Sodium 139 mmol/L (135-145); Total Bilirubin 0.2 mg/dL (0.2-1.0); Total Protein 6.3 g/dL (6.4-8.9); eGFR CKD-EPI 66.5 (>60)
[2024-02-28 08:58] LABS: Potassium, Whole Blood 4.7 mmol/L (3.4-4.5)
[2024-02-28 10:26] LABS: PCO2 Arterial 46 mmHg (35-45); PO2 Arterial 94 mmHg (80-100)
[2024-02-28] MEDS: Albuterol/Ipratropium NEB.SOL (2.5/0.5 MG) 3 ML NEB.SOLN INH SCH ×2 (10:40→19:15)
[2024-02-28] MEDS: Albuterol/Ipratropium NEB.SOL (2.5/0.5 MG) 3 ML NEB.SOLN ONE ×2 (10:45→19:15)
[2024-02-28] MEDS: EPINEPHrine,Rac 2.25% NEB.SOL 0.5 ML INH ONE (12:01)
[2024-02-28] MEDS: LORazepam 2 MG/ML 1 mL Syringe IV ONE (14:20)
[2024-02-28] MEDS: diazePAM INJ CARPUJECT 5 MG/ML SYRINGE IV ONE (14:47)
[2024-02-28] MEDS: Ondansetron 4 mg VIAL 2 MG/ML 2 ml VIAL ONE (14:53)
[2024-02-28] MEDS: Ondansetron 4 mg VIAL 2 MG/ML 2 ml VIAL IV PRN (14:53)
[2024-02-28] MEDS: methylPREDNISolone SOD SUCC 125 mg 2 ML VIAL IV ONE (14:56)
[2024-02-28] MEDS: methylPREDNISolone SOD SUCC 125 mg 2 ML VIAL ONE (14:57)
[2024-02-28] MEDS ORDERED: Midazolam 10 mg/10 ml VIAL 1 mg/ml 10 ml VIAL (10 mg) ONE (15:33)
[2024-02-28] MEDS ORDERED: Etomidate 40 mg/20 ml (2 MG/ML) 20 ml VIAL (40 mg) ONE (15:33)
[2024-02-28] MEDS ORDERED: Rocuronium 50 mg VIAL 10 mg/ml 5 ml VIAL (50 mg) ONE (15:33)
[2024-02-28] MEDS: Rocuronium 50 mg VIAL 10 mg/ml 5 ml VIAL (50 mg) ONE (18:03)
[2024-02-28] MEDS: Lidocaine 1% VIAL 10 MG/ML 30 ML VIAL ONE (18:04)
[2024-02-28] MEDS: methylPREDNISolone SOD SUCC 125 mg 2 ML VIAL IV SCH (20:05)
[2024-02-28 20:41] LABS: PCO2 Arterial 51 mmHg (35-45); PO2 Arterial 83 mmHg (80-100)
[2024-02-29 04:57] LABS: ABS Lymphocytes 1.3 10^3/uL (1.0-4.8); ABS Monocytes 0.4 10^3/uL (0.0-0.9); ABS Neutrophils 6.7 10^3/uL (1.5-7.6); ABS Nucleated RBC 0.01 10^3/ul; Hematocrit 31.5 % (35-45); Hemoglobin 10.3 g/dL (11.5-14.3); Lymphocyte % 15.1 %; Mean Corpuscular Hgb Conc 32.7 g/dL (31-36); Mean Corpuscular Volume 76.4 fL (80-97); Mean Platelet Volume 7.7 fL (7.5-11.2); Nucleated Red Blood Cells % 0.1 %/100WBC (0.0-0.8); Platelet Count 227 10^3/uL (150-450); Red Blood Count 4.13 10^6/uL (3.63-4.92); Red Cell Distribution Width 19.3 % (12-17); White Blood Count 8.3 10^3/uL (3.8-11.8)
[2024-02-29 05:47] LABS: Albumin 3.6 g/dL (3.2-5.2); Albumin/Globulin Ratio 1.3 (1-3); Calcium 9.3 mg/dL (8.6-10.3); Creatinine, Serum 0.74 mg/dL (0.51-0.95); Globulin 2.8 g/dL (2-4); Phosphorus 4.5 mg/dL (2.5-5.0); Potassium 4.2 mmol/L (3.5-5.0); Potassium Redraw 4.2 mmol/L (3.5-5.0); Total Bilirubin 0.2 mg/dL (0.2-1.0); Total Protein 6.4 g/dL (6.4-8.9); eGFR CKD-EPI 87.5 (>60)
[2024-02-29] MEDS ORDERED: Ketamine HCL 50 mg/ml 10 ml VIAL (500 MG) ONE (12:00)
[2024-02-29] MEDS ORDERED: Midazolam 10 mg/10 ml VIAL 1 mg/ml 10 ml VIAL (10 mg) ONE (12:00)
[2024-02-29] MEDS ORDERED: Propofol 10 MG/ML 20 ML BTL ONE (12:00)
[2024-02-29] MEDS: Albuterol/Ipratropium NEB.SOL (2.5/0.5 MG) 3 ML NEB.SOLN INH PRN (19:58)
[2024-03-01 05:10] LABS: ABS Basophils 0.1 10^3/uL (0.0-0.1); ABS Monocytes 0.4 10^3/uL (0.0-0.9); ABS Neutrophils 10.1 10^3/uL (1.5-7.6); ABS Nucleated RBC 0.01 10^3/ul; Hematocrit 33.1 % (35-45); Hemoglobin 10.9 g/dL (11.5-14.3); Lymphocyte % 8.9 %; Mean Corpuscular Hemoglobin 24.9 pg (27-33); Mean Corpuscular Hgb Conc 32.9 g/dL (31-36); Mean Corpuscular Volume 75.7 fL (80-97); Mean Platelet Volume 7.5 fL (7.5-11.2); Nucleated Red Blood Cells % 0.1 %/100WBC (0.0-0.8); Platelet Count 244 10^3/uL (150-450); Red Blood Count 4.37 10^6/uL (3.63-4.92); White Blood Count 11.7 10^3/uL (3.8-11.8)
[2024-03-01 05:35] LABS: Albumin 3.8 g/dL (3.2-5.2); Albumin/Globulin Ratio 1.3 (1-3); Calcium 9.7 mg/dL (8.6-10.3); Creatinine, Serum 0.8 mg/dL (0.51-0.95); Globulin 2.9 g/dL (2-4); Magnesium 2.1 mg/dL (1.9-2.7); Phosphorus 4.3 mg/dL (2.5-5.0); Potassium 4.4 mmol/L (3.5-5.0); Total Bilirubin 0.2 mg/dL (0.2-1.0); Total Protein 6.7 g/dL (6.4-8.9); eGFR CKD-EPI 79.7 (>60)
[2024-03-01] MEDS: Nicotine PATCH 14 MG/24 HR PATCH TRANSDERM SCH (09:54)
[2024-03-01] MEDS: Dexmedetomidine 1,000 MCG in NS 0.9% 250 ml 240 ML IV SCH (09:55)
[2024-03-01] MEDS: Senna TAB 8.6 mg TAB NG TUBE SCH (16:21)
[2024-03-01] MEDS: Polyethylene Glycol 3350 17 GM PACKET NG TUBE PRN (16:21)
[2024-03-01] MEDS ORDERED: Albuterol/Ipratropium NEB.SOL (2.5/0.5 MG) 3 ML NEB.SOLN INH SCH (19:00)
[2024-03-02] MEDS: Magnesium Sulfate IV 1GM/100ML 1 GM/100 ML BAG IV ONE (03:34)
[2024-03-02 04:04] LABS: ABS Lymphocytes 1.3 10^3/uL (1.0-4.8); ABS Monocytes 0.4 10^3/uL (0.0-0.9); ABS Neutrophils 7.2 10^3/uL (1.5-7.6); Hematocrit 32.3 % (35-45); Hemoglobin 10.7 g/dL (11.5-14.3); Lymphocyte % 14.8 %; Mean Corpuscular Hemoglobin 25.1 pg (27-33); Mean Corpuscular Volume 75.9 fL (80-97); Mean Platelet Volume 7.9 fL (7.5-11.2); Platelet Count 220 10^3/uL (150-450); Red Blood Count 4.25 10^6/uL (3.63-4.92); Red Cell Distribution Width 19.8 % (12-17)
[2024-03-02 04:34] LABS: Calcium 9.5 mg/dL (8.6-10.3); Creatinine, Serum 0.74 mg/dL (0.51-0.95); Magnesium 2.4 mg/dL (1.9-2.7); Potassium 4.4 mmol/L (3.5-5.0); eGFR CKD-EPI 87.5 (>60)
[2024-03-02] MEDS: Albuterol/Ipratropium NEB.SOL (2.5/0.5 MG) 3 ML NEB.SOLN INH PRN (08:20)
[2024-03-02] MEDS: Morphine 4 MG/ML VIAL (1 ml) IV ONE (08:35)
[2024-03-02] MEDS: Morphine 4 MG/ML VIAL (1 ml) ONE (09:35)
[2024-03-03] MEDS: Lactated Ringers 1000 ml BAG 1,000 ML IV ONE (01:59)
[2024-03-03] MEDS: methylPREDNISolone SOD SUCC 40 mg/ml 1 ml VIAL IV SCH (02:07)
[2024-03-03 03:55] LABS: ABS Basophils 0.1 10^3/uL (0.0-0.1); ABS Lymphocytes 1.1 10^3/uL (1.0-4.8); ABS Monocytes 0.5 10^3/uL (0.0-0.9); ABS Neutrophils 7.3 10^3/uL (1.5-7.6); ABS Nucleated RBC 0.01 10^3/ul; Hematocrit 29.9 % (35-45); Hemoglobin 9.8 g/dL (11.5-14.3); Lymphocyte % 11.8 %; Mean Corpuscular Hemoglobin 24.9 pg (27-33); Mean Corpuscular Hgb Conc 32.6 g/dL (31-36); Mean Corpuscular Volume 76.3 fL (80-97); Mean Platelet Volume 7.4 fL (7.5-11.2); Nucleated Red Blood Cells % 0.1 %/100WBC (0.0-0.8); Platelet Count 226 10^3/uL (150-450); Red Blood Count 3.92 10^6/uL (3.63-4.92); White Blood Count 8.9 10^3/uL (3.8-11.8)
[2024-03-03] MEDS: Midazolam 5 mg/5 ml VIAL 1 mg/ml 5 ml VIAL (5 mg) IV SLOW PU ONE (04:10)
[2024-03-03 04:50] LABS: Creatinine, Serum 0.57 mg/dL (0.51-0.95); Potassium 4.6 mmol/L (3.5-5.0); eGFR CKD-EPI 98.3 (>60)
[2024-03-03] MEDS ORDERED: Nicotine PATCH 21 MG/24 HR PATCH TRANSDERM SCH (09:25)
[2024-03-03] MEDS: Haloperidol 5 mg/ml SDV IV/IM 5 MG/ML AMP ONE (20:08)
[2024-03-03] MEDS: Haloperidol 5 mg/ml SDV IV/IM 5 MG/ML AMP IV SLOW PU PRN (20:08)
[2024-03-03] MEDS: Haloperidol 5 mg/ml SDV IV/IM 5 MG/ML AMP IV SLOW PU ONE (23:26)
[2024-03-04 04:02] LABS: Hemoglobin 10.5 g/dL (11.5-14.3); Mean Corpuscular Hemoglobin 24.5 pg (27-33); Mean Corpuscular Hgb Conc 31.9 g/dL (31-36); Mean Corpuscular Volume 76.9 fL (80-97); Mean Platelet Volume 7.5 fL (7.5-11.2); Platelet Count 279 10^3/uL (150-450); Red Cell Distribution Width 19.1 % (12-17); White Blood Count 12.3 10^3/uL (3.8-11.8)
[2024-03-04] MEDS: Midazolam 5 mg/5 ml VIAL 1 mg/ml 5 ml VIAL (5 mg) ONE (04:05)
[2024-03-04 05:04] LABS: Creatinine, Serum 0.57 mg/dL (0.51-0.95); Magnesium 1.8 mg/dL (1.9-2.7); Potassium 4.1 mmol/L (3.5-5.0); eGFR CKD-EPI 98.3 (>60)
[2024-03-04] MEDS: Magnesium Sulfate 2 gm BAG 2 GM/50 ML BAG IVPB ONE (05:30)
[2024-03-04] MEDS: Magnesium Sulfate 2 gm BAG 0 GM/0 ML BAG ONE (05:56)
[2024-03-04 06:53] LABS: ABS Basophils 0.1 10^3/uL (0.0-0.1); ABS Lymphocytes 2.6 10^3/uL (1.0-4.8); ABS Monocytes 0.7 10^3/uL (0.0-0.9); ABS Neutrophils 8.9 10^3/uL (1.5-7.6); Eosinophil % 0.2 %; Lymphocyte % 20.8 %
[2024-03-04 06:54] LABS: Anisocytosis 1+; Microcytosis 1+
[2024-03-04] MEDS: fentaNYL INFUSION 50 mcg/mL VL 2,500 MCG/50 ML VIAL IV SCH (15:20)
[2024-03-04] MEDS: Midazolam 10 mg/10 ml VIAL 1 mg/ml 10 ml VIAL (10 mg) IV SLOW PU SCH (15:25)
[2024-03-04] MEDS: fentaNYL 100 mcg/2 ml 50 MCG/ML VIAL IV SLOW PU PRN (15:45)
[2024-03-04] MEDS: HYDROmorphone 1 MG/1 ML SYRINGE IV SLOW PU PRN (16:08)
[2024-03-04] MEDS: HYDROmorphone 1 MG/1 ML SYRINGE ONE ×2 (16:11→16:48)
[2024-03-04] MEDS: fentaNYL 100 mcg/2 ml 50 MCG/ML VIAL ONE (16:13)
[2024-03-04] MEDS: Midazolam 10 mg/10 ml VIAL 1 mg/ml 10 ml VIAL (10 mg) IV SLOW PU ONE (16:40)
[2024-03-04] MEDS: HYDROmorphone 1 MG/1 ML SYRINGE IV ONE (16:48)
[2024-03-04] MEDS: HYDROmorphone 1 MG/1 ML SYRINGE IV SLOW PU SCH ×2 (17:21→18:17)
[2024-03-04] MEDS: HYDROmorphone PCA *HIGH DOSE* 100 MG/20 ML PCA.SYRING PCA SCH (18:47)
[2024-03-04] MEDS: Midazolam 10 mg/10 ml VIAL 1 mg/ml 10 ml VIAL (10 mg) IV SLOW PU PRN (21:30)
[2024-03-05] MEDS ORDERED: Midazolam 5 mg/5 ml VIAL 1 mg/ml 5 ml VIAL (5 mg) IV SLOW PU PRN (03:46)
[2024-03-05] MEDS: Midazolam 5 mg/5 ml VIAL 1 mg/ml 5 ml VIAL (5 mg) IV SLOW PU PRN (04:33)
[2024-03-05] MEDS: Scopolamine 1 mg/72hr PATCH TRANSDERM SCH (06:45)
[2024-03-05] MEDS: Midazolam 10 mg/10 ml VIAL 1 mg/ml 10 ml VIAL (10 mg) IV SLOW PU PRN (08:04)
[2024-03-05] MEDS: Midazolam PREMIXBAG 1 MG/ML NS 100 ML IV SCH (10:57)
[2024-03-05] MEDS ORDERED: diazePAM INJ CARPUJECT 5 MG/ML SYRINGE IV PRN (11:15)
[2024-03-05] MEDS: diazePAM INJ CARPUJECT 5 MG/ML SYRINGE IV PRN (11:46)
[2024-03-05] MEDS: Atropine 1% (ORAL/SL) 15 ML BTL SL PRN (12:34)
[2024-03-05] MEDS: HYDROmorphone PCA 20 MG/20 ML PCA.SYRING PCA SCH (16:03)
[2024-03-05] MEDS: HYDROmorphone PCA *HIGH DOSE* 100 MG/20 ML PCA.SYRING PCA SCH (18:14)
[2024-03-06 04:04] VITALS: BP 126/101
== END 2024-03-06 07:18 | disposition expired | DRG 207 ==
LOC: ED 18:52 → EDHOLD 20:36 → ICU 02-27 01:00
PROVIDERS: ADMIT Internal Medicine Pulmonary Disease; ATTEND Internal Medicine Critical Care Medicine